=== PATIENT | female | born 1965 | race Caucasian/White ===

== ENCOUNTER 2020-01-19 17:22 | Emergency (ER) | payer OTHER, SELFPAY ==
--- NOTE | ~2020-01-19 | CT_ITS ---
EXAMINATION: CT abdomen pelvis w con EXAM DATE: 01/19/2020 18:31 INDICATION: Nausea vomiting and diarrhea. Recent test for COVID-19 TECHNIQUE: Spiral CT of the abdomen and pelvis was performed following intravenous injection of 100 m L Omnipaque 350. Axial, coronal and sagittal images were reviewed. The dose-length product (DLP) fo r this examination was 512.61 mGy-cm. The exposure was tailored according to patient size (auto mA e xposure control), and iterative reconstruction (ASIR) was used as additional dose reduction technique . There is no prior study for comparison. FINDINGS: The largest liver cyst is in the right liver lobe centrally, measures 1.8 cm. The spleen, pancreas, and adrenal glands are unremarkable. Gallbladder is unremarkable. No biliary obstruction. Portal and splenic veins are patent. Kidneys enhance symmetrically. There is no hydronephrosis. The uterus is anteverted and morphologically normal. The bladder is unremarkable. There is no ret roperitoneal or pelvic lymphadenopathy. Small nonspecific cystic nodule of soft tissue density ante rior to the pubis symphysis just right of midline measuring 1.2 x 1.0 cm, nonspecific. The appendix is normal. The stomach and small bowel are unremarkable. There is expected amount of c olonic stool. No free intraperitoneal gas. The heart is normal in size. There are no pericardial or pleural effusions. The lung bases are unremarkable. There are no osteoblastic or osteolytic les ions identified. IMPRESSION: 1. No acute cardiac pulmonary findings. 2. Small nodule of soft tissue anterior to pubis; consider follow-up nonemergent ultrasound to deter mine if this is solid or cystic. Reviewed, dictated and finalized at location A. IMPRESSION: 1. No acute cardiac pulmonary findings. 2. Small nodule of soft tissue anterior to pubis; consider follow-up nonemerge nt ultrasound to determine if this is solid or cystic.
[2020-01-19 17:27] VITALS: BP 164/95; PULSE 80; RESP 17; TEMP 36.9; O2SAT 100
--- NOTE | 2020-01-19 17:31 | ED.NAVMDI ---
HPI - Nausea/Vomiting/Diarrhea General Chief complaint: Nausea/Vomiting/Diarrhea Stated complaint: ill x 3Weeks/tested for Covid 2 days ago no result Time Seen by Provider: 01/19/20 17:31 Source: patient and family Mode of arrival: ambulatory Limitations: no limitations History of Present Illness HPI Narrative: Patient is a 54-year-old previously healthy female who presents for evaluation of nausea and diarrhea. Patient states that she generally feels unwell and has felt this way for over 2-1/2 weeks time. She states that she has had numerous episodes of watery diarrhea, no blood or mucus present. She denies any current abdominal pain or cramping. No vomiting today. No fever or chills, sore throat, rhinorrhea, loss of sense of taste or smell. Patient does not have a primary care physician, so has not followed with anyone since her former PCP retired a few years ago. She does not have any recent sick contacts. She was with her in a college aged son who does go to classes and does work outside of the home but is not having any recent illnesses or any complaints/symptoms. Patient states she feels very tired. Patient denies any cough or shortness of breath. No rashes. Related Data Home Medications Medication Instructions Recorded Confirmed estradiol-norethindrone acet tablet 01/19/20 [Amabelz] Allergies Allergy/AdvReac Type Severity Reaction Status Date / Time codeine Allergy Mild Nausea and Verified 01/19/20 17:33 Vomiting Review of Systems Review of Systems: Narrative: CONSTITUTIONAL: Denies fever, chills EYES: Denies visual changes ENT: Denies rhinorrhea, congestion, sore throat, or otalgia. CARDIOVASCULAR: Denies chest pain RESPIRATORY: Denies cough or dyspnea. GASTROINTESTINAL: Denies abdominal pain, reports nausea, vomiting and diarrhea GENITOURINARY: Denies dysuria or hematuria. SKIN: Denies rash or itching. MUSCULOSKELETAL: Denies back pain, joint pain, or myalgia. NEUROLOGIC: Denies headache, numbness, or weakness. Reports fatigue. [facility] Past Medical History Medical History Melanoma Vertigo Surgical History Surgical History History of tonsillectomy Social History Social History (Updated 01/19/20 @ 17:49 by Claribel Chin MD) Smoking status: Never smoker Alcohol intake: current Alcohol use details: Social, rarely as of late due to symptoms Substance use: never Living arrangements: with family Gender identity (if verbalized by the patient): Female Exam Narrative: Exam Narrative: GENERAL: Awake, alert, conversant HEAD: Normocephalic, atraumatic. EYES: PERRLA and EOMI. ENT: Nares clear, no rhinorrhea or epistaxis. Mucous membranes dry NECK: Supple. CHEST: No respiratory distress, breathing even and non labored HEART: Regular rate, sinus rhythm ABDOMEN:Non distended, non tender, no rebound, no guarding EXTREMITIES: Normal range of motion. No edema. SKIN: Warm, dry, no rash. NEURO:No focal deficits. Alert and oriented x3 Course Vital Signs Vital signs: Vital Signs Temperature 36.9 C 01/19/20 17:27 Pulse Rate 80 01/19/20 17:27 Respiratory Rate 17 01/19/20 17:27 Blood Pressure 164/95 H 01/19/20 17:27 Pulse Oximetry 100 01/19/20 17:27 Temperature 36.9 C 01/19/20 17:27 Pulse Rate 80 01/19/20 17:27 Respiratory Rate 17 01/19/20 17:27 Blood Pressure 164/95 H 01/19/20 17:27 Pulse Oximetry 100 01/19/20 17:27 MDM - Nausea/Vomiting/Diarrhea MDM Narrative Medical decision making narrative: Patient presenting for evaluation of fatigue and diarrhea over the past 3 weeks. At the time of assessment, ABCs are intact and vital signs are stable. Patient is not having any abdominal pain, very benign abdominal exam at the time of assessment. Laboratory results are reassuring. Patient is mildly dehydrated. She has no severe el
[2020-01-19] MEDS: SODIUM CHLORIDE 0.9% IV 1,000 ML 999 ML IV CONT (17:40)
[2020-01-19] MEDS: ONDANSETRON INJ 4 MG/2 ML VIAL IV PUSH (17:40)
[2020-01-19 17:52] LABS: Basophils Percent Auto 0.7 % (0.2-1.2); Eosinophils Percent Auto 0.4 % (0-4.4); Hematocrit 49.5 % (37.0-47.0); Hemoglobin 16.9 g/dL (12.0-15.0); Immature Granulocyte Absolute 0.01 K/mm3 (0.00-0.031); Immature Granulocyte Percent A 0.2 % (0-0.5); Lymphocytes Absolute Auto 1.16 K/mm3 (0.9-3.2); Lymphocytes Percent Auto 20.5 % (18.3-44.2); Mean Corpuscular HGB Conc 34.1 g/dl (32-36); Mean Corpuscular Hemoglobin 29.6 pg (26-34); Mean Corpuscular Volume 86.7 fl (80-100); Mean Platelet Volume 11.2 fl (7.4-10.4); Monocytes Absolute Auto 0.6 K/mm3 (0.1-0.6); Monocytes Percent Auto 9.9 % (2.6-8.5); Neutrophils Absolute Auto 3.9 K/mm3 (1.3-6.7); Neutrophils Percent Auto 68.3 % (45.5-73.1); Platelet Count Result 303 k/mm3 (150-375); Red Blood Count 5.71 M/mm3 (4.2-5.4); Red Cell Distribution Width 12.5 % (11.5-14.5); White Blood Count 5.7 K/mm3 (4.5-10.0)
[2020-01-19 18:13] LABS: Alanine Aminotransferase 15 U/L (4-35); Albumin Level 4.8 g/dL (3.5-5.1); Alkaline Phosphatase 94 U/L (38-126); Anion Gap 9 mmol/L (8-16); Aspartate Amino Transferase 20 U/L (14-36); Bilirubin,Total 0.8 mg/dL (0.2-1.3); Blood Urea Nitrogen 11 mg/dL (7-17); Calcium 9.7 mg/dL (8.4-10.2); Carbon Dioxide 28 mmol/L (22-30); Chloride 101 mmol/L (98-107); Estimated CRCL calculation 103 ml/min; Estimated Glomerular Filt Rate > 60; Glucose 117 mg/dL (65-105); Lipase 36 U/L (23-300); Sodium 138 mmol/L (137-145)
[2020-01-19 19:31] VITALS: BP 133/80; PULSE 88; RESP 18; TEMP 36.6; O2SAT 99
== END 2020-01-19 19:33 | disposition home or self-care (01) ==
PROVIDERS: Emergency Provider Emergency Medicine; PCP Family Medicine Adolescent Medicine
DX: R19.7 Diarrhea, unspecified (principal); R53.82 Chronic fatigue, unspecified; Z85.820 Personal history of malignant melanoma of skin
CPT/HCPCS: 36415; 74177; 80053; 83690; 85025; 96361; 96365; 96375; 99284; J2405; J3411; J3475; J7030; J7121; Q9967

== ENCOUNTER 2020-01-23 10:52 | Emergency (ER) | payer OTHER, SELFPAY ==
[2020-01-23] VITALS (13 sets, daily range): BP systolic 108–147; BP diastolic 70–97; PULSE 74–107; RESP 12–20; TEMP 36.8; O2SAT 97–100
--- NOTE | ~2020-01-23 | XR_ITS ---
EXAMINATION: XR chest 1V EXAM DATE: 01/23/2020 13:00 INDICATION: Brain metastases. Nausea and vomiting. TECHNIQUE: Portable AP frontal chest x-ray was obtained. There is no prior study for comparison. FINDINGS: There is approximately 7 cm mass in the left upper lobe. Probably malignancy. The lungs are otherwise clear. There are no pleural effusions. The cardiomediastinal silhouette is within normal limits. There is no pneumothorax suspected. The bones and soft tissues are unremarkable. IMPRESSION: Approximately 7 cm left upper lobe mass likely malignancy. I discussed this mass, brain metastatic disease and recommendation with Sandra Christensen MD at 2019 13:07 CDT. Reviewed, dictated and finalized at location A. IMPRESSION: Approximately 7 cm left upper lobe mass likely malignancy. I discussed this mass, brain metastatic disease and recommendation with Sandra Christensen MD at 01/23/2020 13:07 CDT.
--- NOTE | ~2020-01-23 | CT_ITS ---
EXAMINATION: CT brain wo con EXAM DATE: 01/23/2020 12:55 INDICATION: Headache, nausea and vomiting, symptoms 3 weeks. TECHNIQUE: Spiral CT of the head was performed without contrast. Axial, coronal and sagittal images were reviewed. The dose-length product (DLP) for this examination was 605.33 mGy-cm. The exposure w as tailored according to patient size, and iterative reconstruction (ASIR) was used as additional dos e reduction technique. There is no prior study for comparison. FINDINGS: There are approximately 10-12 hyperdense masses identified within the cerebral hemispheres, largest in the left frontal lobe measuring 3.0 cm. There is associated vasogenic edema. There is a m ass in the right cerebellar hemisphere measuring 3.8 cm with associated vasogenic edema, some tonsill ar herniation inferiorly and mass effect on the 4th ventricle with crowding at the foramen magnum. Th e ventricles are more dilated than prior study from 2013, possible early obstructive hydrocephalus. M ost likely metastatic disease; recommend neurosurgical, oncology consult for possible radiation treat ment, metastatic workup No acute intracranial hemorrhage, extra-axial collections. There are no osseous abnormalities identif ied. Sinuses are well aerated. Soft tissues and orbits are unremarkable. IMPRESSION: Approximately 12 intracranial masses, largest in the right cerebellum causing mass effect on 4th vent ricle, foramen magnum crowding and some inferior migration of cerebellar tonsil. Possible early obstr uctive hydrocephalus. Recommend neurosurgical, oncology consult. Reviewed, dictated and finalized at location A. IMPRESSION: Approximately 12 intracranial masses, largest in the right cerebellum causing m ass effect on 4th ventricle, foramen magnum crowding and some inferior migratio n of cerebellar tonsil. Possible early obstructive hydrocephalus. Recommend litzy rosurgical, oncology consult.
--- NOTE | 2020-01-23 12:31 | ECG_ITS ---
Measurements Intervals [place] Rate: 74 P: 80 TN: 171 QRS: 77 QRSD: 134 T: 49 QT: 410 QTc: 457 Interpretive Statements SINUS RHYTHM RIGHT BUNDLE BRANCH BLOCK BASELINE ARTIFACT- I, II, AVR, AVL ABNORMAL ECG Electronically Signed On 01-23-2020 14:36:22 CDT by Domo Lopez D.O.
--- NOTE | 2020-01-23 12:37 | ED.WEAKNESS ---
HPI - Weakness General Chief complaint: Weakness Stated complaint: fatigue, n/v, headache Time Seen by Provider: 01/23/20 11:33 Source: patient and family Mode of arrival: ambulatory Limitations: no limitations History of Present Illness HPI Narrative: This patient is a 54 year old female who presents for evaluation of nausea, vomiting and fatigue. Patient and her states that she has been having fatigue 24 days. SHe also reports she was having nausea, vomiting and diarrhea. She also had a mild cough. She was evaluated in ER 4 days ago for her symptoms. She was started on antibiotics for colitis. She reports her diarrhea has resolved but she still feels fatigued. She denies abdominal pain, chest pain. Her states her symptoms appear worse with standing and in the mornings. He states she will feel fine and they she will stand up in the morning and feel completely drainaged. She had an episode of vomiting this morning and last night. Related Data Home Medications Medication Instructions Recorded Confirmed estradiol-norethindrone acet tablet 01/23/20 [Amabelz] Allergies Allergy/AdvReac Type Severity Reaction Status Date / Time codeine Allergy Mild Nausea and Verified 01/19/20 17:33 Vomiting Review of Systems Review of Systems: All systems reviewed & are unremarkable except as noted in HPI and below Constitutional: Constitutional: Denies chills, Reports fatigue and Denies fever(s) Cardiovascular: Cardiovascular: Denies chest pain Respiratory: Respiratory: Denies dyspnea Neurologic: Reports dizziness, Reports headache(s), Denies numbness and Reports weakness Endocrine: Endocrine: Reports fatigue [facility] Social History Social History (Updated 01/19/20 @ 17:49 by Claribel Chin MD) Smoking status: Never smoker Alcohol intake: current Substance use: never Gender identity (if verbalized by the patient): Female Exam Const: General: no acute distress and alert Orientation/consciousness: patient oriented x3 Other: appears to not feel well HENMT: Head: normocephalic and atraumatic Ears: TM normal on the right and TM normal on the left Face and sinus: face symmetric Mouth: Yes Normal oral and palatal mucosa present, Yes lip normal and Yes oropharynx normal Eyes: Pupils: Equal, round and reactive pupils present EOM: EOMs intact bilaterally Chest: Chest palpation & inspection: normal inspection of the chest Resp: Effort & Inspection: normal respiratory effort, no retractions and no use of accessory muscles Auscultation: clear to auscultation bilaterally Cardio: Rate: regular rate Rhythm: regular rhythm Heart sounds: no murmurs GI: GI Palp: Yes Soft to palpation, No Tenderness to palpation present (GI), No Guarding due to palpation present (GI), No Rigid due to palpation and No Hernia present Back/Spine/Pelvis: Back: no CVA tenderness Skin: General skin exam: normal color Rashes: no rashes Neuro: General: patient oriented x3, moves all extremities, no meningeal signs, no focal motor deficits and CN's II-XI intact bilaterally Course Reevaluation(s) Reevaluation #1: I discussed with patient and findings. They were request [facility] as transfer hospital for evaluation of brain masses Date: 01/23/20 Time: 13:57 Consultations Consultation #1: I Discussed CT with Dr. Torres of [facility] neurosurgery. He accepts patient to step down unit if unable to transfer to ER. I spoke with ER physician who states they are unable to accept at this time. Date: 01/23/20 Time: 13:55 Vital Signs Vital signs: Vital Signs Temperature 98.2 F 01/23/20 11:07 Pulse Rate 107 H 01/23/20 11:07 Respiratory Rate 20 01/23/20 11:07 Blood Pressure 108/70 01/23/20 11:07 Pulse Oximetry 100 01/23/20 11:07 Temperature 98.2 F 01/23/20 11:07 Pulse Rate 74 01/23/20 19:00 Respiratory Rate 12 01/23/20 19:00 Blood Pressure 137/91 H 01/23/20 19:00 Pulse Oximetry 97
[2020-01-23] MEDS: LACTATED RINGERS 1,000 ML 999 ML IV CONT ×2 (13:15)
[2020-01-23] MEDS: ONDANSETRON INJ 4 MG/2 ML VIAL IV PUSH (13:15)
[2020-01-23 13:20] LABS: Basophils Percent Auto 0.6 % (0.2-1.2); Eosinophils Absolute Auto 0.1 K/mm3 (0-0.3); Hemoglobin 16.5 g/dL (12.0-15.0); Immature Granulocyte Absolute 0.01 K/mm3 (0.00-0.031); Immature Granulocyte Percent A 0.2 % (0-0.5); Lymphocytes Absolute Auto 0.95 K/mm3 (0.9-3.2); Lymphocytes Percent Auto 18.2 % (18.3-44.2); Mean Corpuscular HGB Conc 33.7 g/dl (32-36); Mean Corpuscular Hemoglobin 29.6 pg (26-34); Mean Platelet Volume 10.6 fl (7.4-10.4); Monocytes Absolute Auto 0.6 K/mm3 (0.1-0.6); Monocytes Percent Auto 12.1 % (2.6-8.5); Neutrophils Absolute Auto 3.5 K/mm3 (1.3-6.7); Neutrophils Percent Auto 67.9 % (45.5-73.1); Platelet Count Result 238 k/mm3 (150-375); Red Blood Count 5.57 M/mm3 (4.2-5.4); Red Cell Distribution Width 12.4 % (11.5-14.5); White Blood Count 5.2 K/mm3 (4.5-10.0)
[2020-01-23 13:37] LABS: INR 1.1; Partial Thromboplastin Time 25.5 SECONDS (22.3-36.8); Prothrombin Time 13.6 Seconds (11.1-14.7)
[2020-01-23 13:38] LABS: Alanine Aminotransferase 11 U/L (4-35); Albumin Level 4.3 g/dL (3.5-5.1); Alkaline Phosphatase 83 U/L (38-126); Anion Gap 6 mmol/L (8-16); Aspartate Amino Transferase 17 U/L (14-36); Bilirubin,Total 0.7 mg/dL (0.2-1.3); Blood Urea Nitrogen 13 mg/dL (7-17); CRP 1.1 mg/dL (<1.0); Calcium 9.5 mg/dL (8.4-10.2); Carbon Dioxide 32 mmol/L (22-30); Chloride 99 mmol/L (98-107); Estimated CRCL calculation 79 ml/min; Estimated Glomerular Filt Rate > 60; Glucose 105 mg/dL (65-105); Potassium 3.7 mmol/L (3.4-5.0); Sodium 137 mmol/L (137-145)
[2020-01-23 13:40] LABS: Lipase 103 U/L (23-300); Magnesium 2.3 mg/dL (1.6-2.3)
[2020-01-23] MEDS: levETIRAcetam 1000MG/NACL100ML 1,000 MG/100 ML BAG 400 MG IVPB (14:34)
[2020-01-23 14:56] LABS: Add Urine Microscopic? NO; Appearance Urine Clear (Clear); Bilirubin Urine Negative (Negative); Blood Urine Negative (Negative); Color Urine Straw (Yellow); Glucose Urine UA Negative (Negative); Ketones Urine Negative (Negative); Leukocyte Esterase Ur Negative LEU/UL (Negative); Nitrate Urine Negative (Negative); Protein Urine Negative (Negative); Specific Grav Ur 1.008 (1.001-1.035); Urobilinogen Urine Negative mg/dL (<2.0)
[2020-01-23 15:42] LABS: Amphetamine Screen Urine Negative (Negative); Barbiturate Screen Urine Negative (Negative); Benzodiazepines Screen Urine Negative (Negative); Cannabinoid Screen Urine Negative (Negative); Cocaine Screen Urine Negative (Negative); Methadone Screen Urine Negative (Negative); Opiate Screen Urine Negative (Negative); Phencyclidine Screen Urine Negative (Negative)
== END 2020-01-23 17:36 | disposition short-term general hospital (02) ==
PROVIDERS: Emergency Provider General Practice
DX: R91.8 Other nonspecific abnormal finding of lung field (principal); C79.31 Secondary malignant neoplasm of brain; C80.1 Malignant (primary) neoplasm, unspecified
CPT/HCPCS: 36415; 70450; 71045; 80053; 80307; 81003; 83605; 83690; 83735; 84443; 85025; 85610; 85730; 86140; 93005; 96361; 96365; 96375; 99285; J1100; J1953; J2405; J7120

== ENCOUNTER 2024-07-26 11:59 | Outpatient (NON) | payer OTHER, SELFPAY ==
[2024-07-26 12:57] LABS: Add Urine Microscopic? YES; Appearance Urine Cloudy (Clear); Bacteria Urine 1+ /hpf; Bilirubin Urine Negative (Negative); Blood Urine Negative (Negative); Calcium Oxalate Crystals Urine Present /hpf; Color Urine Yellow (Yellow); Glucose Urine UA Negative (Negative); Ketones Urine Negative (Negative); Leukocyte Esterase Ur 1+ LEU/UL (Negative); Nitrate Urine Negative (Negative); Non Pathogenic Casts 0-2; Protein Urine Negative (Negative); RBC Urine 21-50 /hpf (0-2); Squamous Epithelial Cell Urine Few /hpf (Few); Urobilinogen Urine 0.2 mg/dL (<2.0); WBC Urine 0-5 /hpf (0-3); pH Urine 6.5 (5.0-9.0)
--- OUTSIDE RECORDS SUMMARY | 2024-07-26 13:29 | XMS_ITS | Encounter Summary ---
Author Organization [facility] Address [address] [place] [address] Phone Care Team Providers Care Service Order Dispatcher Name Role Phone Ludin Salazar MD Primary Care Prov ider Jerome Boss MD PhD Unavailable + Ney Martin MD Unavailable [phone] Geraldine Thompson NP Unavailable [phone] Encounter Details Date Type Department Care Team (Latest Contact Info) Description 10/22/2022 Orders Only [facility] Scanning, Provider Social History Tobacco Use Types Packs/Day Years Used Date Smoking Tobacco: Former Cigarettes 0.5 5 1 999 - 2004 Passive Smoke Exposure: Past Smokeless Tobacco: Never Alcohol Use Standard Drinks/Week Comments Not Currently 1 (1 standard drink = 0.6 oz pur e alcohol) rarely AUDIT-C Answer Date Recorded Q1: How often do you have a drink containing alc ohol? 2-3 times a week 10/14/2022 Q2: How many drinks containi ng alcohol do you have on a typical day when you are drinking? 1 or 2 10/14/2022 Q3: How often do you have si x or more drinks on one occasion? Never 10/14/2022 PHQ-2 Answer Date Recorded PHQ-2 Total Score (If total score is 3 or more points, staff should administer the PHQ-9) 0 04/09/2020 Comments No Sex and Gender Information Value Date Recorded Sex Assigned at Not on file Legal Sex Female 4:54 AM CERTIFIED OPTICIAN Gender Identity Female 06/11/2020 9:12 AM CERTIFIED OPTICIAN Sexual Orientation Straight 06/11/2020 9: 12 AM CERTIFIED OPTICIAN Occupation Industry Job Start Date Job End Date Disabled - Former [employer] Not on file Not on file Not on file documented as of this encounter Plan of Treatment Not on file documented as of this encounter Procedures Procedure Name Priority Date/Time Associated Diagnosis Comments SCAN - PATHOLOGY 10/22/2022 documented in this encounter Results * SCAN - PATHOLOGY (10/22/2022) us Provider Scanning Final Result documented in this encounter Visit Diagnoses Not on filedocumented in this encounter Additional Health Concerns Infection Onset Date Last Indicated Resolved Time COVID: Suspected 05/03/2023 05/03/2023 05/03/2023 4:43 AM CERTIFIED OPTICIAN Influenza, adult 05/03/2023 05/03/2023 05/10/2023 3:05 AM CERTIFIED OPTICIAN COVID: Suspected 10/14/2023 10/14/2023 10/14/2023 6:43 PM CDT documented as of this encounter Care Teams Service Order Dispatcher Relationship Specialty Start Date End Date Ludin Salazar MD [address] [place] [address] PCP - General Family Medicine 02/28/20 Jerome Boss MD PhD [address] [facility] [address] [place] [address] Medical Oncologist/Emergency Planner Medical Oncology 12/20/20 Ney Martin MD [address] [facility] [address] [place] [address] Consulting Physician Neurosurgery 08/20/22 Geraldine Thompson NP [address] [facility] [place] [address] Nurse Practitioner Family Practice 02/19/24 documented as of this encounter
--- OUTSIDE RECORDS SUMMARY | 2024-07-26 13:29 | XMS_ITS | Encounter Summary ---
Author Organization [facility] Address [address] [place] [address] Phone Care Team Providers Care Job Boss Name Role Phone Favian Hinds MD Unavailable Ludin Salazar MD Primary Care Prov ider Gen Mendez MD Unavailable Jerome Boss MD PhD Unavailable + Ney Martin MD Unavailable Geraldine Thompson NP Unavailable [phone] Encounter Details Date Type Department Care Team (Late st Contact Info) Description 07/30/2020 Documentation [facility] Oncology [address] [facility] Advanced Medicine 7th [place] [address] [place] [id number] Rosalinda Conway RN Social History Tobacco Use Types Packs/Day Years Used Date Smoking Tobacco: Former Cigarettes Smokeless Tobacco: Never Alcohol Use Standard Drinks/Week Comments Not Currently 1 (1 standard drink = 0.6 oz pur e alcohol) rarely PHQ-2 Answer Date Recorded PHQ-2 Total Score (If total score is 3 or more points, staff should administer the PHQ-9) 0 04/09/2020 Comments No Sex and Gender Information Value Date Recorded Sex Assigned at Not on file Legal Sex Female 4:54 AM OVER HAULER HELPER Gender Identity Female 06/11/2020 9:12 AM OVER HAULER HELPER Sexual Orientation Straight 06/11/2020 9: 12 AM OVER HAULER HELPER 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 Not on file Not on file documented as of this encounter Plan of Treatment Not on file documented as of this encounter Visit Diagnoses Not on filedocumented in this encounter Additional Health Concerns Infection Onset Date Last Indicated Resolved Time COVID: Suspected 05/11/2022 05/11/2022 05/11/2022 1:13 PM OVER HAULER HELPER COVID: Suspected 05/03/2023 05/03/2023 05/03/2023 4:43 AM OVER HAULER HELPER Influenza, adult 05/03/2023 05/03/2023 05/10/2023 3:05 AM OVER HAULER HELPER COVID: Suspected 10/14/2023 10/14/2023 10/14/2023 6:43 PM CDT documented as of this encounter Care Teams Job Boss Relationship Specialty Start Date End Date Ludin Salazar MD [address] [place] [address] PCP - General Family Medicine 02/28/20 Favian Hinds MD Referring Physician Neurosurgery 01/27/20 08/19/22 Gen Mendez MD [address] [place] [address] Medical Oncologist/Gas Engineer Medical Oncology 06/20/20 12/19/20 Jerome Boss MD PhD [address] [facility] [address] [place] [address] Medical Oncologist/Gas Engineer Medical Oncology 12/20/20 Ney Martin MD [address] [facility] [address] [place] [address] Consulting Physician Neurosurgery 08/20/22 Geraldine Thompson NP [address] [place] [address] Nurse Practitioner Family Practice 02/19/24 documented as of this encounter
--- OUTSIDE RECORDS SUMMARY | 2024-07-26 13:29 | XMS_ITS | Encounter Summary ---
Author Organization [facility] Address [address] [place] [address] Phone Care Team Providers Care Telephone Instrument Supervisor Name Role Phone Ludin Salazar MD Primary Care Prov ider Jerome Boss MD PhD Unavailable + Ney Martin MD Unavailable Geraldine Thompson NP Unavailable [phone] Encounter Details Date Type Department Care Team (Latest Contact Info) Description 03/16/2024 Orders Only [facility] Scanning, Provider Social History Tobacco Use Types Packs/Day Years Used Date Smoking Tobacco: Former Cigarettes 0.5 5 1 999 - 2004 Passive Smoke Exposure: Past Smokeless Tobacco: Never Alcohol Use Standard Drinks/Week Comments Not Currently 1 (1 standard drink = 0.6 oz pur e alcohol) rarely [facility] Utilities Answer Date Recorded In the past 12 months has [employer], gas, oil, or water [employer] threatened to shut off services in your home? No 01/13/2024 Social Connection and Isolat ion Panel [NHANES] Answer Date Recorded In a typical week, how many times do you talk on the phone with family, friends, or neighbors? More than three times a week 01/13/2024 How often do you get togethe r with friends or relatives? More than three times a week 01/13/2024 How often do you attend chur or protestant services? More than 4 times per year 01/13/2024 Do you belong to any clubs o r organizations such as mormonism groups, unions, fraternal or athletic groups, or school groups? No 01/13/2024 How often do you attend meet ings of the clubs or organizations you belong to? Never 01/13/2024 Are you , , di vorced, , never , or living with a partner? 01/13/2024 AUDIT-C Answer Date Recorded Q1: How often do you have a drink containing alc ohol? Never 10/06/2023 Average Number of Drinks Not on file 024 Frequency of Binge Drinking Not on file 09/09 Overall Financial Resource Strain (CARDIA) Answe r Date Recorded How hard is it for you to pa y for the very basics like food, housing, medical care, and heating? Not hard at all 01/13/2024 PHQ-2 Answer Date Recorded PHQ-2 Total Score 0 01/13/2024 Hunger Vital Sign Answer Date Recorded Within the past 12 months, y ou worried that your food would run out before you got the money to buy more. Never true 01/13/20 24 Within the past 12 months, t he food you bought just didn't last and you didn't have money to get more. Never true 01/13/2024 PRAPARE - Transportation Answer Date Re corded In the past 12 months, has l ack of transportation kept you from medical appointments or from getting medications? No 08/2023 In the past 12 months, has l ack of transportation kept you from meetings, work, or from getting things needed for daily living? No 01/13/2024 Housing Stability Vital Sign Answer Gualberto e Recorded In the last 12 months, was t here a time when you were not able to pay the mortgage or rent on time? No 09/26/2023 In the last 12 months, how many places have you lived? 1 09/26/2023 In the last 12 months, was t here a time when you did not have a steady place to sleep or slept in a fpc (including now)? No 09/26/2023 Housing Stability Vital Sign Answer Gualberto e Recorded In the last 12 months, was t here a time when you were not able to pay the mortgage or rent on time? No 01/13/2024 In the past 12 months, how m any times have you moved where you were living? 1 01/13/2024 At any time in the past 12 m [facility], were you homeless or living in a fpc (including now)? No 01/13/2024 Personal Safety Answer Date Recorded Have you ever been in or are you currently in a harmful physical or emotional relationship or is someone making you feel afraid or unsafe? 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 Not on file Not on file documented as of this encounter Plan of Treatment Not on file documented as of this encounter Procedures Procedure Name Priority Date/Time Associated Diagnosis Comments SCAN - PATHOLOGY 03/16/2024 3:35 PM RING SPINNER documented in this encounter Results * SCAN - PATHOLOGY (03/16/2024 3:35 PM RING SPINNER) Provider Scanning Final Result documented in this encounter Visit Diagnoses Not on filedocumented in this encounter Care Teams Telephone Instrument Supervisor Relationship Specialty Start Date End Date Ludin Salazar MD [address] [place] [address] PCP - General Family Medicine 02/28/20 Jerome Boss MD PhD [address] [address] Medical Oncologist/It Program Manager Medical Oncology 12/20/20 Ney Martin MD [address] [id number] Consulting Physician Neurosurgery 08/20/22 Geraldine Thompson NP [place] [address] Nurse Practitioner Family Practice 02/19/24 documented as of this encounter
--- OUTSIDE RECORDS SUMMARY | 2024-07-26 13:29 | XMS_ITS ---
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 Her most recent baseline is AOx2-3 with mild word finding difficulties. Her altered mental status has been attributed to multifactorial etiologies, including ICI-encephalitis, non-convulsive, status, delirium, toxic-metabolic insults, and infection. Her last bMRI 05/2024 showed post- treatment changes without new disease. PET scan at admission didn't show new neurologic disease. cEEG for 72hr w/o evidence of status epilepticus. - Patient seems to be back to her neurologic baseline (still with frequent delirium) after treatment of UTI - Per neurology team, she has post-treatment changes of XRT that predispose her to TME and delirium, even from occult toxic insults - Continue home prednisone 20mg for chronic encephalopathy per onc (didn't improve with trial of 30mg during admission, so back to prior dose) - Continue lacosamide and Keppra - Currently AO x3 - Working on placement to inpatient rehab Oral ulcer 05/24/2024 Assessment & Plan (05/25/2024 4:45 PM BOOT AND SHOE LABORER): - Throat Cx - NGTD - HSV PCR - negative Headache 05/24/2024 Assessment & Plan (06/23/2024 9:48 AM BOOT AND SHOE LABORER): - Not currently complaining of active headache, although has been 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 - Continue home verapamil 240mg BID Assessment & Plan (05/26/2024 4:38 PM BOOT AND SHOE LABORER): - p/w right sided MCCONNELL. 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 Redemonstrated left anterior frontal encephalomalacia or vasogenic edema. Old right cerebellar infarct. - bMRI (05/24) - stable supratentorial and infratentorial foci of susceptibility and mild diffuse pachymeningeal thickening and enhancement compatible with post treatment changes. No new enhancing lesion. 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 Early filling of the torcula, straight sinus, and left transverse sinus, which could represent dural arteriovenous fistula - Neuro Interventional Radiology consult - performed angiogram, revealing superior sagittal sinus occlusion with some delayed venous drainage through cortical veins as a result. No arterial venous malformation or fistula. - Neurology c/s- recommends continuing Verapamil 240 mg BID. If symptoms return or persist, they recommend low-dose gabapentin trial. Consider cross titrating Vimpat for Oxcarbamazepine. Disorientation 05/23/2024 Hypertension, essential 05/23/2024 Assessment & Plan (05/23/2024 5:10 PM BOOT AND SHOE LABORER): On home hydrochlorothiazide. Holding in the setting of normotension Low back pain 05/23/2024 Assessment & Plan (06/22/2024 8:29 AM BOOT AND SHOE LABORER): - Has history of compression fractures in the spine. PET scan showed new T6 compression fracture. Patient endorses 5-6/10 pain with movements, denies any urine/bowel incontinence/pelvic numbness. In good upper and lower extremity strength. No concern for cord compression. Patient's mentioned that she saw a spine doctor in the past who recommended kyphoplasty that they refused. - 06/21 dicussed with , he would like to follow up for the spinal pain if it does not resolved (did not want [facility] IR consult this admission , nor did he want referral) - Continue with TLSO brace - Continue tylenol/oxycodone and lidocaine patches PRN, Robaxin currently scheduled 3 times a day - Vitamin-D level is low, supplementation started Assessment & Plan (05/23/2024 5:13 PM BOOT AND SHOE LABORER): Prior history of compression fractures in lumbar spine - PRN oxy and lidocaine patches Anxiety state 02/08/2024 Chronic cough 01/17/2024 Assessment & Plan (01/17/2024 5:20 PM CDT): - 01/11 chest xray no pleural effusion or pneumothorax Elevated liver enzymes 01/14/2024 Assessment & Plan (01/27/2024 1:40 PM CDT): - patient has hx of ICI induced hepatitis. - AST/ALT elevated to 2059/1081. - Hepatitis viral panel nonreactive - Hepatology consulted, recommended leiver US, Tylenol level, ammonia level -> all ordered. Recommended consult to med onc for possible immunomodulator-induced hepatitis. - liver enzymes improved rapidly with normal Liver US, normal Ammonia and Acetaminophen level was 9. - Because of rapid improvement hepatology thinks it could be secondary to ischemic injury to liver, despite patient did not have hypotension. - Med onc thinks hepatitis is secondary to immunomodulatory-related hepatitis and patient steroids was increased to 60mg daily. - monitor liver function test---on day of discharge this was significantly improved prior to previous and deemed stable to discharge and non abdominal pain -TTE 01/18: no acute abnormalities Assessment & Plan (01/18/2024 10:31 AM CDT): ACT labs notable for AST to 2058, ALT to 1081. Repeat CMP unchanged. Per chart review, this appears to be new. Hepatitis viral panel nonreactive - 01/13: Hepatology consulted, recommended leiver US, Tylenol level, ammonia level -> all ordered. Recommended consult to med onc for possible immunomodulator-induced hepatitis. Pending med onc recs. -01/14: liver enzymes improving today. Liver US normal. Ammonia normal. Acetaminophen level normal. Med onc thinks immunomodulatory-related hepatitis. Following. - Hepatology consult - 01/16: LFTs downtrending - 01/17: LFTs continue to downtrend, hepatology recommends echo, ordered but can be done outpatient Discharge planning issues 01/13/2024 Assessment & Plan (01/18/2024 10:30 AM CDT): - CM initial assessment - 01/14: pending spine MRI, hepatology consult, med onc recommendations - 01/15: pending additional consult recommendations - 01/16: f/u neurology recommendations for vimpat on Thursday, ortho spine continue non op management -01/17: fu neuro recs, ok to TTF, transfer order placed to Medical Oncology Compression fracture of L3 vertebra 01/12/2024 Assessment & Plan (05/27/2024 1:39 PM BOOT AND SHOE LABORER): MRI spine from 03/03 with no evidence of metastatic disease in the spine and healing L3 compression deformity. Patient did have a fall in March which has worsened her back pain. - Oxy-IR prn, Lidocaine patches for pain - Current TLSO brace ill-fitting d/t change in weight. Continues to need brace for comfort due to pain. Plan to refit brace. Assessment & Plan (01/27/2024 1:40 PM CDT): - Ortho-spine consulted - MRI total spine w/wo: Compression deformities of the L3 and L4 vertebral bodies with approximately 30% and 20% height loss, acute/subacute, similar to prior CT lumbar spine. Degenerative changes most pronounced in the lumbar spine. - XR scoliosis AP and Lateral: Unchanged compression deformities of the T4, T9, L3 and L4 vertebral bodies better evaluated on recent cross-sectional examinations. - Non op - CW Custom TLSO - Pain control - PT/OT - touched base with ortho spine 01/19: She can be weight bearing as tolerated from the spine team, no further inpatient workup. They will schedule follow up for her. Instruction from ortho team about the spine brace: TLSO Brace Care Instructions - You were prescribed a brace to wear for your back fracture/injury for comfort with ambulation. - Do not need to wear at all times, okay to discontinue when lying or seated. - Okay to ambulate without brace if not having any pain - Do not wear for hygiene including showers. - Recommend removal at minimum once per day for skin check. Assessment & Plan (01/17/2024 5:17 PM CDT): - Ortho-spine consulted - Non op - MRI total spine w/wo wanted, ordered, can be done outpatient - Custom TLSO ordered - Will need upright imaging in TLSO - Pain control - PT/OT - 01/14: order MRI total spine, Ativan 0.5 mg PRN if needed for anxiety for MRI - Spine MRI (01/15): Compression deformities of the L3 and L4 vertebral bodies with approximately 30% and 20% height loss, acute/subacute, similar to prior CT lumbar spine. Degenerative changes most pronounced in the lumbar spine. - 01/15: Ortho Spine contacted for MRI review and additional recommendations - 01/16: no new recommendations, non operative, continue WBAT in TLSO Closed fracture of distal end of right radius Assessment & Plan (01/27/2024 1:40 PM CDT): - PRS hand consulted - Non op in splint - NWB RUE - Pain control - PT/OT - touched base with plastic surgery on day of discharge regarding final restrictions: Mobility restriction instruction per ortho spine team and plastic surgery team: For the Right upper extremity: Elevate RUE, NWB, and ok for range of motion of the FINGER For the Spine: Can be weight bearing as tolerated and see above instructions Assessment & Plan (01/13/2024 3:03 PM CDT): - PRS hand consulted - Non op in splint - NWB RUE - Pain control - PT/OT Fracture 01/12/2024 Radiation therapy complication 09/26/2023 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 CT performed with no acute finding 01/13: ACT called overnight for ?seizure. Neurology consulted, initiated 24hr EEG. Current epileptic regimen Vimpat IV 20 mg BID, Keppra 2g IV BID. CMP notable for elevation in liver enzymes. Mental status improved in AM, however back to A+Ox0- 1 in PM. Neurology following. Will repeat CTH today, transfer patient to OU for closer mental status monitoring. NPO for altered mental status. -01/14: CTH unchanged, mental status waxing and waning. Made NPO for mental status. Passed bedside swallow. NPO tonight for MRI in case Ativan needed. ---- Neurology: EEG no seizures, agree with bMRI, can consider LP ---- Oncology: consider immunotherapy related change in mental status. bMRI, consider liver biopsy and/or liver MRI pending hepatology recommendations ---- Hepatology: consider severe hepatocellular liver injury with rapid improvement ischemic hepatitis. Recommend repeat TTE to assess for cardiac changes. INR and CMP daily. - 01/15: re-engage Med Onc for additional recommendations. Neurology to review and leave additional recommendations. -01/17: mental status improved, A+Ox4 Assessment & Plan (05/05/2023 4:20 PM BOOT AND SHOE LABORER): Workup now with MRI unchanged from prior, influenza A+. Presume related to influenza and profoundly high fever; however, given how altered she was for hours after the event and now back to baseline in the setting of known intracranial issues and prior seizures, do think it would be important to obtain spot eeg and follow up results - EEG without active seizure - AMS resolved Insomnia 05/03/2023 Assessment & Plan (10/26/2023 3:01 PM CDT): also reports pt has hx of insomnia and is concerned she would be more delirious without sleep. Already on scheduled ramelteon. trazodone 25g doesn't work as she was taking 50mg at home. Given improvement in mental status, Trazodone increased back to 50mg qhs prn. Advised sleep hygiene Assessment & Plan (05/03/2023 8:08 AM BOOT AND SHOE LABORER): - resumed home trazodone/ramelteon Influenza A 05/03/2023 Assessment & Plan (05/05/2023 4:23 PM BOOT AND SHOE LABORER): RVP + for influenza A on her admission. Pt started on tamiflu in the ED - cont tamiflu for 5 days (05/03-05/07) - tylenol for fevers. Afebrile for over 48h and blood cultures negative. Dc abx. okay to discharge home to complete tamiflu course as symptoms improved from admission Fever 05/03/2023 Assessment & Plan (05/05/2023 4:26 PM BOOT AND SHOE LABORER): Patient has quite a high fever in the ED up to 103. Do suspect this is related to influenza. UA is clean and CXR clear. Doubt meningitis given clincial improvement. Consider blood stream infection. Given her immunocompromised status, started on vanc/cefe on admission. Cultures neg, abx dc'ed 05/05 UTI (urinary tract infection) 05/27/2022 Assessment & Plan (06/20/2024 2:26 PM BOOT AND SHOE LABORER): - E. Coli UTI--suspect this likely contributed to acute mental decline that brought her to the hospital - Completed a course of ceftriaxone: 06/15-06/19 Assessment & Plan (05/27/2022 12:41 AM BOOT AND SHOE LABORER): UA positive for infection. Treat empirically with Macrobid for 5 days Viral meningoencephalitis 05/11/2022 Assessment & Plan (05/15/2022 4:32 PM BOOT AND SHOE LABORER): - Patient presenting with acute-onset encephalopathy with sepsis in setting of metastatic melanoma on nivolimumab - Evaluation with unremarkable CMP, WBC 2.7, Plts 138k, hs-trop 126 --> 1035 --> 859, lactate wnl, RVP negative, UA unremarkable, blood cultures obtained, EKG stable RBBB, and CXR clear. CTA without acute process noted. - Ddx unclear at this time though favor infection given high fevers. Will continue empiric coverage for meningitis while awaiting LP results. Monitor blood cultures. She is on checkpoint inhibitor, which raises concern for neurotoxicity, though this is less likely given timeline and patient improved without adequate dose of steroids. Lastly, no new mets noted on CT or brain MRI. - Brain MRI 05/13 with unchanged multifocal hemorrhagic lesions compatible with treated metastases, no new enhancing lesions - Routine EEG with mod-gen slowing and triphasics, consistent with toxic- metabolic etiology - LP 05/13 with Neuro-IR, CSF studies consistent with viral/aseptic meningitis, will discontinue all antimicrobials given negative HSV, VZV, CMV PCRs - Fall/Seizure Precautions - Neurology and transplant ID c/s, appreciate recs High risk medication use 05/11/2022 Assessment & Plan (05/15/2022 4:32 PM BOOT AND SHOE LABORER): - On therapeutic anticoagulation, resume home apixaban Intracranial venous thrombosis 05/11/2022 Assessment & Plan (06/19/2024 1:04 PM BOOT AND SHOE LABORER): - Continue home Eliquis Assessment & Plan (05/23/2024 5:07 PM BOOT AND SHOE LABORER): History of nonobstructive thrombus within superior sagittal sinus. Currently on Eliquis [address] Current head [address] with no evidence of intracranial hemorrhage. 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 -MRI unchanged - restart eliquis Assessment & Plan (05/27/2022 12:39 AM BOOT AND SHOE LABORER): Secondary to malignancy, thrombus appears to be stable on repeat CT venogram. Continue anticoagulation with Eliquis. Assessment & Plan (05/25/2022 12:49 AM BOOT AND SHOE LABORER): -Secondary to malignancy, thrombus appears to be stable on repeat CT venogram. -Continue anticoagulation with Eliquis. Assessment & Plan (05/19/2022 3:21 PM BOOT AND SHOE LABORER): Restart home apixaban Assessment & Plan (05/15/2022 4:32 PM BOOT AND SHOE LABORER): - Prior history s/p thrombectomy - Last dose apixaban 05/10 PM - s/p heparin gtt, resumed home apixaban Acquired hypothyroidism 05/11/2022 Assessment & Plan (06/14/2024 3:38 PM BOOT AND SHOE LABORER): - TSH WNL - Continue home synthroid Assessment & Plan (05/23/2024 5:08 PM BOOT AND SHOE LABORER): - Continue home Synthroid Assessment & Plan (10/17/2023 12:34 AM CDT): Continue home synthroid 125 mcg Assessment & Plan (05/03/2023 8:02 AM BOOT AND SHOE LABORER): - cont home synthroid 100 - recent TSH wnl Assessment & Plan (05/27/2022 12:40 AM BOOT AND SHOE LABORER): Continue home synthroid Assessment & Plan (05/25/2022 12:50 AM BOOT AND SHOE LABORER): -Continue home levothyroxine. Assessment & Plan (05/22/2022 9:59 AM BOOT AND SHOE LABORER): Resume home levothyroxine dose TSH 10: increased to 125 mc Assessment & Plan (05/11/2022 9:52 PM BOOT AND SHOE LABORER): - Cont levothyroxine Sepsis 05/11/2022 Assessment & Plan (05/11/2022 9:47 PM BOOT AND SHOE LABORER): - Evaluation/mgt per above NSTEMI (non-ST elevated myocardial infarction) 0 05/11/2022 Assessment & Plan (05/16/2022 3:14 PM BOOT AND SHOE LABORER): - Hs-trop has increased 127 --> 1035 --> 859 --> 699 in setting of known sepsis without cardiopulmonary complaints - Presume Type II NSTEMI in setting of sepsis - TTE performed 05/13 - Monitor telemetry Gallbladder mass 12/20/2020 Adrenal insufficiency (CMS/HCC) 08/07/2020 Assessment & Plan (01/27/2024 1:39 PM CDT): See detail about the prednisone taper plan under encephalopathy section. Assessment & Plan (01/17/2024 5:18 PM CDT): Takes Prednisone 7.5mg at home daily. - Was on a Prednisone taper starting at 80mg and decreasing by 10mg every 14d - May require IV MP for stress dosing if OR planned - Initially held home Prednisone, ok to restart per Spine - Will restart taper - 01/13: transitioned to IV steroids - 01/16: prednisone 60 mg daily Assessment & Plan (10/24/2023 12:08 PM CDT): Was given IV MP 100mg on 10/14 for stress dose. Otherwise cont home prednisone 7.5 mg daily. Assessment & Plan (05/03/2023 8:02 AM BOOT AND SHOE LABORER): - continue home prednisone 7.5mg daily Assessment & Plan (05/27/2022 12:42 AM BOOT AND SHOE LABORER): Continue prednisone Assessment & Plan (05/19/2022 3:19 PM BOOT AND SHOE LABORER): Restart home prednisone dose. Assessment & Plan (05/13/2022 5:21 PM BOOT AND SHOE LABORER): - Increased from Pred 7.5mg daily to hydrocortisone 50mg q8h given acute illness and hypotension, will wean gradually back to home dose due to clinical improvement Generalized weakness 07/12/2020 Assessment & Plan (06/23/2024 9:47 AM BOOT AND SHOE LABORER): - Presented with a several-day history of progressive weakness, which her describes as having a hard time ambulating without significant fatigue, and which progressed to being too weak to ambulate. - Found to have UTI, completed 5-day course of ceftriaxone - PT/OT, recommend inpatient rehabilitation, have started process of looking for placement, case management closely following. - Working on disposition to inpatient rehab (as of 06/23 awaiting insurance auth) Assessment & Plan (07/12/2020 3:08 PM BOOT AND SHOE LABORER): -could be caused by adrenal insufficiency 2/2 longterm steroid or immunotherapy use -currently takes dexamethasone 0.5 mg BID -will transition to prednisone 5 mg daily and perform a cosyntropin stimulation test on 07/31-she is aware that she needs to hold her prednisone dose the morning of the test Chemotherapy-induced nausea 06/08/2020 Seizures 04/03/2020 Assessment & Plan (06/18/2024 9:53 AM BOOT AND SHOE LABORER): - Continue home Lacosamide and Levetiracetam - 72hr cEEG performed during this admission without evidence of seizure activity Assessment & Plan (05/23/2024 5:04 PM BOOT AND SHOE LABORER): - Continue home antiepileptic Assessment & Plan (05/05/2023 4:19 PM BOOT AND SHOE LABORER): She initially presented with seizures in 2019 iso brain mets. During prolonged hospitalization in 05/2022 her AED reg increased, though no confirmed seizures at that time. Followed by neurology outpatient - continue home keppra, zonisamide - rEEG for AMS on arrival-->non-specific however without active seizure. AMS has since resolved Assessment & Plan (05/19/2022 3:20 PM BOOT AND SHOE LABORER): Keppra 1.5 g BID. Assessment & Plan (05/13/2022 5:22 PM BOOT AND SHOE LABORER): - History of seizures with last prior 2yrs ago - unclear if post-ictal on presentation with Severiano's Palsy? prior to arrival - Continue Keppra with Clonazepam bridge - Seizure/Fall precautions - Routine EEG, LP as discussed elsewhere Malignant melanoma, stage IV M1a 03/07/2020 Assessment & Plan (06/16/2024 12:58 PM BOOT AND SHOE LABORER): - Follows with Dr. Boss for history of melanoma. She is s/p several immunotherapy regimens which have been complicated by IrAEs. - PET scan 06/16/24 without evidence of disease progression. She will require 3mo follow up scan for lung nodules. Malignant melanoma of unknown origin (CMS/HCC) 1 Assessment & Plan (10/24/2023 12:10 PM CDT): Dx in 2003 with cutaneous melanoma on anterior chest, s/p excision. Represented in 2019 w/ recurrent disease involving the brain, lung, peritoneum, left adrenal gland, and right adductor compartment along with additional indeterminate [id number] lesions within the subcutaneous fat. Lung bx proven malignant melanoma. Completed WBRT 02/2020. 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 Most recent PET (08/23) w/o evidence of residual or recurrent malignancy Assessment & Plan (05/03/2023 10:15 AM BOOT AND SHOE LABORER): Patient has a history of malignant melanoma followed by Dr. Boss, mets to brain s/p whole brain radiation - currently on Nivolumab and relatlimab-rmbw - current rx: Nivolumab and relatlimab-rmbw, last treatment 04/29 - med onc consult Assessment & Plan (05/19/2022 3:20 PM BOOT AND SHOE LABORER): Currently on nivolumab last received on 04/30/22. - Med Onc c/s Assessment & Plan (05/16/2022 3:14 PM BOOT AND SHOE LABORER): - Follows with Dr. Boss c/b lung, gallbladder, brain mets - Last nivolumab infusion 04/30/22 - [facility] consult: per discussion with oncology, low suspicion for immunotherapy-related meningoencephalitis given timeline not consistent and patient's recovery not correlated with appropriate dose or class of steroid (would require higher dose of methylpred than what patient received for adrenal insufficiency) Secondary malignant melanoma of brain 02/01/2020 Cancer Staging:Clinical:Stage IV(cT0, cN0, cM1) - Signed by Azalea Ray MD on 02/01/2020 Assessment & Plan (05/24/2024 3:59 PM BOOT AND SHOE LABORER): - Per the recent ONC note she has been having stable waxing and waning cognitive impairment and was on a steroid taper. 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 - Continuing current dose of Vimpat, Keppra, Synthroid, Eliquis - Oncology consult following Assessment & Plan (01/27/2024 1:39 PM CDT): Dx in 2003 with cutaneous melanoma on anterior chest, s/p excision. Represented in 2019 w/ recurrent disease involving the brain, lung, peritoneum, left adrenal gland, and right adductor compartment along with additional indeterminate [id number] lesions within the subcutaneous fat. Lung bx proven malignant melanoma. Completed WBRT 02/2020. 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 Most recent PET (08/23) w/o evidence of residual or recurrent malignancy Medical oncology to follow up outpatient after discharge. Assessment & Plan (01/18/2024 10:30 AM CDT): Dx in 2003 with cutaneous melanoma on anterior chest, s/p excision. Represented in 2019 w/ recurrent disease involving the brain, lung, peritoneum, left adrenal gland, and right adductor compartment along with additional indeterminate dxicqu-[id number]-wpyk lesions within the subcutaneous fat. Lung bx proven malignant melanoma. Completed WBRT 02/2020. 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 --- 01/15: pending additional Med Onc recommendations -- increase prednisone to 60 mg daily --- 01/16: NSGY will see patient tomorrow and discuss vimpat dosing -01/17: awaiting neuro recs. Transfer order placed to medical oncology. 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 Boss in Oncology, currently on Nivolumab. MRI from prior admission with stable disease. Medical oncology consult. Assessment & Plan (05/25/2022 12:49 AM BOOT AND SHOE LABORER): -Patient follows Dr. Boss in Oncology, currently on Nivolumab. MRI from prior admission with stable disease. -Medical oncology consult. Current Treatment and Therapy Plans IV MAINTENANCE THERAPY PLAN* Plan Start Date:09/18/2021 Plan Provider:Jerome Boss MD PhD Linked Problems Malignant melanoma of unknow n origin (HCC) Treatment Medications No medications scheduled. Other Current Plans CORTROSYN STIMULATION TEST - HIGH DOSE (250 MCG)* Plan Start Date:08/14/2020 Plan Provider:Marta Veronica MD Linked Problems Generalized weaknessAdrenal insufficiency Treatment Medications No medications scheduled. Past Treatment and Therapy Plans Oncology Chemotherapy Treatment Plan Name Start Date Discontinue Date Treatment Medications Discontinue Reason Plan Provider Cycles Relatlimab and Nivolumab (OPDUALAG) 28 Day Cycles - Melanoma 3 07/13/2024 nivolumab 480 mg and relatlimab-rmbw 160 mg in sodium chloride 0.9% 50 mL IVPBnivolumab and relatlimab-rmbw (OPDUALAG) Therapy Complete Jerome Boss MD PhD 10 of 13 cycles started Nivolumab 480 mg 28 Day Cycles 0 06/11/2022 nivolumab (OPDIVO)nivoluma b (OPDIVO) in 50 mL IVPB Provider Discretion Jerome Boss MD PhD 21 of 23 cycles started Oncology Treatment (2) Plan Name Start Date Discontinue Date Treatment Medications Discontinue Reason Plan Provider Cycles Binimetinib PO BID / Encorafenib PO QD 28 day cycles - Melanoma 06/11/2022 07/13/2024 binimetinib (MEKTOVI)encor afenib (BRAFTOVI) Therapy Complete Jerome Boss MD PhD 1 of 6 cycles started Nivolumab 1 mg/kg / Ipilimumab 3 mg/kg 21 Day Cycles, Followed by Nivo 480mg until progression 02/28/20 20 07/03/2020 ipilimumab (YERVOY)ipilim umab (YERVOY) IVPB in 150 mLnivolumab (OPDIVO)nivolu mab (OPDIVO) in 50 mL IVPB Therapy Complete Gen Mendez MD 4 of 4 cycles started Oncology Treatment (3) Plan Name Start Date Discontinue Date Treatment Medications Discontinue Reason Plan Provider Cycles Binimetinib PO BID / Encorafenib PO QD 28 day cycles - Melanoma 04/09/20 20 05/15/2020 binimetinib (MEKTOVI)encor afenib (BRAFTOVI) Provider Discretion Gen Mendez MD Treatment not started Radiation Treatments * Course Whole Brain 201901/27/2020 - 02/09/2020 Treatment Period Energy Fraction Dose Fractions Total Dose Plans Planned WHOLE BRAIN 01/27/2020 - 02/09/2020 300 10 / 3,000 Reference Points Delivered WB_3000_Ref Pt 01/27/2020 - 02/09/2020 3,000 Lifetime Dose Tracking * Chemical Lifetime Dose Automatic Entry Manual Entr y Fluoro Time 88.8 minutes 88.8 minutes 0 minutes Air kerma at the reference point (Ka,r) 3,213 mGy 3 ,213 mGy 0 mGy DLP 26,716.2 mGycm 26,716.2 mGycm 0 mGycm Resolved Problems Problem Noted Date Diagnosed Date Resolved Date Dystonia 06/15/2024 06/16/2024 Assessment & Plan (06/15/2024 2:01 PM BOOT AND SHOE LABORER): - Patient favoring turning neck to the left, may be related to positioning/spasticity vs. Medication side effect (dystonia with Compazine--put on hold) - Today range of motion improved after holding Compazine, but continue to closely monitor in case of need for additional imaging. Elevated serum creatinine 06/11/2024 Assessment & Plan (06/14/2024 3:36 PM BOOT AND SHOE LABORER): - Cr on arrival 1.21 with baseline of 0.9-1.0 with very mild hypernatremia, most likely related to poor PO intake - Improved with IV fluids Oral candidiasis 05/23/2024 06/17/2024 Assessment & Plan (06/11/2024 4:30 PM BOOT AND SHOE LABORER): - Continue nystatin MMW Assessment & Plan (05/24/2024 3:50 PM BOOT AND SHOE LABORER): - Nystatin, MMW Encephalopathy 01/19/2024 06/08/2024 Assessment & Plan (01/27/2024 1:41 PM CDT): - Over the course of several days, patient has slowly improved to her recent neurologic baseline. - cvEEG (01/13 to 01/14): generalized discharges with triphasic morphology, left hemishperic slowing, moderate generalized slowing. No seizures or discharges. - Brain and spine MRI: consistent with prior metastatic lesions, R transverse sinus thrombosis recanalized (unchanged), spinal findings including compression deformities of T4, T9, L3, L4 unchanged - Given improving mental status and neurology discussion with primary team and oncology, LP has been deferred - Prednisone increased back to 60mg daily per Oncology recs and concern that patient's subacute concerns for mental status decline may have been in setting of reduced Prednisone dose. - Etiology of her current acute encephalopathy (now resolved) is felt to be likely multifactorial in setting of 1) possible seizure with prolonged post-ictal; 2) reduced steroid dose potentially with component of ICI-related encephalopathy, although unclear the extent to which this is contributing; 3) toxic-metabolic encephalopathy in setting of severe liver derangements. - per oncology, rec ENG consult for bilateral mastoid effusion---called ENT to consult however over the phone they said that the effusion is chronic since April and is aerated and her ears are clear therefore ENT has no concern for acute infeciton - IF new ear pain or mastoid area pain, will re-consult ENT -Plan to discharge to [facility] with discharge dose of Prednisone of 60mg per Dr. Boss---final prednisone plan at discharge: Prednisone 60mg for two weeks then taper to 50mg for one week, and then taper to 40mg daily until you see Dr. Boss in clinic. DO NOT taper prednisone dose further until she see Dr. Boss in Oncology Clinic. -Additionally recommended weekly CBC/CMPs---this was communicated to the facility via the discharge summary -patient had NO confusion since she's been on the floor and on the day of discharge, had NO confusion Seizure 10/14/2023 12/02/2023 Altered mental status, unspe cified altered mental status type 05/24/2022 06/08/2024 Assessment & Plan (05/27/2022 12:41 AM BOOT AND SHOE LABORER): Likely due to known cerebral parenchymal disease, patient had extensive neurological workup during prior admission with negative LP, cEEG and stable MRI. S/p Depakote 3 gm IV x 1 on 05/25 Continuous EEG left hemisphere and moderate generalized slowing but no seizure activity capture UA was positive for infection, unclear if its a potential trigger Continue Keppra and Zonisamide. Clonopin bridge 0.5 mg BID x 3 days in the setting of UTI Neuro input noted and appreciated Assessment & Plan (05/25/2022 12:51 AM BOOT AND SHOE LABORER): -Likely due to known cerebral parenchymal disease, patient had extensive neurological workup during prior admission with negative LP, cEEG and stable MRI. -Continue Keppra and Zonisamide. -Possible neurology consult in AM, HASTE recommended repeat cEEG. AMS (altered mental status) 05/19/2022 06/08/2024 Assessment & Plan (05/26/2024 4:39 PM BOOT AND SHOE LABORER): Has been having worsening and progressive decline in mental status in the past few weeks but in the past 24 hours she has had some word-finding difficulty as well. Initially presented with headaches that have now resolved. Has had history of nonobstructive thrombus within superior sagittal sinus. Most recent MRI from April with stable posttreatment changes. CT head this time with no hemorrhagic stroke. 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 Currently on 20 mg of prednisone daily. - bMRI as above - Resumed Pred 20 (will continue does indefinitely per Oncology) - Continue AED with keppra and vimpat - Continue eliquis - Neurology c/s - AMS c/s delirium. Recommend delirium precautions Assessment & Plan (10/26/2023 3:04 PM CDT): Patient presented after a typical seizure semiology (sudden weakness of her right arm), which self resolved but pt remained persistently aphasic and confused. Had a similar prior presentation that led to admission 09/17-09/25, concern at that time was for NCSE w/ post-ictal period, AEDs were uptitrated to Keppra 1500mg BID and Onfi 5mg qAM/10mg qPM at discharge. Interim Brain MRI (10/05) didn't show acute changes. -This admission, initially admitted to neurology floor. 10/14/23 CTH w/o acute findings. cvEEG was unrevealing. Given concern for onfi leading to side effects (cognitive slowing, speech slowing, and imbalance since starting), onfi was cross titrated to vimpat 200mg BID. Continued keppra 1.5g bid. -then transferred to oncology with neurology consult following. -LP on 10/19: OP 8.5cm H2O. Glucose 62, protein 57, 23 WBC/99% lymphocytes. Sent oligoclonal bands (nml), flow cytometry (neg), cytology (neg), IgG index (wnl), kappa free light chain (wnl). Pending send-out ctDNA on the CSF, Serum and CSF AI encephalopathy eval -Likely combination of delirium, long hospitalization, onfi washout, some sedative effects of vimpat iso poor substrate (seizure history, metastatic melanoma, radiation changes). Overall AMS slowly self improving. -q4h neuro checks. Delirium precautions -PT OT rec IPR, insurance auth pending Assessment & Plan (05/23/2022 3:22 PM BOOT AND SHOE LABORER): Had recent extensive workup includes, LP, BMRI, EEG. Seen by neuro and ID. CSF studies showing lymphocytic predominant pleocytosis, CSF analysis was negative for bacterial, fungal, and mycobacterial cultures, HSV, VZV, and CMV PCRs negative, crypto Ag negative, enterovirus PCR pending at the time of discharge. Per ID and neuro LP analysis c/w aseptic meningitis (viral vs immunotherapy related). CT head in the ED was negative - Will get infection workup, blood cx, UA, Ucx. - Re-consult neuro: Recommended cEEG to evaluate for NCSE: The interictal EEG was abnormal due to 1) left temporal slowing and 2) mild generalized slowing. Focal slowing indicates focal cerebral dysfunction, consistent with the patient's history. Generalized slowing indicates diffuse cerebral dysfunction as seen in metabolic, toxic, or diffuse or multifocal structural abnormalities. Repeat Brain MRI W/WO Contrast: ordered Obtain FENG panel serum: ordered Attempted to add-on OCB, IgG and FENG panel to CSF from prior LP. If not enough sample, would repeat LP (glucose, protein, cell count x2, bacterial culture, HSV, VZV, Enterovirus, CMV, OCB, IgG, FENG panel) (contacted lab) no possibe; Repeated LP was done on 05/22: CMV (-) HSV(-) Enterovirus (-) VZV (-) bacterial and fungal NGTD Patient remained asymptomatic; case was discussed with neurology and decided that zonisamide 100 mg daily will be added to her regimen Current use of steroid medication 07/12/2020 06/16/2024 Assessment & Plan (06/15/2024 1:56 PM [employer] AND SHOE LABORER): - Has been on 20mg of pred daily and recently increased to 30mg. - Oncology thinks steroid plan will depend on results of PET, they plan to reconsider her care after imaging back - If continued high dose steroids, she should be on PJP prophylaxis at discharge Malignant melanoma of right thigh 03/07/2020 05/15/2020
--- OUTSIDE RECORDS SUMMARY | 2024-07-26 13:31 | XMS_ITS | Encounter Summary ---
Author Organization [facility] Address [address] [place] [address] Phone Care Team Providers Care Statistical Machine Servicer Name Role Phone Favian Hinds MD Unavailable [phone] Ludin Salazar MD Primary Care Prov ider Jerome Boss MD PhD Unavailable + Ney Martin MD Unavailable [phone] Geraldine Thompson NP Unavailable [phone] Encounter Details Date Type Department Care Team (Latest Contact Info) Description 01/09/2021 Orders Only [facility] Scanning, Provider Social History Tobacco Use Types Packs/Day Years Used Date Smoking Tobacco: Former Cigarettes 0.5 5 1 999 - 2004 Smokeless Tobacco: Never Alcohol Use Standard Drinks/Week Comments Not Currently 1 (1 standard drink = 0.6 oz pur e alcohol) rarely AUDIT-C Answer Date Recorded Q1: How often do you have a drink containing alc ohol? Monthly or less 12/27/2020 Q2: How many drinks containi ng alcohol do you have on a typical day when you are drinking? 1 or 2 12/27/2020 Q3: How often do you have si x or more drinks on one occasion? 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 [employer] Not on file Not on file Not on file documented as of this encounter Plan of Treatment Not on file documented as of this encounter Procedures Procedure Name Priority Date/Time Associated Diagnosis Comments SCAN - PATHOLOGY 01/09/2021 documented in this encounter Results * SCAN - PATHOLOGY (01/09/2021) us Provider Scanning Edited Result - Final documented in this encounter Visit Diagnoses Not on filedocumented in this encounter Additional Health Concerns Infection Onset Date Last Indicated Resolved Time COVID: Suspected 05/11/2022 05/11/2022 05/11/2022 1:13 PM LEAD SCIENTIST COVID: Suspected 05/03/2023 05/03/2023 05/03/2023 4:43 AM LEAD SCIENTIST Influenza, adult 05/03/2023 05/03/2023 05/10/2023 3:05 AM LEAD SCIENTIST COVID: Suspected 10/14/2023 10/14/2023 10/14/2023 6:43 PM CDT documented as of this encounter Care Teams Statistical Machine Servicer Relationship Specialty Start Date End Date Ludin Salazar MD [address] [place] [id number] PCP - General Family Medicine 02/28/20 Favian Hinds MD Referring Physician Neurosurgery 01/27/20 08/19/22 Jerome Boss MD PhD [id number] [facility] [address] [place], [place] [id number] Medical Oncologist/Spool Cleaner Medical Oncology 12/20/20 Ney Martin MD [id number] [facility] [address] [place], [place] [id number] Consulting Physician Neurosurgery 08/20/22 Geraldine Thompson NP [facility] [place] [address] Nurse Practitioner Family Practice 02/19/24 documented as of this encounter
--- OUTSIDE RECORDS SUMMARY | 2024-07-26 13:31 | XMS_ITS | Clinical Summary ---
Author Organization [place] [id number] [facility] Address [address] [place] [address] Care Team Providers Care Painter Mirror Name Role Phone Ludin Salazar MD Primary Care Prov ider Jerome Boss MD PhD Unavailable + Nye Martin MD Unavailable Geraldine Thompson NP Unavailable [phone] Allergies Active Allergy Reactions Criticality Noted Date Comments Codeine Palpitations Low 01/23/2020 Medications oxyCODONE (ROXICODONE) 5 mg immediate release tabletIndications :Pain Take 1 tablet (5 mg total) by mouth every 4 (four) hours as needed for pain 024 Active lacosamide (VIMPAT) 200 mg tabletIndications :Partial Epilepsy Treatment Adjunct Take 1 tablet (200 mg total) by mouth 2 (two) times a day 180 tablet 3 025 2025 Active acetaminophen (TYLENOL) 325 mg tablet Take 2 tablets (650 mg total) by mouth every 6 (six) hours as needed for pain or headaches 025 Active apixaban (Eliquis) 5 mg tabletIndications :VTE Prophylaxis Take 1 tablet (5 mg total) by mouth every 12 (twelve) hours 025 Active levETIRAcetam (KEPPRA) 750 mg tablet Take 2 tablets (1,500 mg total) by mouth 2 (two) times a day 025 2025 Active levothyroxine (SYNTHROID) 125 mcg tabletIndications :hypothyroidism Take 1 tablet (125 mcg total) by mouth 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 Active polyethylene glycol (MIRALAX) 17 gram packetIndications :constipation Take 1 packet (17 g total) by mouth daily as needed for constipation Active oxyBUTYnin XL (DITROPAN-XL) 5 mg 24 hr tablet Take 1 tablet (5 mg total) by mouth daily 2025 Active bisacodyL (DULCOLAX) 10 mg suppositoryIndica tions:constipatio n Insert 1 suppository (10 mg total) into the rectum 2 (two) times a day as needed for constipation Active calcium carbonate (TUMS) 500 mg (200 mg elemental calcium) chewable tablet Take 1 tablet/chew tab (500 mg total) by mouth daily as needed for indigestion or heartburn 2025 Active methocarbamoL (ROBAXIN) 500 mg tablet Take 1 tablet (500 mg total) by mouth 3 (three) times a day Active OLANZapine (ZyPREXA ZYDIS) 5 mg disintegrating tabletIndications :nausea, agitation Take 0.5 tablets (2.5 mg total) by mouth nightly Active pyridoxine (VITAMIN B6) 25 mg tablet Take 1 tablet (25 mg total) by mouth daily 2025 Active senna-docusate (PERICOLACE) 8.6-50 mg Take 1 tablet by mouth daily Active predniSONE (DELTASONE) 20 mg tabletIndications :Anti-inflammator y Take 1 tablet (20 mg) by mouth daily Active ramelteon (ROZEREM) 8 mg tablet TAKE 1 TABLET BY MOUTH NIGHTLY 90 [address] (PROTONIX) 40 mg EC tablet TAKE 1 TABLET BY MOUTH EVERY DAY 90 tablet Active calcium carbonate-vitamin D3 1,250mg (500mg elemental) - 5 mcg (200 units) per tablet Take 1 tablet by mouth daily 30 tablet 11 025 2025 Active morphine ER (MS CONTIN) 15 mg 12 hr tablet Take 1 tablet (15 mg total) by mouth every 12 (twelve) hours 60 tablet 025 2024 Active verapamil SR (CALAN SR) 240 mg CR tabletIndications :Cluster Headache Prevention Take 1 tablet (240 mg total) by mouth 2 (two) times a day 60 tablet [address] (PROTONIX) 40 mg EC tabletIndications :Stress Ulcer Prophylaxis TAKE 1 TABLET BY MOUTH EVERY DAY 90 tablet 024 2024 Discontinued verapamil SR (CALAN SR) 240 mg CR tabletIndications :Cluster Headache Prevention Take 1 tablet (240 mg total) by mouth 2 (two) times a day 60 tablet 025 2024 Discontinued(R eorder) calcium carbonate-vitamin D3 1,250mg (500mg elemental) - 5 mcg (200 units) per tablet Take 1 tablet by mouth daily 025 2024 Discontinued(R eorder) ramelteon (ROZEREM) 8 mg tabletIndications :Sleep-Onset Insomnia Take 1 tablet (8 mg total) by mouth nightly as needed for sleep 025 2024 Discontinued oxyCODONE ER (OxyCONTIN) 10 mg 12 hr abuse-deterrent tablet Take 1 tablet (10 mg total) by mouth every 12 (twelve) hours 60 tablet 025 2024 Discontinued Active Problems Problem Noted Date Diagnosed Date Altered mental status, unspe cified altered mental status type 06/11/2024 Altered mental status 06/11/2024 Assessment & Plan (06/22/2024 8:28 AM HEAD HOUSEKEEPER): - Patient has recurrent admissions for acute [...] 05/24/2024 Assessment & Plan (05/25/2024 4:45 PM HEAD HOUSEKEEPER): - Throat Cx - NGTD - HSV PCR - negative Headache 05/24/2024 Assessment & Plan (06/23/2024 9:48 AM HEAD HOUSEKEEPER): - Not currently complaining of active headache, although has been 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 - Continue home verapamil 240mg BID Assessment & Plan (05/26/2024 4:38 PM HEAD HOUSEKEEPER): - p/w right sided MCCONNELL. Hx of [...] 05/23/2024 Assessment & Plan (05/23/2024 5:10 PM HEAD HOUSEKEEPER): On home hydrochlorothiazide. Holding in the setting of normotension Low back pain 05/23/2024 Assessment & Plan (06/22/2024 8:29 AM HEAD HOUSEKEEPER): - Has history of compression fractures in [...] started Assessment & Plan (05/23/2024 5:13 PM HEAD HOUSEKEEPER): Prior history of compression fractures in lumbar [...] viral panel nonreactive - Hepatology consulted, recommended jakub BENITES, Tylenol level, ammonia level -> all ordered. [...] 01/12/2024 Assessment & Plan (05/27/2024 1:39 PM HEAD HOUSEKEEPER): MRI spine from 03/03 with no evidence [...] A+Ox4 Assessment & Plan (05/05/2023 4:20 PM HEAD HOUSEKEEPER): Workup now with MRI unchanged from prior, [...] hygiene Assessment & Plan (05/03/2023 8:08 AM HEAD HOUSEKEEPER): - resumed home trazodone/ramelteon Influenza A 05/03/2023 Assessment & Plan (05/05/2023 4:23 PM HEAD HOUSEKEEPER): RVP + for influenza A on her admission. Pt started on tamiflu in the ED - cont tamiflu for 5 days (05/03-05/07) - tylenol for fevers. Afebrile for over 48h and blood cultures negative. Dc abx. okay to discharge home to complete tamiflu course as symptoms improved from admission Fever 05/03/2023 Assessment & Plan (05/05/2023 4:26 PM HEAD HOUSEKEEPER): Patient has quite a high fever in the ED up to 103. Do suspect this is related to influenza. UA is clean and CXR clear. Doubt meningitis given clincial improvement. Consider blood stream infection. Given her immunocompromised status, started on vanc/cefe on admission. Cultures neg, abx dc'ed 05/05 UTI (urinary tract infection) 05/27/2022 Assessment & Plan (06/20/2024 2:26 PM HEAD HOUSEKEEPER): - E. Coli UTI--suspect this likely contributed to acute mental decline that brought her to the hospital - Completed a course of ceftriaxone: 06/15-06/19 Assessment & Plan (05/27/2022 12:41 AM HEAD HOUSEKEEPER): UA positive for infection. Treat empirically with Macrobid for 5 days Viral meningoencephalitis 05/11/2022 Assessment & Plan (05/15/2022 4:32 PM HEAD HOUSEKEEPER): - Patient presenting with acute-onset encephalopathy with [...] 05/11/2022 Assessment & Plan (05/15/2022 4:32 PM HEAD HOUSEKEEPER): - On therapeutic anticoagulation, resume home apixaban Intracranial venous thrombosis 05/11/2022 Assessment & Plan (06/19/2024 1:04 PM HEAD HOUSEKEEPER): - Continue home Eliquis Assessment & Plan (05/23/2024 5:07 PM HEAD HOUSEKEEPER): History of nonobstructive thrombus within superior sagittal [...] continue Assessment & Plan (05/03/2023 10:13 AM HEAD HOUSEKEEPER): 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 -MRI unchanged - restart eliquis Assessment & Plan (05/27/2022 12:39 AM HEAD HOUSEKEEPER): Secondary to malignancy, thrombus appears to be stable on repeat CT venogram. Continue anticoagulation with Eliquis. Assessment & Plan (05/25/2022 12:49 AM HEAD HOUSEKEEPER): -Secondary to malignancy, thrombus appears to be stable on repeat CT venogram. -Continue anticoagulation with Eliquis. Assessment & Plan (05/19/2022 3:21 PM HEAD HOUSEKEEPER): Restart home apixaban Assessment & Plan (05/15/2022 4:32 PM HEAD HOUSEKEEPER): - Prior history s/p thrombectomy - Last dose apixaban 05/10 PM - s/p heparin gtt, resumed home apixaban Acquired hypothyroidism 05/11/2022 Assessment & Plan (06/14/2024 3:38 PM HEAD HOUSEKEEPER): - TSH WNL - Continue home synthroid Assessment & Plan (05/23/2024 5:08 PM HEAD HOUSEKEEPER): - Continue home Synthroid Assessment & Plan (10/17/2023 12:34 AM CDT): Continue home synthroid 125 mcg Assessment & Plan (05/03/2023 8:02 AM HEAD HOUSEKEEPER): - cont home synthroid 100 - recent TSH wnl Assessment & Plan (05/27/2022 12:40 AM HEAD HOUSEKEEPER): Continue home synthroid Assessment & Plan (05/25/2022 12:50 AM HEAD HOUSEKEEPER): -Continue home levothyroxine. Assessment & Plan (05/22/2022 9:59 AM HEAD HOUSEKEEPER): Resume home levothyroxine dose TSH 10: increased to 125 mc Assessment & Plan (05/11/2022 9:52 PM HEAD HOUSEKEEPER): - Cont levothyroxine Sepsis 05/11/2022 Assessment & Plan (05/11/2022 9:47 PM HEAD HOUSEKEEPER): - Evaluation/mgt per above NSTEMI (non-ST elevated myocardial infarction) 0 05/11/2022 Assessment & Plan (05/16/2022 3:14 PM HEAD HOUSEKEEPER): - Hs-trop has increased 127 --> 1035 [...] daily. Assessment & Plan (05/03/2023 8:02 AM HEAD HOUSEKEEPER): - continue home prednisone 7.5mg daily Assessment & Plan (05/27/2022 12:42 AM HEAD HOUSEKEEPER): Continue prednisone Assessment & Plan (05/19/2022 3:19 PM HEAD HOUSEKEEPER): Restart home prednisone dose. Assessment & Plan (05/13/2022 5:21 PM HEAD HOUSEKEEPER): - Increased from Pred 7.5mg daily to hydrocortisone 50mg q8h given acute illness and hypotension, will wean gradually back to home dose due to clinical improvement Generalized weakness 07/12/2020 Assessment & Plan (06/23/2024 9:47 AM HEAD HOUSEKEEPER): - Presented with a several-day history of [...] auth) Assessment & Plan (07/12/2020 3:08 PM HEAD HOUSEKEEPER): -could be caused by adrenal insufficiency 2/2 nursing home steroid or immunotherapy use -currently takes dexamethasone 0.5 mg BID -will transition to prednisone 5 mg daily and perform a cosyntropin stimulation test on 07/31-she is aware that she needs to hold her prednisone dose the morning of the test Chemotherapy-induced nausea 06/08/2020 Seizures 04/03/2020 Assessment & Plan (06/18/2024 9:53 AM HEAD HOUSEKEEPER): - Continue home Lacosamide and Levetiracetam - 72hr cEEG performed during this admission without evidence of seizure activity Assessment & Plan (05/23/2024 5:04 PM HEAD HOUSEKEEPER): - Continue home antiepileptic Assessment & Plan (05/05/2023 4:19 PM HEAD HOUSEKEEPER): She initially presented with seizures in 2019 iso brain mets. During prolonged hospitalization in 05/2022 her AED reg increased, though no confirmed seizures at that time. Followed by neurology outpatient - continue home keppra, zonisamide - rEEG for AMS on arrival-->non-specific however without active seizure. AMS has since resolved Assessment & Plan (05/19/2022 3:20 PM HEAD HOUSEKEEPER): Keppra 1.5 g BID. Assessment & Plan (05/13/2022 5:22 PM HEAD HOUSEKEEPER): - History of seizures with last prior 2yrs ago - unclear if post-ictal on presentation with Severiano's Palsy? prior to arrival - Continue Keppra with Clonazepam bridge - Seizure/Fall precautions - Routine EEG, LP as discussed elsewhere Malignant melanoma, stage IV M1a 03/07/2020 Assessment & Plan (06/16/2024 12:58 PM HEAD HOUSEKEEPER): - Follows with Dr. Boss for history [...] right adductor compartment along with additional indeterminate kozphy-IMX-noqc lesions within the subcutaneous fat. Lung bx proven malignant melanoma. Completed WBRT 02/2020. 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 Most recent PET (08/23) w/o evidence of residual or recurrent malignancy Assessment & Plan (05/03/2023 10:15 AM HEAD HOUSEKEEPER): Patient has a history of malignant melanoma followed by Dr. Boss, mets to brain s/p whole brain radiation - currently on Nivolumab and relatlimab-rmbw - current rx: Nivolumab and relatlimab-rmbw, last treatment 04/29 - med onc consult Assessment & Plan (05/19/2022 3:20 PM HEAD HOUSEKEEPER): Currently on nivolumab last received on 04/30/22. - Med Onc c/s Assessment & Plan (05/16/2022 3:14 PM HEAD HOUSEKEEPER): - Follows with Dr. Boss c/b lung, [...] 02/01/2020 Assessment & Plan (05/24/2024 3:59 PM HEAD HOUSEKEEPER): - Per the recent ONC note she [...] right adductor compartment along with additional indeterminate zvorlv-EYQ-jama lesions within the subcutaneous fat. Lung bx [...] right adductor compartment along with additional indeterminate qgvnui-FMY-avto lesions within the subcutaneous fat. Lung bx [...] oncology. Assessment & Plan (05/27/2022 12:39 AM HEAD HOUSEKEEPER): Patient follows Dr. Boss in Oncology, currently on Nivolumab. MRI from prior admission with stable disease. Medical oncology consult. Assessment & Plan (05/25/2022 12:49 AM HEAD HOUSEKEEPER): -Patient follows Dr. Boss in Oncology, currently on Nivolumab. MRI from prior admission with stable disease. -Medical oncology consult. Resolved Problems Problem Noted Date Diagnosed Date Resolved Date Dystonia 06/15/2024 06/16/2024 Assessment & Plan (06/15/2024 2:01 PM HEAD HOUSEKEEPER): - Patient favoring turning neck to the left, may be related to positioning/spasticity vs. Medication side effect (dystonia with Compazine--put on hold) - Today range of motion improved after holding Compazine, but continue to closely monitor in case of need for additional imaging. Elevated serum creatinine 06/11/2024 Assessment & Plan (06/14/2024 3:36 PM HEAD HOUSEKEEPER): - Cr on arrival 1.21 with baseline of 0.9-1.0 with very mild hypernatremia, most likely related to poor PO intake - Improved with IV fluids Oral candidiasis 05/23/2024 06/17/2024 Assessment & Plan (06/11/2024 4:30 PM HEAD HOUSEKEEPER): - Continue nystatin MMW Assessment & Plan (05/24/2024 3:50 PM HEAD HOUSEKEEPER): - Nystatin, MMW Encephalopathy 01/19/2024 06/08/2024 Assessment [...] will re-consult ENT -Plan to discharge to [facility] with discharge dose of Prednisone of [...] 06/08/2024 Assessment & Plan (05/27/2022 12:41 AM HEAD HOUSEKEEPER): Likely due to known cerebral parenchymal disease, [...] appreciated Assessment & Plan (05/25/2022 12:51 AM HEAD HOUSEKEEPER): -Likely due to known cerebral parenchymal disease, patient had extensive neurological workup during prior admission with negative LP, cEEG and stable MRI. -Continue Keppra and Zonisamide. -Possible neurology consult in AM, HASTE recommended repeat cEEG. AMS (altered mental status) 05/19/2022 06/08/2024 Assessment & Plan (05/26/2024 4:39 PM HEAD HOUSEKEEPER): Has been having worsening and progressive decline [...] pending Assessment & Plan (05/23/2022 3:22 PM HEAD HOUSEKEEPER): Had recent extensive workup includes, LP, BMRI, [...] 06/16/2024 Assessment & Plan (06/15/2024 1:56 PM HEAD HOUSEKEEPER): - Has been on 20mg of pred daily and recently increased to 30mg. - Oncology thinks steroid plan will depend on results of PET, they plan to reconsider her care after imaging back - If continued high dose steroids, she should be on PJP prophylaxis at discharge Malignant melanoma of right thigh 03/07/2020 05/15/2020 Encounters Date Type Department Care Team Description 07/17/2024 Telephone [facility] Bone Marrow Transplant [facility] Floor [address] [place] [address] Jermaine Rubio, WILLIAM 07/15/2024 Documentation [facility] Oncology [address] [place] [address] Floor [address] [place] [address] Samreen Wolfe CMA Pre Cert (Medication precert sent thru CMM) 07/14/2024 Telephone [facility] Radiology, Interventional Radiology [address] [facility] [address] [place] [address] Litzy Bhagat, RN Appointment 07/14/2024 Telephone [facility] Radiology [address] [place] [address] Charline Dinero, WILLIAM 07/13/2024 4:00 PM HEAD HOUSEKEEPER Telemedicine [facility] Oncology [facility] Floor 1, [address] [place] [address] Jerome Boss MD PhD Malignant melanoma of unknown origin (CMS/HCC) (HCC) (Primary Dx); Secondary malignant melanoma of brain (HCC); Thoracic back pain, unspecified back pain laterality, unspecified chronicity 07/04/2024 Telephone [facility] Orthopaedic Surgery [address] [facility] Advanced Medicine 6th [place] [address] [place] [phone] Luis Alberto Reis MD 06/22/2024 4:50 PM HEAD HOUSEKEEPER Telemedicine [facility] Oncology [facility] Floor 1, [address] [place] [address] Jerome Boss MD PhD Malignant melanoma, unspecified site (HCC) (Primary Dx); Secondary malignant melanoma of brain (HCC); Malignant melanoma of unknown origin (CMS/HCC) (HCC) 06/20/2024 Telephone [facility] Oncology [address] [facility] Floor 1, [address] [place] [phone] Jerome Boss MD PhD appointment reschedule 06/14/2024 Home Care Visit [address] [address] [address] [place] [address] Wendi Keith, PT PT VIRTUAL NON OASIS DISCHARGE 06/12/2024 Home Care Visit [address] [place] [address] Wendi Keith, PT PT OASIS TRANSFER W/OUT DC 06/11/2024 11:42 AM HEAD HOUSEKEEPER - 06/23/2024 6:40 PM HEAD HOUSEKEEPER Hospital Encounter [address] [phone] Arian Balbuena MD Johanns, Tanner Michael, MD PhD Alyson Masters MD Farooqui, MD Garth Still Sheun, MD Altered mental status, unspecified altered mental status type (Primary Dx); Nausea and vomiting, unspecified vomiting type; Viral syndrome; Malignant melanoma, unspecified site (HCC) Discharge Disposition: Discharge to an IP Rehab facility 06/11/[address] [phone] Yesi Manriquez, MARTINEZ Fatigue 06/10/2024 Documentation [facility] Oncology [address] [facility] Floor 1, [address] [place] [id number] Valerie Hammond F 06/08/2024 12:00 PM HEAD HOUSEKEEPER Telemedicine [facility] Epilepsy [facility] [address] [place] [address] Tremayne Sheridan MD PhD Seizures (HCC) (Primary Dx); Seizure (CMS/HCC) (HCC) 06/07/2024 8:30 AM HEAD HOUSEKEEPER Clinical Support [facility] Neuro Psychology [address] [facility] [address] [place] [address] Lily Tinoco, PhD Secondary malignant melanoma of brain (HCC); Altered mental status, unspecified altered mental status type 06/07/2024 Home Care Visit [address] [place] [address] Kirsten Tomlinson, PT CARE CONFERENCE 06/06/2024 11:00 AM HEAD HOUSEKEEPER Home Care Visit [address] [place] [address] Enma Ochoa, OT OT INITIAL EVALUATION 06/02/2024 1:00 PM HEAD HOUSEKEEPER Home Care Visit [address] [place] [address] Wendi Keith, PT PT INITIAL EVALUATION 05/31/2024 2:00 PM HEAD HOUSEKEEPER Home Care Visit [address] [place] [address] Marizol Reis, RN SN OASIS START OF CARE 05/31/2024 Plan of Care Documentation [address] [place] [address] 05/30/[address] [place] [address] Ramya eWst, WILLIAM 05/27/[address] [place] [address] Ramya West, WILLIAM 05/24/2024 Orders Only [facility] Neuro Interventional Radiology [address] [place] [address] Zita Rojas, WILLIAM 05/23/2024 10:45 AM HEAD HOUSEKEEPER - 05/27/2024 6:35 PM HEAD HOUSEKEEPER Hospital Encounter [address] [address] Rosalinda Salazar MD Johanns, Tanner Michael, MD PhD Jose Aldridge MD Disorientation (Primary Dx); Secondary malignant melanoma of brain (HCC) Discharge Disposition: Discharge to home, home health skilled care 05/21/2024 3:45 PM HEAD HOUSEKEEPER E-Visit [facility] [address] [address] Josie Goss NP Your Medications 05/21/2024 Patient Self-Triage [facility] HealthCare/ Physicians [address] [place] [phone] Mychart, Generic Provider 05/21/2024 Patient Self-Triage [facility] HealthCare/ Physicians [address] [place] [phone] Mychart, Generic Provider 04/28/2024 Orders Only [facility] Neurosurgery [facility] Floor 1, [address] [place] [address] Stella Adams NP Secondary malignant melanoma of brain (HCC) (Primary Dx) 04/27/2024 11:40 AM HEAD HOUSEKEEPER Office Visit [facility] Oncology [facility] Floor 1, [address] [place] [address] Jerome Boss MD PhD Malignant melanoma of unknown origin (CMS/HCC) (HCC) (Primary Dx); Secondary malignant melanoma of brain (HCC) 04/27/2024 11:00 AM HEAD HOUSEKEEPER Lab [facility] Center - Lab Collection [facility] Floor 5 [place] [address] Malignant melanoma of unknown origin (CMS/HCC) (HCC) 04/27/2024 10:30 AM HEAD HOUSEKEEPER Lab [facility] Oncology Lab [facility] [address] [place] [address] Malignant melanoma of unknown origin (CMS/HCC) (HCC) 04/27/[address] 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 04/04/2020 Left TONSILLECTOMY 05/11/1972 - 05/10/1973 THROMBECTOMY CHOLECYSTECTOMY LUMBAR PUNCTURE WO INJECTION , DIAGNOSTIC 05/13/2022 N/A LUMBAR PUNCTURE WO INJECTION , DIAGNOSTIC 05/22/2022 N/A LUMBAR PUNCTURE WO INJECTION , DIAGNOSTIC 11/04/2022 N/A LUMBAR PUNCTURE WO INJECTION , DIAGNOSTIC 10/20/2023 N/A ANGIO SELECTIVE INTERNAL CAROTID RIGHT 05/24/2024 Ri ght Medical History Medical History Date Comments Gallbladder mass 12/20/2020 Metastatic melanoma (HCC) Brain metastases Lung metastases Stroke (HCC) 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 Adrenal insufficiency Hypothyroidism Epilepsy (HCC) Anemia Family History Medical History Relation Name Comments No Known Problems Daughter Hypertension Father Parkinsonism Father Cancer Maternal Grandfather Prostate cancer Maternal Grandfather Hypertension Mother Melanoma Mother Leukemia Mother's Brother Cancer Paternal Grandfather Throat cancer Paternal Grandfather Heart disease Sister Hypertension Sister No Known Problems Son Anesthesia problems Neg Hx Epilepsy Neg Hx Relation Name Status Comments Daughter Alive Father Alive Maternal Grandfather Mother Alive Mother's Brother Paternal Grandfather Sister Son Alive Social History Tobacco Use Types Packs/Day Years Used Date Smoking Tobacco: Former Cigarettes 0.5 5 1 999 - 2004 Passive Smoke Exposure: Past Smokeless Tobacco: Never Tobacco Cessation:Counseling Given: Not Answered Alcohol Use Standard Drinks/Week Comments Not Currently 1 (1 standard drink = 0.6 oz pur e alcohol) rarely OASIS D0700: Social Isolation Answer Da te Recorded Frequency of experiencing loneliness or isolatio n Never 05/31/2024 OASIS A1250: Transportation Answer Date Recorded Lack of Transportation (Medical) No 05/31/2024 Lack of Transportation (Non-Medical) No 05/31/2024 Patient Unable or Declines to Respond No 05/31/2024 OASIS B1300: Health Literacy Answer Gualberto e Recorded Frequency of needing help to read materials from doctor or pharmacy Always 05/31/2024 [facility] Utilities Answer Date Recorded In the past 12 months has th e The Extraordinaries, oil, or water [employer] threatened to shut off services in your home? No 06/13/2024 Social Connection and Isolat ion Panel [NHANES] Answer Date Recorded In a typical week, how many times do you talk on the phone with family, friends, or neighbors? More than three times a week 06/13/2024 How often do you get togethe r with friends or relatives? More than three times a week 06/13/2024 How often do you attend chur ch or mormon services? Never 06/13/2024 Do you belong to any clubs o r organizations such as temple groups, unions, fraternal or athletic groups, or school groups? No 06/13/2024 How often do you attend meet ings of the clubs or organizations you belong to? Never 06/13/2024 Are you , , di vorced, , never , or living with a partner? 06/13/2024 AUDIT-C Answer Date Recorded Q1: How often [...] care, and heating? Not hard at all 06/13/2024 PHQ-2 Answer Date Recorded PHQ-2 Total Score 0 01/13/2024 Hunger Vital Sign Answer Date Recorded Within the past 12 months, y ou worried that your food would run out before you got the money to buy more. Never true 06/13/19 25 Within the past 12 months, t he food you bought just didn't last and you didn't have money to get more. Never true 06/13/2024 PRAPARE - Transportation Answer Date Re corded In the past 12 months, has l ack of transportation kept you from medical appointments or from getting medications? No 07/2024 In the past 12 months, has l ack of transportation kept you from meetings, work, or from getting things needed for daily living? No 06/13/2024 Housing Stability Vital Sign Answer Gualberto e [...] place to sleep or slept in a [place] (including now)? No 09/26/2023 Housing Stability Vital Sign Answer Gualberto e Recorded In the last 12 months, was t here a time when you were not able to pay the mortgage or rent on time? No 06/13/2024 In the past 12 months, how m any times have you moved where you were living? 0 06/13/2024 At any time in the past 12 m [facility], were you homeless or living in a [place] (including now)? No 06/13/2024 Personal Safety Answer Date Recorded Have you ever been in or are you currently in a harmful physical or emotional relationship or is someone making you feel afraid or unsafe? 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 Not on file Not on file Obstetrics History Last Filed Vital Signs Vital Sign Reading Time Taken Comments Blood Pressure 114/72 06/23/2024 3:35 PM HEAD HOUSEKEEPER Pulse 87 06/23/2024 3:35 PM HEAD HOUSEKEEPER Temperature 36.7 C (98.1 F) 06/23/2024 3:35 PM HEAD HOUSEKEEPER Respiratory Rate 18 06/23/2024 3:35 PM HEAD HOUSEKEEPER Oxygen Saturation 96% 06/23/2024 3:35 PM HEAD HOUSEKEEPER Inhaled Oxygen Concentration - - Weight 87.7 kg (193 lb 5.5 oz) 06/22/2024 7:36 P M HEAD HOUSEKEEPER Height 177.8 cm (5' 10 ) 06/11/2024 4:20 PM HEAD HOUSEKEEPER Body Mass Index 27.74 06/11/2024 4:20 PM HEAD HOUSEKEEPER Plan of Treatment Health Maintenance Due Date Last Done Comments Breast Cancer Screening-Mammogram 1966 Cervical Cancer Screening 1966 DTaP/Tdap/Td Vaccine (1 - Tdap) 1977 Hepatitis B Screening 1984 Regular Well Visit/Exam 18-64 1984 Pneumococcal vaccine <65 (1 of 2 - PCV) 1985 Zoster Vaccine (1 of 2) 1985 Influenza Vaccine (#1) 2024 02/08/2021, 2019 Depression Screening 01/11/2025 01/12/2024, 10/14/2023, 04/03/2020 Colon Cancer Screening-Colonoscopy 01/14/20332022 Hepatitis C Screening Completed 01/13/2024, 021 Procedures Procedure Name Priority Date/Time Associated Diagnosis Comments EGFR Routine 06/23/2024 12:52 AM HEAD HOUSEKEEPER DIFFERENTIAL AUTO Routine 06/23/2024 12: 52 AM HEAD HOUSEKEEPER PHOSPHORUS Routine 06/23/2024 12:52 AM HEAD HOUSEKEEPER COMPREHENSIVE METABOLIC PANEL Routine 06/23/2024 12:52 AM HEAD HOUSEKEEPER MAGNESIUM Routine 06/23/2024 12:52 AM HEAD HOUSEKEEPER CBC WITH AUTO DIFFERENTIAL Routine 06/23/2024 12:52 AM HEAD HOUSEKEEPER LACTATE DEHYDROGENASE Routine 06/23/2024 12:52 AM HEAD HOUSEKEEPER URIC ACID Routine 06/23/2024 12:52 AM HEAD HOUSEKEEPER TYPE AND SCREEN Timed 06/23/2024 12:52 AM HEAD HOUSEKEEPER EGFR Routine 06/22/2024 12:37 AM HEAD HOUSEKEEPER DIFFERENTIAL AUTO Routine 06/22/2024 12: 37 AM HEAD HOUSEKEEPER PHOSPHORUS Routine 06/22/2024 12:37 AM HEAD HOUSEKEEPER COMPREHENSIVE METABOLIC PANEL Routine 06/22/2024 12:37 AM HEAD HOUSEKEEPER MAGNESIUM Routine 06/22/2024 12:37 AM HEAD HOUSEKEEPER CBC WITH AUTO DIFFERENTIAL Routine 06/22/2024 12:37 AM HEAD HOUSEKEEPER EGFR Routine 06/21/2024 1:17 AM HEAD HOUSEKEEPER DIFFERENTIAL AUTO Routine 06/21/2024 1:1 7 AM HEAD HOUSEKEEPER PHOSPHORUS Routine 06/21/2024 1:17 AM HEAD HOUSEKEEPER COMPREHENSIVE METABOLIC PANEL Routine 06/21/2024 1:17 AM HEAD HOUSEKEEPER MAGNESIUM Routine 06/21/2024 1:17 AM HEAD HOUSEKEEPER CBC WITH AUTO DIFFERENTIAL Routine 06/21/2024 1:17 AM HEAD HOUSEKEEPER CONTINUOUS VIDEO EEG Routine 06/20/2024 1:16 PM HEAD HOUSEKEEPER VITAMIN D 25 HYDROXY Routine 06/20/2024 1:29 AM HEAD HOUSEKEEPER EGFR Routine 06/20/2024 1:29 AM HEAD HOUSEKEEPER DIFFERENTIAL AUTO Routine 06/20/2024 1:2 9 AM HEAD HOUSEKEEPER PHOSPHORUS Routine 06/20/2024 1:29 AM HEAD HOUSEKEEPER COMPREHENSIVE METABOLIC PANEL Routine 06/20/2024 1:29 AM HEAD HOUSEKEEPER MAGNESIUM Routine 06/20/2024 1:29 AM HEAD HOUSEKEEPER CBC WITH AUTO DIFFERENTIAL Routine 06/20/2024 1:29 AM HEAD HOUSEKEEPER PROTIME-INR Routine 06/20/2024 1:29 AM HEAD HOUSEKEEPER APTT Routine 06/20/2024 1:29 AM HEAD HOUSEKEEPER LACTATE DEHYDROGENASE Routine 06/20/2024 1:29 AM HEAD HOUSEKEEPER URIC ACID Routine 06/20/2024 1:29 AM HEAD HOUSEKEEPER TYPE AND SCREEN Timed 06/20/2024 1:29 AM HEAD HOUSEKEEPER EGFR Routine 06/19/2024 1:01 AM HEAD HOUSEKEEPER DIFFERENTIAL AUTO Routine 06/19/2024 1:0 1 AM HEAD HOUSEKEEPER PHOSPHORUS Routine 06/19/2024 1:01 AM HEAD HOUSEKEEPER COMPREHENSIVE METABOLIC PANEL Routine 06/19/2024 1:01 AM HEAD HOUSEKEEPER MAGNESIUM Routine 06/19/2024 1:01 AM HEAD HOUSEKEEPER CBC WITH AUTO DIFFERENTIAL Routine 06/19/2024 1:01 AM HEAD HOUSEKEEPER EGFR Routine 06/18/2024 1:08 AM HEAD HOUSEKEEPER DIFFERENTIAL AUTO Routine 06/18/2024 1:0 8 AM HEAD HOUSEKEEPER PHOSPHORUS Routine 06/18/2024 1:08 AM HEAD HOUSEKEEPER COMPREHENSIVE METABOLIC PANEL Routine 06/18/2024 1:08 AM HEAD HOUSEKEEPER MAGNESIUM Routine 06/18/2024 1:08 AM HEAD HOUSEKEEPER CBC WITH AUTO DIFFERENTIAL Routine 06/18/2024 1:08 AM HEAD HOUSEKEEPER EGFR Routine 06/17/2024 1:29 AM HEAD HOUSEKEEPER DIFFERENTIAL AUTO Routine 06/17/2024 1:2 9 AM HEAD HOUSEKEEPER PHOSPHORUS Routine 06/17/2024 1:29 AM HEAD HOUSEKEEPER COMPREHENSIVE METABOLIC PANEL Routine 06/17/2024 1:29 AM HEAD HOUSEKEEPER MAGNESIUM Routine 06/17/2024 1:29 AM HEAD HOUSEKEEPER CBC WITH AUTO DIFFERENTIAL Routine 06/17/2024 1:29 AM HEAD HOUSEKEEPER POCT GLUCOSE DEVICE Routine 06/16/2024 8 :21 PM HEAD HOUSEKEEPER PET/CT FDG SKULL TO THIGH IP Routine 06/16/2024 9:38 AM HEAD HOUSEKEEPER EGFR Routine 06/16/2024 2:29 AM HEAD HOUSEKEEPER DIFFERENTIAL AUTO Routine 06/16/2024 2:2 9 AM HEAD HOUSEKEEPER PHOSPHORUS Routine 06/16/2024 2:29 AM HEAD HOUSEKEEPER COMPREHENSIVE METABOLIC PANEL Routine 06/16/2024 2:29 AM HEAD HOUSEKEEPER MAGNESIUM Routine 06/16/2024 2:29 AM HEAD HOUSEKEEPER CBC WITH AUTO DIFFERENTIAL Routine 06/16/2024 2:29 AM HEAD HOUSEKEEPER LACTATE DEHYDROGENASE Routine 06/16/2024 2:29 AM HEAD HOUSEKEEPER URIC ACID Routine 06/16/2024 2:29 AM HEAD HOUSEKEEPER TYPE AND SCREEN Timed 06/16/2024 2:29 AM HEAD HOUSEKEEPER CRYPTOCOCCAL ANTIGEN, SERUM Routine 06/15/2024 10:50 AM HEAD HOUSEKEEPER URINALYSIS, MICROSCOPIC ONLY Routine 06/15/2024 5:00 AM HEAD HOUSEKEEPER URINE CULTURE Routine 06/15/2024 5:00 AM HEAD HOUSEKEEPER URINALYSIS AND REFLEX TO MICROSCOPIC AND CULTURE Routine 06/15/2024 5:00 AM HEAD HOUSEKEEPER EGFR Routine 06/15/2024 2:54 AM HEAD HOUSEKEEPER DIFFERENTIAL AUTO Routine 06/15/2024 2:5 4 AM HEAD HOUSEKEEPER PHOSPHORUS Routine 06/15/2024 2:54 AM HEAD HOUSEKEEPER COMPREHENSIVE METABOLIC PANEL Routine 06/15/2024 2:54 AM HEAD HOUSEKEEPER MAGNESIUM Routine 06/15/2024 2:54 AM HEAD HOUSEKEEPER CBC WITH AUTO DIFFERENTIAL Routine 06/15/2024 2:54 AM HEAD HOUSEKEEPER POCT GLUCOSE DEVICE Routine 06/14/2024 1 1:34 AM HEAD HOUSEKEEPER POCT GLUCOSE DEVICE Routine 06/14/2024 7 :46 AM HEAD HOUSEKEEPER EGFR Routine 06/14/2024 4:20 AM HEAD HOUSEKEEPER DIFFERENTIAL AUTO Routine 06/14/2024 4:2 0 AM HEAD HOUSEKEEPER PHOSPHORUS Routine 06/14/2024 4:20 AM HEAD HOUSEKEEPER COMPREHENSIVE METABOLIC PANEL Routine 06/14/2024 4:20 AM HEAD HOUSEKEEPER MAGNESIUM Routine 06/14/2024 4:20 AM HEAD HOUSEKEEPER CBC WITH AUTO DIFFERENTIAL Routine 06/14/2024 4:20 AM HEAD HOUSEKEEPER EGFR Routine 06/13/2024 1:45 AM HEAD HOUSEKEEPER DIFFERENTIAL AUTO Routine 06/13/2024 1:4 5 AM HEAD HOUSEKEEPER PHOSPHORUS Routine 06/13/2024 1:45 AM HEAD HOUSEKEEPER COMPREHENSIVE METABOLIC PANEL Routine 06/13/2024 1:45 AM HEAD HOUSEKEEPER MAGNESIUM Routine 06/13/2024 1:45 AM HEAD HOUSEKEEPER CBC WITH AUTO DIFFERENTIAL Routine 06/13/2024 1:45 AM HEAD HOUSEKEEPER PROTIME-INR Routine 06/13/2024 1:45 AM HEAD HOUSEKEEPER APTT Routine 06/13/2024 1:45 AM HEAD HOUSEKEEPER LACTATE DEHYDROGENASE Routine 06/13/2024 1:45 AM HEAD HOUSEKEEPER URIC ACID Routine 06/13/2024 1:45 AM HEAD HOUSEKEEPER TYPE AND SCREEN Timed 06/13/2024 1:45 AM HEAD HOUSEKEEPER VITAMIN B6 Timed 06/12/2024 4:18 PM HEAD HOUSEKEEPER VITAMIN B1 Timed 06/12/2024 4:18 PM HEAD HOUSEKEEPER FOLATE Timed 06/12/2024 4:18 PM HEAD HOUSEKEEPER HIV 1/2 ANTIBODY PLUS P24 ANTIGEN Timed 06/12/2024 4:18 PM HEAD HOUSEKEEPER URIC ACID Routine 06/12/2024 1:00 AM HEAD HOUSEKEEPER EGFR Routine 06/12/2024 1:00 AM HEAD HOUSEKEEPER DIFFERENTIAL AUTO Routine 06/12/2024 1:0 0 AM HEAD HOUSEKEEPER PHOSPHORUS Routine 06/12/2024 1:00 AM HEAD HOUSEKEEPER COMPREHENSIVE METABOLIC PANEL Routine 06/12/2024 1:00 AM HEAD HOUSEKEEPER MAGNESIUM Routine 06/12/2024 1:00 AM HEAD HOUSEKEEPER CBC WITH AUTO DIFFERENTIAL Routine 06/12/2024 1:00 AM HEAD HOUSEKEEPER PROTIME-INR Routine 06/12/2024 1:00 AM HEAD HOUSEKEEPER APTT Routine 06/12/2024 1:00 AM HEAD HOUSEKEEPER TYPE AND SCREEN Timed 06/12/2024 1:00 AM HEAD HOUSEKEEPER ECG 12-LEAD STAT 06/11/2024 8:[address] HEAD WO CONTRAST ED Urgent/IP Urgent 06/11/2024 12:54 PM HEAD HOUSEKEEPER RESPIRATORY PATHOGEN PANEL Routine 06/11/2024 12:27 PM HEAD HOUSEKEEPER EGFR STAT 06/11/2024 12:07 PM HEAD HOUSEKEEPER DIFFERENTIAL AUTO STAT 06/11/2024 12: 07 PM HEAD HOUSEKEEPER THYROID FUNCTION CASCADE STAT 06/11/2024 12:07 PM HEAD HOUSEKEEPER ETHANOL STAT 06/11/2024 12:07 PM HEAD HOUSEKEEPER COMPREHENSIVE METABOLIC PANEL STAT 06/11/2024 12:07 PM HEAD HOUSEKEEPER CBC WITH AUTO DIFFERENTIAL STAT 06/11/2024 12:07 PM HEAD HOUSEKEEPER EGFR Routine 05/27/2024 5:02 AM HEAD HOUSEKEEPER DIFFERENTIAL AUTO Routine 05/27/2024 5:0 2 AM HEAD HOUSEKEEPER PHOSPHORUS Routine 05/27/2024 5:02 AM HEAD HOUSEKEEPER COMPREHENSIVE METABOLIC PANEL Routine 05/27/2024 5:02 AM HEAD HOUSEKEEPER MAGNESIUM Routine 05/27/2024 5:02 AM HEAD HOUSEKEEPER CBC WITH AUTO DIFFERENTIAL Routine 05/27/2024 5:02 AM HEAD HOUSEKEEPER TYPE AND SCREEN Timed 05/27/2024 5:02 AM HEAD HOUSEKEEPER EGFR Routine 05/26/2024 3:58 AM HEAD HOUSEKEEPER DIFFERENTIAL AUTO Routine 05/26/2024 3:5 8 AM HEAD HOUSEKEEPER PHOSPHORUS Routine 05/26/2024 3:58 AM HEAD HOUSEKEEPER COMPREHENSIVE METABOLIC PANEL Routine 05/26/2024 3:58 AM HEAD HOUSEKEEPER MAGNESIUM Routine 05/26/2024 3:58 AM HEAD HOUSEKEEPER CBC WITH AUTO DIFFERENTIAL Routine 05/26/2024 3:58 AM HEAD HOUSEKEEPER LACTATE DEHYDROGENASE Routine 05/26/2024 3:58 AM HEAD HOUSEKEEPER URIC ACID Routine 05/26/2024 3:58 AM HEAD HOUSEKEEPER HERPES SIMPLEX VIRUS (HSV) PCR Routine 05/24/2024 6:15 PM HEAD HOUSEKEEPER ANGIO SELECTIVE INTERNAL CAROTID RIGHT IP Routine 05/24/2024 4:53 PM HEAD HOUSEKEEPER MRI BRAIN MRV HEAD W WO CONTRAST ED 05/24/2024 9:41 AM HEAD HOUSEKEEPER VITAMIN B12 Routine 05/24/2024 2:28 AM HEAD HOUSEKEEPER EGFR Routine 05/24/2024 2:28 AM HEAD HOUSEKEEPER DIFFERENTIAL AUTO Routine 05/24/2024 2:2 8 AM HEAD HOUSEKEEPER LEVETIRACETAM LEVEL Routine 05/24/2024 2 :28 AM HEAD HOUSEKEEPER PROTIME-INR Routine 05/24/2024 2:28 AM HEAD HOUSEKEEPER APTT Routine 05/24/2024 2:28 AM HEAD HOUSEKEEPER LACTATE DEHYDROGENASE Routine 05/24/2024 2:28 AM HEAD HOUSEKEEPER URIC ACID Routine 05/24/2024 2:28 AM HEAD HOUSEKEEPER TYPE AND SCREEN Timed 05/24/2024 2:28 AM HEAD HOUSEKEEPER PHOSPHORUS Routine 05/24/2024 2:28 AM HEAD HOUSEKEEPER COMPREHENSIVE METABOLIC PANEL Routine 05/24/2024 2:28 AM HEAD HOUSEKEEPER MAGNESIUM Routine 05/24/2024 2:28 AM HEAD HOUSEKEEPER CBC WITH AUTO DIFFERENTIAL Routine 05/24/2024 2:28 AM HEAD HOUSEKEEPER RPR Routine 05/24/2024 2:28 AM HEAD HOUSEKEEPER TYPE AND SCREEN STAT 05/23/2024 5:33 PM HEAD HOUSEKEEPER BLOOD CULTURE STAT 05/23/2024 5:33 PM HEAD HOUSEKEEPER BLOOD CULTURE STAT 05/23/2024 5:33 PM HEAD HOUSEKEEPER TROPONIN I HIGH-SENSITIVITY 2-HOUR Timed 05/23/2024 3:50 PM HEAD HOUSEKEEPER ECG 12-LEAD Routine 05/23/2024 3:03 PM HEAD HOUSEKEEPER THROAT CULTURE STAT 05/23/2024 2:24 PM HEAD HOUSEKEEPER BLOOD GAS, VENOUS STAT 05/23/2024 1:4 0 PM HEAD HOUSEKEEPER TROPONIN I HIGH-SENSITIVITY SERIES (BASELINE, 2HR, 4HR, 6HR) STAT 05/23/2024 1:40 PM HEAD HOUSEKEEPER XR CHEST 1 VIEW ED 05/23/2024 1:29 PM HEAD HOUSEKEEPER LACTATE Timed 05/23/2024 12:28 PM HEAD HOUSEKEEPER RESPIRATORY PATHOGEN PANEL Routine 05/23/2024 12:[address] HEAD WO CONTRAST ED 05/23/2024 1 2:10 PM HEAD HOUSEKEEPER URINALYSIS, MICROSCOPIC ONLY Routine 05/23/2024 11:56 AM HEAD HOUSEKEEPER URINALYSIS AND REFLEX TO MICROSCOPIC AND CULTURE Routine 05/23/2024 11:56 AM HEAD HOUSEKEEPER MAGNESIUM Timed 05/23/2024 11:53 AM HEAD HOUSEKEEPER PHOSPHORUS Timed 05/23/2024 11:53 AM HEAD HOUSEKEEPER EGFR Timed 05/23/2024 11:53 AM HEAD HOUSEKEEPER DIFFERENTIAL AUTO Timed 05/23/2024 11: 53 AM HEAD HOUSEKEEPER COMPREHENSIVE METABOLIC PANEL Timed 05/23/2024 11:53 AM HEAD HOUSEKEEPER CBC WITH AUTO DIFFERENTIAL Timed 05/23/2024 11:53 AM HEAD HOUSEKEEPER THYROID FUNCTION CASCADE STAT 04/27/2024 10:53 AM HEAD HOUSEKEEPER Malignant melanoma of unknown origin (HCC) IRON PROFILE W/ IBC STAT 04/27/2024 1 0:53 AM HEAD HOUSEKEEPER Malignant melanoma of unknown origin (HCC) FERRITIN STAT 04/27/2024 10:53 AM HEAD HOUSEKEEPER Malignant melanoma of unknown origin (HCC) EGFR STAT 04/27/2024 10:53 AM HEAD HOUSEKEEPER Malignant melanoma of unknown origin (HCC) DIFFERENTIAL AUTO Routine 04/27/2024 10: 53 AM HEAD HOUSEKEEPER Malignant melanoma of unknown origin (HCC) CBC WITH AUTO DIFFERENTIAL Routine 04/27/2024 10:53 AM HEAD HOUSEKEEPER Malignant melanoma of unknown origin (CMS/HCC) (HCC) COMPREHENSIVE METABOLIC PANEL STAT 04/27/2024 10:53 AM HEAD HOUSEKEEPER Malignant melanoma of unknown origin (CMS/HCC) (HCC) HEPATITIS PANEL, ACUTE STAT 01/13/2024 10:20 PM CDT COLONOSCOPY 01/14/2023 3:40 PM CDT from Last 3 Months or Most Recently Relevant to Health Maintenance Results * eGFR (06/23/2024 12:52 AM HEAD HOUSEKEEPER) eGFR 83 >=60 mL/min/1. 73 m2 Comment: Interpretive Data Reference Interval Normal >/= 90 mL/min/1.73m2 Mildly decreased* 60 - 89 mL/min/1.73m2 Mildly to moderately decreased 45 - 59 mL/min/1.73m2 Moderately to severely decreased 30 - 44 mL/min/1.73m2 Severely decreased 15 - 29 mL/min/1.73m2 Kidney Failure < 15 mL/min/1.73m2 *Relative to young adult level Estimated glomerular filtration rate is determined by the 2020 CKD-EPI equation recommended by the National Kid[employer] (A Unifying Approach to GFR Estimation: Recommendations of the NKF-ASK Task Force on Reassessing the Inclusion of Race in Diagnosing Kidney Disease, JASN 2020). The CKD-EPI equation should not be used for patients with unstable renal function and has not been validated in children and those over 70. Current interpretive data was last reviewed 2021. Blood 06/23/2024 12:5 2 AM HEAD HOUSEKEEPER 06/23/2024 1:07 AM HEAD HOUSEKEEPER us Hillary Fang MD LAB BLOOD OR DERABLES Final Result [facility] [place] [address] * (ABNORMAL) Differential, auto (06/23/2024 12:52 AM HEAD HOUSEKEEPER) Neutrophil abs 3.6 1.5 - 6.5 K/cumm Imm gran abs 0.1 0.0 - 0.1 K/cumm [facility] Lymphocyte abs 0.6(L) 0.8 - 3.3 K/cumm [facility] Monocyte abs 0.5 0.2 - 0.8 K/cumm [facility] Eosinophil abs 0.0 0.0 - 0.5 K/cumm [facility] Basophil abs 0.0 0.0 - 0.1 K/cumm [facility] Neutrophil pct 74.0 % [facility] Comment: Interpretive Data Percent cell count reference ranges are not reported, since discordance with absolute values may lead to misinterpretation of CBC data. Current Interpretive Data was last revised on 2017. Imm gran pct 2.3 % [facility] Comment: Interpretive Data Percent cell count reference ranges are not reported, since discordance with absolute values may lead to misinterpretation of CBC data. Current Interpretive Data was last revised on 2017. Lymphocyte pct 13.1 % [facility] Comment: Interpretive Data Percent cell count reference ranges are not reported, since discordance with absolute values may lead to misinterpretation of CBC data. Current Interpretive Data was last revised on 2017. Monocyte pct 10.2 % [facility] Comment: Interpretive Data Percent cell count reference ranges are not reported, since discordance with absolute values may lead to misinterpretation of CBC data. Current Interpretive Data was last revised on 2017. Eosinophil pct 0.0 % [facility] Comment: Interpretive Data Percent cell count reference ranges are not reported, since discordance with absolute values may lead to misinterpretation of CBC data. Current Interpretive Data was last revised on 2017. Basophil pct 0.4 % [facility] Comment: Interpretive Data Percent cell count reference ranges are not reported, since discordance with absolute values may lead to misinterpretation of CBC data. Current Interpretive Data was last revised on 2017. Blood 06/23/2024 12:5 2 AM HEAD HOUSEKEEPER 06/23/2024 1:07 AM HEAD HOUSEKEEPER Hillary Fang MD LAB BLOOD OR DERABLES Final Result [facility] [place] [address] * CBC with auto differential (06/23/2024 12:52 AM HEAD HOUSEKEEPER) WBC 4.8 3.8 - 9.9 K/cumm Hgb 13.8 11.9 - 15.5 g/dL [facility] Hct 41.5 35.6 - 45.5 % [facility] Plt 192 150 - 400 K/cumm [facility] MPV 9.4 9.1 - 12.[address] [facility] RBC 4.62 3.90 - 5.20 M/cumm [facility] MCV 89.8 81.3 - 96.[address] [facility] MCH 29.9 27.1 - 33.[address] [facility] MCHC 33.3 32.3 - 35.7 g/dL [facility] RDW CV 13.1 11.1 - 14.9 % [facility] RDW SD 42.6 35.7 - 48.[address] [facility] NRBC abs 0.00 0.00 - 0.01 K/cumm [facility] Blood 06/23/2024 12:5 2 AM HEAD HOUSEKEEPER 06/23/2024 1:07 AM HEAD HOUSEKEEPER Hillary Fang MD LAB BLOOD OR DERABLES Final Result Performing Organization Address [facility] Co de Phone Number [facility] [place] [address] * Type and screen (06/23/2024 12:52 AM HEAD HOUSEKEEPER) ABO Rh A Positive Yamini, indirect Negative [facility] Blood 06/23/2024 12:5 2 AM HEAD HOUSEKEEPER 06/23/2024 1:12 AM HEAD HOUSEKEEPER Narrative [facility] - 06/23/2024 2:47 AM HEAD HOUSEKEEPER Has the patient had Daratumumab or Isatuximab in the past 6 months?->Unknown Hillary Fang MD LAB BLOOD BA NK TEST ORDERABLES Final Result Performing Organization Address [facility] de Phone Number [facility] [place] [address] * Uric acid (06/23/2024 12:52 AM HEAD HOUSEKEEPER) Pathologist [facility] Uric acid 3.2 2.5 - 7.0 mg/dL Blood 06/23/2024 12:5 2 AM HEAD HOUSEKEEPER 06/23/2024 1:07 AM HEAD HOUSEKEEPER Narrative [facility] - 06/23/2024 1:39 AM HEAD HOUSEKEEPER Thursday and only. Morning draw. . us Hillary Fang MD LAB BLOOD OR DERABLES Final Result Performing Organization Address [facility] Co de Phone Number [facility] [place] [address] * Phosphorus (06/23/2024 12:52 AM HEAD HOUSEKEEPER) Phosphorus, pl 3.3 2.3 - 4.5 mg/dL Blood 06/23/2024 12:5 2 AM HEAD HOUSEKEEPER 06/23/2024 1:07 AM HEAD HOUSEKEEPER Hillary Fang MD LAB BLOOD OR DERABLES Final Result Performing Organization Address City/State/[facility] [place] [address] * Magnesium (06/23/2024 12:52 AM HEAD HOUSEKEEPER) Pathologist [facility] Magnesium 2.3 1.4 - 2.5 mg/dL Blood 06/23/2024 12:5 2 AM HEAD HOUSEKEEPER 06/23/2024 1:07 AM HEAD HOUSEKEEPER Hillary Fang MD LAB BLOOD OR DERABLES Final Result Performing Organization Address [facility] de Phone Number [facility] [place] [address] * (ABNORMAL) Lactate dehydrogenase (LD) (06/23/2024 12:52 AM HEAD HOUSEKEEPER) Pathologist [facility] Lactate dehydrogenase (LDH) 312(H) 100 - 250 Units/L Comment:Hemolyzed; result ma y be falsely elevated Blood 06/23/2024 12:5 2 AM HEAD HOUSEKEEPER 06/23/2024 1:07 AM HEAD HOUSEKEEPER Narrative [facility] - 06/23/2024 1:39 AM HEAD HOUSEKEEPER Thursday and only. Morning draw. Hillary Fang MD LAB BLOOD OR DERABLES Final Result Performing Organization Address City/[facility] Co de Phone Number [facility] [place] [address] * (ABNORMAL) Comprehensive metabolic panel (06/23/2024 12:52 AM HEAD HOUSEKEEPER) Sodium 144 135 - 145 mmol/L Potassium, pl 3.9 3.3 - 4.9 mmol/L [facility] Comment:Hemolyzed; Potassium value may be falsely elevated by as much as 0.3-0.5 mmol/L. Suggest redraw and reanalysis. Chloride 110 97 - 110 mmol/L [facility] CO2 25 22 - 32 mmol/L [facility] Anion gap 9 2 - 15 mmol/L [facility] BUN 12 6 - 25 mg/dL [facility] Creatinine 0.82 0.60 - 1.10 mg/dL [facility] Glucose 114 70 - 199 mg/dL [facility] Comment: Interpretive Data Fasting glucose >/= 126 mg/dl is diagnostic for diabetes. Fasting is defined as no caloric intake for at least 8 hours. Fasting glucose between 100 mg/dl to 125 mg/dl is diagnostic of prediabetes. In a patient with classic symptoms of hyperglycemia or hyperglycemic crisis, a random glucose >/= 200 mg/dl is diagnostic for diabetes. In the absence of unequivocal hyperglycemia, results should be confirmed by repeat testing. The classification and Diagnosis of Diabetes Diabetes Care 202; 46: S19-S40. Current interpretive data was last revised 2022. Calcium 8.8 8.5 - 10.3 mg/dL [facility] Bilirubin, total 0.2 0.1 - 1.2 mg/dL [facility] Protein, pl 5.8(L) 6.5 - 8.5 g/dL [facility] Albumin 3.3(L) 3.5 - 5.0 g/dL [facility] Alk phos 92 40 - 130 Units/L [facility] [place] ALT 26 7 - 45 Units/L [facility] [place] AST 23 10 - 45 Units/L [facility] [place] Comment:Hemolyzed; result ma y be falsely elevated Blood 06/23/2024 12:5 2 AM HEAD HOUSEKEEPER 06/23/2024 1:07 AM HEAD HOUSEKEEPER Hillary Fang MD LAB BLOOD OR DERABLES Final Result Performing Organization Address [facility] Co de Phone Number [facility] [place] [address] * eGFR (06/22/2024 12:37 AM HEAD HOUSEKEEPER) [facility] eGFR >90 >=60 mL/min/1. 73 m2 Comment: Interpretive Data Reference Interval Normal >/= 90 mL/min/1.73m2 Mildly decreased* 60 - 89 mL/min/1.73m2 Mildly to moderately decreased 45 - 59 mL/min/1.73m2 Moderately to severely decreased 30 - 44 mL/min/1.73m2 Severely decreased 15 - 29 mL/min/1.73m2 Kidney Failure < 15 mL/min/1.73m2 *Relative to young adult level Estimated glomerular filtration rate is determined by the 2020 CKD-EPI equation recommended by the National Kidney Foundation (A Unifying Approach to GFR Estimation: Recommendations of the NKF-ASK Task Force on Reassessing the Inclusion of Race in Diagnosing Kidney Disease, JASN 2020). The CKD-EPI equation should not be used for patients with unstable renal function and has not been validated in children and those over 70. Current interpretive data was last reviewed 2021. Blood 06/22/2024 12:3 7 AM HEAD HOUSEKEEPER 06/22/2024 1:04 AM HEAD HOUSEKEEPER Hillary Fang MD LAB BLOOD OR DERABLES Final Result Performing Organization Address [facility] Co de Phone Number [facility] [place] [address] * (ABNORMAL) Differential, auto (06/22/2024 12:37 AM HEAD HOUSEKEEPER) Pathologist [facility] Neutrophil abs 4.1 1.5 - 6.5 K/cumm Imm gran abs 0.1 0.0 - 0.1 K/cumm [facility] Lymphocyte abs 0.6(L) 0.8 - 3.3 K/cumm [facility] Monocyte abs 0.5 0.2 - 0.8 K/cumm [facility] Eosinophil abs 0.0 0.0 - 0.5 K/cumm [facility] Basophil abs 0.0 0.0 - 0.1 K/cumm [facility] Neutrophil pct 77.1 % [facility] Comment: Interpretive Data Percent cell count reference ranges are not reported, since discordance with absolute values may lead to misinterpretation of CBC data. Current Interpretive Data was last revised on 2017. Imm gran pct 1.7 % [facility] Comment: Interpretive Data Percent cell count reference ranges are not reported, since discordance with absolute values may lead to misinterpretation of CBC data. Current Interpretive Data was last revised on 2017. Lymphocyte pct 10.9 % [facility] Comment: Interpretive Data Percent cell count reference ranges are not reported, since discordance with absolute values may lead to misinterpretation of CBC data. Current Interpretive Data was last revised on 2017. Monocyte pct 9.9 % [facility] Comment: Interpretive Data Percent cell count reference ranges are not reported, since discordance with absolute values may lead to misinterpretation of CBC data. Current Interpretive Data was last revised on 2017. Eosinophil pct 0.0 % [facility] Comment: Interpretive Data Percent cell count reference ranges are not reported, since discordance with absolute values may lead to misinterpretation of CBC data. Current Interpretive Data was last revised on 2017. Basophil pct 0.4 % [facility] Comment: Interpretive Data Percent cell count reference ranges are not reported, since discordance with absolute values may lead to misinterpretation of CBC data. Current Interpretive Data was last revised on 2017. Blood 06/22/2024 12:3 7 AM HEAD HOUSEKEEPER 06/22/2024 1:04 AM HEAD HOUSEKEEPER us Hillary Fang MD LAB BLOOD OR DERABLES Final Result [facility] LAZAR [facility] [place] [address] * CBC with auto differential (06/22/2024 12:37 AM HEAD HOUSEKEEPER) WBC 5.3 3.8 - 9.9 K/cumm Hgb 13.8 11.9 - 15.5 g/dL [facility] Hct 41.3 35.6 - 45.5 % [facility] Plt 203 150 - 400 K/cumm [facility] MPV 9.5 9.1 - 12.[address] [facility] RBC 4.58 3.90 - 5.20 M/cumm [facility] MCV 90.2 81.3 - 96.[address] [facility] MCH 30.1 27.1 - 33.[address] [facility] MCHC 33.4 32.3 - 35.7 g/dL [facility] RDW CV 13.0 11.1 - 14.9 % [facility] RDW SD 42.5 35.7 - 48.[address] [facility] NRBC abs 0.00 0.00 - 0.01 K/cumm [facility] Blood 06/22/2024 12:3 7 AM HEAD HOUSEKEEPER 06/22/2024 1:04 AM HEAD HOUSEKEEPER us Hillary Fang MD LAB BLOOD OR DERABLES Final Result [facility] [place] [address] * Phosphorus (06/22/2024 12:37 AM HEAD HOUSEKEEPER) [facility] Phosphorus, pl 3.4 2.3 - 4.5 mg/dL Blood 06/22/2024 12:3 7 AM HEAD HOUSEKEEPER 06/22/2024 1:04 AM HEAD HOUSEKEEPER us Hillary Fang MD LAB BLOOD OR DERABLES Final Result [facility] [place] [address] * Magnesium (06/22/2024 12:37 AM HEAD HOUSEKEEPER) [facility] Magnesium 2.3 1.4 - 2.5 mg/dL Blood 06/22/2024 12:3 7 AM HEAD HOUSEKEEPER 06/22/2024 1:04 AM HEAD HOUSEKEEPER Hillary Fang MD LAB BLOOD OR DERABLES Final Result [facility] [place] [address] * (ABNORMAL) Comprehensive metabolic panel (06/22/2024 12:37 AM HEAD HOUSEKEEPER) Sodium 145 135 - 145 mmol/L Potassium, pl 4.1 3.3 - 4.9 mmol/L [facility] Comment:Hemolyzed; Potassium value may be falsely elevated by as much as 0.3-0.5 mmol/L. Suggest redraw and reanalysis. Chloride 110 97 - 110 mmol/L [facility] CO2 27 22 - 32 mmol/L [facility] Anion gap 8 2 - 15 mmol/L [facility] BUN 11 6 - 25 mg/dL [facility] Creatinine 0.74 0.60 - 1.10 mg/dL [facility] Glucose 111 70 - 199 mg/dL [facility] Comment: Interpretive Data Fasting glucose >/= 126 mg/dl is diagnostic for diabetes. Fasting is defined as no caloric intake for at least 8 hours. Fasting glucose between 100 mg/dl to 125 mg/dl is diagnostic of prediabetes. In a patient with classic symptoms of hyperglycemia or hyperglycemic crisis, a random glucose >/= 200 mg/dl is diagnostic for diabetes. In the absence of unequivocal hyperglycemia, results should be confirmed by repeat testing. The classification and Diagnosis of Diabetes Diabetes Care 2021; 46: S19-S40. Current interpretive data was last revised 2022. Calcium 8.9 8.5 - 10.3 mg/dL [facility] Bilirubin, total 0.2 0.1 - 1.2 mg/dL [facility] Protein, pl 5.7(L) 6.5 - 8.5 g/dL [facility] Albumin 3.4(L) 3.5 - 5.0 g/dL [facility] Alk phos 88 40 - 130 Units/L [facility] ALT 23 7 - 45 Units/L [facility] AST 22 10 - 45 Units/L [facility] Comment:Hemolyzed; result ma y be falsely elevated Blood 06/22/2024 12:3 7 AM HEAD HOUSEKEEPER 06/22/2024 1:04 AM HEAD HOUSEKEEPER Hillary Fang MD LAB BLOOD OR DERABLES Final Result Performing Organization Address [facility] Co de Phone Number [facility] [place] [address] * eGFR (06/21/2024 1:17 AM HEAD HOUSEKEEPER) eGFR >90 >=60 mL/min/1. 73 m2 Comment: Interpretive Data Reference Interval Normal >/= 90 mL/min/1.73m2 Mildly decreased* 60 - 89 mL/min/1.73m2 Mildly to moderately decreased 45 - 59 mL/min/1.73m2 Moderately to severely decreased 30 - 44 mL/min/1.73m2 Severely decreased 15 - 29 mL/min/1.73m2 Kidney Failure < 15 mL/min/1.73m2 *Relative to young adult level Estimated glomerular filtration rate is determined by the 2020 CKD-EPI equation recommended by the National Kidney Foundation (A Unifying Approach to GFR Estimation: Recommendations of the NKF-ASK Task Force on Reassessing the Inclusion of Race in Diagnosing Kidney Disease, JASN 2020). The CKD-EPI equation should not be used for patients with unstable renal function and has not been validated in children and those over 70. Current interpretive data was last reviewed 2021. Blood 06/21/2024 1:17 AM HEAD HOUSEKEEPER 06/21/2024 1:30 AM HEAD HOUSEKEEPER Hillary Fang MD LAB BLOOD OR DERABLES Final Result Performing Organization Address [facility] Co de Phone Number [facility] [place] [address] * (ABNORMAL) Differential, auto (06/21/2024 1:17 AM HEAD HOUSEKEEPER) Neutrophil abs 3.6 1.5 - 6.5 K/cumm Imm gran abs 0.2(H) 0.0 - 0.1 K/cumm [facility] Lymphocyte abs 0.7(L) 0.8 - 3.3 K/cumm [facility] [place] Monocyte abs 0.5 0.2 - 0.8 K/cumm [facility] Eosinophil abs 0.0 0.0 - 0.5 K/cumm [facility] Basophil abs 0.0 0.0 - 0.1 K/cumm [facility] Neutrophil pct 72.8 % [facility] [place] Comment: Interpretive Data Percent cell count reference ranges are not reported, since discordance with absolute values may lead to misinterpretation of CBC data. Current Interpretive Data was last revised on 2017. Imm gran pct 3.1 % [facility] Comment: Interpretive Data Percent cell count reference ranges are not reported, since discordance with absolute values may lead to misinterpretation of CBC data. Current Interpretive Data was last revised on 2017. Lymphocyte pct 14.3 % [facility] Comment: Interpretive Data Percent cell count reference ranges are not reported, since discordance with absolute values may lead to misinterpretation of CBC data. Current Interpretive Data was last revised on 2017. Monocyte pct 9.2 % [facility] Comment: Interpretive Data Percent cell count reference ranges are not reported, since discordance with absolute values may lead to misinterpretation of CBC data. Current Interpretive Data was last revised on 2017. Eosinophil pct 0.2 % [facility] Comment: Interpretive Data Percent cell count reference ranges are not reported, since discordance with absolute values may lead to misinterpretation of CBC data. Current Interpretive Data was last revised on 2017. Basophil pct 0.4 % [facility] Comment: Interpretive Data Percent cell count reference ranges are not reported, since discordance with absolute values may lead to misinterpretation of CBC data. Current Interpretive Data was last revised on 2017. Blood 06/21/2024 1:17 AM HEAD HOUSEKEEPER 06/21/2024 1:31 AM HEAD HOUSEKEEPER Hillary Fang MD LAB BLOOD OR DERABLES Final Result [facility] [place] [address] * CBC with auto differential (06/21/2024 1:17 AM HEAD HOUSEKEEPER) Pathologist [facility] WBC 4.9 3.8 - 9.9 K/cumm Hgb 13.6 11.9 - 15.5 g/dL [facility] Hct 41.1 35.6 - 45.5 % [facility] Plt 195 150 - 400 K/cumm [facility] MPV 9.4 9.1 - 12.[address] [facility] RBC 4.50 3.90 - 5.20 M/cumm [facility] MCV 91.3 81.3 - 96.[address] [facility] MCH 30.2 27.1 - 33.[address] [facility] MCHC 33.1 32.3 - 35.7 g/dL [facility] RDW CV 12.9 11.1 - 14.9 % [facility] RDW SD 42.7 35.7 - 48.[address] [facility] NRBC abs 0.00 0.00 - 0.01 K/cumm [facility] Blood 06/21/2024 1:17 AM HEAD HOUSEKEEPER 06/21/2024 1:31 AM HEAD HOUSEKEEPER us Hillary Fang MD LAB BLOOD OR DERABLES Final Result [facility] [place] [address] * Phosphorus (06/21/2024 1:17 AM HEAD HOUSEKEEPER) Pathologist [facility] Phosphorus, pl 3.1 2.3 - 4.5 mg/dL Blood 06/21/2024 1:17 AM HEAD HOUSEKEEPER 06/21/2024 1:30 AM HEAD HOUSEKEEPER Hillary Fang MD LAB BLOOD OR DERABLES Final Result [facility] [place] [address] * Magnesium (06/21/2024 1:17 AM HEAD HOUSEKEEPER) Pathologist [facility] Magnesium 2.2 1.4 - 2.5 mg/dL Blood 06/21/2024 1:17 AM HEAD HOUSEKEEPER 06/21/2024 1:30 AM HEAD HOUSEKEEPER Hillary Fang MD LAB BLOOD OR DERABLES Final Result Performing Organization Address [facility] de Phone Number [facility] [place] [address] * (ABNORMAL) Comprehensive metabolic panel (06/21/2024 1:17 AM HEAD HOUSEKEEPER) [facility] Sodium 145 135 - 145 mmol/L Potassium, pl 4.1 3.3 - 4.9 mmol/L [facility] Comment:Hemolyzed; Potassium value may be falsely elevated by as much as 0.3-0.5 mmol/L. Suggest redraw and reanalysis. Chloride 111(H) 97 - 110 mmol/L [facility] CO2 27 22 - 32 mmol/L [facility] Anion gap 7 2 - 15 mmol/L [facility] BUN 10 6 - 25 mg/dL [facility] Creatinine 0.73 0.60 - 1.10 mg/dL [facility] Glucose 120 70 - 199 mg/dL [facility] Comment: Interpretive Data Fasting glucose >/= 126 mg/dl is diagnostic for diabetes. Fasting is defined as no caloric intake for at least 8 hours. Fasting glucose between 100 mg/dl to 125 mg/dl is diagnostic of prediabetes. In a patient with classic symptoms of hyperglycemia or hyperglycemic crisis, a random glucose >/= 200 mg/dl is diagnostic for diabetes. In the absence of unequivocal hyperglycemia, results should be confirmed by repeat testing. The classification and Diagnosis of Diabetes Diabetes Care 2021; 46: S19-S40. Current interpretive data was last revised 2022. Calcium 8.7 8.5 - 10.3 mg/dL [facility] Bilirubin, total 0.3 0.1 - 1.2 mg/dL [facility] Protein, pl 5.7(L) 6.5 - 8.5 g/dL [facility] Albumin 3.4(L) 3.5 - 5.0 g/dL [facility] Alk phos 88 40 - 130 Units/L [facility] [place] ALT 20 7 - 45 Units/L [facility] [place] AST 21 10 - 45 Units/L [facility] Comment:Hemolyzed; result ma y be falsely elevated Blood 06/21/2024 1:17 AM HEAD HOUSEKEEPER 06/21/2024 1:30 AM HEAD HOUSEKEEPER Hillary Fang MD LAB BLOOD OR DERABLES Final Result [facility] [place] [address] * Continuous Video EEG (06/20/2024 1:16 PM HEAD HOUSEKEEPER) Anatomical Region Laterality Modality EEG Narrative 06/20/2024 1:16 PM HEAD HOUSEKEEPER Video-EEG Report Patient Name: Marilu Reed [facility] Medical Record Number (MRN): [id number] [facility] Record: [id number] Date of (): 1965 EEG Date: 06/13/2024 Ordering Provider: Pedro Luis Martin MD CC: Ludin Salazar Start Time: 06/13/2024 2:58:23 PM End Time: 06/16/2024 8:57:48 PM Introduction: Ms. Reed is a 58 y.o. female with a history of structural epilepsy with a past history of probable epileptic seizures (follows with Dr. 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 The EEG was performed to evaluate for seizures. This is a report of continuous video-EEG monitoring. High definition digital video and digital EEG were recorded continuously with a [employer] EEG acquisition system. This was a 32 channel EEG with additional anterior temporal electrodes. Electrodes were placed with collodion following the 10/20 International System. The patient was monitored and observed continuously by technical personnel. Digital seizure and spike detection were utilized during the recording. EEG description: Epoch 1 : 06/13/2024 2:58:23 PM to 06/14/2024 8:00:00 AM BACKGROUND: The background was continuous, disorganized and there was no well formed posterior dominant rhythm. The background also included diffuse irregular 1-7 Hz theta and polymorphic delta activity with state-dependent triphasic morphology, with lower frequency activity over the left hemisphere, more prominent over the temporal region. Sleep structures were not seen. The record showed variability. Hyperventilation and photic strobe stimulation were not performed. SPORADIC DISCHARGES: None. PERIODIC OR RHYTHMIC PATTERNS: None. SEIZURES: None. EVENTS: None reported. EKG: No significant dysrhythmia. Epoch 2 : 06/14/2024 8:00:00 AM to 06/15/2024 8:00:00 AM BACKGROUND: The background was continuous, disorganized and there was no well formed posterior dominant rhythm. The background also included diffuse irregular 1-7 Hz theta and polymorphic delta activity with state-dependent triphasic morphology, with lower frequency activity over the left hemisphere, more prominent over the temporal region. Sleep structures were not seen. The record showed variability. Hyperventilation and photic strobe stimulation were not performed. SPORADIC DISCHARGES: None. PERIODIC OR RHYTHMIC PATTERNS: None. SEIZURES: None. EVENTS: None reported. EKG: No significant dysrhythmia. Epoch 3 : 06/15/2024 8:00:00 AM to 06/16/2024 8:00:00 AM BACKGROUND: The background was continuous, disorganized and there was no well formed posterior dominant rhythm. The background also included diffuse irregular 1-7 Hz theta and polymorphic delta activity with state-dependent triphasic morphology, with rare lower frequency activity over the left hemisphere, more prominent over the temporal region. Sleep structures were not seen. The record showed variability. Hyperventilation and photic strobe stimulation were not performed. SPORADIC DISCHARGES: None. PERIODIC OR RHYTHMIC PATTERNS: None. SEIZURES: None. EVENTS: None reported. EKG: No significant dysrhythmia. Epoch 4 : 06/16/2024 8:00:00 AM to 06/16/2024 8:57:48 PM BACKGROUND: The background was continuous, disorganized and there was no well formed posterior dominant rhythm. The background also included diffuse irregular 1-7 Hz theta and polymorphic delta activity with state-dependent triphasic morphology, with rare lower frequency activity over the left hemisphere, more prominent over the temporal region. Sleep structures were not seen. The record showed variability. Hyperventilation and photic strobe stimulation were not performed. SPORADIC DISCHARGES: None. PERIODIC OR RHYTHMIC PATTERNS: None. SEIZURES: None. EVENTS: None reported. EKG: No significant dysrhythmia. Interpretation: No clinical or electrographic seizures were recorded during this study. The interictal EEG was abnormal due to 1) left hemisphere slowing, more prominent over the left temporal region, and 2) moderate generalized slowing with triphasic waves. Focal slowing indicates focal cerebral dysfunction. A structural or physiological abnormality should be considered. Generalized slowing with triphasic waves indicates diffuse cerebral dysfunction as seen in metabolic, toxic, or diffuse or multifocal structural abnormalities. These findings were discussed with the treating physicians on an at least twice daily basis. By signing this report, the attending Electroencephalographer certifies that he/she personally reviewed the electrodiagnostics study and has edited this report to fully conform with his/her intent. Signing Attending: Mahamed Veras III, MD Jerome Boss MD PhD NEUROLOGY ORDERABL ES Final Result * eGFR (06/20/2024 1:29 AM HEAD HOUSEKEEPER) eGFR 87 >=60 mL/min/1. 73 m2 Comment: Interpretive Data Reference Interval Normal >/= 90 mL/min/1.73m2 Mildly decreased* 60 - 89 mL/min/1.73m2 Mildly to moderately decreased 45 - 59 mL/min/1.73m2 Moderately to severely decreased 30 - 44 mL/min/1.73m2 Severely decreased 15 - 29 mL/min/1.73m2 Kidney Failure < 15 mL/min/1.73m2 *Relative to young adult level Estimated glomerular filtration rate is determined by the 2020 CKD-EPI equation recommended by the National Kidney Foundation (A Unifying Approach to GFR Estimation: Recommendations of the NKF-ASK Task Force on Reassessing the Inclusion of Race in Diagnosing Kidney Disease, JASN 202). The CKD-EPI equation should not be used for patients with unstable renal function and has not been validated in children and those over 70. Current interpretive data was last reviewed 2021. Blood 06/20/2024 1:29 AM HEAD HOUSEKEEPER 06/20/2024 1:40 AM HEAD HOUSEKEEPER Hillary Fang MD LAB BLOOD OR DERABLES Final Result [facility] [place] [address] * (ABNORMAL) Differential, auto (06/20/2024 1:29 AM HEAD HOUSEKEEPER) Neutrophil abs 4.1 1.5 - 6.5 K/cumm Imm gran abs 0.1 0.0 - 0.1 K/cumm [facility] [place] Lymphocyte abs 0.6(L) 0.8 - 3.3 K/cumm [facility] [place] Monocyte abs 0.6 0.2 - 0.8 K/cumm [facility] [place] Eosinophil abs 0.0 0.0 - 0.5 K/cumm [facility] Basophil abs 0.0 0.0 - 0.1 K/cumm [facility] Neutrophil pct 76.4 % [facility] Comment: Interpretive Data Percent cell count reference ranges are not reported, since discordance with absolute values may lead to misinterpretation of CBC data. Current Interpretive Data was last revised on 2017. Imm gran pct 1.7 % [facility] Comment: Interpretive Data Percent cell count reference ranges are not reported, since discordance with absolute values may lead to misinterpretation of CBC data. Current Interpretive Data was last revised on 2017. Lymphocyte pct 11.2 % [facility] Comment: Interpretive Data Percent cell count reference ranges are not reported, since discordance with absolute values may lead to misinterpretation of CBC data. Current Interpretive Data was last revised on 2017. Monocyte pct 10.3 % [facility] Comment: Interpretive Data Percent cell count reference ranges are not reported, since discordance with absolute values may lead to misinterpretation of CBC data. Current Interpretive Data was last revised on 2017. Eosinophil pct 0.2 % [facility] Comment: Interpretive Data Percent cell count reference ranges are not reported, since discordance with absolute values may lead to misinterpretation of CBC data. Current Interpretive Data was last revised on 2017. Basophil pct 0.2 % [facility] Comment: Interpretive Data Percent cell count reference ranges are not reported, since discordance with absolute values may lead to misinterpretation of CBC data. Current Interpretive Data was last revised on 2017. Blood 06/20/2024 1:29 AM HEAD HOUSEKEEPER 06/20/2024 1:40 AM HEAD HOUSEKEEPER us Hillary Fnag MD LAB BLOOD OR DERABLES Final Result [facility] [place] [address] * CBC with auto differential (06/20/2024 1:29 AM HEAD HOUSEKEEPER) WBC 5.4 3.8 - 9.9 K/cumm Hgb 13.8 11.9 - 15.5 g/dL [facility] [facility] Hct 41.4 35.6 - 45.5 % [facility] Plt 191 150 - 400 K/cumm [facility] MPV 9.5 9.1 - 12.[address] [facility] RBC 4.59 3.90 - 5.20 M/cumm [facility] MCV 90.2 81.3 - 96.[address] [facility] MCH 30.1 27.1 - 33.[address] [facility] MCHC 33.3 32.3 - 35.7 g/dL [facility] RDW CV 13.0 11.1 - 14.9 % [facility] RDW SD 42.3 35.7 - 48.[address] [facility] NRBC abs 0.00 0.00 - 0.01 K/cumm [facility] Blood 06/20/2024 1:29 AM HEAD HOUSEKEEPER 06/20/2024 1:40 AM HEAD HOUSEKEEPER Hillary Fang MD LAB BLOOD OR DERABLES Final Result Performing Organization Address [facility] Co de Phone Number CHANDAN [facility] [place] [address] * (ABNORMAL) Vitamin D 25 hydroxy (06/20/2024 1:29 AM HEAD HOUSEKEEPER) Vitamin D 25-OH 17(L) 30 - 80 ng/mL Blood 06/20/2024 1:29 AM HEAD HOUSEKEEPER 06/20/2024 1:40 AM HEAD HOUSEKEEPER Terri Bliss MD LAB BLOOD ORDERABLES Lulu l Result Performing Organization Address [facility] de Phone Number [facility] [place] [address] * (ABNORMAL) aPTT (06/20/2024 1:29 AM HEAD HOUSEKEEPER) aPTT 26(L) 28 - 38 sec Comment: Interpretive Data Heparin therapeutic range: 66.0 - 100.0 seconds. Range based on correlation with therapeutic heparin activity range of 0.3 - 0.7 Units/mL. Current interpretive data was last revised on 2023. Blood 06/20/2024 1:29 AM HEAD HOUSEKEEPER 06/20/2024 2:47 AM HEAD HOUSEKEEPER us Hillary Fang MD LAB BLOOD OR DERABLES Final Result Performing Organization Address [facility] de Phone Number [facility] [place] [address] * (ABNORMAL) Protime-INR (06/20/2024 1:29 AM HEAD HOUSEKEEPER) PT 14.2(H) 9.7 - 13.0 sec INR 1.31(H) 0.90 - 1.[address] [facility] Comment: Interpretive data Oral anticoagulant therapeutic ranges: Venous thromboembolism prophylaxis or treatment: 2.0-3.0 CARDIOLOGY Standard range: 2.0-3.0 High-intensity range: 2.5-3.5 Refer to indication-specific guidelines for appropriate target ranges for prosthetic heart valve replacement. Current interpretive data was last revised on 2019. Blood 06/20/2024 1:29 AM HEAD HOUSEKEEPER 06/20/2024 2:47 AM HEAD HOUSEKEEPER Hillary Fang MD LAB BLOOD OR DERABLES Final Result Performing Organization Address City/[facility] Co de Phone Number [facility] [place] [address] * Type and screen (06/20/2024 1:29 AM HEAD HOUSEKEEPER) Yamini, indirect Negative ABO Rh A Positive [facility] Blood 06/20/2024 1:29 AM HEAD HOUSEKEEPER 06/20/2024 1:41 AM HEAD HOUSEKEEPER Narrative [facility] - 06/20/2024 3:18 AM HEAD HOUSEKEEPER Has the patient had Daratumumab or Isatuximab in the past 6 months?->Unknown Hillary Fang MD LAB BLOOD BA NK TEST ORDERABLES Final Result Performing Organization Address [facility] Co de Phone Number [facility] [place] [address] * Uric acid (06/20/2024 1:29 AM HEAD HOUSEKEEPER) Uric acid 3.5 2.5 - 7.0 mg/dL Blood 06/20/2024 1:29 AM HEAD HOUSEKEEPER 06/20/2024 1:40 AM HEAD HOUSEKEEPER Narrative [facility] - 06/20/2024 2:09 AM HEAD HOUSEKEEPER Thursday and only. Morning draw. . us Hillary Fang MD LAB BLOOD OR DERABLES Final Result Performing Organization Address [facility]/[place] [address] * Phosphorus (06/20/2024 1:29 AM HEAD HOUSEKEEPER) Phosphorus, pl 2.8 2.3 - 4.5 mg/dL Blood 06/20/2024 1:29 AM HEAD HOUSEKEEPER 06/20/2024 1:40 AM HEAD HOUSEKEEPER Hillary Fang MD LAB BLOOD OR DERABLES Final Result Performing Organization Address [facility] de Phone Number [facility] [place] [address] * Magnesium (06/20/2024 1:29 AM HEAD HOUSEKEEPER) Pathologist [facility] Magnesium 2.2 1.4 - 2.5 mg/dL Blood 06/20/2024 1:29 AM HEAD HOUSEKEEPER 06/20/2024 1:40 AM HEAD HOUSEKEEPER Hillary Fang MD LAB BLOOD OR DERABLES Final Result Performing Organization Address [facility] de Phone Number [facility] [place] [address] * (ABNORMAL) Lactate dehydrogenase (LD) (06/20/2024 1:29 AM HEAD HOUSEKEEPER) Lactate dehydrogenase (LDH) 285(H) 100 - 250 Units/L Blood 06/20/2024 1:29 AM HEAD HOUSEKEEPER 06/20/2024 1:40 AM HEAD HOUSEKEEPER Narrative [facility] - 06/20/2024 3:18 AM HEAD HOUSEKEEPER Thursday and only. Morning draw. us Hillary Fang MD LAB BLOOD OR DERABLES Final Result [facility] [place] [address] * (ABNORMAL) Comprehensive metabolic panel (06/20/2024 1:29 AM HEAD HOUSEKEEPER) Sodium 144 135 - 145 mmol/L Potassium, pl 3.5 3.3 - 4.9 mmol/L [facility] Chloride 110 97 - 110 mmol/L [facility] CO2 26 22 - 32 mmol/L [facility] Anion gap 8 2 - 15 mmol/L [facility] BUN 13 6 - 25 mg/dL [facility] Creatinine 0.79 0.60 - 1.10 mg/dL [facility] Glucose 109 70 - 199 mg/dL [facility] Comment: Interpretive Data Fasting glucose >/= 126 mg/dl is diagnostic for diabetes. Fasting is defined as no caloric intake for at least 8 hours. Fasting glucose between 100 mg/dl to 125 mg/dl is diagnostic of prediabetes. In a patient with classic symptoms of hyperglycemia or hyperglycemic crisis, a random glucose >/= 200 mg/dl is diagnostic for diabetes. In the absence of unequivocal hyperglycemia, results should be confirmed by repeat testing. The classification and Diagnosis of Diabetes Diabetes Care 202; 46: S19-S40. Current interpretive data was last revised 2022. Calcium 8.6 8.5 - 10.3 mg/dL [facility] Bilirubin, total 0.2 0.1 - 1.2 mg/dL [facility] Protein, pl 5.8(L) 6.5 - 8.5 g/dL [facility] Albumin 3.4(L) 3.5 - 5.0 g/dL [facility] Alk phos 94 40 - 130 Units/L [facility] ALT 17 7 - 45 Units/L [facility] AST 15 10 - 45 Units/L [facility] Blood 06/20/2024 1:29 AM HEAD HOUSEKEEPER 06/20/2024 1:40 AM HEAD HOUSEKEEPER us Hillary Fang MD LAB BLOOD OR DERABLES Final Result [facility] [place] [address] * eGFR (06/19/2024 1:01 AM HEAD HOUSEKEEPER) eGFR >90 >=60 mL/min/1. 73 m2 Comment: Interpretive Data Reference Interval Normal >/= 90 mL/min/1.73m2 Mildly decreased* 60 - 89 mL/min/1.73m2 Mildly to moderately decreased 45 - 59 mL/min/1.73m2 Moderately to severely decreased 30 - 44 mL/min/1.73m2 Severely decreased 15 - 29 mL/min/1.73m2 Kidney Failure < 15 mL/min/1.73m2 *Relative to young adult level Estimated glomerular filtration rate is determined by the 2020 CKD-EPI equation recommended by the National Kidney Foundation (A Unifying Approach to GFR Estimation: Recommendations of the NKF-ASK Task Force on Reassessing the Inclusion of Race in Diagnosing Kidney Disease, JASN 2020). The CKD-EPI equation should not be used for patients with unstable renal function and has not been validated in children and those over 70. Current interpretive data was last reviewed 2021. Blood 06/19/2024 1:01 AM HEAD HOUSEKEEPER 06/19/2024 1:38 AM HEAD HOUSEKEEPER Hillary Fang MD LAB BLOOD OR DERABLES Final Result [facility] [place] [address] * (ABNORMAL) Differential, auto (06/19/2024 1:01 AM HEAD HOUSEKEEPER) Pathologist [facility] Neutrophil abs 4.2 1.5 - 6.5 K/cumm Imm gran abs 0.1 0.0 - 0.1 K/cumm [facility] Lymphocyte abs 0.6(L) 0.8 - 3.3 K/cumm [facility] Monocyte abs 0.5 0.2 - 0.8 K/cumm [facility] Eosinophil abs 0.0 0.0 - 0.5 K/cumm [facility] Basophil abs 0.0 0.0 - 0.1 K/cumm [facility] Neutrophil pct 78.9 % [facility] Comment: Interpretive Data Percent cell count reference ranges are not reported, since discordance with absolute values may lead to misinterpretation of CBC data. Current Interpretive Data was last revised on 2017. Imm gran pct 1.1 % [facility] Comment: Interpretive Data Percent cell count reference ranges are not reported, since discordance with absolute values may lead to misinterpretation of CBC data. Current Interpretive Data was last revised on 2017. Lymphocyte pct 10.6 % [facility] Comment: Interpretive Data Percent cell count reference ranges are not reported, since discordance with absolute values may lead to misinterpretation of CBC data. Current Interpretive Data was last revised on 2017. Monocyte pct 9.0 % [facility] Comment: Interpretive Data Percent cell count reference ranges are not reported, since discordance with absolute values may lead to misinterpretation of CBC data. Current Interpretive Data was last revised on 2017. Eosinophil pct 0.2 % [facility] Comment: Interpretive Data Percent cell count reference ranges are not reported, since discordance with absolute values may lead to misinterpretation of CBC data. Current Interpretive Data was last revised on 2017. Basophil pct 0.2 % [facility] Comment: Interpretive Data Percent cell count reference ranges are not reported, since discordance with absolute values may lead to misinterpretation of CBC data. Current Interpretive Data was last revised on 2017. Blood 06/19/2024 1:01 AM HEAD HOUSEKEEPER 06/19/2024 1:38 AM HEAD HOUSEKEEPER us Hillary Fang MD LAB BLOOD OR DERABLES Final Result [facility] [place] [address] * CBC with auto differential (06/19/2024 1:01 AM HEAD HOUSEKEEPER) WBC 5.4 3.8 - 9.9 K/cumm Hgb 13.8 11.9 - 15.5 g/dL [facility] Hct 41.7 35.6 - 45.5 % [facility] Plt 193 150 - 400 K/cumm [facility] MPV 9.8 9.1 - 12.[address] [facility] RBC 4.60 3.90 - 5.20 M/cumm [facility] MCV 90.7 81.3 - 96.[address] [facility] MCH 30.0 27.1 - 33.[address] [facility] MCHC 33.1 32.3 - 35.7 g/dL [facility] RDW CV 13.0 11.1 - 14.9 % [facility] RDW SD 42.7 35.7 - 48.[address] [facility] NRBC abs 0.00 0.00 - 0.01 K/cumm [facility] Blood 06/19/2024 1:01 AM HEAD HOUSEKEEPER 06/19/2024 1:38 AM HEAD HOUSEKEEPER Hillary Fang MD LAB BLOOD OR DERABLES Final Result [facility] [place] [address] * Phosphorus (06/19/2024 1:01 AM HEAD HOUSEKEEPER) Phosphorus, pl 3.3 2.3 - 4.5 mg/dL Blood 06/19/2024 1:01 AM HEAD HOUSEKEEPER 06/19/2024 1:38 AM HEAD HOUSEKEEPER Hillary Fang MD LAB BLOOD OR DERABLES Final Result [facility] [place] [address] * Magnesium (06/19/2024 1:01 AM HEAD HOUSEKEEPER) Magnesium 2.2 1.4 - 2.5 mg/dL Blood 06/19/2024 1:01 AM HEAD HOUSEKEEPER 06/19/2024 1:38 AM HEAD HOUSEKEEPER Hillary Fang MD LAB BLOOD OR DERABLES Final Result [facility] [place] [address] * (ABNORMAL) Comprehensive metabolic panel (06/19/2024 1:01 AM HEAD HOUSEKEEPER) Sodium 142 135 - 145 mmol/L Potassium, pl 3.7 3.3 - 4.9 mmol/L [facility] Chloride 107 97 - 110 mmol/L [facility] CO2 28 22 - 32 mmol/L [facility] Anion gap 7 2 - 15 mmol/L [facility] BUN 13 6 - 25 mg/dL [facility] Creatinine 0.75 0.60 - 1.10 mg/dL [facility] Glucose 97 70 - 199 mg/dL [facility] Comment: Interpretive Data Fasting glucose >/= 126 mg/dl is diagnostic for diabetes. Fasting is defined as no caloric intake for at least 8 hours. Fasting glucose between 100 mg/dl to 125 mg/dl is diagnostic of prediabetes. In a patient with classic symptoms of hyperglycemia or hyperglycemic crisis, a random glucose >/= 200 mg/dl is diagnostic for diabetes. In the absence of unequivocal hyperglycemia, results should be confirmed by repeat testing. The classification and Diagnosis of Diabetes Diabetes Care 2021; 46: S19-S40. Current interpretive data was last revised 2022. Calcium 8.8 8.5 - 10.3 mg/dL [facility] Bilirubin, total 0.3 0.1 - 1.2 mg/dL [facility] Protein, pl 5.7(L) 6.5 - 8.5 g/dL [facility] Albumin 3.6 3.5 - 5.0 g/dL [facility] Alk phos 94 40 - 130 Units/L [facility] ALT 15 7 - 45 Units/L [facility] AST 14 10 - 45 Units/L [facility] Blood 06/19/2024 1:01 AM HEAD HOUSEKEEPER 06/19/2024 1:38 AM HEAD HOUSEKEEPER Hillary Fang MD LAB BLOOD OR DERABLES Final Result Performing Organization Address City/[facility] Co de Phone Number CHANDAN [facility] Department [place] [address] * eGFR (06/18/2024 1:08 AM HEAD HOUSEKEEPER) Pathologist [facility] eGFR 83 >=60 mL/min/1. 73 m2 Comment: Interpretive Data Reference Interval Normal >/= 90 mL/min/1.73m2 Mildly decreased* 60 - 89 mL/min/1.73m2 Mildly to moderately decreased 45 - 59 mL/min/1.73m2 Moderately to severely decreased 30 - 44 mL/min/1.73m2 Severely decreased 15 - 29 mL/min/1.73m2 Kidney Failure < 15 mL/min/1.73m2 *Relative to young adult level Estimated glomerular filtration rate is determined by the 2020 CKD-EPI equation recommended by the National Kidney Foundation (A Unifying Approach to GFR Estimation: Recommendations of the NKF-ASK Task Force on Reassessing the Inclusion of Race in Diagnosing Kidney Disease, JASN 2020). The CKD-EPI equation should not be used for patients with unstable renal function and has not been validated in children and those over 70. Current interpretive data was last reviewed 2021. Blood 06/18/2024 1:08 AM HEAD HOUSEKEEPER 06/18/2024 1:19 AM HEAD HOUSEKEEPER Hillary Fang MD LAB BLOOD OR DERABLES Final Result Performing Organization Address [facility]/ZIP Co de Phone Number CHANDAN [facility] Department [place] [address] * (ABNORMAL) Differential, auto (06/18/2024 1:08 AM HEAD HOUSEKEEPER) Pathologist [facility] Neutrophil abs 3.6 1.5 - 6.5 K/cumm Imm gran abs 0.0 0.0 - 0.1 K/cumm [facility] Lymphocyte abs 0.5(L) 0.8 - 3.3 K/cumm [facility] Monocyte abs 0.4 0.2 - 0.8 K/cumm [facility] Eosinophil abs 0.0 0.0 - 0.5 K/cumm [facility] Basophil abs 0.0 0.0 - 0.1 K/cumm [facility] Neutrophil pct 80.4 % [facility] Comment: Interpretive Data Percent cell count reference ranges are not reported, since discordance with absolute values may lead to misinterpretation of CBC data. Current Interpretive Data was last revised on 2017. Imm gran pct 0.7 % [facility] Comment: Interpretive Data Percent cell count reference ranges are not reported, since discordance with absolute values may lead to misinterpretation of CBC data. Current Interpretive Data was last revised on 2017. Lymphocyte pct 10.8 % [facility] Comment: Interpretive Data Percent cell count reference ranges are not reported, since discordance with absolute values may lead to misinterpretation of CBC data. Current Interpretive Data was last revised on 2017. Monocyte pct 8.1 % [facility] Comment: Interpretive Data Percent cell count reference ranges are not reported, since discordance with absolute values may lead to misinterpretation of CBC data. Current Interpretive Data was last revised on 2017. Eosinophil pct 0.0 % [facility] Comment: Interpretive Data Percent cell count reference ranges are not reported, since discordance with absolute values may lead to misinterpretation of CBC data. Current Interpretive Data was last revised on 2017. Basophil pct 0.0 % [facility] Comment: Interpretive Data Percent cell count reference ranges are not reported, since discordance with absolute values may lead to misinterpretation of CBC data. Current Interpretive Data was last revised on 2017. Blood 06/18/2024 1:08 AM HEAD HOUSEKEEPER 06/18/2024 1:19 AM HEAD HOUSEKEEPER us Hillary Fang MD LAB BLOOD OR DERABLES Final Result [facility] [place] [address] * CBC with auto differential (06/18/2024 1:08 AM HEAD HOUSEKEEPER) [facility] WBC 4.5 3.8 - 9.9 K/cumm Hgb 13.4 11.9 - 15.5 g/dL [facility] Hct 39.8 35.6 - 45.5 % [facility] Plt 192 150 - 400 K/cumm [facility] MPV 9.8 9.1 - 12.[address] [facility] RBC 4.44 3.90 - 5.20 M/cumm [facility] MCV 89.6 81.3 - 96.[address] [facility] MCH 30.2 27.1 - 33.[address] [facility] MCHC 33.7 32.3 - 35.7 g/dL [facility] RDW CV 12.9 11.1 - 14.9 % [facility] RDW SD 42.4 35.7 - 48.[address] [facility] NRBC abs 0.00 0.00 - 0.01 K/cumm [facility] Blood 06/18/2024 1:08 AM HEAD HOUSEKEEPER 06/18/2024 1:19 AM HEAD HOUSEKEEPER Hillary Fang MD LAB BLOOD OR DERABLES Final Result Performing Organization Address [facility] Co de Phone Number [facility] [place] [address] * Phosphorus (06/18/2024 1:08 AM HEAD HOUSEKEEPER) [facility] Phosphorus, pl 3.2 2.3 - 4.5 mg/dL Blood 06/18/2024 1:08 AM HEAD HOUSEKEEPER 06/18/2024 1:19 AM HEAD HOUSEKEEPER Hillary Fang MD LAB BLOOD OR DERABLES Final Result Performing Organization Address [facility]/[place] [address] * Magnesium (06/18/2024 1:08 AM HEAD HOUSEKEEPER) Magnesium 2.3 1.4 - 2.5 mg/dL Blood 06/18/2024 1:08 AM HEAD HOUSEKEEPER 06/18/2024 1:19 AM HEAD HOUSEKEEPER Hillary Fang MD LAB BLOOD OR DERABLES Final Result [facility] [place] [address] * (ABNORMAL) Comprehensive metabolic panel (06/18/2024 1:08 AM HEAD HOUSEKEEPER) Pathologist [facility] Sodium 143 135 - 145 mmol/L Potassium, pl 3.9 3.3 - 4.9 mmol/L [facility] Chloride 109 97 - 110 mmol/L [facility] CO2 27 22 - 32 mmol/L [facility] Anion gap 7 2 - 15 mmol/L [facility] BUN 12 6 - 25 mg/dL [facility] Creatinine 0.82 0.60 - 1.10 mg/dL [facility] Glucose 109 70 - 199 mg/dL [facility] Comment: Interpretive Data Fasting glucose >/= 126 mg/dl is diagnostic for diabetes. Fasting is defined as no caloric intake for at least 8 hours. Fasting glucose between 100 mg/dl to 125 mg/dl is diagnostic of prediabetes. In a patient with classic symptoms of hyperglycemia or hyperglycemic crisis, a random glucose >/= 200 mg/dl is diagnostic for diabetes. In the absence of unequivocal hyperglycemia, results should be confirmed by repeat testing. The classification and Diagnosis of Diabetes Diabetes Care 202; 46: S19-S40. Current interpretive data was last revised 2022. Calcium 8.8 8.5 - 10.3 mg/dL [facility] Bilirubin, total 0.3 0.1 - 1.2 mg/dL [facility] Protein, pl 5.7(L) 6.5 - 8.5 g/dL [facility] Albumin 3.6 3.5 - 5.0 g/dL [facility] Alk phos 95 40 - 130 Units/L [facility] ALT 13 7 - 45 Units/L [facility] AST 10 10 - 45 Units/L [facility] Blood 06/18/2024 1:08 AM HEAD HOUSEKEEPER 06/18/2024 1:19 AM HEAD HOUSEKEEPER us Hillary Fang MD LAB BLOOD OR DERABLES Final Result Performing Organization Address City/[facility] Co de Phone Number [facility] [place] [address] * eGFR (06/17/2024 1:29 AM HEAD HOUSEKEEPER) eGFR 83 >=60 mL/min/1. 73 m2 Comment: Interpretive Data Reference Interval Normal >/= 90 mL/min/1.73m2 Mildly decreased* 60 - 89 mL/min/1.73m2 Mildly to moderately decreased 45 - 59 mL/min/1.73m2 Moderately to severely decreased 30 - 44 mL/min/1.73m2 Severely decreased 15 - 29 mL/min/1.73m2 Kidney Failure < 15 mL/min/1.73m2 *Relative to young adult level Estimated glomerular filtration rate is determined by the 2020 CKD-EPI equation recommended by the National Kidney Foundation (A Unifying Approach to GFR Estimation: Recommendations of the NKF-ASK Task Force on Reassessing the Inclusion of Race in Diagnosing Kidney Disease, JASN 202). The CKD-EPI equation should not be used for patients with unstable renal function and has not been validated in children and those over 70. Current interpretive data was last reviewed 2021. Blood 06/17/2024 1:29 AM HEAD HOUSEKEEPER 06/17/2024 1:37 AM HEAD HOUSEKEEPER us Hillary Fang MD LAB BLOOD OR DERABLES Final Result Performing Organization Address City/[facility] Co de Phone Number [facility] [place] [address] * (ABNORMAL) Differential, auto (06/17/2024 1:29 AM HEAD HOUSEKEEPER) Pathologist [facility] Neutrophil abs 4.6 1.5 - 6.5 K/cumm Imm gran abs 0.1 0.0 - 0.1 K/cumm [facility] Lymphocyte abs 0.6(L) 0.8 - 3.3 K/cumm [facility] Monocyte abs 0.5 0.2 - 0.8 K/cumm [facility] Eosinophil abs 0.0 0.0 - 0.5 K/cumm [facility] Basophil abs 0.0 0.0 - 0.1 K/cumm [facility] Neutrophil pct 80.5 % [facility] Comment: Interpretive Data Percent cell count reference ranges are not reported, since discordance with absolute values may lead to misinterpretation of CBC data. Current Interpretive Data was last revised on 2017. Imm gran pct 0.9 % [facility] Comment: Interpretive Data Percent cell count reference ranges are not reported, since discordance with absolute values may lead to misinterpretation of CBC data. Current Interpretive Data was last revised on 2017. Lymphocyte pct 10.0 % [facility] Comment: Interpretive Data Percent cell count reference ranges are not reported, since discordance with absolute values may lead to misinterpretation of CBC data. Current Interpretive Data was last revised on 2017. Monocyte pct 8.6 % [facility] Comment: Interpretive Data Percent cell count reference ranges are not reported, since discordance with absolute values may lead to misinterpretation of CBC data. Current Interpretive Data was last revised on 2017. Eosinophil pct 0.0 % [facility] Comment: Interpretive Data Percent cell count reference ranges are not reported, since discordance with absolute values may lead to misinterpretation of CBC data. Current Interpretive Data was last revised on 2017. Basophil pct 0.0 % [facility] Comment: Interpretive Data Percent cell count reference ranges are not reported, since discordance with absolute values may lead to misinterpretation of CBC data. Current Interpretive Data was last revised on 2017. Blood 06/17/2024 1:29 AM HEAD HOUSEKEEPER 06/17/2024 1:37 AM HEAD HOUSEKEEPER Hillary Fang MD LAB BLOOD OR DERABLES Final Result Performing Organization Address City/[facility] Co de Phone Number [facility] [place] [address] * CBC with auto differential (06/17/2024 1:29 AM HEAD HOUSEKEEPER) Pathologist [facility] WBC 5.7 3.8 - 9.9 K/cumm Hgb 14.4 11.9 - 15.5 g/dL [facility] Hct 42.8 35.6 - 45.5 % [facility] Plt 192 150 - 400 K/cumm [facility] MPV 9.4 9.1 - 12.[address] [facility] RBC 4.79 3.90 - 5.20 M/cumm [facility] MCV 89.4 81.3 - 96.[address] [facility] MCH 30.1 27.1 - 33.[address] [facility] MCHC 33.6 32.3 - 35.7 g/dL [facility] RDW CV 12.9 11.1 - 14.9 % [facility] RDW SD 42.6 35.7 - 48.[address] [facility] NRBC abs 0.00 0.00 - 0.01 K/cumm [facility] Blood 06/17/2024 1:29 AM HEAD HOUSEKEEPER 06/17/2024 1:37 AM HEAD HOUSEKEEPER us Hillary Fang MD LAB BLOOD OR DERABLES Final Result Performing Organization Address City/[facility]/ZIP Co de Phone Number [facility] [place] [address] * Phosphorus (06/17/2024 1:29 AM HEAD HOUSEKEEPER) Pathologist [facility] Phosphorus, pl 3.0 2.3 - 4.5 mg/dL Blood 06/17/2024 1:29 AM HEAD HOUSEKEEPER 06/17/2024 1:37 AM HEAD HOUSEKEEPER Hillary Fang MD LAB BLOOD OR DERABLES Final Result Performing Organization Address City/[facility]/ZIP Co de Phone Number [facility] [place] [address] * Magnesium (06/17/2024 1:29 AM HEAD HOUSEKEEPER) [facility] Magnesium 2.1 1.4 - 2.5 mg/dL Blood 06/17/2024 1:29 AM HEAD HOUSEKEEPER 06/17/2024 1:37 AM HEAD HOUSEKEEPER Hillary Fang MD LAB BLOOD OR DERABLES Final Result Performing Organization Address [facility]/[place] de Phone Number [facility] [place] [address] * (ABNORMAL) Comprehensive metabolic panel (06/17/2024 1:29 AM HEAD HOUSEKEEPER) [facility] Sodium 142 135 - 145 mmol/L Potassium, pl 4.1 3.3 - 4.9 mmol/L [facility] Chloride 108 97 - 110 mmol/L [facility] CO2 27 22 - 32 mmol/L [facility] Anion gap 7 2 - 15 mmol/L [facility] BUN 11 6 - 25 mg/dL [facility] Creatinine 0.82 0.60 - 1.10 mg/dL [facility] Glucose 109 70 - 199 mg/dL [facility] Comment: Interpretive Data Fasting glucose >/= 126 mg/dl is diagnostic for diabetes. Fasting is defined as no caloric intake for at least 8 hours. Fasting glucose between 100 mg/dl to 125 mg/dl is diagnostic of prediabetes. In a patient with classic symptoms of hyperglycemia or hyperglycemic crisis, a random glucose >/= 200 mg/dl is diagnostic for diabetes. In the absence of unequivocal hyperglycemia, results should be confirmed by repeat testing. The classification and Diagnosis of Diabetes Diabetes Care 2021; 46: S19-S40. Current interpretive data was last revised 2022. Calcium 9.2 8.5 - 10.3 mg/dL [facility] Bilirubin, total 0.3 0.1 - 1.2 mg/dL [facility] Protein, pl 6.2(L) 6.5 - 8.5 g/dL [facility] Albumin 3.8 3.5 - 5.0 g/dL [facility] Alk phos 107 40 - 130 Units/L [facility] ALT 11 7 - 45 Units/L [facility] AST 10 10 - 45 Units/L [facility] Blood 06/17/2024 1:29 AM HEAD HOUSEKEEPER 06/17/2024 1:37 AM HEAD HOUSEKEEPER us Hillary Fang MD LAB BLOOD OR DERABLES Final Result [facility] [place] [address] * POCT glucose (06/16/2024 8:21 PM HEAD HOUSEKEEPER) [facility] Signature Glucose, POC 136 70 - 199 mg/dL Blood 06/16/2024 8:21 PM HEAD HOUSEKEEPER 06/16/2024 8:21 PM HEAD HOUSEKEEPER us Alyson Masters MD LAB POCT ORDERABLES - MARGARET CE Final Result Performing Organization Address City/[facility]/ZIP Co de Phone Number [facility] [place] [address] * PET/CT FDG Skull to Thigh (06/16/2024 9:38 AM HEAD HOUSEKEEPER) Anatomical Region Laterality Modality N/A Positron Emissio n Tomography (PET) 06/16/2024 11:4 2 AM HEAD HOUSEKEEPER Impressions 06/16/2024 12:01 PM HEAD HOUSEKEEPER 1. No FDG PET/CT evidence of hypermetabolic malignancy. Specifically, no abnormal intracranial FDG uptake to explain patient's neurologic presentation 2. New compression fracture of T6 and probable occult fracture of adjacent right 6th rib, likely in the setting of patient's osteopenia. 3. Circumferential FDG uptake in the skin and part of the subcutaneous tissue of the lower extremities without skin thickening or subcutaneous fat stranding is of uncertain etiology and the pattern is atypical for white fat uptake in the setting of current corticosteroid treatment. Attention in follow-up is recommended. 4. New moderately hypermetabolic left upper lobe groundglass opacity favors to be infectious/inflammatory. Consider attention on follow-up. Dictated by: Hayley Flowers M.D. The radiology attending physician has personally reviewed this study, and had reviewed and/or edited this written report and agrees with it. Electronically signed by: Linda Parham M.D. Narrative 06/16/2024 12:01 PM HEAD HOUSEKEEPER EXAMINATION: TUMOR FDG-PET/CT IMAGING DATE OF STUDY: 06/16/2024 SCANNER: [facility] [employer] RADIOPHARMACEUTICAL: 14.13 mCi F-18 Fluorodeoxyglucose (FDG) i.v. Injection site: Right forearm HISTORY: 58-year-old woman with anterior chest wall melanoma diagnosed in in 2003, post excision. 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 She received WBRT 02/2020 followed by ipilimumab and nivolumab from 02/28/20 to 06/05/20 and nivolumab from 07/03/20 to 04/30/22. She received binimetinib plus encorafenib from 06/27/22 to 10/22/22 and optualag from 12/03/22 to 08/26/23. Recently the patient presented with headache and altered mental status. 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 The study is requested for detection of suspected recurrence. Subsequent treatment strategy. TECHNIQUE: The patient's fasting blood glucose level, measured by glucometer before injection of FDG, was 69 mg/dL. After intravenous administration of FDG, noncontrast CT images were obtained for attenuation correction and for fusion with emission PET images to allow for anatomical localization of PET findings. Emission PET images were then obtained. The study was interpreted on the [employer] workstation. The mean liver SUV (reported for quality eng purposes) is 3.4. The total scanned area was skull vertex to knees. Images of the body were obtained starting 62 minutes after injection of tracer. All reported SUVs are maximum SUVs, unless otherwise specified. COMPARISON: Several prior FDG PET studies, most recently on 02/22/2024, brain MRI on 05/24/2024 DESCRIPTORS OF LESION FDG AVIDITY: Minimal: <= blood pool Mild: > blood pool and <= liver Moderate: > liver and <= 2x SUVmax liver Moderate to marked: >2x SUVmax liver and <= 3x SUVmax liver Marked: > 3x SUVmax liver FINDINGS: There is no abnormal intracranial uptake. Linear uptake along the esophagus and focal intense uptake centered in the gastroesophageal junction represent esophagitis. New moderately hypermetabolic left upper lobe groundglass opacity on image #113. There is new moderately hypermetabolic compression deformity of T6 vertebral body on image #110 and the posterior right 6th rib. Healing right inferior ramus pubis and left spinous process of L3 fracture with interval resolution of previously noted focal uptake. There is no circumferential uptake in the skin and subcutaneous tissue of the lower extremity without skin thickening and subcutaneous fat stranding. Although white fat uptake can be seen regarding the patient's current corticosteroid treatment ( prednisone 30 mg per day); limited uptake to the lower extremities is atypical for this pattern. Additional CT findings: Mild age-related brain atrophy. Diminutive thyroid. Calcified atheromatous plaque along nondilated aortic arch, descending/abdominal aorta and its branches. Small hiatal hernia. Cholecystectomy. Colonic diverticulosis. Linear atelectasis/scarring lung bases and apices. Right middle lobe atelectasis. Muti level spinal spondylosis and compression deformities without FDG uptake, likely chronic. Partially imaged EEG detector surrounding the patient's had. Procedure Note Linda Parham MD - 06/16/2024 EXAMINATION: TUMOR FDG-PET/CT IMAGING DATE OF STUDY: 06/16/2024 SCANNER: [employer] RADIOPHARMACEUTICAL: 14.13 mCi F-18 Fluorodeoxyglucose (FDG) i.v. Injection site: Right forearm HISTORY: 58-year-old woman with anterior chest wall melanoma diagnosed in in 2003, post excision. 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 She received WBRT 02/2020 followed by ipilimumab and nivolumab from 02/28/20 to 06/05/20 and nivolumab from 07/03/20 to 04/30/22. She received binimetinib plus encorafenib from 06/27/22 to 10/22/22 and optualag from 12/03/22 to 08/26/23. Recently the patient presented with headache and altered mental status. 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 The study is requested for detection of suspected recurrence. Subsequent treatment strategy. TECHNIQUE: The patient's fasting blood glucose level, measured by glucometer before injection of FDG, was 69 mg/dL. After intravenous administration of FDG, noncontrast CT images were obtained for attenuation correction and for fusion with emission PET images to allow for anatomical localization of PET findings. Emission PET images were then obtained. The study was interpreted on the [employer] workstation. The mean liver SUV (reported for quality eng purposes) is 3.4. The total scanned area was skull vertex to knees. Images of the body were obtained starting 62 minutes after injection of tracer. All reported SUVs are maximum SUVs, unless otherwise specified. COMPARISON: Several prior FDG PET studies, most recently on 02/22/2024, brain MRI on 05/24/2024 DESCRIPTORS OF LESION FDG AVIDITY: Minimal: <= blood pool Mild: > blood pool and <= liver Moderate: > liver and <= 2x SUVmax liver Moderate to marked: >2x SUVmax liver and <= 3x SUVmax liver Marked: > 3x SUVmax liver FINDINGS: There is no abnormal intracranial uptake. Linear uptake along the esophagus and focal intense uptake centered in the gastroesophageal junction represent esophagitis. New moderately hypermetabolic left upper lobe groundglass opacity on image #113. There is new moderately hypermetabolic compression deformity of T6 vertebral body on image #110 and the posterior right 6th rib. Healing right inferior ramus pubis and left spinous process of L3 fracture with interval resolution of previously noted focal uptake. There is no circumferential uptake in the skin and subcutaneous tissue of the lower extremity without skin thickening and subcutaneous fat stranding. Although white fat uptake can be seen regarding the patient's current corticosteroid treatment ( prednisone 30 mg per day); limited uptake to the lower extremities is atypical for this pattern. Additional CT findings: Mild age-related brain atrophy. Diminutive thyroid. Calcified atheromatous plaque along nondilated aortic arch, descending/abdominal aorta and its branches. Small hiatal hernia. Cholecystectomy. Colonic diverticulosis. Linear atelectasis/scarring lung bases and apices. Right middle lobe atelectasis. Muti level spinal spondylosis and compression deformities without FDG uptake, likely chronic. Partially imaged EEG detector surrounding the patient's had. IMPRESSION: 1. No FDG PET/CT evidence of hypermetabolic malignancy. Specifically, no abnormal intracranial FDG uptake to explain patient's neurologic presentation 2. New compression fracture of T6 and probable occult fracture of adjacent right 6th rib, likely in the setting of patient's osteopenia. 3. Circumferential FDG uptake in the skin and part of the subcutaneous tissue of the lower extremities without skin thickening or subcutaneous fat stranding is of uncertain etiology and the pattern is atypical for white fat uptake in the setting of current corticosteroid treatment. Attention in follow-up is recommended. 4. New moderately hypermetabolic left upper lobe groundglass opacity favors to be infectious/inflammatory. Consider attention on follow-up. Dictated by: Hayley Flowers M.D. The radiology attending physician has personally reviewed this study, and had reviewed and/or edited this written report and agrees with it. Electronically signed by: Linda Parham M.D. us Alyson Masters MD IMG PET PROCEDURES Final R esult * eGFR (06/16/2024 2:29 AM HEAD HOUSEKEEPER) eGFR 80 >=60 mL/min/1. 73 m2 Comment: Interpretive Data Reference Interval Normal >/= 90 mL/min/1.73m2 Mildly decreased* 60 - 89 mL/min/1.73m2 Mildly to moderately decreased 45 - 59 mL/min/1.73m2 Moderately to severely decreased 30 - 44 mL/min/1.73m2 Severely decreased 15 - 29 mL/min/1.73m2 Kidney Failure < 15 mL/min/1.73m2 *Relative to young adult level Estimated glomerular filtration rate is determined by the 2020 CKD-EPI equation recommended by the National Kid[employer] (A Unifying Approach to GFR Estimation: Recommendations of the NKF-ASK Task Force on Reassessing the Inclusion of Race in Diagnosing Kidney Disease, JASN 202). The CKD-EPI equation should not be used for patients with unstable renal function and has not been validated in children and those over 70. Current interpretive data was last reviewed 2021. Blood 06/16/2024 2:29 AM HEAD HOUSEKEEPER 06/16/2024 2:59 AM HEAD HOUSEKEEPER us Hillary Fang MD LAB BLOOD OR DERABLES Final Result [facility] [place] [address] * (ABNORMAL) Differential, auto (06/16/2024 2:29 AM HEAD HOUSEKEEPER) Neutrophil abs 4.2 1.5 - 6.5 K/cumm Imm gran abs 0.0 0.0 - 0.1 K/cumm [facility] Lymphocyte abs 0.7(L) 0.8 - 3.3 K/cumm [facility] Monocyte abs 0.6 0.2 - 0.8 K/cumm [facility] Eosinophil abs 0.0 0.0 - 0.5 K/cumm [facility] Basophil abs 0.0 0.0 - 0.1 K/cumm [facility] Neutrophil pct 75.5 % [facility] Comment: Interpretive Data Percent cell count reference ranges are not reported, since discordance with absolute values may lead to misinterpretation of CBC data. Current Interpretive Data was last revised on 2017. Imm gran pct 0.7 % [facility] Comment: Interpretive Data Percent cell count reference ranges are not reported, since discordance with absolute values may lead to misinterpretation of CBC data. Current Interpretive Data was last revised on 2017. Lymphocyte pct 12.5 % [facility] Comment: Interpretive Data Percent cell count reference ranges are not reported, since discordance with absolute values may lead to misinterpretation of CBC data. Current Interpretive Data was last revised on 2017. Monocyte pct 11.1 % [facility] Comment: Interpretive Data Percent cell count reference ranges are not reported, since discordance with absolute values may lead to misinterpretation of CBC data. Current Interpretive Data was last revised on 2017. Eosinophil pct 0.0 % [facility] Comment: Interpretive Data Percent cell count reference ranges are not reported, since discordance with absolute values may lead to misinterpretation of CBC data. Current Interpretive Data was last revised on 2017. Basophil pct 0.2 % [facility] Comment: Interpretive Data Percent cell count reference ranges are not reported, since discordance with absolute values may lead to misinterpretation of CBC data. Current Interpretive Data was last revised on 2017. Blood 06/16/2024 2:29 AM HEAD HOUSEKEEPER 06/16/2024 2:59 AM HEAD HOUSEKEEPER Hillary Fang MD LAB BLOOD OR DERABLES Final Result Performing Organization Address City/[facility]/ZIP Co de Phone Number [facility] [place] [address] * CBC with auto differential (06/16/2024 2:29 AM HEAD HOUSEKEEPER) WBC 5.5 3.8 - 9.9 K/cumm Hgb 14.0 11.9 - 15.5 g/dL [facility] Hct 42.0 35.6 - 45.5 % [facility] Plt 190 150 - 400 K/cumm [facility] MPV 9.3 9.1 - 12.[address] [facility] RBC 4.67 3.90 - 5.20 M/cumm [facility] MCV 89.9 81.3 - 96.[address] [facility] MCH 30.0 27.1 - 33.[address] [facility] MCHC 33.3 32.3 - 35.7 g/dL [facility] RDW CV 12.9 11.1 - 14.9 % [facility] RDW SD 42.0 35.7 - 48.[address] [facility] NRBC abs 0.00 0.00 - 0.01 K/cumm [facility] Blood 06/16/2024 2:29 AM HEAD HOUSEKEEPER 06/16/2024 2:59 AM HEAD HOUSEKEEPER us Hillary Fang MD LAB BLOOD OR DERABLES Final Result Performing Organization Address City/[facility]/ZIP Co de Phone Number [facility] [place] [address] * Type and screen (06/16/2024 2:29 AM HEAD HOUSEKEEPER) Yamini, indirect Negative ABO Rh A Positive [facility] Blood 06/16/2024 2:29 AM HEAD HOUSEKEEPER 06/16/2024 2:56 AM HEAD HOUSEKEEPER Narrative [facility] - 06/16/2024 4:01 AM HEAD HOUSEKEEPER Has the patient had Daratumumab or Isatuximab in the past 6 months?->Unknown Hillary Fang MD LAB BLOOD BA NK TEST ORDERABLES Final Result Performing Organization Address City/[facility] Co de Phone Number [facility] [place] [address] * Uric acid (06/16/2024 2:29 AM HEAD HOUSEKEEPER) Pathologist [facility] Uric acid 3.6 2.5 - 7.0 mg/dL Blood 06/16/2024 2:29 AM HEAD HOUSEKEEPER 06/16/2024 2:59 AM HEAD HOUSEKEEPER Narrative [facility] - 06/16/2024 3:30 AM HEAD HOUSEKEEPER Thursday and only. Morning draw. . Hillary Fang MD LAB BLOOD OR DERABLES Final Result Performing Organization Address City/[facility] Co de Phone Number [facility] [place] [address] * Phosphorus (06/16/2024 2:29 AM HEAD HOUSEKEEPER) Phosphorus, pl 2.9 2.3 - 4.5 mg/dL Blood 06/16/2024 2:29 AM HEAD HOUSEKEEPER 06/16/2024 2:59 AM HEAD HOUSEKEEPER Hillary Fang MD LAB BLOOD OR DERABLES Final Result Performing Organization Address City/[facility]/ZIP Co de Phone Number [facility] [place] [address] * Magnesium (06/16/2024 2:29 AM HEAD HOUSEKEEPER) [facility] Magnesium 2.1 1.4 - 2.5 mg/dL Blood 06/16/2024 2:29 AM HEAD HOUSEKEEPER 06/16/2024 2:59 AM HEAD HOUSEKEEPER Hillary Fang MD LAB BLOOD OR DERABLES Final Result Performing Organization Address City/[facility] Co de Phone Number [facility] [place] [address] * Lactate dehydrogenase (LD) (06/16/2024 2:29 AM HEAD HOUSEKEEPER) [facility] Lactate dehydrogenase (LDH) 223 100 - 250 Units/L Blood 06/16/2024 2:29 AM HEAD HOUSEKEEPER 06/16/2024 2:59 AM HEAD HOUSEKEEPER Narrative [facility] - 06/16/2024 3:29 AM HEAD HOUSEKEEPER Thursday and only. Morning draw. Hillary Fang MD LAB BLOOD OR DERABLES Final Result Performing Organization Address [facility]/[place] de Phone Number [facility] [place] [address] * (ABNORMAL) Comprehensive metabolic panel (06/16/2024 2:29 AM HEAD HOUSEKEEPER) [facility] Sodium 143 135 - 145 mmol/L Potassium, pl 3.3 3.3 - 4.9 mmol/L [facility] Chloride 108 97 - 110 mmol/L [facility] CO2 26 22 - 32 mmol/L [facility] Anion gap 9 2 - 15 mmol/L [facility] BUN 12 6 - 25 mg/dL [facility] Creatinine 0.85 0.60 - 1.10 mg/dL [facility] Glucose 94 70 - 199 mg/dL [facility] Comment: Interpretive Data Fasting glucose >/= 126 mg/dl is diagnostic for diabetes. Fasting is defined as no caloric intake for at least 8 hours. Fasting glucose between 100 mg/dl to 125 mg/dl is diagnostic of prediabetes. In a patient with classic symptoms of hyperglycemia or hyperglycemic crisis, a random glucose >/= 200 mg/dl is diagnostic for diabetes. In the absence of unequivocal hyperglycemia, results should be confirmed by repeat testing. The classification and Diagnosis of Diabetes Diabetes Care 2021; 46: S19-S40. Current interpretive data was last revised 2022. Calcium 8.9 8.5 - 10.3 mg/dL [facility] Bilirubin, total 0.4 0.1 - 1.2 mg/dL [facility] Protein, pl 5.8(L) 6.5 - 8.5 g/dL [facility] Albumin 3.6 3.5 - 5.0 g/dL [facility] Alk phos 100 40 - 130 Units/L [facility] ALT 13 7 - 45 Units/L [facility] AST 11 10 - 45 Units/L [facility] Blood 06/16/2024 2:29 AM HEAD HOUSEKEEPER 06/16/2024 2:59 AM HEAD HOUSEKEEPER Hillary Fang MD LAB BLOOD OR DERABLES Final Result [facility] [place] [address] * Cryptococcal Antigen, Serum Blood (06/15/2024 10:50 AM HEAD HOUSEKEEPER) Pathologist [facility] Cryptococcus ag, Serum Negative Negative Comment: The cryptococcal antigen test was performed using the [employer]MM[employer] CrAg Lateral Flow Assay. This assay is FDA cleared for serum and CSF specimens and for the detection of Cryptococcus neoformans and Cryptococcus gattii. If the result is positive, the specimen will be titered and reported from less than 1:5 to greater than or equal to 1:2560. This assay does not distinguish between C. neoformans and C. gattii. Testing hemolyzed serum samples may lead to false negatives. Current interpretive data last revised 2018. Blood 06/15/2024 10:5 0 AM HEAD HOUSEKEEPER 06/15/2024 10:59 AM HEAD HOUSEKEEPER Alyson Masters MD LAB MICROBIOLOGY - GENERAL ORDERABLES Final Result [facility] [place] [address] * (ABNORMAL) Urinalysis reflex to microscopic and culture Urine (06/15/2024 5:00 AM HEAD HOUSEKEEPER) Color, ur Yellow Yellow Clarity, ur Cloudy(A) Clear [facility] Specific gravity, ur 1.015 1.003 - 1.[address] [facility] pH, urine 6.[address] [facility] Comment: Interpretive Data U rine pH is affected by diet, medications, systemic acid-base disturbances, and renal tubular function. pH may affect urinary stone formation. For example, urine pH below 6.0 may help reduce the tendency for calcium phosphate stones and pH greater than 6.0 may reduce the tendency for uric acid stone formation. Source: [facility] Current Interpretive Data was last revised on 2017 Protein, ur ql Trace Negative [facility] Glucose, ur ql Negative Negative [facility] Ketones, ur 1+(A) Negative [facility] Bilirubin, ur Negative Negative [facility] Blood, ur Trace(A) Negative [facility] Urobilinogen, ur <2.0 <2.0 mg/dL [facility] Nitrite, ur Negative Negative [facility] Leukocyte esterase, ur 3+(A) Negative [facility] UA reflex comment Reflex to microscopic UA will be performed. [facility] Urine 06/15/2024 5:00 AM HEAD HOUSEKEEPER 06/15/2024 7:30 AM HEAD HOUSEKEEPER Alyson Masters MD LAB MICROBIOLOGY - GENERAL ORDERABLES Final Result Performing Organization Address City/[facility]/ZIP Co de Phone Number [facility]AN LAZAR [facility] [place] [address] * (ABNORMAL) Urinalysis, microscopic only (06/15/2024 5:00 AM HEAD HOUSEKEEPER) WBC, ur 21-50(A) 0 - 5 /HPF RBC, ur 3-5(A) 0 - 2 /HPF [facility] Epithelial cells, squamous, ur 1-5 0 - 5 /HPF [facility] Epithelial cells, renal, ur 1-5(A) 0 - 0 /HPF [facility] Bacteria, ur 2+(A) [facility] Culture Reflex Comment Reflex to urine culture will be performed. [facility] Urine 06/15/2024 5:00 AM HEAD HOUSEKEEPER 06/15/2024 7:30 AM HEAD HOUSEKEEPER us Alyson Masters MD LAB URINE ORDERABLES Final Result Performing Organization Address [facility]/ZIP Co de Phone Number [facility] [place] [address] * (ABNORMAL) Urine culture Urine (06/15/2024 5:00 AM HEAD HOUSEKEEPER) Report Final Report: Greater than or equal to 100,000 colonies/mL of Escherichia coli (.) Organism ESCHERICHIA COLI [facility] Urine 06/15/2024 5:00 AM HEAD HOUSEKEEPER 06/15/2024 10:27 AM HEAD HOUSEKEEPER Narrative [facility] - 06/17/2024 11:40 AM HEAD HOUSEKEEPER Urine culture reflexed based upon urinalysis results. Testing performed by [facility] ([phone]) Organism Antibiotic Method Susceptibility Escherichia coli Ampicillin INTERPRETATION Resistant Escherichia coli Cefazolin INTERPRETATION Susceptible Escherichia coli Nitrofurantoin INTERPRETATION Susceptible Escherichia coli Gentamicin INTERPRETATION Susceptible Escherichia coli Trimethoprim with Sulfamethoxazole IN TERPRETATION Resistant Escherichia coli Meropenem INTERPRETATION Susceptible Escherichia coli Cefepime INTERPRETATION Susceptible Escherichia coli Ciprofloxacin INTERPRETATION Susceptible Escherichia coli Ceftazidime INTERPRETATION Susceptible Escherichia coli Ceftriaxone INTERPRETATION Susceptible Escherichia coli Piperacillin/Tazobactam INTERPRETATIO N Susceptible Escherichia coli Cephalexin INTERPRETATION Susceptible Escherichia coli Cefuroxime-axetil INTERPRETATION Susceptible Escherichia coli Cefdinir INTERPRETATION Susceptible us Alyson Masters MD LAB MICROBIOLOGY - GENERAL ORDERABLES Final Result Performing Organization Address City/[facility]/ZIP Co de Phone Number [facility] [place] [address] * eGFR (06/15/2024 2:54 AM HEAD HOUSEKEEPER) Pathologist [facility] eGFR 80 >=60 mL/min/1. 73 m2 Comment: Interpretive Data Reference Interval Normal >/= 90 mL/min/1.73m2 Mildly decreased* 60 - 89 mL/min/1.73m2 Mildly to moderately decreased 45 - 59 mL/min/1.73m2 Moderately to severely decreased 30 - 44 mL/min/1.73m2 Severely decreased 15 - 29 mL/min/1.73m2 Kidney Failure < 15 mL/min/1.73m2 *Relative to young adult level Estimated glomerular filtration rate is determined by the 2020 CKD-EPI equation recommended by the National Kidney Foundation (A Unifying Approach to GFR Estimation: Recommendations of the NKF-ASK Task Force on Reassessing the Inclusion of Race in Diagnosing Kidney Disease, JASN 2020). The CKD-EPI equation should not be used for patients with unstable renal function and has not been validated in children and those over 70. Current interpretive data was last reviewed 2021. Blood 06/15/2024 2:54 AM HEAD HOUSEKEEPER 06/15/2024 3:11 AM HEAD HOUSEKEEPER us Hillary Fang MD LAB BLOOD OR DERABLES Final Result [facility] Department [place] [address] * (ABNORMAL) Differential, auto (06/15/2024 2:54 AM HEAD HOUSEKEEPER) Pathologist [facility] Neutrophil abs 5.2 1.5 - 6.5 K/cumm Imm gran abs 0.0 0.0 - 0.1 K/cumm [facility] Lymphocyte abs 0.6(L) 0.8 - 3.3 K/cumm [facility] Monocyte abs 0.7 0.2 - 0.8 K/cumm [facility] Eosinophil abs 0.0 0.0 - 0.5 K/cumm [facility] Basophil abs 0.0 0.0 - 0.1 K/cumm [facility] Neutrophil pct 79.2 % [facility] Comment: Interpretive Data Percent cell count reference ranges are not reported, since discordance with absolute values may lead to misinterpretation of CBC data. Current Interpretive Data was last revised on 2017. Imm gran pct 0.6 % [facility] Comment: Interpretive Data Percent cell count reference ranges are not reported, since discordance with absolute values may lead to misinterpretation of CBC data. Current Interpretive Data was last revised on 2017. Lymphocyte pct 9.4 % [facility] Comment: Interpretive Data Percent cell count reference ranges are not reported, since discordance with absolute values may lead to misinterpretation of CBC data. Current Interpretive Data was last revised on 2017. Monocyte pct 10.8 % [facility] Comment: Interpretive Data Percent cell count reference ranges are not reported, since discordance with absolute values may lead to misinterpretation of CBC data. Current Interpretive Data was last revised on 2017. Eosinophil pct 0.0 % [facility] Comment: Interpretive Data Percent cell count reference ranges are not reported, since discordance with absolute values may lead to misinterpretation of CBC data. Current Interpretive Data was last revised on 2017. Basophil pct 0.0 % [facility] Comment: Interpretive Data Percent cell count reference ranges are not reported, since discordance with absolute values may lead to misinterpretation of CBC data. Current Interpretive Data was last revised on 2017. Blood 06/15/2024 2:54 AM HEAD HOUSEKEEPER 06/15/2024 3:11 AM HEAD HOUSEKEEPER us Hillary Fang MD LAB BLOOD OR DERABLES Final Result [facility] Department [place] [address] * CBC with auto differential (06/15/2024 2:54 AM HEAD HOUSEKEEPER) WBC 6.6 3.8 - 9.9 K/cumm Hgb 15.0 11.9 - 15.5 g/dL [facility] Hct 44.9 35.6 - 45.5 % [facility] Plt 214 150 - 400 K/cumm [facility] MPV 9.5 9.1 - 12.[address] [facility] RBC 5.01 3.90 - 5.20 M/cumm [facility] MCV 89.6 81.3 - 96.[address] [facility] MCH 29.9 27.1 - 33.[address] [facility] MCHC 33.4 32.3 - 35.7 g/dL [facility] RDW CV 12.8 11.1 - 14.9 % [facility] RDW SD 41.8 35.7 - 48.[address] [facility] NRBC abs 0.00 0.00 - 0.01 K/cumm [facility] Blood 06/15/2024 2:54 AM HEAD HOUSEKEEPER 06/15/2024 3:11 AM HEAD HOUSEKEEPER Hillary Fang MD LAB BLOOD OR DERABLES Final Result [facility] [place] [address] * Phosphorus (06/15/2024 2:54 AM HEAD HOUSEKEEPER) Phosphorus, pl 2.6 2.3 - 4.5 mg/dL Blood 06/15/2024 2:54 AM HEAD HOUSEKEEPER 06/15/2024 3:11 AM HEAD HOUSEKEEPER us Hillary Fang MD LAB BLOOD OR DERABLES Final Result [facility] [place] [address] * Magnesium (06/15/2024 2:54 AM HEAD HOUSEKEEPER) Magnesium 2.1 1.4 - 2.5 mg/dL Blood 06/15/2024 2:54 AM HEAD HOUSEKEEPER 06/15/2024 3:11 AM HEAD HOUSEKEEPER us Hillary Fang MD LAB BLOOD OR DERABLES Final Result [facility] [place] [address] * (ABNORMAL) Comprehensive metabolic panel (06/15/2024 2:54 AM HEAD HOUSEKEEPER) Sodium 141 135 - 145 mmol/L Potassium, pl 3.5 3.3 - 4.9 mmol/L [facility] Chloride 106 97 - 110 mmol/L [facility] CO2 24 22 - 32 mmol/L [facility] Anion gap 11 2 - 15 mmol/L [facility] BUN 10 6 - 25 mg/dL [facility] Creatinine 0.85 0.60 - 1.10 mg/dL [facility] Glucose 98 70 - 199 mg/dL [facility] Comment: Interpretive Data Fasting glucose >/= 126 mg/dl is diagnostic for diabetes. Fasting is defined as no caloric intake for at least 8 hours. Fasting glucose between 100 mg/dl to 125 mg/dl is diagnostic of prediabetes. In a patient with classic symptoms of hyperglycemia or hyperglycemic crisis, a random glucose >/= 200 mg/dl is diagnostic for diabetes. In the absence of unequivocal hyperglycemia, results should be confirmed by repeat testing. The classification and Diagnosis of Diabetes Diabetes Care 2021; 46: S19-S40. Current interpretive data was last revised 2022. Calcium 9.1 8.5 - 10.3 mg/dL [facility] Bilirubin, total 0.6 0.1 - 1.2 mg/dL [facility] Protein, pl 6.3(L) 6.5 - 8.5 g/dL [facility] Albumin 3.9 3.5 - 5.0 g/dL [facility] Alk phos 109 40 - 130 Units/L [facility] ALT 12 7 - 45 Units/L [facility] AST 13 10 - 45 Units/L [facility] Blood 06/15/2024 2:54 AM HEAD HOUSEKEEPER 06/15/2024 3:11 AM HEAD HOUSEKEEPER us Hillary Fang MD LAB BLOOD OR DERABLES Final Result Performing Organization Address [facility] Co de Phone Number [facility] [place] [address] * POCT glucose (06/14/2024 11:34 AM HEAD HOUSEKEEPER) Glucose, POC 103 70 - 199 mg/dL Blood 06/14/2024 11:3 4 AM HEAD HOUSEKEEPER 06/14/2024 11:34 AM HEAD HOUSEKEEPER us Alyson Masters MD LAB POCT ORDERABLES - MARGARET CE Final Result Performing Organization Address [facility] Co de Phone Number [facility] [place] [address] * POCT glucose (06/14/2024 7:46 AM HEAD HOUSEKEEPER) Glucose, POC 77 70 - 199 mg/dL Blood 06/14/2024 7:46 AM HEAD HOUSEKEEPER 06/14/2024 7:46 AM HEAD HOUSEKEEPER us Jerome Boss MD PhD LAB POCT ORDERABLE S - DEVICE Final Result Performing Organization Address [facility]/[place] de Phone Number [facility] [place] [address] * eGFR (06/14/2024 4:20 AM HEAD HOUSEKEEPER) eGFR 69 >=60 mL/min/1. 73 m2 Comment: Interpretive Data Reference Interval Normal >/= 90 mL/min/1.73m2 Mildly decreased* 60 - 89 mL/min/1.73m2 Mildly to moderately decreased 45 - 59 mL/min/1.73m2 Moderately to severely decreased 30 - 44 mL/min/1.73m2 Severely decreased 15 - 29 mL/min/1.73m2 Kidney Failure < 15 mL/min/1.73m2 *Relative to young adult level Estimated glomerular filtration rate is determined by the 2020 CKD-EPI equation recommended by the National Kidney Foundation (A Unifying Approach to GFR Estimation: Recommendations of the NKF-ASK Task Force on Reassessing the Inclusion of Race in Diagnosing Kidney Disease, JASN 2020). The CKD-EPI equation should not be used for patients with unstable renal function and has not been validated in children and those over 70. Current interpretive data was last reviewed 2021. Blood 06/14/2024 4:20 AM HEAD HOUSEKEEPER 06/14/2024 4:28 AM HEAD HOUSEKEEPER us Hillary Fang MD LAB BLOOD OR DERABLES Final Result [facility] [place] [address] * Differential, auto (06/14/2024 4:20 AM HEAD HOUSEKEEPER) Neutrophil abs 5.3 1.5 - 6.5 K/cumm Imm gran abs 0.1 0.0 - 0.1 K/cumm [facility] Lymphocyte abs 0.8 0.8 - 3.3 K/cumm [facility] Monocyte abs 0.7 0.2 - 0.8 K/cumm [facility] Eosinophil abs 0.0 0.0 - 0.5 K/cumm [facility] Basophil abs 0.0 0.0 - 0.1 K/cumm [facility] Neutrophil pct 77.3 % [facility] Comment: Interpretive Data Percent cell count reference ranges are not reported, since discordance with absolute values may lead to misinterpretation of CBC data. Current Interpretive Data was last revised on 2017. Imm gran pct 0.7 % [facility] Comment: Interpretive Data Percent cell count reference ranges are not reported, since discordance with absolute values may lead to misinterpretation of CBC data. Current Interpretive Data was last revised on 2017. Lymphocyte pct 11.5 % [facility] Comment: Interpretive Data Percent cell count reference ranges are not reported, since discordance with absolute values may lead to misinterpretation of CBC data. Current Interpretive Data was last revised on 2017. Monocyte pct 10.2 % [facility] Comment: Interpretive Data Percent cell count reference ranges are not reported, since discordance with absolute values may lead to misinterpretation of CBC data. Current Interpretive Data was last revised on 2017. Eosinophil pct 0.0 % [facility] Comment: Interpretive Data Percent cell count reference ranges are not reported, since discordance with absolute values may lead to misinterpretation of CBC data. Current Interpretive Data was last revised on 2017. Basophil pct 0.3 % [facility] Comment: Interpretive Data Percent cell count reference ranges are not reported, since discordance with absolute values may lead to misinterpretation of CBC data. Current Interpretive Data was last revised on 2017. Blood 06/14/2024 4:20 AM HEAD HOUSEKEEPER 06/14/2024 4:28 AM HEAD HOUSEKEEPER Hillary Fang MD LAB BLOOD OR DERABLES Final Result [facility] [place] [address] * (ABNORMAL) CBC with auto differential (06/14/2024 4:20 AM HEAD HOUSEKEEPER) WBC 6.9 3.8 - 9.9 K/cumm Hgb 16.1(H) 11.9 - 15.5 g/dL [facility] Hct 47.5(H) 35.6 - 45.5 % [facility] Plt 218 150 - 400 K/cumm [facility] MPV 9.3 9.1 - 12.[address] [facility] RBC 5.35(H) 3.90 - 5.20 M/cumm [facility] MCV 88.8 81.3 - 96.[address] [facility] MCH 30.1 27.1 - 33.[address] [facility] MCHC 33.9 32.3 - 35.7 g/dL [facility] RDW CV 13.0 11.1 - 14.9 % [facility] RDW SD 41.9 35.7 - 48.[address] [facility] NRBC abs 0.00 0.00 - 0.01 K/cumm [facility] Blood 06/14/2024 4:20 AM HEAD HOUSEKEEPER 06/14/2024 4:28 AM HEAD HOUSEKEEPER Hillary Fang MD LAB BLOOD OR DERABLES Final Result Performing Organization Address City/[facility]/ZIP Co de Phone Number [facility] [place] [address] * Phosphorus (06/14/2024 4:20 AM HEAD HOUSEKEEPER) Pathologist [facility] Phosphorus, pl 3.3 2.3 - 4.5 mg/dL Blood 06/14/2024 4:20 AM HEAD HOUSEKEEPER 06/14/2024 4:28 AM HEAD HOUSEKEEPER us Hillary Fang MD LAB BLOOD OR DERABLES Final Result Performing Organization Address [facility] Co de Phone Number [facility] [place] [address] * Magnesium (06/14/2024 4:20 AM HEAD HOUSEKEEPER) Magnesium 2.3 1.4 - 2.5 mg/dL Blood 06/14/2024 4:20 AM HEAD HOUSEKEEPER 06/14/2024 4:28 AM HEAD HOUSEKEEPER Hillary Fang MD LAB BLOOD OR DERABLES Final Result Performing Organization Address City/[facility] [place] [address] * Comprehensive metabolic panel (06/14/2024 4:20 AM HEAD HOUSEKEEPER) Sodium 143 135 - 145 mmol/L Potassium, pl 4.0 3.3 - 4.9 mmol/L [facility] Chloride 105 97 - 110 mmol/L [facility] CO2 26 22 - 32 mmol/L [facility] Anion gap 12 2 - 15 mmol/L [facility] BUN 11 6 - 25 mg/dL [facility] Creatinine 0.96 0.60 - 1.10 mg/dL [facility] Glucose 105 70 - 199 mg/dL [facility] Comment: Interpretive Data Fasting glucose >/= 126 mg/dl is diagnostic for diabetes. Fasting is defined as no caloric intake for at least 8 hours. Fasting glucose between 100 mg/dl to 125 mg/dl is diagnostic of prediabetes. In a patient with classic symptoms of hyperglycemia or hyperglycemic crisis, a random glucose >/= 200 mg/dl is diagnostic for diabetes. In the absence of unequivocal hyperglycemia, results should be confirmed by repeat testing. The classification and Diagnosis of Diabetes Diabetes Care 202; 46: S19-S40. Current interpretive data was last revised 2022. Calcium 9.5 8.5 - 10.3 mg/dL [facility] Bilirubin, total 0.7 0.1 - 1.2 mg/dL [facility] Protein, pl 6.5 6.5 - 8.5 g/dL [facility] Albumin 4.0 3.5 - 5.0 g/dL [facility] Alk phos 107 40 - 130 Units/L [facility] ALT 12 7 - 45 Units/L [facility] AST 13 10 - 45 Units/L [facility] Blood 06/14/2024 4:20 AM HEAD HOUSEKEEPER 06/14/2024 4:28 AM HEAD HOUSEKEEPER Hillary Fang MD LAB BLOOD OR DERABLES Final Result [facility] [place] [address] * eGFR (06/13/2024 1:45 AM HEAD HOUSEKEEPER) eGFR 65 >=60 mL/min/1. 73 m2 Comment: Interpretive Data Reference Interval Normal >/= 90 mL/min/1.73m2 Mildly decreased* 60 - 89 mL/min/1.73m2 Mildly to moderately decreased 45 - 59 mL/min/1.73m2 Moderately to severely decreased 30 - 44 mL/min/1.73m2 Severely decreased 15 - 29 mL/min/1.73m2 Kidney Failure < 15 mL/min/1.73m2 *Relative to young adult level Estimated glomerular filtration rate is determined by the 2020 CKD-EPI equation recommended by the National Kidney Foundation (A Unifying Approach to GFR Estimation: Recommendations of the NKF-ASK Task Force on Reassessing the Inclusion of Race in Diagnosing Kidney Disease, JASN 202). The CKD-EPI equation should not be used for patients with unstable renal function and has not been validated in children and those over 70. Current interpretive data was last reviewed 2021. Blood 06/13/2024 1:45 AM HEAD HOUSEKEEPER 06/13/2024 2:10 AM HEAD HOUSEKEEPER Hillary Fang MD LAB BLOOD OR DERABLES Final Result [facility] [place] [address] * Differential, auto (06/13/2024 1:45 AM HEAD HOUSEKEEPER) Neutrophil abs 4.5 1.5 - 6.5 K/cumm Imm gran abs 0.1 0.0 - 0.1 K/cumm [facility] Lymphocyte abs 0.9 0.8 - 3.3 K/cumm [facility] Monocyte abs 0.7 0.2 - 0.8 K/cumm [facility] Eosinophil abs 0.0 0.0 - 0.5 K/cumm [facility] Basophil abs 0.0 0.0 - 0.1 K/cumm [facility] Neutrophil pct 72.3 % [facility] Comment: Interpretive Data Percent cell count reference ranges are not reported, since discordance with absolute values may lead to misinterpretation of CBC data. Current Interpretive Data was last revised on 2017. Imm gran pct 0.8 % [facility] Comment: Interpretive Data Percent cell count reference ranges are not reported, since discordance with absolute values may lead to misinterpretation of CBC data. Current Interpretive Data was last revised on 2017. Lymphocyte pct 14.6 % [facility] Comment: Interpretive Data Percent cell count reference ranges are not reported, since discordance with absolute values may lead to misinterpretation of CBC data. Current Interpretive Data was last revised on 2017. Monocyte pct 11.8 % [facility] Comment: Interpretive Data Percent cell count reference ranges are not reported, since discordance with absolute values may lead to misinterpretation of CBC data. Current Interpretive Data was last revised on 2017. Eosinophil pct 0.2 % [facility] Comment: Interpretive Data Percent cell count reference ranges are not reported, since discordance with absolute values may lead to misinterpretation of CBC data. Current Interpretive Data was last revised on 2017. Basophil pct 0.3 % [facility] Comment: Interpretive Data Percent cell count reference ranges are not reported, since discordance with absolute values may lead to misinterpretation of CBC data. Current Interpretive Data was last revised on 2017. Blood 06/13/2024 1:45 AM HEAD HOUSEKEEPER 06/13/2024 2:10 AM HEAD HOUSEKEEPER us Hillary Fang MD LAB BLOOD OR DERABLES Final Result [facility] [place] [address] * (ABNORMAL) CBC with auto differential (06/13/2024 1:45 AM HEAD HOUSEKEEPER) WBC 6.3 3.8 - 9.9 K/cumm Hgb 15.7(H) 11.9 - 15.5 g/dL [facility] Hct 46.2(H) 35.6 - 45.5 % [facility] Plt 234 150 - 400 K/cumm [facility] MPV 9.3 9.1 - 12.[address] [facility] RBC 5.26(H) 3.90 - 5.20 M/cumm [facility] MCV 87.8 81.3 - 96.[address] [facility] MCH 29.8 27.1 - 33.[address] [facility] [facility] MCHC 34.0 32.3 - 35.7 g/dL [facility] RDW CV 12.7 11.1 - 14.9 % [facility] RDW SD 40.7 35.7 - 48.[address] [facility] NRBC abs 0.00 0.00 - 0.01 K/cumm [facility] Blood 06/13/2024 1:45 AM HEAD HOUSEKEEPER 06/13/2024 2:10 AM HEAD HOUSEKEEPER Hillary Fang MD LAB BLOOD OR DERABLES Final Result Performing Organization Address [facility] de Phone Number [facility] [place] [address] * aPTT (06/13/2024 1:45 AM HEAD HOUSEKEEPER) aPTT 34 28 - 38 sec Comment: Interpretive Data Heparin therapeutic range: 66.0 - 100.0 seconds. Range based on correlation with therapeutic heparin activity range of 0.3 - 0.7 Units/mL. Current interpretive data was last revised on 2023. Blood 06/13/2024 1:45 AM HEAD HOUSEKEEPER 06/13/2024 2:13 AM HEAD HOUSEKEEPER Result [facility] Hillary Fang MD LAB BLOOD OR DERABLES Final Result Performing Organization Address [facility] de Phone Number [facility] [place] [address] * (ABNORMAL) Protime-INR (06/13/2024 1:45 AM HEAD HOUSEKEEPER) PT 16.1(H) 9.7 - 13.0 sec INR 1.48(H) 0.90 - 1.[address] [facility] Comment: Interpretive data Oral anticoagulant therapeutic ranges: Venous thromboembolism prophylaxis or treatment: 2.0-3.0 CARDIOLOGY Standard range: 2.0-3.0 High-intensity range: 2.5-3.5 Refer to indication-specific guidelines for appropriate target ranges for prosthetic heart valve replacement. Current interpretive data was last revised on 2019. Blood 06/13/2024 1:45 AM HEAD HOUSEKEEPER 06/13/2024 2:13 AM HEAD HOUSEKEEPER Hillary Fang MD LAB BLOOD OR DERABLES Final Result Performing Organization Address [facility] Co de Phone Number [facility] [place] [address] * Type and screen (06/13/2024 1:45 AM HEAD HOUSEKEEPER) Yamini, indirect Negative ABO Rh A Positive [facility] Blood 06/13/2024 1:45 AM HEAD HOUSEKEEPER 06/13/2024 2:03 AM HEAD HOUSEKEEPER Narrative [facility] - 06/13/2024 3:13 AM HEAD HOUSEKEEPER Has the patient had Daratumumab or Isatuximab in the past 6 months?->Unknown Hillary Fang MD LAB BLOOD BA NK TEST ORDERABLES Final Result Performing Organization Address [facility] de Phone Number [facility] [place] [address] * Uric acid (06/13/2024 1:45 AM HEAD HOUSEKEEPER) Uric acid 4.3 2.5 - 7.0 mg/dL Blood 06/13/2024 1:45 AM HEAD HOUSEKEEPER 06/13/2024 2:10 AM HEAD HOUSEKEEPER Narrative [facility] - 06/13/2024 2:41 AM HEAD HOUSEKEEPER Thursday and only. Morning draw. . us Hillary Fang MD LAB BLOOD OR DERABLES Final Result Performing Organization Address [facility] Co de Phone Number [facility] [place] [address] * Phosphorus (06/13/2024 1:45 AM HEAD HOUSEKEEPER) Phosphorus, pl 3.2 2.3 - 4.5 mg/dL Blood 06/13/2024 1:45 AM HEAD HOUSEKEEPER 06/13/2024 2:10 AM HEAD HOUSEKEEPER Hillary Fang MD LAB BLOOD OR DERABLES Final Result Performing Organization Address City/[facility] [place] [address] * Magnesium (06/13/2024 1:45 AM HEAD HOUSEKEEPER) Pathologist [facility] Magnesium 2.4 1.4 - 2.5 mg/dL Blood 06/13/2024 1:45 AM HEAD HOUSEKEEPER 06/13/2024 2:10 AM HEAD HOUSEKEEPER Hillary Fang MD LAB BLOOD OR DERABLES Final Result Performing Organization Address [facility] [place] [address] * (ABNORMAL) Lactate dehydrogenase (LD) (06/13/2024 1:45 AM HEAD HOUSEKEEPER) [facility] Lactate dehydrogenase (LDH) 320(H) 100 - 250 Units/L Blood 06/13/2024 1:45 AM HEAD HOUSEKEEPER 06/13/2024 2:10 AM HEAD HOUSEKEEPER Narrative [facility] - 06/13/2024 2:41 AM HEAD HOUSEKEEPER Thursday and only. Morning draw. Hillary Fang MD LAB BLOOD OR DERABLES Final Result Performing Organization Address [facility]/[place] [address] * Comprehensive metabolic panel (06/13/2024 1:45 AM HEAD HOUSEKEEPER) Pathologist [facility] Sodium 142 135 - 145 mmol/L Potassium, pl 3.4 3.3 - 4.9 mmol/L [facility] Chloride 103 97 - 110 mmol/L [facility] CO2 28 22 - 32 mmol/L [facility] Anion gap 11 2 - 15 mmol/L [facility] BUN 10 6 - 25 mg/dL [facility] Creatinine 1.01 0.60 - 1.10 mg/dL [facility] Glucose 80 70 - 199 mg/dL [facility] Comment: Interpretive Data Fasting glucose >/= 126 mg/dl is diagnostic for diabetes. Fasting is defined as no caloric intake for at least 8 hours. Fasting glucose between 100 mg/dl to 125 mg/dl is diagnostic of prediabetes. In a patient with classic symptoms of hyperglycemia or hyperglycemic crisis, a random glucose >/= 200 mg/dl is diagnostic for diabetes. In the absence of unequivocal hyperglycemia, results should be confirmed by repeat testing. The classification and Diagnosis of Diabetes Diabetes Care 2021; 46: S19-S40. Current interpretive data was last revised 2022. Calcium 9.6 8.5 - 10.3 mg/dL [facility] Bilirubin, total 0.6 0.1 - 1.2 mg/dL [facility] Protein, pl 6.7 6.5 - 8.5 g/dL [facility] Albumin 4.2 3.5 - 5.0 g/dL [facility] Alk phos 111 40 - 130 Units/L [facility] ALT 16 7 - 45 Units/L [facility] AST 17 10 - 45 Units/L [facility] Blood 06/13/2024 1:45 AM HEAD HOUSEKEEPER 06/13/2024 2:10 AM HEAD HOUSEKEEPER us Hillary Fang MD LAB BLOOD OR DERABLES Final Result [facility] [place] [address] * HIV 1/2 Antibody plus p24 Antigen Blood (06/12/2024 4:18 PM HEAD HOUSEKEEPER) Pathologist [facility] HIV 1/2 ab + p24 ag Nonreactive Nonreactive Comment:Nonreactive for HIV- 1 antigen and HIV-1/HIV-2 antibodies. No laboratory evidence of HIV infection. If acute HIV infection is suspected, consider testing for HIV-1 RNA. Current interpretive data was last revised on 22. Blood 06/12/2024 4:18 PM HEAD HOUSEKEEPER 06/12/2024 4:31 PM HEAD HOUSEKEEPER Jose Francisco Ledesma MD LAB MICROBIOLOGY - GENERAL ORDER BRITTANI Final Result Performing Organization Address City/[facility] Co de Phone Number [facility] [place] [address] * Vitamin B1 (06/12/2024 4:18 PM HEAD HOUSEKEEPER) [facility] Thiamine (Vit B1) 100 70 - 180 nmol/L [facility] Comment: ADDITIONAL INFORMATION This test was developed and its performance characteristics determined by [facility] in a manner consistent with CLIA requirements. This test has not been cleared or approved by the U.S. Food and Drug Administration. Test Performed by: [facility] [place] [address] Wire Machine Operator: Marek Barry Ph.D.; CLIA# [id number] Blood 06/12/2024 4:18 PM HEAD HOUSEKEEPER 06/12/2024 4:53 PM HEAD HOUSEKEEPER Jose Francisco Ledesma MD LAB BLOOD ORDERABLES Final Resul t Performing Organization Address City/[facility] Co de Phone Number [facility] [place] [address] [facility] * (ABNORMAL) Vitamin B6 (06/12/2024 4:18 PM HEAD HOUSEKEEPER) [facility] Pyridoxal phosphate (Vit B6) 4(L) 5 - 50 mcg/L [facility] Comment: ADDITIONAL INFORMATION This test was developed and its performance characteristics determined by [facility] in a manner consistent with CLIA requirements. This test has not been cleared or approved by the U.S. Food and Drug Administration. Test Performed by: [facility] [address] [place] [address] Wire Machine Operator: Marek Barry Ph.D.; CLIA# [id number] Blood 06/12/2024 4:18 PM HEAD HOUSEKEEPER 06/12/2024 4:59 PM HEAD HOUSEKEEPER Jose Farncisco Ledesma MD LAB BLOOD ORDERABLES Final Resul t Performing Organization Address City/[facility] Co de Phone Number [facility] [place] [address] [facility] * Folate (06/12/2024 4:18 PM HEAD HOUSEKEEPER) Folic acid >20.0 >=5.0 ng/mL Blood 06/12/2024 4:18 PM HEAD HOUSEKEEPER 06/12/2024 4:32 PM HEAD HOUSEKEEPER Jose Francisco Ledesma MD LAB BLOOD ORDERABLES Final Resul t Performing Organization Address City/[facility] Co de Phone Number [facility] [place] [address] * eGFR (06/12/2024 1:00 AM HEAD HOUSEKEEPER) eGFR 62 >=60 mL/min/1. 73 m2 Comment: Collection date/time has been modified to: 01:00:00. Previous collection date/time: 04:30:00. Interpretive Data Reference Interval Normal >/= 90 mL/min/1.73m2 Mildly decreased* 60 - 89 mL/min/1.73m2 Mildly to moderately decreased 45 - 59 mL/min/1.73m2 Moderately to severely decreased 30 - 44 mL/min/1.73m2 Severely decreased 15 - 29 mL/min/1.73m2 Kidney Failure < 15 mL/min/1.73m2 *Relative to young adult level Estimated glomerular filtration rate is determined by the 2020 CKD-EPI equation recommended by the National Kid[employer] (A Unifying Approach to GFR Estimation: Recommendations of the NKF-ASK Task Force on Reassessing the Inclusion of Race in Diagnosing Kidney Disease, JASN 2020). The CKD-EPI equation should not be used for patients with unstable renal function and has not been validated in children and those over 70. Current interpretive data was last reviewed 2021. Blood 06/12/2024 1:00 AM HEAD HOUSEKEEPER 06/12/2024 1:14 AM HEAD HOUSEKEEPER us Hillary Fang MD LAB BLOOD OR DERABLES Edited Result - Final [facility] [place] [address] * (ABNORMAL) Differential, auto (06/12/2024 1:00 AM HEAD HOUSEKEEPER) Neutrophil abs 4.6 1.5 - 6.5 K/cumm Comment:Collection date/time has been modified to: 01:00:00. Previous collection date/time: 04:30:00. Imm gran abs 0.0 0.0 - 0.1 K/cumm [facility] Comment:Collection date/time has been modified to: 01:00:00. Previous collection date/time: 04:30:00. Lymphocyte abs 0.5(L) 0.8 - 3.3 K/cumm [facility] Comment:Collection date/time has been modified to: 01:00:00. Previous collection date/time: 04:30:00. Monocyte abs 0.4 0.2 - 0.8 K/cumm [facility] Comment:Collection date/time has been modified to: 01:00:00. Previous collection date/time: 04:30:00. Eosinophil abs 0.0 0.0 - 0.5 K/cumm [facility] Comment:Collection date/time has been modified to: 01:00:00. Previous collection date/time: 04:30:00. Basophil abs 0.0 0.0 - 0.1 K/cumm [facility] Comment:Collection date/time has been modified to: 01:00:00. Previous collection date/time: 04:30:00. Neutrophil pct 82.3 % [facility] Comment: Collection date/time has been modified to: 01:00:00. Previous collection date/time: 04:30:00. Interpretive Data Percent cell count reference ranges are not reported, since discordance with absolute values may lead to misinterpretation of CBC data. Current Interpretive Data was last revised on 2017. Imm gran pct 0.5 % [facility] Comment: Collection date/time has been modified to: 01:00:00. Previous collection date/time: 04:30:00. Interpretive Data Percent cell count reference ranges are not reported, since discordance with absolute values may lead to misinterpretation of CBC data. Current Interpretive Data was last revised on 2017. Lymphocyte pct 9.3 % [facility] Comment: Collection date/time has been modified to: 01:00:00. Previous collection date/time: 04:30:00. Interpretive Data Percent cell count reference ranges are not reported, since discordance with absolute values may lead to misinterpretation of CBC data. Current Interpretive Data was last revised on 2017. Monocyte pct 7.7 % [facility] Comment: Collection date/time has been modified to: 01:00:00. Previous collection date/time: 04:30:00. Interpretive Data Percent cell count reference ranges are not reported, since discordance with absolute values may lead to misinterpretation of CBC data. Current Interpretive Data was last revised on 2017. Eosinophil pct 0.0 % [facility] Comment: Collection date/time has been modified to: 01:00:00. Previous collection date/time: 04:30:00. Interpretive Data Percent cell count reference ranges are not reported, since discordance with absolute values may lead to misinterpretation of CBC data. Current Interpretive Data was last revised on 2017. Basophil pct 0.2 % [facility] Comment: Collection date/time has been modified to: 01:00:00. Previous collection date/time: 04:30:00. Interpretive Data Percent cell count reference ranges are not reported, since discordance with absolute values may lead to misinterpretation of CBC data. Current Interpretive Data was last revised on 2017. Blood 06/12/2024 1:00 AM HEAD HOUSEKEEPER 06/12/2024 1:14 AM HEAD HOUSEKEEPER us Hillary Fang MD LAB BLOOD OR DERABLES Edited Result - Final [facility] [place] [address] * CBC with auto differential (06/12/2024 1:00 AM HEAD HOUSEKEEPER) WBC 5.6 3.8 - 9.9 K/cumm Comment:Collection date/time has been modified to: 01:00:00. Previous collection date/time: 04:30:00. Hgb 13.6 11.9 - 15.5 g/dL [facility] Comment:Collection date/time has been modified to: 01:00:00. Previous collection date/time: 04:30:00. Hct 40.9 35.6 - 45.5 % [facility] Comment:Collection date/time has been modified to: 01:00:00. Previous collection date/time: 04:30:00. Plt 183 150 - 400 K/cumm [facility] Comment:Collection date/time has been modified to: 01:00:00. Previous collection date/time: 04:30:00. MPV 9.3 9.1 - 12.[address] [facility] Comment:Collection date/time has been modified to: 01:00:00. Previous collection date/time: 04:30:00. RBC 4.59 3.90 - 5.20 M/cumm [facility] Comment:Collection date/time has been modified to: 01:00:00. Previous collection date/time: 04:30:00. MCV 89.1 81.3 - 96.[address] [facility] Comment:Collection date/time has been modified to: 01:00:00. Previous collection date/time: 04:30:00. MCH 29.6 27.1 - 33.[address] [facility] Comment:Collection date/time has been modified to: 01:00:00. Previous collection date/time: 04:30:00. MCHC 33.3 32.3 - 35.7 g/dL [facility] Comment:Collection date/time has been modified to: 01:00:00. Previous collection date/time: 04:30:00. RDW CV 12.9 11.1 - 14.9 % [facility] Comment:Collection date/time has been modified to: 01:00:00. Previous collection date/time: 04:30:00. RDW SD 42.1 35.7 - 48.[address] [facility] Comment:Collection date/time has been modified to: 01:00:00. Previous collection date/time: 04:30:00. NRBC abs 0.00 0.00 - 0.01 K/cumm [facility] Comment:Collection date/time has been modified to: 01:00:00. Previous collection date/time: 04:30:00. Blood 06/12/2024 1:00 AM HEAD HOUSEKEEPER 06/12/2024 1:14 AM HEAD HOUSEKEEPER Hillary Fang MD LAB BLOOD OR DERABLES Edited Result - Final Performing Organization Address [facility] de Phone Number [facility] [place] [address] * (ABNORMAL) aPTT (06/12/2024 1:00 AM HEAD HOUSEKEEPER) aPTT 24(L) 28 - 38 sec Comment: Interpretive Data Heparin therapeutic range: 66.0 - 100.0 seconds. Range based on correlation with therapeutic heparin activity range of 0.3 - 0.7 Units/mL. Current interpretive data was last revised on 2023. Blood 06/12/2024 1:00 AM HEAD HOUSEKEEPER 06/12/2024 1:15 AM HEAD HOUSEKEEPER Hillary Fang MD LAB BLOOD OR DERABLES Final Result Performing Organization Address [facility] de Phone Number [facility] [place] [address] * (ABNORMAL) Protime-INR (06/12/2024 1:00 AM HEAD HOUSEKEEPER) PT 14.3(H) 9.7 - 13.0 sec INR 1.32(H) 0.90 - 1.[address] [facility] Comment: Interpretive data Oral anticoagulant therapeutic ranges: Venous thromboembolism prophylaxis or treatment: 2.0-3.0 CARDIOLOGY Standard range: 2.0-3.0 High-intensity range: 2.5-3.5 Refer to indication-specific guidelines for appropriate target ranges for prosthetic heart valve replacement. Current interpretive data was last revised on 2019. Blood 06/12/2024 1:00 AM HEAD HOUSEKEEPER 06/12/2024 1:15 AM HEAD HOUSEKEEPER Hillary Fang MD LAB BLOOD OR DERABLES Final Result Performing Organization Address City/[facility]/ZIP Co de Phone Number [facility] [place] [address] * Type and screen (06/12/2024 1:00 AM HEAD HOUSEKEEPER) ABO Rh A Positive Yamini, indirect Negative [facility] Blood 06/12/2024 1:00 AM HEAD HOUSEKEEPER 06/12/2024 1:13 AM HEAD HOUSEKEEPER Narrative [facility] - 06/12/2024 2:09 AM HEAD HOUSEKEEPER Has the patient had Daratumumab or Isatuximab in the past 6 months?->Unknown Hillary Fang MD LAB BLOOD BA NK TEST ORDERABLES Final Result Performing Organization Address [facility] Co de Phone Number [facility] [place] [address] * Uric acid (06/12/2024 1:00 AM HEAD HOUSEKEEPER) Pathologist [facility] Uric acid 4.4 2.5 - 7.0 mg/dL Blood 06/12/2024 1:00 AM HEAD HOUSEKEEPER 06/12/2024 1:14 AM HEAD HOUSEKEEPER us Jerome Boss MD PhD LAB BLOOD ORDERABL ES Final Result Performing Organization Address [facility] Co de Phone Number [facility] [place] [address] * Phosphorus (06/12/2024 1:00 AM HEAD HOUSEKEEPER) Phosphorus, pl 3.3 2.3 - 4.5 mg/dL Comment:Collection date/time has been modified to: 01:00:00. Previous collection date/time: 04:30:00. Blood 06/12/2024 1:00 AM HEAD HOUSEKEEPER 06/12/2024 1:14 AM HEAD HOUSEKEEPER Hillary Fang MD LAB BLOOD OR DERABLES Edited Result - Final Performing Organization Address [facility] de Phone Number [facility] [place] [address] * Magnesium (06/12/2024 1:00 AM HEAD HOUSEKEEPER) Magnesium 2.4 1.4 - 2.5 mg/dL Comment:Collection date/time has been modified to: 01:00:00. Previous collection date/time: 04:30:00. Blood 06/12/2024 1:00 AM HEAD HOUSEKEEPER 06/12/2024 1:14 AM HEAD HOUSEKEEPER Hillary Fang MD LAB BLOOD OR DERABLES Edited Result - Final Performing Organization Address [facility] [place] [address] * (ABNORMAL) Comprehensive metabolic panel (06/12/2024 1:00 AM HEAD HOUSEKEEPER) Sodium 143 135 - 145 mmol/L Comment:Collection date/time has been modified to: 01:00:00. Previous collection date/time: 04:30:00. Potassium, pl 3.6 3.3 - 4.9 mmol/L [facility] Comment:Collection date/time has been modified to: 01:00:00. Previous collection date/time: 04:30:00. Chloride 107 97 - 110 mmol/L [facility] Comment:Collection date/time has been modified to: 01:00:00. Previous collection date/time: 04:30:00. CO2 26 22 - 32 mmol/L [facility] Comment:Collection date/time has been modified to: 01:00:00. Previous collection date/time: 04:30:00. Anion gap 10 2 - 15 mmol/L [facility] Comment:Collection date/time has been modified to: 01:00:00. Previous collection date/time: 04:30:00. BUN 11 6 - 25 mg/dL [facility] Comment:Collection date/time has been modified to: :00:00. Previous collection date/time: :30:00. Creatinine 1.05 0.60 - 1.10 mg/dL [facility] Comment:Collection date/time has been modified to: 01:00:00. Previous collection date/time: 04:30:00. Glucose 94 70 - 199 mg/dL [facility] Comment: Collection date/time has been modified to: 01:00:00. Previous collection date/time: 04:30:00. Interpretive Data Fasting glucose >/= 126 mg/dl is diagnostic for diabetes. Fasting is defined as no caloric intake for at least 8 hours. Fasting glucose between 100 mg/dl to 125 mg/dl is diagnostic of prediabetes. In a patient with classic symptoms of hyperglycemia or hyperglycemic crisis, a random glucose >/= 200 mg/dl is diagnostic for diabetes. In the absence of unequivocal hyperglycemia, results should be confirmed by repeat testing. The classification and Diagnosis of Diabetes Diabetes Care 202; 46: S19-S40. Current interpretive data was last revised 2022. Calcium 8.7 8.5 - 10.3 mg/dL [facility] Comment:Collection date/time has been modified to: 01:00:00. Previous collection date/time: 04:30:00. Bilirubin, total 0.6 0.1 - 1.2 mg/dL [facility] Comment:Collection date/time has been modified to: 01:00:00. Previous collection date/time: 04:30:00. Protein, pl 5.8(L) 6.5 - 8.5 g/dL [facility] Comment:Collection date/time has been modified to: 01:00:00. Previous collection date/time: 04:30:00. Albumin 3.7 3.5 - 5.0 g/dL [facility] Comment:Collection date/time has been modified to: 01:00:00. Previous collection date/time: 04:30:00. Alk phos 88 40 - 130 Units/L [facility] Comment:Collection date/time has been modified to: 01:00:00. Previous collection date/time: 04:30:00. ALT 14 7 - 45 Units/L [facility] Comment:Collection date/time has been modified to: 01:00:00. Previous collection date/time: 04:30:00. AST 14 10 - 45 Units/L [facility] Comment:Collection date/time has been modified to: 01:00:00. Previous collection date/time: 04:30:00. Blood 06/12/2024 1:00 AM HEAD HOUSEKEEPER 06/12/2024 1:14 AM HEAD HOUSEKEEPER Hillary Fang MD LAB BLOOD OR DERABLES Edited Result - Final [facility] Department [place] [address] * ECG 12 lead (06/11/2024 8:17 PM HEAD HOUSEKEEPER) Ventricular Rate EKG/Min 82 BPM [facility] Atrial Rate 82 BPM [facility] [place]-Interval (MSEC) 158 ms [facility] QRS-Interval (MSEC) 106 ms [facility] QT-Interval (MSEC) 374 ms [facility] QTc 436 ms [facility] P [place] 56 degrees [facility] R [place] -7 degrees [facility] T [place] 18 degrees [facility] Diagnosis Normal sinus rhythm Incomplete right bundle branch block Borderline ECG When compared with ECG of 03-APR-2020 23:24, Fusion complexes are no longer Present Premature ventricular complexes are no longer Present Questionable change in QRS axis T wave amplitude has decreased in Anterior leads QT has shortened Confirmed by MARCIO URIBE M.D ([id number]) on 06/13/2024 1:58:23 PM [facility] 06/11/2024 8:17 PM HEAD HOUSEKEEPER 06/13/2024 1:58 PM HEAD HOUSEKEEPER us Hillary Fang MD ECG ORDERABL ES Final Result [facility] * CT Head WO Contrast (06/11/2024 12:54 PM HEAD HOUSEKEEPER) Anatomical Region Laterality Modality Head and Neck N/A Computed Tomogra phy 06/11/2024 1:16 PM HEAD HOUSEKEEPER Impressions 06/11/2024 1:32 PM HEAD HOUSEKEEPER 1. No new acute intracranial process. No change from 05/23/2024 CT. 2. Nonocclusive thrombus within the right transverse sinus and torcula are better evaluated on MR venogram. Dictated by: Robyn St MD The radiology attending physician has personally reviewed this study, and had reviewed and/or edited this written report and agrees with it. Electronically signed by: Epifanio Tan MD, PhD Narrative 06/11/2024 1:32 PM HEAD HOUSEKEEPER EXAMINATION: CT head without contrast HISTORY: Presenting with altered mental status. History of metastatic melanoma TECHNIQUE: CT of the head was performed with images acquired from skull base to vertex without intravenous contrast. COMPARISON: 05/23/2024 CT, 05/24/2024 MRI FINDINGS: Diffuse white matter hypoattenuation throughout the centrum semiovale and george radiata is unchanged compared to prior examination, likely representing sequela of prior treatment and/or microvascular disease. Redemonstrated hyperattenuating foci within the left frontal lobe seen on series 2 image 26 measuring 5 mm and within the basal ganglia bilaterally, unchanged. 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 Limited evaluation of thrombus within the dural venous sinuses. Nonocclusive thrombus within the torcula and right transverse sinus is better seen on MR venogram. Hypoattenuation in the left parietal lobe is unchanged from 05/13/2024. There is no new acute intracranial hemorrhage. Ventricles are of normal size and morphology. No mass effect or midline shift is present. The elder-white matter differentiation is normal. The visualized portions of the orbits are normal. Bilateral mastoid effusions. Mild mucosal thickening within sphenoid sinuses. No fractures are identified. Empty sella. Procedure Note Epifanio Tan MD PhD - 06/11/2024 EXAMINATION: CT head without contrast HISTORY: Presenting with altered mental status. History of metastatic melanoma TECHNIQUE: CT of the head was performed with images acquired from skull base to vertex without intravenous contrast. COMPARISON: 05/23/2024 CT, 05/24/2024 MRI FINDINGS: Diffuse white matter hypoattenuation throughout the centrum semiovale and george radiata is unchanged compared to prior examination, likely representing sequela of prior treatment and/or microvascular disease. Redemonstrated hyperattenuating foci within the left frontal lobe seen on series 2 image 26 measuring 5 mm and within the basal ganglia bilaterally, unchanged. 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 Limited evaluation of thrombus within the dural venous sinuses. Nonocclusive thrombus within the torcula and right transverse sinus is better seen on MR venogram. Hypoattenuation in the left parietal lobe is unchanged from 05/13/2024. There is no new acute intracranial hemorrhage. Ventricles are of normal size and morphology. No mass effect or midline shift is present. The elder-white matter differentiation is normal. The visualized portions of the orbits are normal. Bilateral mastoid effusions. Mild mucosal thickening within sphenoid sinuses. No fractures are identified. Empty sella. IMPRESSION: 1. No new acute intracranial process. No change from 05/23/[address]24 CT. 2. Nonocclusive thrombus within the right transverse sinus and torcula are better evaluated on MR venogram. Dictated by: Robyn St MD The radiology attending physician has personally reviewed this study, and had reviewed and/or edited this written report and agrees with it. Electronically signed by: Epifanio Tan MD, PhD Darnell Berkowitz Jr., MD IMG CT PROCEDURES Lulu l Result * Respiratory pathogen panel Nasopharyngeal (06/11/2024 12:27 PM HEAD HOUSEKEEPER) Pathologist [facility] Influenza A RNA Not Detected Not Detected Influenza B RNA Not Detected Not Detected [facility] RSV RNA Not Detected Not Detected [facility] COVID-19 RNA Not Detected Not Detected [facility] Coronavirus 229E RNA Not Detected Not Detected [facility] Coronavirus HKU1 RNA Not Detected Not Detected [facility] Coronavirus NL63 RNA Not Detected Not Detected [facility] Coronavirus OC43 RNA Not Detected Not Detected [facility] Adenovirus DNA Not Detected Not Detected [facility] Metapneumovirus RNA Not Detected Not Detected [facility] Rhinovirus/Enterov irus RNA Not Detected Not Detected [facility] Parainfluenza 1 RNA Not Detected Not Detected [facility] Parainfluenza 2 RNA Not Detected Not Detected [facility] Parainfluenza 3 RNA Not Detected Not Detected [facility] Parainfluenza 4 RNA Not Detected Not Detected [facility] B. pertussis DNA Not Detected Not Detected [facility] B. parapertussis DNA Not Detected Not Detected [facility] C. pneumoniae DNA Not Detected Not Detected [facility] M. pneumoniae DNA Not Detected Not Detected [facility] Nasopharyngeal 06/11/2024 12 :27 PM HEAD HOUSEKEEPER 06/11/2024 12:36 PM HEAD HOUSEKEEPER Narrative [facility] - 06/11/2024 1:48 PM HEAD HOUSEKEEPER Is the Patient experiencing symptoms consistent with COVID?->No Surveillance testing for transplant patient?->No Interpretive Data The [employer] FilmArray Respiratory Panel (RP2.1) assay is a multiplexed real-time PCR based nucleic acid test capable of simultaneous qualitative detection and identification of multiple respiratory viral and bacterial nucleic acids, including SARS Coronavirus 2 (the causative agent of COVID-19). The following bacteria, viruses and virus subtypes can be identified using the FilmArray RP2.1 assay: Bordetella pertussis, Bordetella parapertussis, Chlamydia pneumoniae, Mycoplasma pneumoniae, Adenovirus, SARS Coronavirus 2, seasonal coronaviruses (Coronavirus HKU1, Coronavirus NL63, Coronavirus 229E, and Coronavirus OC43), Influenza A, Influenza A subtype H1, Influenza A subtype H3, Influenza A subtype 2009 H1, Influenza B, Metapneumovirus, Parainfluenza 1, Parainfluenza 2, Parainfluenza 3, Parainfluenza 4, RSV, Rhinovirus/Enterovirus. Due to the genetic similarity between human Rhinovirus and Enterovirus, the FilmArray RP2.1 assay cannot reliably differentiate them. Coronavirus OC43 may cross-react with some isolates of Coronavirus HKU1. A dual positive result may be due to cross-reactivity or may indicate a co- infection. The detection and identification of specific viral and bacterial nucleic acids from individuals exhibiting signs and symptoms of a respiratory infection aids in the diagnosis of respiratory infection if used in conjunction with other clinical and epidemiological information. The results of this test should not be used as the sole basis for diagnosis, treatment, or other management decisions. Negative results in the setting of a respiratory illness may be due to infection with pathogens that are not detected by this test. Positive results do not rule out infection/co-infection with other organisms. The agent(s) detected by the FilmArray RP2.1 may not be the definite cause of disease. Additional testing (lab, imaging, etc.) may be necessary when evaluating a patient with possible respiratory tract infection. The FilmArray RP2.1 assay has FDA clearance for testing of IN HOUSE CRA swabs. The performance of additional specimen types has been assessed by the performing laboratory. The performance characteristics of this assay have been determined by [facility] Molecular Infectious Disease Laboratory. Current interpretive data was last revised on 22. Darnell Berkowitz Jr., MD LAB MICROBIOLOGY - GEN ERAL ORDERABLES Final Result [facility] Department [place] [address] * (ABNORMAL) eGFR (06/11/2024 12:07 PM HEAD HOUSEKEEPER) [facility] eGFR 52(L) >=60 mL/min/1. 73 m2 Comment: Interpretive Data Reference Interval Normal >/= 90 mL/min/1.73m2 Mildly decreased* 60 - 89 mL/min/1.73m2 Mildly to moderately decreased 45 - 59 mL/min/1.73m2 Moderately to severely decreased 30 - 44 mL/min/1.73m2 Severely decreased 15 - 29 mL/min/1.73m2 Kidney Failure < 15 mL/min/1.73m2 *Relative to young adult level Estimated glomerular filtration rate is determined by the 2020 CKD-EPI equation recommended by the National Kidney Foundation (A Unifying Approach to GFR Estimation: Recommendations of the NKF-ASK Task Force on Reassessing the Inclusion of Race in Diagnosing Kidney Disease, JASN 2020). The CKD-EPI equation should not be used for patients with unstable renal function and has not been validated in children and those over 70. Current interpretive data was last reviewed 2021. Blood 06/11/2024 12:0 7 PM HEAD HOUSEKEEPER 06/11/2024 12:22 PM HEAD HOUSEKEEPER us Nelda Carmona NP LAB BLOOD ORDERABLES Lulu rojo Result [facility] [place] [address] * Differential, auto (06/11/2024 12:07 PM HEAD HOUSEKEEPER) [facility] Neutrophil abs 4.3 1.5 - 6.5 K/cumm Imm gran abs 0.0 0.0 - 0.1 K/cumm [facility] Lymphocyte abs 1.3 0.8 - 3.3 K/cumm [facility] Monocyte abs 0.8 0.2 - 0.8 K/cumm [facility] Eosinophil abs 0.0 0.0 - 0.5 K/cumm [facility] Basophil abs 0.0 0.0 - 0.1 K/cumm [facility] Neutrophil pct 66.7 % [facility] Comment: Interpretive Data Percent cell count reference ranges are not reported, since discordance with absolute values may lead to misinterpretation of CBC data. Current Interpretive Data was last revised on 2017. Imm gran pct 0.6 % [facility] Comment: Interpretive Data Percent cell count reference ranges are not reported, since discordance with absolute values may lead to misinterpretation of CBC data. Current Interpretive Data was last revised on 2017. Lymphocyte pct 20.5 % [facility] Comment: Interpretive Data Percent cell count reference ranges are not reported, since discordance with absolute values may lead to misinterpretation of CBC data. Current Interpretive Data was last revised on 2017. Monocyte pct 12.0 % [facility] Comment: Interpretive Data Percent cell count reference ranges are not reported, since discordance with absolute values may lead to misinterpretation of CBC data. Current Interpretive Data was last revised on 2017. Eosinophil pct 0.0 % [facility] Comment: Interpretive Data Percent cell count reference ranges are not reported, since discordance with absolute values may lead to misinterpretation of CBC data. Current Interpretive Data was last revised on 2017. Basophil pct 0.2 % [facility] Comment: Interpretive Data Percent cell count reference ranges are not reported, since discordance with absolute values may lead to misinterpretation of CBC data. Current Interpretive Data was last revised on 2017. Blood 06/11/2024 12:0 7 PM HEAD HOUSEKEEPER 06/11/2024 12:22 PM HEAD HOUSEKEEPER Nelda Carmona NP LAB BLOOD ORDERABLES Lulu l Result [facility] [place] [address] * Thyroid Function [place] (06/11/2024 12:07 PM HEAD HOUSEKEEPER) TSH 1.10 0.30 - 4.20 mcIUnit/mL Blood 06/11/2024 12:0 7 PM HEAD HOUSEKEEPER 06/11/2024 12:22 PM HEAD HOUSEKEEPER Nelda Carmona NP LAB BLOOD ORDERABLES Lulu l Result Performing Organization Address [facility] Co de Phone Number [facility] Department [place] [address] * (ABNORMAL) CBC with auto differential (06/11/2024 12:07 PM HEAD HOUSEKEEPER) [facility] WBC 6.5 3.8 - 9.9 K/cumm Hgb 15.6(H) 11.9 - 15.5 g/dL [facility] Hct 46.7(H) 35.6 - 45.5 % [facility] Plt 273 150 - 400 K/cumm [facility] MPV 9.4 9.1 - 12.[address] [facility] RBC 5.15 3.90 - 5.20 M/cumm [facility] MCV 90.7 81.3 - 96.[address] [facility] MCH 30.3 27.1 - 33.[address] [facility] MCHC 33.4 32.3 - 35.7 g/dL [facility] RDW CV 12.9 11.1 - 14.9 % [facility] RDW SD 42.5 35.7 - 48.[address] [facility] NRBC abs 0.00 0.00 - 0.01 K/cumm [facility] Blood 06/11/2024 12:0 7 PM HEAD HOUSEKEEPER 06/11/2024 12:22 PM HEAD HOUSEKEEPER Nelda Carmona NP LAB BLOOD ORDERABLES Lulu l Result Performing Organization Address [facility]/ZIP Co de Phone Number [facility] [place] [address] * Ethanol (06/11/2024 12:07 PM HEAD HOUSEKEEPER) [facility] Ethanol <10 <=10 mg/dL Comment: Interpretive Data Legal limit of intoxication > or = 80 mg/dL Levels > or = 400 mg/dL are potentially TOXIC. Current interpretive data was last revised on 2018. Blood 06/11/2024 12:0 7 PM HEAD HOUSEKEEPER 06/11/2024 12:22 PM HEAD HOUSEKEEPER us Nelda Carmona NP LAB BLOOD ORDERABLES Lulu rojo Result [facility] [place] [address] * (ABNORMAL) Comprehensive metabolic panel (06/11/2024 12:07 PM HEAD HOUSEKEEPER) Sodium 146(H) 135 - 145 mmol/L Potassium, pl 3.2(L) 3.3 - 4.9 mmol/L [facility] Chloride 107 97 - 110 mmol/L [facility] CO2 27 22 - 32 mmol/L [facility] Anion gap 12 2 - 15 mmol/L [facility] BUN 11 6 - 25 mg/dL [facility] Creatinine 1.21(H) 0.60 - 1.10 mg/dL [facility] Glucose 85 70 - 199 mg/dL [facility] Comment: Interpretive Data Fasting glucose >/= 126 mg/dl is diagnostic for diabetes. Fasting is defined as no caloric intake for at least 8 hours. Fasting glucose between 100 mg/dl to 125 mg/dl is diagnostic of prediabetes. In a patient with classic symptoms of hyperglycemia or hyperglycemic crisis, a random glucose >/= 200 mg/dl is diagnostic for diabetes. In the absence of unequivocal hyperglycemia, results should be confirmed by repeat testing. The classification and Diagnosis of Diabetes Diabetes Care 2021; 46: S19-S40. Current interpretive data was last revised 2022. Calcium 9.6 8.5 - 10.3 mg/dL [facility] Bilirubin, total 0.6 0.1 - 1.2 mg/dL [facility] Protein, pl 6.9 6.5 - 8.5 g/dL [facility] Albumin 4.3 3.5 - 5.0 g/dL [facility] Alk phos 107 40 - 130 Units/L [facility] ALT 16 7 - 45 Units/L [facility] AST 12 10 - 45 Units/L [facility] Blood 06/11/2024 12:0 7 PM HEAD HOUSEKEEPER 06/11/2024 12:22 PM HEAD HOUSEKEEPER Nelda Carmona NP LAB BLOOD ORDERABLES Lulu l Result Performing Organization Address City/[facility] Co de Phone Number [facility] Department [place] [address] * eGFR (05/27/2024 5:02 AM HEAD HOUSEKEEPER) eGFR 69 >=60 mL/min/1. 73 m2 Comment: Interpretive Data Reference Interval Normal >/= 90 mL/min/1.73m2 Mildly decreased* 60 - 89 mL/min/1.73m2 Mildly to moderately decreased 45 - 59 mL/min/1.73m2 Moderately to severely decreased 30 - 44 mL/min/1.73m2 Severely decreased 15 - 29 mL/min/1.73m2 Kidney Failure < 15 mL/min/1.73m2 *Relative to young adult level Estimated glomerular filtration rate is determined by the 2020 CKD-EPI equation recommended by the National Kidney Foundation (A Unifying Approach to GFR Estimation: Recommendations of the NKF-ASK Task Force on Reassessing the Inclusion of Race in Diagnosing Kidney Disease, JASN 2020). The CKD-EPI equation should not be used for patients with unstable renal function and has not been validated in children and those over 70. Current interpretive data was last reviewed 2021. Blood 05/27/2024 5:02 AM HEAD HOUSEKEEPER 05/27/2024 5:13 AM HEAD HOUSEKEEPER Jose Francisco Ledesma MD LAB BLOOD ORDERABLES Final Resul t Performing Organization Address [facility] Co de Phone Number [facility] [place] [address] * Differential, auto (05/27/2024 5:02 AM HEAD HOUSEKEEPER) Pathologist [facility] Neutrophil abs 4.3 1.5 - 6.5 K/cumm Imm gran abs 0.1 0.0 - 0.1 K/cumm [facility] Lymphocyte abs 0.9 0.8 - 3.3 K/cumm [facility] Monocyte abs 0.6 0.2 - 0.8 K/cumm [facility] Eosinophil abs 0.0 0.0 - 0.5 K/cumm [facility] Basophil abs 0.0 0.0 - 0.1 K/cumm [facility] Neutrophil pct 73.9 % [facility] Comment: Interpretive Data Percent cell count reference ranges are not reported, since discordance with absolute values may lead to misinterpretation of CBC data. Current Interpretive Data was last revised on 2017. Imm gran pct 0.9 % [facility] Comment: Interpretive Data Percent cell count reference ranges are not reported, since discordance with absolute values may lead to misinterpretation of CBC data. Current Interpretive Data was last revised on 2017. Lymphocyte pct 14.9 % [facility] Comment: Interpretive Data Percent cell count reference ranges are not reported, since discordance with absolute values may lead to misinterpretation of CBC data. Current Interpretive Data was last revised on 2017. Monocyte pct 10.1 % [facility] Comment: Interpretive Data Percent cell count reference ranges are not reported, since discordance with absolute values may lead to misinterpretation of CBC data. Current Interpretive Data was last revised on 2017. Eosinophil pct 0.0 % [facility] Comment: Interpretive Data Percent cell count reference ranges are not reported, since discordance with absolute values may lead to misinterpretation of CBC data. Current Interpretive Data was last revised on 2017. Basophil pct 0.2 % [facility] Comment: Interpretive Data Percent cell count reference ranges are not reported, since discordance with absolute values may lead to misinterpretation of CBC data. Current Interpretive Data was last revised on 2017. Blood 05/27/2024 5:02 AM HEAD HOUSEKEEPER 05/27/2024 5:12 AM HEAD HOUSEKEEPER us Jose Francisco Ledesma MD LAB BLOOD ORDERABLES Final Resul t [facility] [place] [address] * CBC with auto differential (05/27/2024 5:02 AM HEAD HOUSEKEEPER) WBC 5.8 3.8 - 9.9 K/cumm Hgb 14.4 11.9 - 15.5 g/dL [facility] Hct 44.0 35.6 - 45.5 % [facility] Plt 212 150 - 400 K/cumm [facility] MPV 9.2 9.1 - 12.[address] [facility] RBC 4.79 3.90 - 5.20 M/cumm [facility] MCV 91.9 81.3 - 96.[address] [facility] MCH 30.1 27.1 - 33.[address] [facility] MCHC 32.7 32.3 - 35.7 g/dL [facility] RDW CV 12.7 11.1 - 14.9 % [facility] RDW SD 43.1 35.7 - 48.[address] [facility] NRBC abs 0.00 0.00 - 0.01 K/cumm [facility] Blood 05/27/2024 5:02 AM HEAD HOUSEKEEPER 05/27/2024 5:12 AM HEAD HOUSEKEEPER Jose Francisco Ledesma MD LAB BLOOD ORDERABLES Final Resul t Performing Organization Address City/[facility] Co de Phone Number [facility] [place] [address] * Type and screen (05/27/2024 5:02 AM HEAD HOUSEKEEPER) Yamini, indirect Negative ABO Rh A Positive [facility] Blood 05/27/2024 5:02 AM HEAD HOUSEKEEPER 05/27/2024 5:44 AM HEAD HOUSEKEEPER Narrative [facility] - 05/27/2024 6:42 AM HEAD HOUSEKEEPER Has the patient had Daratumumab or Isatuximab in the past 6 months?->Unknown Jose Francisco Ledesma MD LAB BLOOD BANK TEST ORDERABLES F inal Result Performing Organization Address City/[facility]/ZIP Co de Phone Number [facility] [place] [address] * Phosphorus (05/27/2024 5:02 AM HEAD HOUSEKEEPER) Pathologist [facility] Phosphorus, pl 2.9 2.3 - 4.5 mg/dL Blood 05/27/2024 5:02 AM HEAD HOUSEKEEPER 05/27/2024 5:13 AM HEAD HOUSEKEEPER Jose Francisco Ledesma MD LAB BLOOD ORDERABLES Final Resul t Performing Organization Address City/[facility] Co de Phone Number [facility] [place] [address] * Magnesium (05/27/2024 5:02 AM HEAD HOUSEKEEPER) [facility] Magnesium 2.3 1.4 - 2.5 mg/dL Blood 05/27/2024 5:02 AM HEAD HOUSEKEEPER 05/27/2024 5:13 AM HEAD HOUSEKEEPER Jose Francisco Ledesma MD LAB BLOOD ORDERABLES Final Resul t Performing Organization Address [facility]/[place] de Phone Number [facility] [place] [address] * (ABNORMAL) Comprehensive metabolic panel (05/27/2024 5:02 AM HEAD HOUSEKEEPER) [facility] Sodium 143 135 - 145 mmol/L Potassium, pl 3.9 3.3 - 4.9 mmol/L [facility] Chloride 106 97 - 110 mmol/L [facility] CO2 30 22 - 32 mmol/L [facility] Anion gap 7 2 - 15 mmol/L [facility] BUN 11 6 - 25 mg/dL [facility] Creatinine 0.96 0.60 - 1.10 mg/dL [facility] Glucose 85 70 - 199 mg/dL [facility] Comment: Interpretive Data Fasting glucose >/= 126 mg/dl is diagnostic for diabetes. Fasting is defined as no caloric intake for at least 8 hours. Fasting glucose between 100 mg/dl to 125 mg/dl is diagnostic of prediabetes. In a patient with classic symptoms of hyperglycemia or hyperglycemic crisis, a random glucose >/= 200 mg/dl is diagnostic for diabetes. In the absence of unequivocal hyperglycemia, results should be confirmed by repeat testing. The classification and Diagnosis of Diabetes Diabetes Care 202; 46: S19-S40. Current interpretive data was last revised 2022. Calcium 9.0 8.5 - 10.3 mg/dL [facility] Bilirubin, total 0.4 0.1 - 1.2 mg/dL [facility] Protein, pl 6.3(L) 6.5 - 8.5 g/dL [facility] Albumin 3.9 3.5 - 5.0 g/dL [facility] Alk phos 142(H) 40 - 130 Units/L [facility] ALT 28 7 - 45 Units/L [facility] AST 18 10 - 45 Units/L [facility] Blood 05/27/2024 5:02 AM HEAD HOUSEKEEPER 05/27/2024 5:13 AM HEAD HOUSEKEEPER Jose Francisco Ledesma MD LAB BLOOD ORDERABLES Final Resul t [facility] [place] [address] * eGFR (05/26/2024 3:58 AM HEAD HOUSEKEEPER) eGFR 78 >=60 mL/min/1. 73 m2 Comment: Interpretive Data Reference Interval Normal >/= 90 mL/min/1.73m2 Mildly decreased* 60 - 89 mL/min/1.73m2 Mildly to moderately decreased 45 - 59 mL/min/1.73m2 Moderately to severely decreased 30 - 44 mL/min/1.73m2 Severely decreased 15 - 29 mL/min/1.73m2 Kidney Failure < 15 mL/min/1.73m2 *Relative to young adult level Estimated glomerular filtration rate is determined by the 2020 CKD-EPI equation recommended by the National [employer] (A Unifying Approach to GFR Estimation: Recommendations of the NKF-ASK Task Force on Reassessing the Inclusion of Race in Diagnosing Kidney Disease, JASN 202). The CKD-EPI equation should not be used for patients with unstable renal function and has not been validated in children and those over 70. Current interpretive data was last reviewed 2021. Blood 05/26/2024 3:58 AM HEAD HOUSEKEEPER 05/26/2024 4:09 AM HEAD HOUSEKEEPER us Jose Francisco Ledesma MD LAB BLOOD ORDERABLES Final Resul t [facility] [place] [address] * Differential, auto (05/26/2024 3:58 AM HEAD HOUSEKEEPER) Neutrophil abs 4.3 1.5 - 6.5 K/cumm Imm gran abs 0.1 0.0 - 0.1 K/cumm [facility] Lymphocyte abs 0.8 0.8 - 3.3 K/cumm [facility] Monocyte abs 0.6 0.2 - 0.8 K/cumm [facility] Eosinophil abs 0.0 0.0 - 0.5 K/cumm [facility] Basophil abs 0.0 0.0 - 0.1 K/cumm [facility]NER [facility] Neutrophil pct 74.3 % [facility] Comment: Interpretive Data Percent cell count reference ranges are not reported, since discordance with absolute values may lead to misinterpretation of CBC data. Current Interpretive Data was last revised on 2017. Imm gran pct 0.9 % [facility] Comment: Interpretive Data Percent cell count reference ranges are not reported, since discordance with absolute values may lead to misinterpretation of CBC data. Current Interpretive Data was last revised on 2017. Lymphocyte pct 13.9 % [facility] Comment: Interpretive Data Percent cell count reference ranges are not reported, since discordance with absolute values may lead to misinterpretation of CBC data. Current Interpretive Data was last revised on 2017. Monocyte pct 10.4 % [facility] Comment: Interpretive Data Percent cell count reference ranges are not reported, since discordance with absolute values may lead to misinterpretation of CBC data. Current Interpretive Data was last revised on 2017. Eosinophil pct 0.2 % [facility] Comment: Interpretive Data Percent cell count reference ranges are not reported, since discordance with absolute values may lead to misinterpretation of CBC data. Current Interpretive Data was last revised on 2017. Basophil pct 0.3 % [facility] Comment: Interpretive Data Percent cell count reference ranges are not reported, since discordance with absolute values may lead to misinterpretation of CBC data. Current Interpretive Data was last revised on 2017. Blood 05/26/2024 3:58 AM HEAD HOUSEKEEPER 05/26/2024 4:09 AM HEAD HOUSEKEEPER Jose Francisco Ledesma MD LAB BLOOD ORDERABLES Final Resul t Performing Organization Address City/[facility]/ZIP Co de Phone Number [facility] Department [place] [address] * CBC with auto differential (05/26/2024 3:58 AM HEAD HOUSEKEEPER) WBC 5.8 3.8 - 9.9 K/cumm Hgb 14.2 11.9 - 15.5 g/dL [facility] Hct 43.1 35.6 - 45.5 % [facility] Plt 222 150 - 400 K/cumm [facility] MPV 9.2 9.1 - 12.[address] [facility] RBC 4.74 3.90 - 5.20 M/cumm [facility] MCV 90.9 81.3 - 96.[address] [facility] MCH 30.0 27.1 - 33.[address] [facility] MCHC 32.9 32.3 - 35.7 g/dL [facility] RDW CV 12.9 11.1 - 14.9 % [facility] RDW SD 42.6 35.7 - 48.[address] [facility] NRBC abs 0.00 0.00 - 0.01 K/cumm [facility] Blood 05/26/2024 3:58 AM HEAD HOUSEKEEPER 05/26/2024 4:09 AM HEAD HOUSEKEEPER Jose Francisco Ledesma MD LAB BLOOD ORDERABLES Final Resul t Performing Organization Address City/[facility]/ZIP [place] [address] * Uric acid (05/26/2024 3:58 AM HEAD HOUSEKEEPER) Uric acid 4.2 2.5 - 7.0 mg/dL Blood 05/26/2024 3:58 AM HEAD HOUSEKEEPER 05/26/2024 4:09 AM HEAD HOUSEKEEPER Narrative [facility] 05/26/2024 4:41 AM HEAD HOUSEKEEPER Thursday and only. Morning draw. . us Jose Francisco Ledesma MD LAB BLOOD ORDERABLES Final Resul t Performing Organization Address City/[facility]/[place] [address] * Phosphorus (05/26/2024 3:58 AM HEAD HOUSEKEEPER) Phosphorus, pl 3.1 2.3 - 4.5 mg/dL Blood 05/26/2024 3:58 AM HEAD HOUSEKEEPER 05/26/2024 4:09 AM HEAD HOUSEKEEPER us Jose Francisco Ledesma MD LAB BLOOD ORDERABLES Final Resul t Performing Organization Address City/[facility] [place] [address] * Magnesium (05/26/2024 3:58 AM HEAD HOUSEKEEPER) Pathologist [facility] Magnesium 2.3 1.4 - 2.5 mg/dL Blood 05/26/2024 3:58 AM HEAD HOUSEKEEPER 05/26/2024 4:09 AM HEAD HOUSEKEEPER us Jose Francisco Ledesma MD LAB BLOOD ORDERABLES Final Resul t [facility] [place] [address] * Lactate dehydrogenase (LD) (05/26/2024 3:58 AM HEAD HOUSEKEEPER) Pathologist [facility] Lactate dehydrogenase (LDH) 233 100 - 250 Units/L Blood 05/26/2024 3:58 AM HEAD HOUSEKEEPER 05/26/2024 4:09 AM HEAD HOUSEKEEPER Narrative [facility] - 05/26/2024 4:41 AM HEAD HOUSEKEEPER Thursday and only. Morning draw. Jose Francisco Ledesma MD LAB BLOOD ORDERABLES Final Resul t [facility] [place] [address] * (ABNORMAL) Comprehensive metabolic panel (05/26/2024 3:58 AM HEAD HOUSEKEEPER) [facility] Sodium 141 135 - 145 mmol/L Potassium, pl 3.7 3.3 - 4.9 mmol/L [facility] Chloride 106 97 - 110 mmol/L [facility] CO2 30 22 - 32 mmol/L [facility] Anion gap 5 2 - 15 mmol/L [facility] BUN 15 6 - 25 mg/dL [facility] Creatinine 0.87 0.60 - 1.10 mg/dL [facility] Glucose 100 70 - 199 mg/dL [facility] Comment: Interpretive Data Fasting glucose >/= 126 mg/dl is diagnostic for diabetes. Fasting is defined as no caloric intake for at least 8 hours. Fasting glucose between 100 mg/dl to 125 mg/dl is diagnostic of prediabetes. In a patient with classic symptoms of hyperglycemia or hyperglycemic crisis, a random glucose >/= 200 mg/dl is diagnostic for diabetes. In the absence of unequivocal hyperglycemia, results should be confirmed by repeat testing. The classification and Diagnosis of Diabetes Diabetes Care 2021; 46: S19-S40. Current interpretive data was last revised 2022. Calcium 9.0 8.5 - 10.3 mg/dL [facility] Bilirubin, total 0.4 0.1 - 1.2 mg/dL [facility] Protein, pl 6.1(L) 6.5 - 8.5 g/dL [facility] Albumin 3.8 3.5 - 5.0 g/dL [facility] Alk phos 133(H) 40 - 130 Units/L [facility] ALT 22 7 - 45 Units/L [facility] AST 18 10 - 45 Units/L [facility] Blood 05/26/2024 3:58 AM HEAD HOUSEKEEPER 05/26/2024 4:09 AM HEAD HOUSEKEEPER Result [facility] Jose Francisco Ledesam MD LAB BLOOD ORDERABLES Final Resul t Performing Organization Address City/[facility]/ZIP Co de Phone Number [facility] [place] [address] * Herpes Simplex Virus (HSV) PCR Oral (05/24/2024 6:15 PM HEAD HOUSEKEEPER) Pathologist [facility] HSV DNA Not Detected Not Detected [facility] Comment: Interpretive Data This assay is performed using primers specific for the DNA polymerase gene of both HSV-1 and HSV-2. The assay contains unique primer/probe sets capable of distinguishing between HSV-1 and HSV-2. This assay has been cleared by the U.S. Food and Drug Administration for performance on cerebrospinal fluid and genital swabs. The assay has been evaluated for use on alternative sample types, though it is not FDA cleared for these applications. The performance of all sample types has been validated by the performing laboratory and deemed acceptable for patient testing. Current Interpretive Data was last reviewed on 09/07/2018 Oral 05/24/2024 6:15 PM HEAD HOUSEKEEPER 05/24/2024 8:38 PM HEAD HOUSEKEEPER Jose Aldridge MD LAB MICROBIOLOGY - GENERAL ORDERABLES Final Result Performing Organization Address City/[facility]/ZIP Co de Phone Number [facility] [place] [address] [facility] * IR Angio Selective Internal Carotid Right (05/24/2024 4:53 PM HEAD HOUSEKEEPER) Anatomical Region Laterality Modality Neck Right Radio Fluoroscop y 05/26/2024 3:18 PM HEAD HOUSEKEEPER Impressions 05/27/2024 12:47 PM HEAD HOUSEKEEPER 1. Occlusion and nonopacification of the anterior superior sagittal sinus. The posterior portion remains patent but diminished in caliber. Instead the frontal lobes drain through slightly tortuous cortical veins, through the anterior and middle skull base including the cavernous sinus and middle cerebral veins. 2. No dAVF as queried. The transverse, sigmoid, and jugular sinuses remain patent, and MRV findings likely represent preferential observation of these vein compared to the diminished SSS. These results were discussed with primary team after the conclusion of the procedure. Dictated by: Chacho Grider M.D. The radiology attending physician has personally reviewed this study, and had reviewed and/or edited this written report and agrees with it. 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 She presents for diagnostic cerebral angiogram. PROCEDURE: 1. Cerebral angiography: Right common carotid artery, right external carotid artery, right internal carotid artery, left common carotid artery, left external carotid artery, left internal carotid artery, right vertebral artery injections 2. Ultrasound-guided vascular access ATTENDING SURGEON: Otis Salas MD. He was present for the entire procedure. ASSISTING SURGEON(S): Chacho Grider MD ANESTHESIA: Local in the right forearm with 1% Lidocaine. Conscious sedation with Versed and Fentanyl was given by the nurse under the supervision of the attending interventional neuroradiologist. Pre-, intra-, and post-conscious sedation monitoring records are available in the chart. Total monitored sedation time was 45 minutes. MEDICATIONS: Local anesthesia: 1% Lidocaine SQ Sedation and Analgesia: Versed IV, Fentanyl IV Radial artery cocktail: Verapamil (2.5 mg), Nitroglycerin (200 mcg), and Heparin (3000 units) / MATERIALS: 21-gauge needle 5 [place] Mer[employer] Prelude IDeal sheath 23cm and mini guidewire 5 [place] Fu 2 Heppner catheter Terumo glidewire TR Band CONTRAST: Visipaque 270 100 mL TECHNIQUE: Prior to the procedure, the technical aspects of the procedure, as well as benefits, potential risks and alternate options, were explained to the patient. Specifically, the risks of cerebral infarction, hemorrhage, weakness, paralysis, sensory changes, vision decline/blindness, cranial nerve palsy, facial pain, anaphylaxis, renal failure, access site hematoma, arterial dissection, arterial pseudoaneurysm, arteriovenous fistula were discussed with the patient in person. Informed consent was obtained. After informed consent was obtained, the patient was brought to the angiography suite. Moderate sedation (intravenous fentanyl and midazolam) was administered under the direction of the attending physician with continuous monitoring by a trained nurse specialist independent of those performing the procedure. Total monitored sedation time was 45 minutes. The right forearm was prepped and draped in the usual fashion. Access to the vascular system was gained in the usual way by a single-wall puncture of the right radial artery at the anatomical snuff box under ultrasound guidance. Ultrasound images demonstrated a patent vessel and were stored to PACS.. The 5 [place] Merit Prelude IDeal sheath 23cm was then introduced into the right radial artery over the mini guidewire. A cocktail of Verapamil (2.5 mg), Nitroglycerin (200 mcg), and Heparin (3000 units) was slowly injected into the right radial artery through the sheath over several minutes, with close monitoring of blood pressure. A Terumo Glidewire and 5 [place] Fu 2 Heppner catheter were advanced into the aortic arch under fluoroscopic visualization and the Fu catheter was formed over the aortic arch. Using fluoroscopic guidance, selective catheterization of the above mentioned vessels and digital angiograms were performed, centered over the head and neck with AP, lateral, and oblique views. The catheter was then removed. The sheath was removed. Patent hemostasis was achieved by placement of a TR band. There were no immediate complications related to the procedure. FINDINGS: RIGHT COMMON CAROTID ARTERY, CERVICAL: The bifurcation is smooth, without irregularity, calcification, or stenosis with respect to the distal right internal carotid artery. The bifurcation is at C2-C3. There is normal opacification of right cervical external carotid artery branches. RIGHT INTERNAL CAROTID ARTERY, CEREBRAL: There is no evidence of aneurysm, focal stenosis, or early draining vein. There is opacification of the right internal carotid artery and its branches. There is antegrade flow through the ophthalmic artery with choroidal blush. There is a robust right posterior communicating artery supplying the right posterior cerebral artery distribution as well as flash filling of the basilar apex. There is normal opacification of the right anterior and middle cerebral arteries. There is no cross filling via the anterior communicating artery. There is occlusion and nonopacification of the anterior superior sagittal sinus. The posterior superior sagittal sinus is patent but significantly diminished in caliber. Instead the frontal lobes drain through slightly tortuous cortical veins, through the anterior and middle skull base including the cavernous sinus and middle cerebral veins. RIGHT EXTERNAL CAROTID ARTERY, CEREBRAL: There is no evidence of intracranial early venous drainage. LEFT COMMON CAROTID ARTERY, CERVICAL: The bifurcation is smooth, without irregularity, calcification, or stenosis with respect to the distal left internal carotid artery. Bifurcation is at C3-C4 level. There is normal opacification of left cervical external carotid artery branches. LEFT INTERNAL CAROTID ARTERY, CEREBRAL: There is no evidence of aneurysm, focal stenosis, or early draining vein. There is opacification of the left internal carotid artery and its branches. There is antegrade flow through the ophthalmic artery with choroidal blush as well as filling of the anterior falcine artery via distal branches. There is a robust left posterior communicating artery supplying the posterior cerebral artery distribution with faint opacification of the basilar apex. There is normal opacification of the left anterior and middle cerebral arteries. There is no cross filling via the anterior communicating artery. There is no opacification of the anterior superior sagittal sinus from the left sided injection with minimal opacification of the posterior superior sagittal sinus. There are tortuous cortical veins though less prominent than on the right hemisphere. Drainage is primarily via cortical veins into the vein of Yeison as well as drainage via the middle cerebral veins into the cavernous sinus. LEFT EXTERNAL CAROTID ARTERY, CEREBRAL: There is no evidence of intracranial early venous drainage. RIGHT VERTEBRAL ARTERY, CEREBRAL: There is no evidence of aneurysm, focal stenosis, or early draining vein. There was good contrast reflux down the left vertebral artery. Both posterior inferior cerebellar arteries demonstrate normal takeoffs from the distal ipsilateral vertebral arteries. The P1 segments bilaterally are diminutive in caliber. There is flash filling of bilateral posterior cerebral artery distributions. COMPLICATIONS: There were no immediate complications. 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 She presents for diagnostic cerebral angiogram. PROCEDURE: 1. Cerebral angiography: Right common carotid artery, right external carotid artery, right internal carotid artery, left common carotid artery, left external carotid artery, left internal carotid artery, right vertebral artery injections 2. Ultrasound-guided vascular access ATTENDING SURGEON: Otis Salas MD. He was present for the entire procedure. ASSISTING SURGEON(S): Chacho Grider MD ANESTHESIA: Local in the right forearm with 1% Lidocaine. Conscious sedation with Versed and Fentanyl was given by the nurse under the supervision of the attending interventional neuroradiologist. Pre-, intra-, and post-conscious sedation monitoring records are available in the chart. Total monitored sedation time was 45 minutes. MEDICATIONS: Local anesthesia: 1% Lidocaine SQ Sedation and Analgesia: Versed IV, Fentanyl IV Radial artery cocktail: Verapamil (2.5 mg), Nitroglycerin (200 mcg), and Heparin (3000 units) / MATERIALS: 21-gauge needle 5 [place] Merit Prelude IDeal sheath 23cm and mini guidewire 5 [place] Fu 2 Heppner catheter Terumo glidewire TR Band CONTRAST: Visipaque 270 100 mL TECHNIQUE: Prior to the procedure, the technical aspects of the procedure, as well as benefits, potential risks and alternate options, were explained to the patient. Specifically, the risks of cerebral infarction, hemorrhage, weakness, paralysis, sensory changes, vision decline/blindness, cranial nerve palsy, facial pain, anaphylaxis, renal failure, access site hematoma, arterial dissection, arterial pseudoaneurysm, arteriovenous fistula were discussed with the patient in person. Informed consent was obtained. After informed consent was obtained, the patient was brought to the angiography suite. Moderate sedation (intravenous fentanyl and midazolam) was administered under the direction of the attending physician with continuous monitoring by a trained nurse specialist independent of those performing the procedure. Total monitored sedation time was 45 minutes. The right forearm was prepped and draped in the usual fashion. Access to the vascular system was gained in the usual way by a single-wall puncture of the right radial artery at the anatomical snuff box under ultrasound guidance. Ultrasound images demonstrated a patent vessel and were stored to PACS.. The 5 [place] Merit Prelude IDeal sheath 23cm was then introduced into the right radial artery over the mini guidewire. A cocktail of Verapamil (2.5 mg), Nitroglycerin (200 mcg), and Heparin (3000 units) was slowly injected into the right radial artery through the sheath over several minutes, with close monitoring of blood pressure. A Terumo Glidewire and 5 [place] Fu 2 Heppner catheter were advanced into the aortic arch under fluoroscopic visualization and the Fu catheter was formed over the aortic arch. Using fluoroscopic guidance, selective catheterization of the above mentioned vessels and digital angiograms were performed, centered over the head and neck with AP, lateral, and oblique views. The catheter was then removed. The sheath was removed. Patent hemostasis was achieved by placement of a TR band. There were no immediate complications related to the procedure. FINDINGS: RIGHT COMMON CAROTID ARTERY, CERVICAL: The bifurcation is smooth, without irregularity, calcification, or stenosis with respect to the distal right internal carotid artery. The bifurcation is at C2-C3. There is normal opacification of right cervical external carotid artery branches. RIGHT INTERNAL CAROTID ARTERY, CEREBRAL: There is no evidence of aneurysm, focal stenosis, or early draining vein. There is opacification of the right internal carotid artery and its branches. There is antegrade flow through the ophthalmic artery with choroidal blush. There is a robust right posterior communicating artery supplying the right posterior cerebral artery distribution as well as flash filling of the basilar apex. There is normal opacification of the right anterior and middle cerebral arteries. There is no cross filling via the anterior communicating artery. There is occlusion and nonopacification of the anterior superior sagittal sinus. The posterior superior sagittal sinus is patent but significantly diminished in caliber. Instead the frontal lobes drain through slightly tortuous cortical veins, through the anterior and middle skull base including the cavernous sinus and middle cerebral veins. RIGHT EXTERNAL CAROTID ARTERY, CEREBRAL: There is no evidence of intracranial early venous drainage. LEFT COMMON CAROTID ARTERY, CERVICAL: The bifurcation is smooth, without irregularity, calcification, or stenosis with respect to the distal left internal carotid artery. Bifurcation is at C3-C4 level. There is normal opacification of left cervical external carotid artery branches. LEFT INTERNAL CAROTID ARTERY, CEREBRAL: There is no evidence of aneurysm, focal stenosis, or early draining vein. There is opacification of the left internal carotid artery and its branches. There is antegrade flow through the ophthalmic artery with choroidal blush as well as filling of the anterior falcine artery via distal branches. There is a robust left posterior communicating artery supplying the posterior cerebral artery distribution with faint opacification of the basilar apex. There is normal opacification of the left anterior and middle cerebral arteries. There is no cross filling via the anterior communicating artery. There is no opacification of the anterior superior sagittal sinus from the left sided injection with minimal opacification of the posterior superior sagittal sinus. There are tortuous cortical veins though less prominent than on the right hemisphere. Drainage is primarily via cortical veins into the vein of Yeison as well as drainage via the middle cerebral veins into the cavernous sinus. LEFT EXTERNAL CAROTID ARTERY, CEREBRAL: There is no evidence of intracranial early venous drainage. RIGHT VERTEBRAL ARTERY, CEREBRAL: There is no evidence of aneurysm, focal stenosis, or early draining vein. There was good contrast reflux down the left vertebral artery. Both posterior inferior cerebellar arteries demonstrate normal takeoffs from the distal ipsilateral vertebral arteries. The P1 segments bilaterally are diminutive in caliber. There is flash filling of bilateral posterior cerebral artery distributions. COMPLICATIONS: There were no immediate complications. IMPRESSION: 1. Occlusion and nonopacification of the anterior superior sagittal sinus. The posterior portion remains patent but diminished in caliber. Instead the frontal lobes drain through slightly tortuous cortical veins, through the anterior and middle skull base including the cavernous sinus and middle cerebral veins. 2. No dAVF as queried. The transverse, sigmoid, and jugular sinuses remain patent, and MRV findings likely represent preferential observation of these vein compared to the diminished SSS. These results were discussed with primary team after the conclusion of the procedure. Dictated by: Chacho Grider M.D. The radiology attending physician has personally reviewed this study, and had reviewed and/or edited this written report and agrees with it. Electronically signed by: Otis Salas MD us Jose Aldridge MD IMG IR PROCEDURES Final Res ult * MRI Brain and MRV Head W WO Contrast (05/24/2024 9:41 AM HEAD HOUSEKEEPER) Anatomical Region Laterality Modality Head and Neck N/A Magnetic Resonan ce 05/24/2024 11:5 7 AM HEAD HOUSEKEEPER Impressions 05/24/2024 12:15 PM HEAD HOUSEKEEPER 1. Stable supratentorial and infratentorial foci of susceptibility and mild diffuse pachymeningeal thickening and enhancement compatible with posttreatment changes. No new enhancing lesion. 2. 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 3. 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 Neuroendovascular consultation is recommended. The results were discussed with Dr. Aldridge by Dr. Lisa on 05/24/2024 at 11:52 AM Dictated by: Carlota Lisa MD PHD The radiology attending physician has personally reviewed this study, and had reviewed and/or edited this written report and agrees with it. Electronically signed by: Manolo Fournier MD Narrative 05/24/2024 12:15 PM HEAD HOUSEKEEPER EXAMINATION: 1. Magnetic resonance imaging (MRI) of the brain and brainstem without and with contrast 2. Magnetic resonance venography (MRV) of the head without and with contrast HISTORY: Metastatic melanoma status post whole brain radiation therapy in 2019. Acute on chronic altered mental status, word-finding difficulty, headache. TECHNIQUE: Multiplanar multi-weighted MRI of the brain and brainstem was performed without and with intravenous contrast using the general brain protocol. Magnetic resonance venography of the dural venous sinuses was performed using a separate data acquisition with a non-contrast 3D phase contrast technique and a post-contrast technique to produce axial thin-slice source images. These images were then used to generate maximum intensity projection (MIP) images. Contrast information: 16 mL Gadoterate Meglumine COMPARISON: CT 05/23/2024, MRI 04/26/2024 FINDINGS: MRI: Study limited by motion artifact. Again seen are areas of encephalomalacia with associated hemosiderin staining and gliosis along the left frontal and left parietal lobes and right cerebellar hemisphere, similar to the prior exam. Additional foci of susceptibility without corresponding enhancement, including in the bilateral basal ganglia and left posterior medial temporal lobe, are stable. There is diffuse pachymeningeal enhancement and thickening, similar to the prior exam. No new enhancing lesion. The scalp and calvarium are normal. The corpus callosum is normal in shape and signal intensity. The pituitary and sella are normal. The brainstem and craniocervical junction are unremarkable. Diffusion weighted images reveal no hyperintensities to suggest acute cerebral infarction. The ventricles are normal in size and position without evidence of hydrocephalus. The paranasal sinuses are normal. Bilateral mastoid effusions. The orbits appear normal. Normal flow voids are demonstrated in the carotid arteries and basilar artery. MRV: On the MR venogram, there is stable appearing nonocclusive thrombus involving the superior sagittal sinus, and right transverse sinus. The sigmoid sinus and jugular bulb appear normal. There is early filling of the torcula, straight sinus, and left transverse sinus (series 18 image 11). There are multiple deep cervical collaterals. Procedure Note Manolo Fournier MD PhD - 05/24/2024 EXAMINATION: 1. Magnetic resonance imaging (MRI) of the brain and brainstem without and with contrast 2. Magnetic resonance venography (MRV) of the head without and with contrast HISTORY: Metastatic melanoma status post whole brain radiation therapy in 2019. Acute on chronic altered mental status, word-finding difficulty, headache. TECHNIQUE: Multiplanar multi-weighted MRI of the brain and brainstem was performed without and with intravenous contrast using the general brain protocol. Magnetic resonance venography of the dural venous sinuses was performed using a separate data acquisition with a non-contrast 3D phase contrast technique and a post-contrast technique to produce axial thin-slice source images. These images were then used to generate maximum intensity projection (MIP) images. Contrast information: 16 mL Gadoterate Meglumine COMPARISON: CT 05/23/2024, MRI 04/26/2024 FINDINGS: MRI: Study limited by motion artifact. Again seen are areas of encephalomalacia with associated hemosiderin staining and gliosis along the left frontal and left parietal lobes and right cerebellar hemisphere, similar to the prior exam. Additional foci of susceptibility without corresponding enhancement, including in the bilateral basal ganglia and left posterior medial temporal lobe, are stable. There is diffuse pachymeningeal enhancement and thickening, similar to the prior exam. No new enhancing lesion. The scalp and calvarium are normal. The corpus callosum is normal in shape and signal intensity. The pituitary and sella are normal. The brainstem and craniocervical junction are unremarkable. Diffusion weighted images reveal no hyperintensities to suggest acute cerebral infarction. The ventricles are normal in size and position without evidence of hydrocephalus. The paranasal sinuses are normal. Bilateral mastoid effusions. The orbits appear normal. Normal flow voids are demonstrated in the carotid arteries and basilar artery. MRV: On the MR venogram, there is stable appearing nonocclusive thrombus involving the superior sagittal sinus, and right transverse sinus. The sigmoid sinus and jugular bulb appear normal. There is early filling of the torcula, straight sinus, and left transverse sinus (series 18 image 11). There are multiple deep cervical collaterals. IMPRESSION: 1. Stable supratentorial and infratentorial foci of susceptibility and mild diffuse pachymeningeal thickening and enhancement compatible with posttreatment changes. No new enhancing lesion. 2. 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 3. 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 Neuroendovascular consultation is recommended. The results were discussed with Dr. Aldridge by Dr. Lisa on 05/24/2024 at 11:52 AM Dictated by: Carlota Lisa MD PHD The radiology attending physician has personally reviewed this study, and had reviewed and/or edited this written report and agrees with it. Electronically signed by: Manolo Fournier MD us Elizabeth Marsh MD IMG MRI PROCEDURES Final Result * eGFR (05/24/2024 2:28 AM HEAD HOUSEKEEPER) eGFR 74 >=60 mL/min/1. 73 m2 Comment: Interpretive Data Reference Interval Normal >/= 90 mL/min/1.73m2 Mildly decreased* 60 - 89 mL/min/1.73m2 Mildly to moderately decreased 45 - 59 mL/min/1.73m2 Moderately to severely decreased 30 - 44 mL/min/1.73m2 Severely decreased 15 - 29 mL/min/1.73m2 Kidney Failure < 15 mL/min/1.73m2 *Relative to young adult level Estimated glomerular filtration rate is determined by the 2020 CKD-EPI equation recommended by the National Kid[employer] (A Unifying Approach to GFR Estimation: Recommendations of the NKF-ASK Task Force on Reassessing the Inclusion of Race in Diagnosing Kidney Disease, JASN 202). The CKD-EPI equation should not be used for patients with unstable renal function and has not been validated in children and those over 70. Current interpretive data was last reviewed 2021. Blood 05/24/2024 2:28 AM HEAD HOUSEKEEPER 05/24/2024 3:14 AM HEAD HOUSEKEEPER us Jose Francisco Ledsema MD LAB BLOOD ORDERABLES Final Resul t [facility] [place] [address] * Differential, auto (05/24/2024 2:28 AM HEAD HOUSEKEEPER) Neutrophil abs 4.6 1.5 - 6.5 K/cumm Imm gran abs 0.1 0.0 - 0.1 K/cumm [facility] Lymphocyte abs 1.0 0.8 - 3.3 K/cumm [facility] Monocyte abs 0.8 0.2 - 0.8 K/cumm [facility] Eosinophil abs 0.0 0.0 - 0.5 K/cumm [facility] Basophil abs 0.0 0.0 - 0.1 K/cumm [facility] Neutrophil pct 70.8 % [facility] Comment: Interpretive Data Percent cell count reference ranges are not reported, since discordance with absolute values may lead to misinterpretation of CBC data. Current Interpretive Data was last revised on 2017. Imm gran pct 1.1 % [facility] Comment: Interpretive Data Percent cell count reference ranges are not reported, since discordance with absolute values may lead to misinterpretation of CBC data. Current Interpretive Data was last revised on 2017. Lymphocyte pct 15.2 % [facility] Comment: Interpretive Data Percent cell count reference ranges are not reported, since discordance with absolute values may lead to misinterpretation of CBC data. Current Interpretive Data was last revised on 2017. Monocyte pct 12.6 % [facility] Comment: Interpretive Data Percent cell count reference ranges are not reported, since discordance with absolute values may lead to misinterpretation of CBC data. Current Interpretive Data was last revised on 2017. Eosinophil pct 0.0 % [facility] Comment: Interpretive Data Percent cell count reference ranges are not reported, since discordance with absolute values may lead to misinterpretation of CBC data. Current Interpretive Data was last revised on 2017. Basophil pct 0.3 % [facility] Comment: Interpretive Data Percent cell count reference ranges are not reported, since discordance with absolute values may lead to misinterpretation of CBC data. Current Interpretive Data was last revised on 2017. Blood 05/24/2024 2:28 AM HEAD HOUSEKEEPER 05/24/2024 3:14 AM HEAD HOUSEKEEPER Jose Francisco Ledesma MD LAB BLOOD ORDERABLES Final Resul t Performing Organization Address City/[facility]/ZIP Co de Phone Number [facility] [place] [address] * (ABNORMAL) CBC with auto differential (05/24/2024 2:28 AM HEAD HOUSEKEEPER) WBC 6.5 3.8 - 9.9 K/cumm Hgb 16.2(H) 11.9 - 15.5 g/dL [facility] Hct 48.9(H) 35.6 - 45.5 % [facility] Plt 246 150 - 400 K/cumm [facility] MPV 9.2 9.1 - 12.[address] [facility] RBC 5.35(H) 3.90 - 5.20 M/cumm [facility] MCV 91.4 81.3 - 96.[address] [facility] MCH 30.3 27.1 - 33.[address] [facility] MCHC 33.1 32.3 - 35.7 g/dL [facility] RDW CV 12.9 11.1 - 14.9 % [facility] RDW SD 43.0 35.7 - 48.[address] [facility] NRBC abs 0.00 0.00 - 0.01 K/cumm [facility] Blood 05/24/2024 2:28 AM HEAD HOUSEKEEPER 05/24/2024 3:14 AM HEAD HOUSEKEEPER Jose Francisco Ledesma MD LAB BLOOD ORDERABLES Final Resul t Performing Organization Address City/[facility]/ZIP Co de Phone Number [facility] [place] [address] * RPR Blood (05/24/2024 2:28 AM HEAD HOUSEKEEPER) Pathologist [facility] RPR Nonreactive Nonreactive Blood 05/24/2024 2:28 AM HEAD HOUSEKEEPER 05/24/2024 2:58 AM HEAD HOUSEKEEPER Jerome Boss MD PhD LAB MICROBIOLOGY - GENERAL ORDERABLES Final Result Performing Organization Address [facility]/RUST de Phone Number [facility] [place] [address] * (ABNORMAL) Levetiracetam level (05/24/2024 2:28 AM HEAD HOUSEKEEPER) Levetiracetam (Keppra) 82.6(H) 10.0 - 40.0 mcg/mL [facility] Comment: ADDITIONAL INFORMATION This test was developed and its performance characteristics determined by [facility] in a manner consistent with CLIA requirements. This test has not been cleared or approved by the U.S. Food and Drug Administration. Test Performed by: [facility] - [id number] [place] [address] Wire Machine Operator: Marek Barry Ph.D.; CLIA# [id number] Blood 05/24/2024 2:28 AM HEAD HOUSEKEEPER 05/24/2024 8:19 AM HEAD HOUSEKEEPER us Jose Francisco Ledesma MD LAB BLOOD ORDERABLES Final Resul t Performing Organization Address [facility]/[place]UST de Phone Number [facility] [place] [address] [facility] * aPTT (05/24/2024 2:28 AM HEAD HOUSEKEEPER) aPTT 35 28 - 38 sec Comment: Interpretive Data Heparin therapeutic range: 66.0 - 100.0 seconds. Range based on correlation with therapeutic heparin activity range of 0.3 - 0.7 Units/mL. Current interpretive data was last revised on 2023. Blood 05/24/2024 2:28 AM HEAD HOUSEKEEPER 05/24/2024 3:01 AM HEAD HOUSEKEEPER Jose Francisco Ledesma MD LAB BLOOD ORDERABLES Final Resul t Performing Organization Address [facility] Co de Phone Number [facility] [place] [address] * (ABNORMAL) Protime-INR (05/24/2024 2:28 AM HEAD HOUSEKEEPER) PT 17.0(H) 9.7 - 13.0 sec INR 1.56(H) 0.90 - 1.[address] [facility] Comment: Interpretive data Oral anticoagulant therapeutic ranges: Venous thromboembolism prophylaxis or treatment: 2.0-3.0 CARDIOLOGY Standard range: 2.0-3.0 High-intensity range: 2.5-3.5 Refer to indication-specific guidelines for appropriate target ranges for prosthetic heart valve replacement. Current interpretive data was last revised on 2019. Blood 05/24/2024 2:28 AM HEAD HOUSEKEEPER 05/24/2024 3:01 AM HEAD HOUSEKEEPER Jose Francisco Ledesma MD LAB BLOOD ORDERABLES Final Resul t Performing Organization Address [facility] de Phone Number [facility] [place] [address] * Type and screen (05/24/2024 2:28 AM HEAD HOUSEKEEPER) Yamini, indirect Negative ABO Rh A Positive [facility] Blood 05/24/2024 2:28 AM HEAD HOUSEKEEPER 05/24/2024 3:21 AM HEAD HOUSEKEEPER Narrative [facility] - 05/24/2024 4:21 AM HEAD HOUSEKEEPER Has the patient had Daratumumab or Isatuximab in the past 6 months?->Unknown Jose Francisco Ledesma MD LAB BLOOD BANK TEST ORDERABLES F inal Result Performing Organization Address [facility] Co de Phone Number [facility] [place] [address] * Uric acid (05/24/2024 2:28 AM HEAD HOUSEKEEPER) Pathologist [facility] Uric acid 5.1 2.5 - 7.0 mg/dL Blood 05/24/2024 2:28 AM HEAD HOUSEKEEPER 05/24/2024 3:14 AM HEAD HOUSEKEEPER Narrative [facility] - 05/24/2024 3:46 AM HEAD HOUSEKEEPER Thursday and only. Morning draw. . Jose Francisco Ledesma MD LAB BLOOD ORDERABLES Final Resul t Performing Organization Address City/[facility] [place] [address] * Phosphorus (05/24/2024 2:28 AM HEAD HOUSEKEEPER) Pathologist [facility] Phosphorus, pl 3.5 2.3 - 4.5 mg/dL Blood 05/24/2024 2:28 AM HEAD HOUSEKEEPER 05/24/2024 3:14 AM HEAD HOUSEKEEPER Jose Francisco Ledesma MD LAB BLOOD ORDERABLES Final Resul t Performing Organization Address City/[facility] Co de Phone Number [facility] [place] [address] * Magnesium (05/24/2024 2:28 AM HEAD HOUSEKEEPER) Pathologist [facility] Magnesium 2.5 1.4 - 2.5 mg/dL Blood 05/24/2024 2:28 AM HEAD HOUSEKEEPER 05/24/2024 3:14 AM HEAD HOUSEKEEPER Jose Francisco Ledesma MD LAB BLOOD ORDERABLES Final Resul t Performing Organization Address City/[facility] [place] [address] * (ABNORMAL) Lactate dehydrogenase (LD) (05/24/2024 2:28 AM HEAD HOUSEKEEPER) Pathologist [facility] Lactate dehydrogenase (LDH) 338(H) 100 - 250 Units/L Blood 05/24/2024 2:28 AM HEAD HOUSEKEEPER 05/24/2024 3:14 AM HEAD HOUSEKEEPER Narrative [facility] - 05/24/2024 3:46 AM HEAD HOUSEKEEPER Thursday and only. Morning draw. Jose Francisco Ledesma MD LAB BLOOD ORDERABLES Final Resul t [facility] [place] [address] * Vitamin B12 (05/24/2024 2:28 AM HEAD HOUSEKEEPER) [facility] Vitamin B12 266 230 - 1,250 pg/mL Blood 05/24/2024 2:28 AM HEAD HOUSEKEEPER 05/24/2024 3:14 AM HEAD HOUSEKEEPER eJrome Boss MD PhD LAB BLOOD ORDERABL ES Final Result Performing Organization Address [facility]/[place] de Phone Number [facility] [place] [address] * (ABNORMAL) Comprehensive metabolic panel (05/24/2024 2:28 AM HEAD HOUSEKEEPER) [facility] Sodium 142 135 - 145 mmol/L Potassium, pl 3.3 3.3 - 4.9 mmol/L [facility] Chloride 101 97 - 110 mmol/L [facility] CO2 29 22 - 32 mmol/L [facility] Anion gap 12 2 - 15 mmol/L [facility] BUN 16 6 - 25 mg/dL [facility] Creatinine 0.91 0.60 - 1.10 mg/dL [facility] Glucose 82 70 - 199 mg/dL [facility] Comment: Interpretive Data Fasting glucose >/= 126 mg/dl is diagnostic for diabetes. Fasting is defined as no caloric intake for at least 8 hours. Fasting glucose between 100 mg/dl to 125 mg/dl is diagnostic of prediabetes. In a patient with classic symptoms of hyperglycemia or hyperglycemic crisis, a random glucose >/= 200 mg/dl is diagnostic for diabetes. In the absence of unequivocal hyperglycemia, results should be confirmed by repeat testing. The classification and Diagnosis of Diabetes Diabetes Care 2021; 46: S19-S40. Current interpretive data was last revised 2022. Calcium 9.5 8.5 - 10.3 mg/dL [facility] Bilirubin, total 0.5 0.1 - 1.2 mg/dL [facility] Protein, pl 7.0 6.5 - 8.5 g/dL [facility] Albumin 4.2 3.5 - 5.0 g/dL [facility] Alk phos 168(H) 40 - 130 Units/L [facility] ALT 32 7 - 45 Units/L [facility] AST 24 10 - 45 Units/L [facility] Blood 05/24/2024 2:28 AM HEAD HOUSEKEEPER 05/24/2024 3:14 AM HEAD HOUSEKEEPER Jose Francisco Ledesma MD LAB BLOOD ORDERABLES Final Resul t [facility] [place] [address] * Blood culture Blood (05/23/2024 5:33 PM HEAD HOUSEKEEPER) Report Final Report: No growth Blood 05/23/2024 5:33 PM HEAD HOUSEKEEPER 05/23/2024 5:56 PM HEAD HOUSEKEEPER Narrative [facility] - 05/28/2024 7:00 AM HEAD HOUSEKEEPER 1. Blood cultures are incubated for 4 days on a continuously monitored blood culture system. The first report of a negative culture is issued within 24 hours of receipt of the specimen in the laboratory. 2. Positive culture results are reported as soon as they are detected. 3. The most important factor for detection of microbes in the setting of bloodstream infection is the volume of blood submitted for culture. Failure to collect an optimal blood volume can result in false negative blood cultures. 4. For pediatric patients, the recommended blood volume to collect follows a weight based strategy. See the electronic test catalog for collection instructions. 5. For positive blood cultures, a rapid molecular test may be performed for organism identification using the kaiden ePlex blood culture identification panel for gram positive (BCID-GP) and gram negative (BCID-GN) organisms. This nucleic acid amplification test detects microbial DNA in positive blood culture broth. This assay has been cleared by the [place] Food and Drug Administration and its performance characteristics have been verified by the [facility] Microbiology Laboratory. For questions about this culture, contact the Microbiology Laboratory at [phone]. Interpretive data was last revised on 24. Jose Francisco Ledesma MD LAB MICROBIOLOGY - GENERAL ORDER BRITTANI Final Result [facility] [place] [address] * Blood culture Blood (05/23/2024 5:33 PM HEAD HOUSEKEEPER) Report Final Report: No growth Blood 05/23/2024 5:33 PM HEAD HOUSEKEEPER 05/23/2024 5:56 PM HEAD HOUSEKEEPER Narrative [facility] - 05/28/2024 7:00 AM HEAD HOUSEKEEPER 1. Blood cultures are incubated for 4 days on a continuously monitored blood culture system. The first report of a negative culture is issued within 24 hours of receipt of the specimen in the laboratory. 2. Positive culture results are reported as soon as they are detected. 3. The most important factor for detection of microbes in the setting of bloodstream infection is the volume of blood submitted for culture. Failure to collect an optimal blood volume can result in false negative blood cultures. 4. For pediatric patients, the recommended blood volume to collect follows a weight based strategy. See the electronic test catalog for collection instructions. 5. For positive blood cultures, a rapid molecular test may be performed for organism identification using the kaiden ePlex blood culture identification panel for gram positive (BCID-GP) and gram negative (BCID-GN) organisms. This nucleic acid amplification test detects microbial DNA in positive blood culture broth. This assay has been cleared by the [place] Food and Drug Administration and its performance characteristics have been verified by the [facility] Microbiology Laboratory. For questions about this culture, contact the Microbiology Laboratory at [phone]. Interpretive data was last revised on 24. Result [facility] Jose Francisco Ledesma MD LAB MICROBIOLOGY - GENERAL ORDER BRITTANI Final Result Performing Organization Address City/[facility]/ZIP Co de Phone Number [facility] [place] [address] * Type and screen (05/23/2024 5:33 PM HEAD HOUSEKEEPER) ABO Rh A Positive Yamini, indirect Negative [facility] Blood 05/23/2024 5:33 PM HEAD HOUSEKEEPER 05/23/2024 5:45 PM HEAD HOUSEKEEPER Narrative [facility] - 05/23/2024 6:31 PM HEAD HOUSEKEEPER Has the patient had Daratumumab or Isatuximab in the past 6 months?->Unknown Result [facility] Jose Francisco Ledesma MD LAB BLOOD BANK TEST ORDERABLES F inal Result Performing Organization Address [facility] Co de Phone Number [facility] [place] [address] * Troponin I high-sensitivity 2-hour (05/23/2024 3:50 PM HEAD HOUSEKEEPER) Trop I hs <4 <=17 ng/L Comment: Interpretive Data For further hscTnI resources including the diagnostic algorithm and an aid in interpretation, copy and paste this link: https://bjhlab.testcatalog.org/show/hsTrop-[email or web address] Current Interpretive Data last revised 2019. Trop I hs delta 0 ng/L [facility] Trop I hs interp Insignificant [facility] Blood 05/23/2024 3:50 PM HEAD HOUSEKEEPER 05/23/2024 4:23 PM HEAD HOUSEKEEPER Result [facility] Rosalinda Salazar MD LAB BLOOD ORDERABLES Final Result Performing Organization Address [facility]/ZIP Co de Phone Number [facility] [place] [address] * ECG 12-LEAD (05/23/2024 3:03 PM HEAD HOUSEKEEPER) Narrative [facility] - 05/23/2024 3:03 PM HEAD HOUSEKEEPER Rosalinda Salazar MD 05/23/2024 3:05 PM ECG 12 lead Date/Time: 05/23/2024 3:03 PM Performed by: Rosalinda Salazar MD Authorized by: Rosalinda Salazar MD Rate: ECG rate: 105 ECG rate assessment: tachycardic Rhythm: Rhythm: sinus rhythm Ectopy: Ectopy: none QRS: QRS axis: Left Conduction: Conduction: normal ST segments: ST segments: Normal T waves: T waves: non-specific and flattening Flattening: AVF and III Previous ECG: Previous ECG: Compared to current Date of previous EC10/14/2023 Similarity: No change Interpretation: Interpretation: No acute injury pattern Recommended Follow-up: Recommended follow up: further workup in the ED Procedure Note Rosalinda Salazar MD - 05/23/2024 3:03 PM CST Procedure ECG 12 lead Date/Time: 05/23/2024 3:03 PM Performed by: Rosalinda Salazar MD Authorized by: Rosalinda Salazar MD Rate: ECG rate: 105 ECG rate assessment: tachycardic Rhythm: Rhythm: sinus rhythm Ectopy: Ectopy: none QRS: QRS axis: Left Conduction: Conduction: normal ST segments: ST segments: Normal T waves: T waves: non-specific and flattening Flattening: AVF and III Previous ECG: Previous ECG: Compared to current Date of previous EC10/14/2023 Similarity: No change Interpretation: Interpretation: No acute injury pattern Recommended Follow-up: Recommended follow up: further workup in the ED Rosalinda Salazar MD 05/23/24 [id number] Rosalinda Salazar MD ECG ORDERABLES Final Resu lt [facility] * Throat culture Throat (05/23/2024 2:24 PM HEAD HOUSEKEEPER) Report Final Report: No growth of pathogens. Throat 05/23/2024 2:24 PM HEAD HOUSEKEEPER 05/23/2024 2:34 PM HEAD HOUSEKEEPER Narrative [facility] - 05/24/2024 10:15 AM HEAD HOUSEKEEPER Testing performed by [facility] ([phone]). Rosalinda Salazar MD LAB MICROBIOLOGY - GENERAL ORDERABLES Final Result Performing Organization Address [facility] Co de Phone Number [facility] [place] [address] * Troponin I high-sensitivity series (baseline, 2hr, 4hr, 6hr) (05/23/2024 1:40 PM HEAD HOUSEKEEPER) Trop I hs <4 <=17 ng/L Comment: Interpretive Data For further hscTnI resources including the diagnostic algorithm and an aid in interpretation, copy and paste this link: https://bjhlab.testcatalog.org/show/hsTrop-[email or web address] Current Interpretive Data last revised 2019. Blood 05/23/2024 1:40 PM HEAD HOUSEKEEPER 05/23/2024 2:10 PM HEAD HOUSEKEEPER us Rosalinda Salazar MD LAB BLOOD ORDERABLES Final Result Performing Organization Address [facility]/[place] de Phone Number [facility] [place] [address] * (ABNORMAL) Blood gas, venous (05/23/2024 1:40 PM HEAD HOUSEKEEPER) pH, Venous 7.43 7.32 - 7.43 PCO2, Venous 47 40 - [address] [facility] PO2, Venous [address] [facility] Comment: Interpretive Data No Reference Range Established Current Interpretive Data was last revised on 2017. HCO3 Venous, Calculated 32(H) 20 - 30 mmol/L [facility] BE, venous 5 mmol/L [facility] Comment: Interpretive Data No Reference Range Established Current Interpretive Data was last revised on 2017. Blood 05/23/2024 1:40 PM HEAD HOUSEKEEPER 05/23/2024 1:55 PM HEAD HOUSEKEEPER Rosalinda Salazar MD LAB BLOOD ORDERABLES Final Result Performing Organization Address City/[facility]/ZIP Co de Phone Number CHANDAN LAZAR [facility] [place] [address] * XR Chest 1 View (05/23/2024 1:29 PM HEAD HOUSEKEEPER) Anatomical Region Laterality Modality Body, Chest N/A Computed Radiogr aphy 05/23/2024 1:33 PM HEAD HOUSEKEEPER Impressions 05/23/2024 1:33 PM HEAD HOUSEKEEPER Comparison to prior dated 01/12/2024. Linear atelectasis in left lung base. Lungs are otherwise clear. No focal consolidation, pleural effusion, pneumothorax or pulmonary edema. Cardiomediastinal silhouette is normal. Electronically signed by: Favian Jamison M.D. Narrative 05/23/2024 1:33 PM HEAD HOUSEKEEPER EXAMINATION: 1 view chest radiograph Procedure Note Favian Jamison MD PhD - 05/23/2024 EXAMINATION: 1 view chest radiograph IMPRESSION: Comparison to prior dated 01/12/2024. Linear atelectasis in left lung base. Lungs are otherwise clear. No focal consolidation, pleural effusion, pneumothorax or pulmonary edema. Cardiomediastinal silhouette is normal. Electronically signed by: Favian Jamison M.D. Elizabeth Marsh MD IMG XR PROCEDURES Final Result * Lactate (05/23/2024 12:28 PM HEAD HOUSEKEEPER) Lactate 1.2 0.7 - 2.0 mmol/L Blood 05/23/2024 12:2 8 PM HEAD HOUSEKEEPER 05/23/2024 12:45 PM HEAD HOUSEKEEPER Elizabeth Marsh MD LAB BLOOD ORDERABL ES Final Result Performing Organization Address City/[facility]/ZIP Co de Phone Number CHANDAN LAZAR Kay[facility] Department [place] [address] * Respiratory pathogen panel Nasopharyngeal (05/23/2024 12:28 PM HEAD HOUSEKEEPER) Pathologist [facility] Influenza A RNA Not Detected Not Detected Influenza B RNA Not Detected Not Detected [facility] RSV RNA Not Detected Not Detected [facility] COVID-19 RNA Not Detected Not Detected [facility] Coronavirus 229E RNA Not Detected Not Detected [facility] Coronavirus HKU1 RNA Not Detected Not Detected [facility] Coronavirus NL63 RNA Not Detected Not Detected [facility] Coronavirus OC43 RNA Not Detected Not Detected [facility] Adenovirus DNA Not Detected Not Detected [facility] Metapneumovirus RNA Not Detected Not Detected [facility] Rhinovirus/Enterov irus RNA Not Detected Not Detected [facility] Parainfluenza 1 RNA Not Detected Not Detected [facility] Parainfluenza 2 RNA Not Detected Not Detected [facility] Parainfluenza 3 RNA Not Detected Not Detected [facility] Parainfluenza 4 RNA Not Detected Not Detected [facility] B. pertussis DNA Not Detected Not Detected [facility] B. parapertussis DNA Not Detected Not Detected [facility] C. pneumoniae DNA Not Detected Not Detected [facility] M. pneumoniae DNA Not Detected Not Detected [facility] Nasopharyngeal 05/23/2024 12 :28 PM HEAD HOUSEKEEPER 05/23/2024 1:02 PM HEAD HOUSEKEEPER Narrative [facility] - 05/23/2024 2:05 PM HEAD HOUSEKEEPER Is the Patient experiencing symptoms consistent with COVID?->No Surveillance testing for transplant patient?->No Interpretive Data The [employer] FilmArray Respiratory Panel (RP2.1) assay is a multiplexed real-time PCR based nucleic acid test capable of simultaneous qualitative detection and identification of multiple respiratory viral and bacterial nucleic acids, including SARS Coronavirus 2 (the causative agent of COVID-19). The following bacteria, viruses and virus subtypes can be identified using the FilmArray RP2.1 assay: Bordetella pertussis, Bordetella parapertussis, Chlamydia pneumoniae, Mycoplasma pneumoniae, Adenovirus, SARS Coronavirus 2, seasonal coronaviruses (Coronavirus HKU1, Coronavirus NL63, Coronavirus 229E, and Coronavirus OC43), Influenza A, Influenza A subtype H1, Influenza A subtype H3, Influenza A subtype 2009 H1, Influenza B, Metapneumovirus, Parainfluenza 1, Parainfluenza 2, Parainfluenza 3, Parainfluenza 4, RSV, Rhinovirus/Enterovirus. Due to the genetic similarity between human Rhinovirus and Enterovirus, the FilmArray RP2.1 assay cannot reliably differentiate them. Coronavirus OC43 may cross-react with some isolates of Coronavirus HKU1. A dual positive result may be due to cross-reactivity or may indicate a co- infection. The detection and identification of specific viral and bacterial nucleic acids from individuals exhibiting signs and symptoms of a respiratory infection aids in the diagnosis of respiratory infection if used in conjunction with other clinical and epidemiological information. The results of this test should not be used as the sole basis for diagnosis, treatment, or other management decisions. Negative results in the setting of a respiratory illness may be due to infection with pathogens that are not detected by this test. Positive results do not rule out infection/co-infection with other organisms. The agent(s) detected by the FilmArray RP2.1 may not be the definite cause of disease. Additional testing (lab, imaging, etc.) may be necessary when evaluating a patient with possible respiratory tract infection. The FilmArray RP2.1 assay has FDA clearance for testing of IN HOUSE CRA swabs. The performance of additional specimen types has been assessed by the performing laboratory. The performance characteristics of this assay have been determined by [facility] Molecular Infectious Disease Laboratory. Current interpretive data was last revised on 22. Elizabeth Marsh MD LAB MICROBIOLOGY - GENERAL ORDERABLES Final Result [facility] [place] [address] * CT Head WO Contrast (05/23/2024 12:10 PM HEAD HOUSEKEEPER) Anatomical Region Laterality Modality Head and Neck N/A Computed Tomogra phy 05/23/2024 12:4 2 PM HEAD HOUSEKEEPER Impressions 05/23/2024 12:42 PM HEAD HOUSEKEEPER 1. No acute intracranial hemorrhage. 2. Redemonstrated intracranial metastatic disease. Electronically signed by: Brenden Hi M.D. 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 TECHNIQUE: CT of the head was performed with images acquired from skull base to vertex without intravenous contrast. COMPARISON: Brain MRI 04/26/2024. CT head 04/06/2024.9 there is a 5 mm hyperattenuating focus within the left anterior frontal lobe, at the elder-white matter junction, similar to prior exam, likely representing treated metastatic disease. FINDINGS: There are diffuse white matter hypoattenuation involving bilateral centrum semiovale and george radiata, likely sequela of prior radiation treatment changes and superimposed chronic small vessel ischemic disease. Redemonstrated is the left anterior frontal encephalomalacia or vasogenic edema. 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 There is no acute intracranial hemorrhage. Ventricles are of normal size and morphology. No mass effect or midline shift is present. The elder-white matter differentiation is normal. The visualized portions of the orbits are normal. Bilateral mastoid effusions. The visualized portions of the paranasal sinuses are normal. No fractures are identified. 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 TECHNIQUE: CT of the head was performed with images acquired from skull base to vertex without intravenous contrast. COMPARISON: Brain MRI 04/26/2024. CT head 04/06/2024.9 there is a 5 mm hyperattenuating focus within the left anterior frontal lobe, at the elder-white matter junction, similar to prior exam, likely representing treated metastatic disease. FINDINGS: There are diffuse white matter hypoattenuation involving bilateral centrum semiovale and george radiata, likely sequela of prior radiation treatment changes and superimposed chronic small vessel ischemic disease. Redemonstrated is the left anterior frontal encephalomalacia or vasogenic edema. 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 There is no acute intracranial hemorrhage. Ventricles are of normal size and morphology. No mass effect or midline shift is present. The elder-white matter differentiation is normal. The visualized portions of the orbits are normal. Bilateral mastoid effusions. The visualized portions of the paranasal sinuses are normal. No fractures are identified. IMPRESSION: 1. No acute intracranial hemorrhage. 2. Redemonstrated intracranial metastatic disease. Electronically signed by: Brenden Hi M.D. Elizabeth Marsh MD IMG CT PROCEDURES Final Result * (ABNORMAL) Urinalysis reflex to microscopic and culture Urine (05/23/2024 11:56 AM HEAD HOUSEKEEPER) Color, ur Yellow Yellow Clarity, ur Cloudy(A) Clear [facility] Specific gravity, ur 1.027 1.003 - 1.[address] [facility] pH, urine 7.[address] [facility] Comment: Interpretive Data U rine pH is affected by diet, medications, systemic acid-base disturbances, and renal tubular function. pH may affect urinary stone formation. For example, urine pH below 6.0 may help reduce the tendency for calcium phosphate stones and pH greater than 6.0 may reduce the tendency for uric acid stone formation. Source: [employer], [employer] Current Interpretive Data was last revised on 2017 Protein, ur ql Trace Negative [facility] Glucose, ur ql Negative Negative [facility] Ketones, ur Negative Negative [facility] Bilirubin, ur Negative Negative [facility] Blood, ur Trace(A) Negative [facility] Urobilinogen, ur <2.0 <2.0 mg/dL [facility] Nitrite, ur Negative Negative [facility] Leukocyte esterase, ur 1+(A) Negative [facility] UA reflex comment Reflex to microscopic UA will be performed. [facility] Urine 05/23/2024 11:5 6 AM HEAD HOUSEKEEPER 05/23/2024 12:02 PM HEAD HOUSEKEEPER Elizabeth Marsh MD LAB MICROBIOLOGY - GENERAL ORDERABLES Final Result Performing Organization Address [facility] Co de Phone Number [facility] [place] [address] * (ABNORMAL) Urinalysis, microscopic only (05/23/2024 11:56 AM HEAD HOUSEKEEPER) WBC, ur 0-5 0 - 5 /HPF RBC, ur 6-10(A) 0 - 2 /HPF [facility] Epithelial cells, squamous, ur 6-10(A) 0 - 5 /HPF [facility] Comment:Suggestive of contam ination. Consider recollection by clean catch. Culture Reflex Comment Reflex conditions for urine culture (WBC >10) not met. [facility] Urine 05/23/2024 11:5 6 AM HEAD HOUSEKEEPER 05/23/2024 12:02 PM HEAD HOUSEKEEPER Elizabeth Marsh MD LAB URINE ORDERABL ES Final Result Performing Organization Address [facility] Co de Phone Number [facility] [place] [address] * eGFR (05/23/2024 11:53 AM HEAD HOUSEKEEPER) eGFR 62 >=60 mL/min/1. 73 m2 Comment: Interpretive Data Reference Interval Normal >/= 90 mL/min/1.73m2 Mildly decreased* 60 - 89 mL/min/1.73m2 Mildly to moderately decreased 45 - 59 mL/min/1.73m2 Moderately to severely decreased 30 - 44 mL/min/1.73m2 Severely decreased 15 - 29 mL/min/1.73m2 Kidney Failure < 15 mL/min/1.73m2 *Relative to young adult level Estimated glomerular filtration rate is determined by the 2020 CKD-EPI equation recommended by the National Kidney Foundation (A Unifying Approach to GFR Estimation: Recommendations of the NKF-ASK Task Force on Reassessing the Inclusion of Race in Diagnosing Kidney Disease, JASN 2020). The CKD-EPI equation should not be used for patients with unstable renal function and has not been validated in children and those over 70. Current interpretive data was last reviewed 2021. Blood 05/23/2024 11:5 3 AM HEAD HOUSEKEEPER 05/23/2024 12:14 PM HEAD HOUSEKEEPER Elizabeth Marsh MD LAB BLOOD ORDERABL ES Final Result [facility] [place] [address] * (ABNORMAL) Differential, auto (05/23/2024 11:53 AM HEAD HOUSEKEEPER) Neutrophil abs 6.2 1.5 - 6.5 K/cumm Imm gran abs 0.1 0.0 - 0.1 K/cumm [facility] Lymphocyte abs 0.6(L) 0.8 - 3.3 K/cumm [facility] Monocyte abs 0.4 0.2 - 0.8 K/cumm [facility] Eosinophil abs 0.0 0.0 - 0.5 K/cumm [facility] Basophil abs 0.0 0.0 - 0.1 K/cumm [facility] Neutrophil pct 85.1 % [facility] Comment: Interpretive Data Percent cell count reference ranges are not reported, since discordance with absolute values may lead to misinterpretation of CBC data. Current Interpretive Data was last revised on 2017. Imm gran pct 0.8 % [facility] Comment: Interpretive Data Percent cell count reference ranges are not reported, since discordance with absolute values may lead to misinterpretation of CBC data. Current Interpretive Data was last revised on 2017. Lymphocyte pct 7.9 % [facility] Comment: Interpretive Data Percent cell count reference ranges are not reported, since discordance with absolute values may lead to misinterpretation of CBC data. Current Interpretive Data was last revised on 2017. Monocyte pct 5.9 % [facility] Comment: Interpretive Data Percent cell count reference ranges are not reported, since discordance with absolute values may lead to misinterpretation of CBC data. Current Interpretive Data was last revised on 2017. Eosinophil pct 0.0 % [facility] Comment: Interpretive Data Percent cell count reference ranges are not reported, since discordance with absolute values may lead to misinterpretation of CBC data. Current Interpretive Data was last revised on 2017. Basophil pct 0.3 % [facility] Comment: Interpretive Data Percent cell count reference ranges are not reported, since discordance with absolute values may lead to misinterpretation of CBC data. Current Interpretive Data was last revised on 2017. Blood 05/23/2024 11:5 3 AM HEAD HOUSEKEEPER 05/23/2024 12:14 PM HEAD HOUSEKEEPER Elizabeth Marsh MD LAB BLOOD ORDERABL ES Final Result [facility] [place] [address] * (ABNORMAL) CBC with auto differential (05/23/2024 11:53 AM HEAD HOUSEKEEPER) WBC 7.3 3.8 - 9.9 K/cumm Hgb 15.8(H) 11.9 - 15.5 g/dL [facility] Hct 47.4(H) 35.6 - 45.5 % [facility] Plt 196 150 - 400 K/cumm [facility] MPV 9.1 9.1 - 12.[address] [facility] RBC 5.12 3.90 - 5.20 M/cumm [facility] MCV 92.6 81.3 - 96.[address] [facility] MCH 30.9 27.1 - 33.[address] [facility] MCHC 33.3 32.3 - 35.7 g/dL [facility] RDW CV 12.8 11.1 - 14.9 % [facility] RDW SD 43.2 35.7 - 48.[address] [facility] NRBC abs 0.00 0.00 - 0.01 K/cumm [facility] Blood 05/23/2024 11:5 3 AM HEAD HOUSEKEEPER 05/23/2024 12:14 PM HEAD HOUSEKEEPER Elizabeth Marsh MD LAB BLOOD ORDERABL ES Final Result Performing Organization Address City/[facility] Co de Phone Number [facility] [place] [address] * Phosphorus (05/23/2024 11:53 AM HEAD HOUSEKEEPER) Pathologist [facility] Phosphorus, pl 3.7 2.3 - 4.5 mg/dL Blood 05/23/2024 11:5 3 AM HEAD HOUSEKEEPER 05/23/2024 12:14 PM HEAD HOUSEKEEPER Jerome Boss MD PhD LAB BLOOD ORDERABL ES Final Result Performing Organization Address [facility] Co de Phone Number [facility] [place] [address] * Magnesium (05/23/2024 11:53 AM HEAD HOUSEKEEPER) [facility] Magnesium 2.3 1.4 - 2.5 mg/dL Blood 05/23/2024 11:5 3 AM HEAD HOUSEKEEPER 05/23/2024 12:14 PM HEAD HOUSEKEEPER Result [facility] Jerome Boss MD PhD LAB BLOOD ORDERABL ES Final Result Performing Organization Address [facility] [place] [address] * (ABNORMAL) Comprehensive metabolic panel (05/23/2024 11:53 AM HEAD HOUSEKEEPER) Pathologist [facility] Sodium 143 135 - 145 mmol/L Potassium, pl 3.6 3.3 - 4.9 mmol/L [facility] Chloride 101 97 - 110 mmol/L [facility] CO2 31 22 - 32 mmol/L [facility] Anion gap 11 2 - 15 mmol/L [facility] BUN 15 6 - 25 mg/dL [facility] Creatinine 1.05 0.60 - 1.10 mg/dL [facility] Glucose 100 70 - 199 mg/dL [facility] Comment: Interpretive Data Fasting glucose >/= 126 mg/dl is diagnostic for diabetes. Fasting is defined as no caloric intake for at least 8 hours. Fasting glucose between 100 mg/dl to 125 mg/dl is diagnostic of prediabetes. In a patient with classic symptoms of hyperglycemia or hyperglycemic crisis, a random glucose >/= 200 mg/dl is diagnostic for diabetes. In the absence of unequivocal hyperglycemia, results should be confirmed by repeat testing. The classification and Diagnosis of Diabetes Diabetes Care 2021; 46: S19-S40. Current interpretive data was last revised 2022. Calcium 9.6 8.5 - 10.3 mg/dL [facility] Bilirubin, total 0.6 0.1 - 1.2 mg/dL [facility] Protein, pl 6.9 6.5 - 8.5 g/dL [facility] Albumin 4.0 3.5 - 5.0 g/dL [facility] Alk phos 167(H) 40 - 130 Units/L [facility] ALT 34 7 - 45 Units/L [facility] AST 26 10 - 45 Units/L [facility] Blood 05/23/2024 11:5 3 AM HEAD HOUSEKEEPER 05/23/2024 12:14 PM HEAD HOUSEKEEPER Elizabeth Marsh MD LAB BLOOD ORDERABL ES Final Result [facility] [place] [address] * eGFR (04/27/2024 10:53 AM HEAD HOUSEKEEPER) eGFR 76 >=60 mL/min/1. 73 m2 Comment: Interpretive Data Reference Interval Normal >/= 90 mL/min/1.73m2 Mildly decreased* 60 - 89 mL/min/1.73m2 Mildly to moderately decreased 45 - 59 mL/min/1.73m2 Moderately to severely decreased 30 - 44 mL/min/1.73m2 Severely decreased 15 - 29 mL/min/1.73m2 Kidney Failure < 15 mL/min/1.73m2 *Relative to young adult level Estimated glomerular filtration rate is determined by the 2020 CKD-EPI equation recommended by the National Kidney Foundation (A Unifying Approach to GFR Estimation: Recommendations of the NKF-ASK Task Force on Reassessing the Inclusion of Race in Diagnosing Kidney Disease, JASN 2020). The CKD-EPI equation should not be used for patients with unstable renal function and has not been validated in children and those over 70. Current interpretive data was last reviewed 2021. Blood 04/27/2024 10:5 3 AM HEAD HOUSEKEEPER 04/27/2024 10:59 AM HEAD HOUSEKEEPER us Jerome Boss MD PhD LAB BLOOD ORDERABL ES Final Result [facility] [place] [address] * (ABNORMAL) Differential, auto (04/27/2024 10:53 AM HEAD HOUSEKEEPER) Neutrophil abs 7.5(H) 1.5 - 6.5 K/cumm Comment:Testing performed by : [facility], [address] [place] [phone] Lymphocyte abs 0.5(L) 0.8 - 3.3 K/cumm CHANDAN LAZAR Comment:Testing performed by : [facility], [address] [place] [phone] Monocyte abs 0.5 0.2 - 0.8 K/cumm CHANDAN LAZAR Comment:Testing performed by : [facility], [address] [place] [phone] Eosinophil abs 0.0 0.0 - 0.5 K/cumm CERMADYS[facility] BJ Comment:Testing performed by : [facility], [address] [place] [phone] Basophil abs 0.0 0.0 - 0.1 K/cumm [facility] BJ Comment:Testing performed by : [facility], [address] [place] [phone] Neutrophil pct 88.0 % [facility]ER[facility] LAZAR Comment: Interpretive Data Percent cell count reference ranges are not reported, since discordance with absolute values may lead to misinterpretation of CBC data. Current Interpretive Data was last revised on 2017. Testing performed by: [facility], [address] [place] [phone] Lymphocyte pct 5.7 % [facility]ER[facility]AD[facility] Comment: Interpretive Data Percent cell count reference ranges are not reported, since discordance with absolute values may lead to misinterpretation of CBC data. Current Interpretive Data was last revised on 2017. Testing performed by: [facility], [address] [place] [phone] Monocyte pct 6.2 % [facility] Comment: Interpretive Data Percent cell count reference ranges are not reported, since discordance with absolute values may lead to misinterpretation of CBC data. Current Interpretive Data was last revised on 2017. Testing performed by: [facility], [address] [place], [place] [id number] Eosinophil pct 0.0 % [facility] Comment: Interpretive Data Percent cell count reference ranges are not reported, since discordance with absolute values may lead to misinterpretation of CBC data. Current Interpretive Data was last revised on 2017. Testing performed by: [facility], [address] [place] [phone] Basophil pct 0.1 % [facility] Comment: Interpretive Data Percent cell count reference ranges are not reported, since discordance with absolute values may lead to misinterpretation of CBC data. Current Interpretive Data was last revised on 2017. Testing performed by: [facility], [address] [place] [phone] Blood 04/27/2024 10:5 3 AM HEAD HOUSEKEEPER 04/27/2024 10:56 AM HEAD HOUSEKEEPER us Jerome Boss MD PhD LAB BLOOD ORDERABL ES Final Result [facility] [place] [address] * Thyroid Function [place] (04/27/2024 10:53 AM HEAD HOUSEKEEPER) Pathologist [facility] TSH 1.19 0.30 - 4.20 mcIUnit/mL Blood 04/27/2024 10:5 3 AM HEAD HOUSEKEEPER 04/27/2024 10:59 AM HEAD HOUSEKEEPER Jerome Boss MD PhD LAB BLOOD ORDERABL ES Final Result [facility] [place] [address] * (ABNORMAL) Iron profile w/ IBC (04/27/2024 10:53 AM HEAD HOUSEKEEPER) [facility] Iron 61 35 - 145 mcg/dL TIBC 349 250 - 400 mcg/dL [facility] Transferrin saturation 17(L) 20 - 50 % [facility] Blood 04/27/2024 10:5 3 AM HEAD HOUSEKEEPER 04/27/2024 10:59 AM HEAD HOUSEKEEPER Jerome Boss MD PhD LAB BLOOD ORDERABL ES Final Result Performing Organization Address City/[facility] Co de Phone Number [facility] [place] [address] * (ABNORMAL) CBC with auto differential (04/27/2024 10:53 AM HEAD HOUSEKEEPER) [facility] WBC 8.5 3.8 - 9.9 K/cumm Comment:Testing performed by : [facility], [address] [place] [phone] Hgb 15.4 11.9 - 15.5 g/dL CHANDAN [facility] Comment:Testing performed by : [facility], [address] [place] [phone] Hct 47.5(H) 35.6 - 45.5 % CHANDAN LAZAR Comment:Testing performed by : [facility], [address] [place] [phone] Plt 270 150 - 400 K/cumm CHANDAN LAZAR Comment:Testing performed by : [facility], [address] [place], [place] [phone] MPV 7.1 6.8 - 10.4 fL CHANDAN LAZAR Comment:Testing performed by : [facility], [address] [place], [place] [phone] RBC 5.10 3.90 - 5.20 M/cumm CHANDAN LAZAR Comment:Testing performed by : [facility], [address] [place], [place] [phone] MCV 93.2 81.3 - 96.4 fL CHANDAN LAZAR Comment:Testing performed by : [facility], [address] [place], [place] [phone] MCH 30.2 27.1 - 33.3 pg CHANDAN LAAZR Comment:Testing performed by : [facility], [address] [place], [place] [phone] MCHC 32.4 32.3 - 35.7 g/dL [facility] LAZAR Comment:Testing performed by : [facility], [address] [place], [place] [phone] RDW CV 13.7 11.1 - 14.9 % CHANDAN [facility] Comment:Testing performed by : [facility], [address] [place], [place] [phone] NRBC abs 0.00 0.00 - 0.01 K/cumm CHANDAN [facility] Comment:Testing performed by : [facility], [address] [place] [address] Blood 04/27/2024 10:5 3 AM HEAD HOUSEKEEPER 04/27/2024 10:56 AM HEAD HOUSEKEEPER us Jerome Boss MD PhD LAB BLOOD ORDERABL ES Final Result [facility] [place] [address] * Ferritin (04/27/2024 10:53 AM HEAD HOUSEKEEPER) Ferritin 42 13 - 150 ng/mL Blood 04/27/2024 10:5 3 AM HEAD HOUSEKEEPER 04/27/2024 10:59 AM HEAD HOUSEKEEPER us Jerome Boss MD PhD LAB BLOOD ORDERABL ES Final Result [facility] [place] [address] * (ABNORMAL) Comprehensive metabolic panel (04/27/2024 10:53 AM HEAD HOUSEKEEPER) Sodium 141 135 - 145 mmol/L Potassium, pl 3.5 3.3 - 4.9 mmol/L [facility] Chloride 102 97 - 110 mmol/L [facility] CO2 32 22 - 32 mmol/L [facility] Anion gap 7 2 - 15 mmol/L [facility] BUN 18 6 - 25 mg/dL [facility] Creatinine 0.89 0.60 - 1.10 mg/dL [facility] Glucose 82 70 - 199 mg/dL [facility] Comment: Interpretive Data Fasting glucose >/= 126 mg/dl is diagnostic for diabetes. Fasting is defined as no caloric intake for at least 8 hours. Fasting glucose between 100 mg/dl to 125 mg/dl is diagnostic of prediabetes. In a patient with classic symptoms of hyperglycemia or hyperglycemic crisis, a random glucose >/= 200 mg/dl is diagnostic for diabetes. In the absence of unequivocal hyperglycemia, results should be confirmed by repeat testing. The classification and Diagnosis of Diabetes Diabetes Care 2021; 46: S19-S40. Current interpretive data was last revised 2022. Calcium 9.8 8.5 - 10.3 mg/dL [facility] Bilirubin, total 0.3 0.1 - 1.2 mg/dL [facility] Protein, pl 7.0 6.5 - 8.5 g/dL [facility] Albumin 4.5 3.5 - 5.0 g/dL [facility] Alk phos 175(H) 40 - 130 Units/L [facility] ALT 20 7 - 45 Units/L [facility] AST 16 10 - 45 Units/L [facility] Blood 04/27/2024 10:5 3 AM HEAD HOUSEKEEPER 04/27/2024 10:59 AM HEAD HOUSEKEEPER us Jerome Boss MD PhD LAB BLOOD ORDERABL ES Final Result Performing Organization Address City/[facility] [place] [address] * Hepatitis panel, acute Blood (01/13/2024 10:20 PM CDT) Hep A IgM Nonreactive Nonreactive Hep B core IgM Nonreactive Nonreactive [facility] Hep C Ab Nonreactive Nonreactive [facility] Comment:Antibodies to HCV no t detected. Does NOT exclude the possibility of recent exposure to HCV. Current interpretive data was last revised on 22 HepBsAg Nonreactive Nonreactive [facility] Blood 01/13/2024 10:2 0 PM CDT 01/13/2024 11:13 PM CDT us Jasmin Gray MD LAB MICROBIOLOGY - G ENERAL ORDERABLES Final Result Performing Organization Address [facility] [place] [address] * COLONOSCOPY (01/14/2023 3:40 PM CDT) Anatomical Region Laterality Modality Other Narrative Procedure Note Ulises Ramirez MD - 01/14/2023 3:40 PM CDT [facility] END[facility] Patient Name: Marilu Reed Procedure Date: 01/14/2023 3:40 PM Date of : 1965 Admit Type: Outpatient Age: 57 Gender: Female Attending MD: Ulises Ramirez M.D. [facility]: [facility] 9 Note Status: Finalized Procedure: Colonoscopy Indications: Iron deficiency anemia Referring MD: Jerome Boss M.D. Providers: Ulises Ramirez M.D. Comorbidities See the other procedure note for documentation of comorbidities Medicines: Monitored Anesthesia Care Complications: No immediate complications. Estimated Blood Loss: Estimated blood loss: none. Procedure: Pre-Anesthesia Assessment: - Prior to the procedure, a History and Physicalwas performed, and patient medications, allergies and sensitivities were reviewed. The patient'stolerance of previous anesthesia was reviewed. - Immediately prior to administration ofmedications, the patient was re-assessed for adequacy to receive sedatives. - The risks and benefits of the procedure and the sedation options and risks were discussed with the patient. All questions were answered and informed consent was obtained. The benefits, risks and alternatives of theprocedure and sedation were discussed and informed consentwas obtained. All questions were answered. Please referto the signed informed consent document in the medical record. The scope was passed under direct vision.The [id number] endoscope was introduced through the anus and advanced to the terminal ileum. The colonoscopy was performed without difficulty. The patient tolerated the procedure well. The qualityof the bowel preparation was evaluated using the BBPS ([place] Bowel Preparation Scale) with scores of:Right Colon = 3, Transverse Colon = 3 and Left Colon = 3 (entire mucosa seen well with no residual staining, small fragments of stool or opaque liquid). Thetotal BBPS score equals 9. The bowel preparation used was GoLYTELY via split dose instruction. The quality of the bowel preparation was good. Findings: The perianal and digital rectal examinations were normal. The terminal ileum appeared normal. Multiple small and large-mouthed diverticula were found in thesigmoid colon, descending colon and ascending colon. The entire examined colon appeared normal on direct and retroflexion views. Impression: - The examined portion of the ileum was normal. - Diverticulosis in the sigmoid colon, in the descending colon and in the ascending colon. - The entire examined colon is normal on direct and retroflexion views. Recommendation: - The patient will be observed post-procedure,until all discharge criteria are met. - Continue to monitor Hgb/iron levels with iron supplementation. If ongoing iron deficiency anemiaand concern remains for GI losses, consider capsule endoscopy. - Resume Eliquis starting tomorrow, 01/15. - Continue previous diet. - Follow up with referring physician as previously scheduled. Attending Participation: I personally performed the entire procedure. Electronically signed by Ulises Ramirez MD Ulises Ramirez M.D. 01/14/2023 4:03:54 PM . Number of Addenda: 0 Note Initiated On: 01/14/2023 3:40 PM Recognized by the [employer] for promoting quality in endoscopy Ulises Ramirez MD ENDOSCOPY PROCEDURES Final Result from Last 3 Months or Most Recently Relevant to Health Maintenance Insurance [facility] OPEN ACCESS [facility] H[facility]/PP[facility] Address: [address] [address] [place] [address] [facility] [employer] [facility] H[facility]/PPO Address: [address] [address] [place] [address] MEDICARE [facility] Address: [facility] [address] [place] [address] [facility] [employer] Advance Directives For more information, please contact: [phone] * LIMITED - No CPR (Latest Code Status on File) Date Activated Date Inactivated Comments 06/11/2024 3:50 PM 06/23/2024 10:59 PM Question Answer Comments Provide aggressive medical m anagement before a full cardiopulmonary arrest occurs. Use antibiotics, IV Fluids, and medical treatment unless specifically selected below: No intubation * Full Code Date Activated Date Inactivated Comments 05/23/2024 4:40 PM 05/27/2024 10:41 PM * Full Code Date Activated Date Inactivated Comments 01/12/2024 4:56 PM 01/21/2024 10:43 PM * Full Code Date Activated Date Inactivated Comments 10/14/2023 8:53 PM 10/26/2023 10:22 PM * Full Code Date Activated Date Inactivated Comments 09/18/2023 9:20 PM 09/26/2023 2:19 PM Care Teams Painter Mirror Relationship Specialty Start Date End Date Ludin Salazar MD [address] [place] [address] PCP - General Family Medicine 02/28/20 Jerome Boss MD PhD [address] [address] Medical Oncologist/Kiln Loader Medical Oncology 12/20/20 Ney Martin MD [address] [address] Consulting Physician Neurosurgery 08/20/22 Geraldine Thompson NP [address] [place] [address] [place] [address] Nurse Practitioner Family Practice 02/19/24
--- OUTSIDE RECORDS SUMMARY | 2024-07-26 13:31 | XMS_ITS | Encounter Summary ---
Author Organization [facility] Healthcare Address [address] [place] [address] Care Team Providers Care Jet Mechanic Name Role Phone Favian Hinds MD Unavailable [phone] Ludin Salazar MD Primary Care Prov ider Jerome Boss MD PhD Unavailable + Nye Martin MD Unavailable Geraldine Thompson NP Unavailable [phone] Encounter Details Date Type Department Care Team (Late st Contact Info) Description 07/30/[address] [facility] Radiology [address] [place] [address] Zoe Price NP [address] [address] Social History Tobacco Use Types Packs/Day Years Used Date Smoking Tobacco: Former Cigarettes 0.5 5 1 999 - 2004 Smokeless Tobacco: Never Alcohol Use Standard Drinks/Week Comments Not Currently 1 (1 standard drink = 0.6 oz pur e alcohol) rarely AUDIT-C Answer Date Recorded Q1: How often do you have a drink containing alc ohol? Never 07/31/2021 Q2: How many drinks containi ng alcohol do you have on a typical day when you are drinking? 1 or 2 07/31/2021 Q3: How often do you have six or more drinks on one occasion? 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 Not on file Not on file documented as of this encounter Functional Status documented as of this encounter Plan of Treatment Not on file documented as of this encounter Visit Diagnoses Not on filedocumented in this encounter Additional Health Concerns Infection Onset Date Last Indicated Resolved Time COVID: Suspected 05/11/2022 05/11/2022 05/11/2022 1:13 PM NICKEL PLANT OPERATOR COVID: Suspected 05/03/2023 05/03/2023 05/03/2023 4:43 AM NICKEL PLANT OPERATOR Influenza, adult 05/03/2023 05/03/2023 05/10/2023 3:05 AM NICKEL PLANT OPERATOR COVID: Suspected 10/14/2023 10/14/2023 10/14/2023 6:43 PM CDT documented as of this encounter Care Teams Jet Mechanic Relationship Specialty Start Date End Date Ludin Salazar MD [address] [place] [address] PCP - General Family Medicine 02/28/20 Favian Hinds MD Referring Physician Neurosurgery 01/27/20 08/19/22 Jerome Boss MD PhD [address] [facility] [address] [place] [address] Medical Oncologist/Lead Cytogenetic Technologist Medical Oncology 12/20/20 Ney Martin MD [address] [facility] [address] [place] [address] Consulting Physician Neurosurgery 08/20/22 Geraldine Thompson NP [address] [facility] [place] [address] Nurse Practitioner Family Practice 02/19/24 documented as of this encounter
--- OUTSIDE RECORDS SUMMARY | 2024-07-26 13:31 | XMS_ITS | Encounter Summary ---
Author Organization [facility] Address [address] [place] [address] Phone Care Team Providers Care Forestry Professor Name Role Phone Ludin Salazar MD Primary Care Prov ider Jerome Boss MD PhD Unavailable + Ney Martin MD Unavailable [phone] Geraldine Thompson NP Unavailable [phone] Encounter Details Date Type Department Care Team (Latest Contact Info) Description 07/29/2023 Orders Only [facility] Scanning, Provider [...] you have a drink containing alc ohol? 2-4 times a month 01/14/2023 Q2: How many drinks containi ng alcohol do you have on a typical day when you are drinking? 1 or 2 01/14/2023 Q3: How often do you have si x or more drinks on one occasion? Never 01/14/2023 PHQ-2 Answer Date Recorded PHQ-2 Total Score (If total score is 3 or more points, staff should administer the PHQ-9) 0 04/09/2020 Personal Safety Answer Date Recorded Have you ever been in or are you currently in a harmful physical or emotional relationship or is someone making you feel afraid or unsafe? 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 file Not on file documented as of this encounter Plan of Treatment Not on file documented as of this encounter Procedures Procedure Name Priority Date/Time Associated Diagnosis Comments SCAN - PATHOLOGY 07/29/2023 documented in this encounter Results * SCAN - PATHOLOGY (07/29/2023) us Provider Scanning Final Result documented in this encounter Visit Diagnoses Not on filedocumented in this encounter Additional Health Concerns Infection Onset Date Last Indicated Resolved Time COVID: Suspected 10/14/2023 10/14/2023 10/14/2023 6:43 PM CDT documented as of this encounter Care Teams Forestry Professor Relationship Specialty Start Date End Date Ludin Salazar MD [address] [place] [address] PCP - General Family Medicine 02/28/20 Jerome Boss MD PhD [address] [address] Medical Oncologist/Administration Clerk Medical Oncology 12/20/20 Ney Martin MD [address] [address] Consulting Physician Neurosurgery 08/20/22 Geraldine Thompson NP [address] [place] [address] Nurse Practitioner Family Practice 02/19/24 documented as of this encounter
--- OUTSIDE RECORDS SUMMARY | 2024-07-26 13:31 | XMS_ITS | Encounter Summary ---
Author Organization [facility] Address [address] [place] [address] Care Team Providers Care Hammer Runner Name Role Phone Favian Hinds MD Unavailable [phone] Ludin Salazar MD Primary Care Prov ider Jerome Boss MD PhD Unavailable + Ney Martin MD Unavailable [phone] Geraldine Thompson NP Unavailable [phone] Encounter Details Date Type Department Care Team (Late st Contact Info) Description 01/17/2021 Telephone [facility] [address] [place] [address] Marlene Pizano, RT Social History Tobacco Use Types Packs/Day Years Used Date Smoking Tobacco: Former Cigarettes 0.5 5 1 999 - 2004 Smokeless Tobacco: Never Alcohol Use Standard Drinks/Week Comments Not Currently 1 (1 standard drink = 0.6 oz pur e alcohol) rarely AUDIT-C Answer Date Recorded Q1: How often do you have a drink containing alc ohol? Never 01/16/2021 Q2: How many drinks containi ng alcohol do you have on a typical day when you are drinking? 1 or 2 01/16/2021 Q3: How often do you have six or more drinks on one occasion? 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 file Not on file documented as of this encounter Plan of Treatment Not on file documented as of this encounter Visit Diagnoses Not on filedocumented in this encounter Additional Health Concerns Infection Onset Date Last Indicated Resolved Time COVID: Suspected 05/11/2022 05/11/2022 05/11/2022 1:13 PM UNDERWRITER SOLICITATION DIRECTOR COVID: Suspected 05/03/2023 05/03/2023 05/03/2023 4:43 AM UNDERWRITER SOLICITATION DIRECTOR Influenza, adult 05/03/2023 05/03/2023 05/10/2023 3:05 AM UNDERWRITER SOLICITATION DIRECTOR COVID: Suspected 10/14/2023 10/14/2023 10/14/2023 6:43 PM CDT documented as of this encounter Care Teams Hammer Runner Relationship Specialty Start Date End Date Ludin Salazar MD [address] [place] [address] PCP - General Family Medicine 02/28/20 Favian Hinds MD Referring Physician Neurosurgery 01/27/20 08/19/22 Jerome Boss MD PhD [id number] [place] [address] Medical Oncologist/Political Organizer Medical Oncology 12/20/20 Ney Martin MD [address] [facility] [address] [place] [address] Consulting Physician Neurosurgery 08/20/22 Geraldine Thompson NP [address] [place] [address] [place] [address] Nurse Practitioner Family Practice 02/19/24 documented as of this encounter
--- OUTSIDE RECORDS SUMMARY | 2024-07-26 13:31 | XMS_ITS | Referral Summary ---
Author Organization [facility] [address] [facility] Address [address] [place] [address] Care Team Providers Care Process Control Programmer Name Role Phone Ludin Salazar MD Primary Care Prov ider Jerome Boss MD PhD Unavailable + Ney Martin MD Unavailable Geraldine Thompson NP Unavailable [phone] Encounters Date Type Department Care Team Description 07/17/2024 Telephone [facility] Bone Marrow Transplant [facility] 6 [place] [address] Jermaine Rubio, WILLIAM 07/15/2024 Documentation [facility] Oncology [address] [place] [address] 6 [place] [address] Samreen Wolfe CMA Pre Cert (Medication precert sent thru CMM) 07/14/2024 Telephone [facility] Radiology, Interventional Radiology [address] [facility] [address] [place] [address] Litzy Bhagat, WILLIAM Appointment 07/14/2024 Telephone [facility] Radiology 1 [place] [address] Charline Dinero, WILLIAM 07/13/2024 4:00 PM CAUSTIC PUMP OPERATOR Telemedicine [facility] Oncology [facility] Floor 1, [address] [place] [address] Jerome Boss MD PhD Malignant melanoma of unknown origin (CMS/HCC) (HCC) (Primary Dx); Secondary malignant melanoma of brain (HCC); Thoracic back pain, unspecified back pain laterality, unspecified chronicity 07/04/2024 Telephone [facility] Orthopaedic Surgery [address] [facility] Medicine 6th Floor [address] [place] [phone] Luis Alberto Reis MD 06/11/2024 11:42 AM CAUSTIC PUMP OPERATOR - 06/23/2024 6:40 PM CAUSTIC PUMP OPERATOR Hospital Encounter [address] [address] Arian Balbuena MD Johanns, Tanner Michael, MD PhD Alyson Masters MD Farooqui, MD Garth Still Sheun, MD Altered mental status, unspecified altered mental status type (Primary Dx); Nausea and vomiting, unspecified vomiting type; Viral syndrome; Malignant melanoma, unspecified site (HCC) Discharge Disposition: Discharge to an Rehab facility 06/22/2024 4:50 PM CAUSTIC PUMP OPERATOR Telemedicine [facility] Oncology [address] [facility] Floor 1, [address] [place] [address] Jerome Boss MD PhD Malignant melanoma, unspecified site (HCC) (Primary Dx); Secondary malignant melanoma of brain (HCC); Malignant melanoma of unknown origin (CMS/HCC) (HCC) 06/20/2024 Telephone [facility] Oncology [facility] Floor 1, [address] [place] [address] Jerome Boss MD PhD appointment reschedule 06/14/2024 Home Care Visit [address] [place] [address] Wendi Keith, PT PT VIRTUAL NON OASIS DISCHARGE 06/12/2024 Home Care Visit [address] [place] [address] Wendi Keith, PT PT OASIS TRANSFER W/OUT DC 06/11/[address] [phone] Yesi Manriquez NP Fatigue 06/10/2024 Documentation [facility] Oncology [address] [facility] Floor 1, [address] [place] [address] Marcos Hammondtamiko Jackman 06/08/2024 12:00 PM CAUSTIC PUMP OPERATOR Telemedicine [facility] Epilepsy [address] [facility] [address] [place] [address] Tremayne Sheridan MD PhD Seizures (HCC) (Primary Dx); Seizure (CMS/HCC) (HCC) 06/07/2024 Home Care Visit [address] [place] [address] Kirsten Tomlinson, PT CARE CONFERENCE 06/07/2024 8:30 AM CAUSTIC PUMP OPERATOR Clinical Support [facility] Neuro Psychology [address] [facility] [address] [place] [address] Lily Tinoco, PhD Secondary malignant melanoma of brain (HCC); Altered mental status, unspecified altered mental status type 06/06/2024 11:00 AM CAUSTIC PUMP OPERATOR Home Care Visit [address] [place] [address] Enma Ochoa, OT OT INITIAL EVALUATION 06/02/2024 1:00 PM CAUSTIC PUMP OPERATOR Home Care Visit [address] [place] [address] Wendi Keith, PT PT INITIAL EVALUATION 05/31/2024 Plan of Care Documentation [address] [place] [address] 05/31/2024 2:00 PM CAUSTIC PUMP OPERATOR Home Care Visit [address] [place] [address] Marizol Reis, RN SN OASIS START OF CARE 05/30/[address] [place] [address] Ramya West RN 05/27/[address] [place] [address] Ramya West, WILLIAM 05/23/2024 10:45 AM CAUSTIC PUMP OPERATOR - 05/27/2024 6:35 PM CAUSTIC PUMP OPERATOR Hospital Encounter [address] [phone] Rosalinda Salazar MD Johanns, Tanner Michael, MD PhD Jose Aldridge MD Disorientation (Primary Dx); Secondary malignant melanoma of brain (HCC) Discharge Disposition: Discharge to home, home health skilled care 05/24/2024 Orders Only [facility] Neuro Interventional Radiology [address] [place] [address] Zita Rojas RN 05/21/2024 3:45 PM CAUSTIC PUMP OPERATOR E-Visit [facility] Medical Group [address] [address] Josie Goss NP Your Medications 05/21/2024 Patient Self-Triage [facility] HealthCare/ Physicians [address] [place] [phone] Mychart, Generic Provider 05/21/2024 Patient Self-Triage [facility]/ Physicians [address] [place] [phone] Mychart, Generic Provider 04/28/2024 Orders Only [facility] Neurosurgery [facility] Floor 1, [address] [place] [address] Stella Adams NP Secondary malignant melanoma of brain (HCC) (Primary Dx) 04/27/2024 Telephone [facility] with [facility] Physicians [address] [place] [address] Stella Adams NP 04/27/2024 11:00 AM CAUSTIC PUMP OPERATOR Lab [facility] - Lab Collection [address] [facility] [address] 5 [place] [address] Malignant melanoma of unknown origin (CMS/HCC) (HCC) 04/27/2024 11:40 AM CAUSTIC PUMP OPERATOR Office Visit [facility] Oncology [address] [facility] Floor 1, [address] [place] [phone] Jerome Bsos MD PhD Malignant melanoma of unknown origin (CMS/HCC) (HCC) (Primary Dx); Secondary malignant melanoma of brain (HCC) 04/27/2024 10:30 AM CAUSTIC PUMP OPERATOR Lab [facility] Oncology Lab [address] [facility] Floor 5 [place] [address] Malignant melanoma of unknown origin (CMS/HCC) (HCC) from Last 3 Months Allergies Active Allergy Reactions Criticality Noted Date [...] 1 tablet (125 mcg total) by mouth pr specialist before breakfast 025 Active lidocaine (LIDODERM) 5 % Place 1 patch on the skin daily as needed for pain Remove & discard patch within 12 hours or as directed by . 025 Active polyethylene glycol (MIRALAX) 17 gram packetIndications :constipation Take 1 packet (17 g total) by mouth daily as needed for constipation 025 Active oxyBUTYnin XL (DITROPAN-XL) 5 mg 24 hr tablet Take 1 tablet (5 mg total) by mouth daily 025 2025 Active bisacodyL (DULCOLAX) 10 mg suppositoryIndica tions:constipatio n Insert 1 suppository (10 mg total) into the rectum 2 (two) times a day as needed for constipation Active calcium carbonate (TUMS) 500 mg (200 mg elemental calcium) chewable tablet Take 1 tablet/chew tab (500 mg total) by mouth daily as needed for indigestion or heartburn 025 2025 Active methocarbamoL (ROBAXIN) 500 mg tablet Take 1 tablet (500 mg total) by mouth 3 (three) times a day Active OLANZapine (ZyPREXA ZYDIS) 5 mg disintegrating tabletIndications :nausea, agitation Take 0.5 tablets (2.5 mg total) by mouth nightly Active pyridoxine (VITAMIN B6) 25 mg tablet Take 1 tablet (25 mg total) by mouth daily 025 2025 Active senna-docusate (PERICOLACE) 8.6-50 mg Take [...] (two) times a day [address] (PROTONIX) 40 [...] 06/11/2024 Assessment & Plan (06/22/2024 8:28 AM CAUSTIC PUMP OPERATOR): - Patient has recurrent admissions for acute [...] 05/24/2024 Assessment & Plan (05/25/2024 4:45 PM CAUSTIC PUMP OPERATOR): - Throat Cx - NGTD - HSV PCR - negative Headache 05/24/2024 Assessment & Plan (06/23/2024 9:48 AM CAUSTIC PUMP OPERATOR): - Not currently complaining of active headache, although has been 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 - Continue home verapamil 240mg BID Assessment & Plan (05/26/2024 4:38 PM CAUSTIC PUMP OPERATOR): - p/w right sided MCCONNELL. Hx of [...] 05/23/2024 Assessment & Plan (05/23/2024 5:10 PM CAUSTIC PUMP OPERATOR): On home hydrochlorothiazide. Holding in the setting of normotension Low back pain 05/23/2024 Assessment & Plan (06/22/2024 8:29 AM CAUSTIC PUMP OPERATOR): - Has history of compression fractures in [...] started Assessment & Plan (05/23/2024 5:13 PM CAUSTIC PUMP OPERATOR): Prior history of compression fractures in lumbar spine - PRN oxy and lidocaine patches Anxiety state 02/08/2024 Chronic cough 01/17/2024 Assessment & Plan (01/17/2024 5:20 PM CDT): - 01/11 chest xray no pleural effusion or pneumothorax Elevated liver enzymes 01/14/2024 Assessment & Plan (01/27/2024 1:40 PM CDT): - patient has hx of ICI induced hepatitis. - AST/ALT elevated to 2058/1081. - Hepatitis viral panel nonreactive - Hepatology [...] 01/12/2024 Assessment & Plan (05/27/2024 1:39 PM CAUSTIC PUMP OPERATOR): MRI spine from 03/03 with no evidence [...] A+Ox4 Assessment & Plan (05/05/2023 4:20 PM CAUSTIC PUMP OPERATOR): Workup now with MRI unchanged from prior, [...] hygiene Assessment & Plan (05/03/2023 8:08 AM CAUSTIC PUMP OPERATOR): - resumed home trazodone/ramelteon Influenza A 05/03/2023 Assessment & Plan (05/05/2023 4:23 PM CAUSTIC PUMP OPERATOR): RVP + for influenza A on her admission. Pt started on tamiflu in the ED - cont tamiflu for 5 days (05/03-05/07) - tylenol for fevers. Afebrile for over 48h and blood cultures negative. Dc abx. okay to discharge home to complete tamiflu course as symptoms improved from admission Fever 05/03/2023 Assessment & Plan (05/05/2023 4:26 PM CAUSTIC PUMP OPERATOR): Patient has quite a high fever in the ED up to 103. Do suspect this is related to influenza. UA is clean and CXR clear. Doubt meningitis given clincial improvement. Consider blood stream infection. Given her immunocompromised status, started on vanc/cefe on admission. Cultures neg, abx dc'ed 05/05 UTI (urinary tract infection) 05/27/2022 Assessment & Plan (06/20/2024 2:26 PM CAUSTIC PUMP OPERATOR): - E. Coli UTI--suspect this likely contributed to acute mental decline that brought her to the hospital - Completed a course of ceftriaxone: 06/15-06/19 Assessment & Plan (05/27/2022 12:41 AM CAUSTIC PUMP OPERATOR): UA positive for infection. Treat empirically with Macrobid for 5 days Viral meningoencephalitis 05/11/2022 Assessment & Plan (05/15/2022 4:32 PM CAUSTIC PUMP OPERATOR): - Patient presenting with acute-onset encephalopathy with [...] 05/11/2022 Assessment & Plan (05/15/2022 4:32 PM CAUSTIC PUMP OPERATOR): - On therapeutic anticoagulation, resume home apixaban Intracranial venous thrombosis 05/11/2022 Assessment & Plan (06/19/2024 1:04 PM CAUSTIC PUMP OPERATOR): - Continue home Eliquis Assessment & Plan (05/23/2024 5:07 PM CAUSTIC PUMP OPERATOR): History of nonobstructive thrombus within superior sagittal [...] continue Assessment & Plan (05/03/2023 10:13 AM CAUSTIC PUMP OPERATOR): 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 -MRI unchanged - restart eliquis Assessment & Plan (05/27/2022 12:39 AM CAUSTIC PUMP OPERATOR): Secondary to malignancy, thrombus appears to be stable on repeat CT venogram. Continue anticoagulation with Eliquis. Assessment & Plan (05/25/2022 12:49 AM CAUSTIC PUMP OPERATOR): -Secondary to malignancy, thrombus appears to be stable on repeat CT venogram. -Continue anticoagulation with Eliquis. Assessment & Plan (05/19/2022 3:21 PM CAUSTIC PUMP OPERATOR): Restart home apixaban Assessment & Plan (05/15/2022 4:32 PM CAUSTIC PUMP OPERATOR): - Prior history s/p thrombectomy - Last dose apixaban 05/10 PM - s/p heparin gtt, resumed home apixaban Acquired hypothyroidism 05/11/2022 Assessment & Plan (06/14/2024 3:38 PM CAUSTIC PUMP OPERATOR): - TSH WNL - Continue home synthroid Assessment & Plan (05/23/2024 5:08 PM CAUSTIC PUMP OPERATOR): - Continue home Synthroid Assessment & Plan (10/17/2023 12:34 AM CDT): Continue home synthroid 125 mcg Assessment & Plan (05/03/2023 8:02 AM CAUSTIC PUMP OPERATOR): - cont home synthroid 100 - recent TSH wnl Assessment & Plan (05/27/2022 12:40 AM CAUSTIC PUMP OPERATOR): Continue home synthroid Assessment & Plan (05/25/2022 12:50 AM CAUSTIC PUMP OPERATOR): -Continue home levothyroxine. Assessment & Plan (05/22/2022 9:59 AM CAUSTIC PUMP OPERATOR): Resume home levothyroxine dose TSH 10: increased to 125 mc Assessment & Plan (05/11/2022 9:52 PM CAUSTIC PUMP OPERATOR): - Cont levothyroxine Sepsis 05/11/2022 Assessment & Plan (05/11/2022 9:47 PM CAUSTIC PUMP OPERATOR): - Evaluation/mgt per above NSTEMI (non-ST elevated myocardial infarction) 0 05/11/2022 Assessment & Plan (05/16/2022 3:14 PM CAUSTIC PUMP OPERATOR): - Hs-trop has increased 127 --> 1035 [...] daily. Assessment & Plan (05/03/2023 8:02 AM CAUSTIC PUMP OPERATOR): - continue home prednisone 7.5mg daily Assessment & Plan (05/27/2022 12:42 AM CAUSTIC PUMP OPERATOR): Continue prednisone Assessment & Plan (05/19/2022 3:19 PM CAUSTIC PUMP OPERATOR): Restart home prednisone dose. Assessment & Plan (05/13/2022 5:21 PM CAUSTIC PUMP OPERATOR): - Increased from Pred 7.5mg daily to hydrocortisone 50mg q8h given acute illness and hypotension, will wean gradually back to home dose due to clinical improvement Generalized weakness 07/12/2020 Assessment & Plan (06/23/2024 9:47 AM CAUSTIC PUMP OPERATOR): - Presented with a several-day history of [...] auth) Assessment & Plan (07/12/2020 3:08 PM CAUSTIC PUMP OPERATOR): -could be caused by adrenal insufficiency 2/2 mcfp steroid or immunotherapy use -currently takes dexamethasone 0.5 mg BID -will transition to prednisone 5 mg daily and perform a cosyntropin stimulation test on 07/31-she is aware that she needs to hold her prednisone dose the morning of the test Chemotherapy-induced nausea 06/08/2020 Seizures 04/03/2020 Assessment & Plan (06/18/2024 9:53 AM CAUSTIC PUMP OPERATOR): - Continue home Lacosamide and Levetiracetam - 72hr cEEG performed during this admission without evidence of seizure activity Assessment & Plan (05/23/2024 5:04 PM CAUSTIC PUMP OPERATOR): - Continue home antiepileptic Assessment & Plan (05/05/2023 4:19 PM CAUSTIC PUMP OPERATOR): She initially presented with seizures in 2019 iso brain mets. During prolonged hospitalization in 05/2022 her AED reg increased, though no confirmed seizures at that time. Followed by neurology outpatient - continue home keppra, zonisamide - rEEG for AMS on arrival-->non-specific however without active seizure. AMS has since resolved Assessment & Plan (05/19/2022 3:20 PM CAUSTIC PUMP OPERATOR): Keppra 1.5 g BID. Assessment & Plan (05/13/2022 5:22 PM CAUSTIC PUMP OPERATOR): - History of seizures with last prior 2yrs ago - unclear if post-ictal on presentation with Severiano's Palsy? prior to arrival - Continue Keppra with Clonazepam bridge - Seizure/Fall precautions - Routine EEG, LP as discussed elsewhere Malignant melanoma, stage IV M1a 03/07/2020 Assessment & Plan (06/16/2024 12:58 PM CAUSTIC PUMP OPERATOR): - Follows with Dr. Boss for history [...] right adductor compartment along with additional indeterminate rbyisq-CWK-gibp lesions within the subcutaneous fat. Lung bx proven malignant melanoma. Completed WBRT 02/2020. 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 Most recent PET (08/23) w/o evidence of residual or recurrent malignancy Assessment & Plan (05/03/2023 10:15 AM CAUSTIC PUMP OPERATOR): Patient has a history of malignant melanoma followed by Dr. Boss, mets to brain s/p whole brain radiation - currently on Nivolumab and relatlimab-rmbw - current rx: Nivolumab and relatlimab-rmbw, last treatment 04/29 - med onc consult Assessment & Plan (05/19/2022 3:20 PM CAUSTIC PUMP OPERATOR): Currently on nivolumab last received on 04/30/22. - Med Onc c/s Assessment & Plan (05/16/2022 3:14 PM CAUSTIC PUMP OPERATOR): - Follows with Dr. Boss c/b lung, [...] 02/01/2020 Assessment & Plan (05/24/2024 3:59 PM CAUSTIC PUMP OPERATOR): - Per the recent ONC note she [...] right adductor compartment along with additional indeterminate uhmrzm-HXM-qmsg lesions within the subcutaneous fat. Lung bx [...] right adductor compartment along with additional indeterminate dhnxds-HWR-mdgm lesions within the subcutaneous fat. Lung bx [...] oncology. Assessment & Plan (05/27/2022 12:39 AM CAUSTIC PUMP OPERATOR): Patient follows Dr. Boss in Oncology, currently on Nivolumab. MRI from prior admission with stable disease. Medical oncology consult. Assessment & Plan (05/25/2022 12:49 AM CAUSTIC PUMP OPERATOR): -Patient follows Dr. Boss in Oncology, currently on Nivolumab. MRI from prior admission with stable disease. -Medical oncology consult. Resolved Problems Problem Noted Date Diagnosed Date Resolved Date Dystonia 06/15/2024 06/16/2024 Assessment & Plan (06/15/2024 2:01 PM CAUSTIC PUMP OPERATOR): - Patient favoring turning neck to the left, may be related to positioning/spasticity vs. Medication side effect (dystonia with Compazine--put on hold) - Today range of motion improved after holding Compazine, but continue to closely monitor in case of need for additional imaging. Elevated serum creatinine 06/11/2024 Assessment & Plan (06/14/2024 3:36 PM CAUSTIC PUMP OPERATOR): - Cr on arrival 1.21 with baseline of 0.9-1.0 with very mild hypernatremia, most likely related to poor PO intake - Improved with IV fluids Oral candidiasis 05/23/2024 06/17/2024 Assessment & Plan (06/11/2024 4:30 PM CAUSTIC PUMP OPERATOR): - Continue nystatin MMW Assessment & Plan (05/24/2024 3:50 PM CAUSTIC PUMP OPERATOR): - Nystatin, MMW Encephalopathy 01/19/2024 06/08/2024 Assessment [...] will re-consult ENT -Plan to discharge to [facility] with discharge dose of Prednisone of [...] 06/08/2024 Assessment & Plan (05/27/2022 12:41 AM CAUSTIC PUMP OPERATOR): Likely due to known cerebral parenchymal disease, [...] appreciated Assessment & Plan (05/25/2022 12:51 AM CAUSTIC PUMP OPERATOR): -Likely due to known cerebral parenchymal disease, patient had extensive neurological workup during prior admission with negative LP, cEEG and stable MRI. -Continue Keppra and Zonisamide. -Possible neurology consult in AM, [facility] recommended repeat cEEG. AMS (altered mental status) 05/19/2022 06/08/2024 Assessment & Plan (05/26/2024 4:39 PM CAUSTIC PUMP OPERATOR): Has been having worsening and progressive decline [...] pending Assessment & Plan (05/23/2022 3:22 PM CAUSTIC PUMP OPERATOR): Had recent extensive workup includes, LP, BMRI, [...] 06/16/2024 Assessment & Plan (06/15/2024 1:56 PM CAUSTIC PUMP OPERATOR): - Has been on 20mg of pred daily and recently increased to 30mg. - Oncology thinks steroid plan will depend on results of PET, they plan to reconsider her care after imaging back - If continued high dose steroids, she should be on PJP prophylaxis at discharge Malignant melanoma of right thigh 03/07/2020 05/15/2020 Immunizations Immunization Administration Dates Next Due Flucelvax Influenza Quad 02/24/2020 Influenza, Unspecified 02/08/2021 Social History Tobacco Use Types Packs/Day Years Used Date Smoking Tobacco: Former Cigarettes 0.5 5 1 999 - 2003 Passive Smoke Exposure: Past Smokeless Tobacco: Never [...] materials from doctor or pharmacy Always 05/31/2024 [facility] Utilities Answer Date Recorded In the past 12 months has e electric, gas, oil, or water company threatened to shut off services in your [...] often do you attend chur ch or roman catholic services? Never 06/13/2024 Do you belong to any clubs o r organizations such as synagogue groups, unions, fraternal or athletic groups, or [...] place to sleep or slept in a fdc (including now)? No 09/26/2023 Housing Stability Vital Sign Answer Gualberto e Recorded In the last 12 months, was t here a time when you were not able to pay the mortgage or rent on time? No 06/13/2024 In the past 12 months, how m any times have you moved where you were living? 0 06/13/2024 At any time in the past 12 m [facility], were you homeless or living in a fdc (including now)? No 06/13/2024 Personal Safety Answer Date Recorded Have you ever been in or are you currently in a harmful physical or emotional relationship or is someone making you feel afraid or unsafe? Denies 06/11/2024 Comments No Sex and Gender Information Value Date Recorded Sex Assigned at Not on file Legal Sex Female 4:54 AM CAUSTIC PUMP OPERATOR Gender Identity Female 06/11/2020 9:12 AM CAUSTIC PUMP OPERATOR Sexual Orientation Straight 06/11/2020 9: 12 AM CAUSTIC PUMP OPERATOR Occupation Industry Job Start Date Job End Date Disabled - Former [employer] Not on file Not on file Not on file Last Filed Vital Signs Vital Sign Reading Time Taken Comments Blood Pressure 114/72 06/23/2024 3:35 PM CAUSTIC PUMP OPERATOR Pulse 87 06/23/2024 3:35 PM CAUSTIC PUMP OPERATOR Temperature 36.7 C (98.1 F) 06/23/2024 3:35 PM CAUSTIC PUMP OPERATOR Respiratory Rate 18 06/23/2024 3:35 PM CAUSTIC PUMP OPERATOR Oxygen Saturation 96% 06/23/2024 3:35 PM CAUSTIC PUMP OPERATOR Inhaled Oxygen Concentration - - Weight 87.7 kg (193 lb 5.5 oz) 06/22/2024 7:36 P M CAUSTIC PUMP OPERATOR Height 177.8 cm (5' 10 ) 06/11/2024 4:20 PM CAUSTIC PUMP OPERATOR Body Mass Index 27.74 06/11/2024 4:20 PM CAUSTIC PUMP OPERATOR Plan of Treatment Not on file Procedures Procedure Name Priority Date/Time Associated Diagnosis Comments EGFR Routine 06/23/2024 12:52 AM CAUSTIC PUMP OPERATOR DIFFERENTIAL AUTO Routine 06/23/2024 12: 52 AM CAUSTIC PUMP OPERATOR PHOSPHORUS Routine 06/23/2024 12:52 AM CAUSTIC PUMP OPERATOR COMPREHENSIVE METABOLIC PANEL Routine 06/23/2024 12:52 AM CAUSTIC PUMP OPERATOR MAGNESIUM Routine 06/23/2024 12:52 AM CAUSTIC PUMP OPERATOR CBC WITH AUTO DIFFERENTIAL Routine 06/23/2024 12:52 AM CAUSTIC PUMP OPERATOR LACTATE DEHYDROGENASE Routine 06/23/2024 12:52 AM CAUSTIC PUMP OPERATOR URIC ACID Routine 06/23/2024 12:52 AM CAUSTIC PUMP OPERATOR TYPE AND SCREEN Timed 06/23/2024 12:52 AM CAUSTIC PUMP OPERATOR EGFR Routine 06/22/2024 12:37 AM CAUSTIC PUMP OPERATOR DIFFERENTIAL AUTO Routine 06/22/2024 12: 37 AM CAUSTIC PUMP OPERATOR PHOSPHORUS Routine 06/22/2024 12:37 AM CAUSTIC PUMP OPERATOR COMPREHENSIVE METABOLIC PANEL Routine 06/22/2024 12:37 AM CAUSTIC PUMP OPERATOR MAGNESIUM Routine 06/22/2024 12:37 AM CAUSTIC PUMP OPERATOR CBC WITH AUTO DIFFERENTIAL Routine 06/22/2024 12:37 AM CAUSTIC PUMP OPERATOR EGFR Routine 06/21/2024 1:17 AM CAUSTIC PUMP OPERATOR DIFFERENTIAL AUTO Routine 06/21/2024 1:1 7 AM CAUSTIC PUMP OPERATOR PHOSPHORUS Routine 06/21/2024 1:17 AM CAUSTIC PUMP OPERATOR COMPREHENSIVE METABOLIC PANEL Routine 06/21/2024 1:17 AM CAUSTIC PUMP OPERATOR MAGNESIUM Routine 06/21/2024 1:17 AM CAUSTIC PUMP OPERATOR CBC WITH AUTO DIFFERENTIAL Routine 06/21/2024 1:17 AM CAUSTIC PUMP OPERATOR CONTINUOUS VIDEO EEG Routine 06/20/2024 1:16 PM CAUSTIC PUMP OPERATOR VITAMIN D 25 HYDROXY Routine 06/20/2024 1:29 AM CAUSTIC PUMP OPERATOR EGFR Routine 06/20/2024 1:29 AM CAUSTIC PUMP OPERATOR DIFFERENTIAL AUTO Routine 06/20/2024 1:2 9 AM CAUSTIC PUMP OPERATOR PHOSPHORUS Routine 06/20/2024 1:29 AM CAUSTIC PUMP OPERATOR COMPREHENSIVE METABOLIC PANEL Routine 06/20/2024 1:29 AM CAUSTIC PUMP OPERATOR MAGNESIUM Routine 06/20/2024 1:29 AM CAUSTIC PUMP OPERATOR CBC WITH AUTO DIFFERENTIAL Routine 06/20/2024 1:29 AM CAUSTIC PUMP OPERATOR PROTIME-INR Routine 06/20/2024 1:29 AM CAUSTIC PUMP OPERATOR APTT Routine 06/20/2024 1:29 AM CAUSTIC PUMP OPERATOR LACTATE DEHYDROGENASE Routine 06/20/2024 1:29 AM CAUSTIC PUMP OPERATOR URIC ACID Routine 06/20/2024 1:29 AM CAUSTIC PUMP OPERATOR TYPE AND SCREEN Timed 06/20/2024 1:29 AM CAUSTIC PUMP OPERATOR EGFR Routine 06/19/2024 1:01 AM CAUSTIC PUMP OPERATOR DIFFERENTIAL AUTO Routine 06/19/2024 1:0 1 AM CAUSTIC PUMP OPERATOR PHOSPHORUS Routine 06/19/2024 1:01 AM CAUSTIC PUMP OPERATOR COMPREHENSIVE METABOLIC PANEL Routine 06/19/2024 1:01 AM CAUSTIC PUMP OPERATOR MAGNESIUM Routine 06/19/2024 1:01 AM CAUSTIC PUMP OPERATOR CBC WITH AUTO DIFFERENTIAL Routine 06/19/2024 1:01 AM CAUSTIC PUMP OPERATOR EGFR Routine 06/18/2024 1:08 AM CAUSTIC PUMP OPERATOR DIFFERENTIAL AUTO Routine 06/18/2024 1:0 8 AM CAUSTIC PUMP OPERATOR PHOSPHORUS Routine 06/18/2024 1:08 AM CAUSTIC PUMP OPERATOR COMPREHENSIVE METABOLIC PANEL Routine 06/18/2024 1:08 AM CAUSTIC PUMP OPERATOR MAGNESIUM Routine 06/18/2024 1:08 AM CAUSTIC PUMP OPERATOR CBC WITH AUTO DIFFERENTIAL Routine 06/18/2024 1:08 AM CAUSTIC PUMP OPERATOR EGFR Routine 06/17/2024 1:29 AM CAUSTIC PUMP OPERATOR DIFFERENTIAL AUTO Routine 06/17/2024 1:2 9 AM CAUSTIC PUMP OPERATOR PHOSPHORUS Routine 06/17/2024 1:29 AM CAUSTIC PUMP OPERATOR COMPREHENSIVE METABOLIC PANEL Routine 06/17/2024 1:29 AM CAUSTIC PUMP OPERATOR MAGNESIUM Routine 06/17/2024 1:29 AM CAUSTIC PUMP OPERATOR CBC WITH AUTO DIFFERENTIAL Routine 06/17/2024 1:29 AM CAUSTIC PUMP OPERATOR POCT GLUCOSE DEVICE Routine 06/16/2024 8 :21 PM CAUSTIC PUMP OPERATOR PET/CT FDG SKULL TO THIGH IP Routine 06/16/2024 9:38 AM CAUSTIC PUMP OPERATOR EGFR Routine 06/16/2024 2:29 AM CAUSTIC PUMP OPERATOR DIFFERENTIAL AUTO Routine 06/16/2024 2:2 9 AM CAUSTIC PUMP OPERATOR PHOSPHORUS Routine 06/16/2024 2:29 AM CAUSTIC PUMP OPERATOR COMPREHENSIVE METABOLIC PANEL Routine 06/16/2024 2:29 AM CAUSTIC PUMP OPERATOR MAGNESIUM Routine 06/16/2024 2:29 AM CAUSTIC PUMP OPERATOR CBC WITH AUTO DIFFERENTIAL Routine 06/16/2024 2:29 AM CAUSTIC PUMP OPERATOR LACTATE DEHYDROGENASE Routine 06/16/2024 2:29 AM CAUSTIC PUMP OPERATOR URIC ACID Routine 06/16/2024 2:29 AM CAUSTIC PUMP OPERATOR TYPE AND SCREEN Timed 06/16/2024 2:29 AM CAUSTIC PUMP OPERATOR CRYPTOCOCCAL ANTIGEN, SERUM Routine 06/15/2024 10:50 AM CAUSTIC PUMP OPERATOR URINALYSIS, MICROSCOPIC ONLY Routine 06/15/2024 5:00 AM CAUSTIC PUMP OPERATOR URINE CULTURE Routine 06/15/2024 5:00 AM CAUSTIC PUMP OPERATOR URINALYSIS AND REFLEX TO MICROSCOPIC AND CULTURE Routine 06/15/2024 5:00 AM CAUSTIC PUMP OPERATOR EGFR Routine 06/15/2024 2:54 AM CAUSTIC PUMP OPERATOR DIFFERENTIAL AUTO Routine 06/15/2024 2:5 4 AM CAUSTIC PUMP OPERATOR PHOSPHORUS Routine 06/15/2024 2:54 AM CAUSTIC PUMP OPERATOR COMPREHENSIVE METABOLIC PANEL Routine 06/15/2024 2:54 AM CAUSTIC PUMP OPERATOR MAGNESIUM Routine 06/15/2024 2:54 AM CAUSTIC PUMP OPERATOR CBC WITH AUTO DIFFERENTIAL Routine 06/15/2024 2:54 AM CAUSTIC PUMP OPERATOR POCT GLUCOSE DEVICE Routine 06/14/2024 1 1:34 AM CAUSTIC PUMP OPERATOR POCT GLUCOSE DEVICE Routine 06/14/2024 7 :46 AM CAUSTIC PUMP OPERATOR EGFR Routine 06/14/2024 4:20 AM CAUSTIC PUMP OPERATOR DIFFERENTIAL AUTO Routine 06/14/2024 4:2 0 AM CAUSTIC PUMP OPERATOR PHOSPHORUS Routine 06/14/2024 4:20 AM CAUSTIC PUMP OPERATOR COMPREHENSIVE METABOLIC PANEL Routine 06/14/2024 4:20 AM CAUSTIC PUMP OPERATOR MAGNESIUM Routine 06/14/2024 4:20 AM CAUSTIC PUMP OPERATOR CBC WITH AUTO DIFFERENTIAL Routine 06/14/2024 4:20 AM CAUSTIC PUMP OPERATOR EGFR Routine 06/13/2024 1:45 AM CAUSTIC PUMP OPERATOR DIFFERENTIAL AUTO Routine 06/13/2024 1:4 5 AM CAUSTIC PUMP OPERATOR PHOSPHORUS Routine 06/13/2024 1:45 AM CAUSTIC PUMP OPERATOR COMPREHENSIVE METABOLIC PANEL Routine 06/13/2024 1:45 AM CAUSTIC PUMP OPERATOR MAGNESIUM Routine 06/13/2024 1:45 AM CAUSTIC PUMP OPERATOR CBC WITH AUTO DIFFERENTIAL Routine 06/13/2024 1:45 AM CAUSTIC PUMP OPERATOR PROTIME-INR Routine 06/13/2024 1:45 AM CAUSTIC PUMP OPERATOR APTT Routine 06/13/2024 1:45 AM CAUSTIC PUMP OPERATOR LACTATE DEHYDROGENASE Routine 06/13/2024 1:45 AM CAUSTIC PUMP OPERATOR URIC ACID Routine 06/13/2024 1:45 AM CAUSTIC PUMP OPERATOR TYPE AND SCREEN Timed 06/13/2024 1:45 AM CAUSTIC PUMP OPERATOR VITAMIN B6 Timed 06/12/2024 4:18 PM CAUSTIC PUMP OPERATOR VITAMIN B1 Timed 06/12/2024 4:18 PM CAUSTIC PUMP OPERATOR FOLATE Timed 06/12/2024 4:18 PM CAUSTIC PUMP OPERATOR HIV 1/2 ANTIBODY PLUS P24 ANTIGEN Timed 06/12/2024 4:18 PM CAUSTIC PUMP OPERATOR URIC ACID Routine 06/12/2024 1:00 AM CAUSTIC PUMP OPERATOR EGFR Routine 06/12/2024 1:00 AM CAUSTIC PUMP OPERATOR DIFFERENTIAL AUTO Routine 06/12/2024 1:0 0 AM CAUSTIC PUMP OPERATOR PHOSPHORUS Routine 06/12/2024 1:00 AM CAUSTIC PUMP OPERATOR COMPREHENSIVE METABOLIC PANEL Routine 06/12/2024 1:00 AM CAUSTIC PUMP OPERATOR MAGNESIUM Routine 06/12/2024 1:00 AM CAUSTIC PUMP OPERATOR CBC WITH AUTO DIFFERENTIAL Routine 06/12/2024 1:00 AM CAUSTIC PUMP OPERATOR PROTIME-INR Routine 06/12/2024 1:00 AM CAUSTIC PUMP OPERATOR APTT Routine 06/12/2024 1:00 AM CAUSTIC PUMP OPERATOR TYPE AND SCREEN Timed 06/12/2024 1:00 AM CAUSTIC PUMP OPERATOR ECG 12-LEAD STAT 06/11/2024 8:17 PM CAUSTIC PUMP OPERATOR CT HEAD WO CONTRAST ED Urgent/IP Urgent 06/11/2024 12:54 PM CAUSTIC PUMP OPERATOR RESPIRATORY PATHOGEN PANEL Routine 06/11/2024 12:27 PM CAUSTIC PUMP OPERATOR EGFR STAT 06/11/2024 12:07 PM CAUSTIC PUMP OPERATOR DIFFERENTIAL AUTO STAT 06/11/2024 12: 07 PM CAUSTIC PUMP OPERATOR THYROID FUNCTION CASCADE STAT 06/11/2024 12:07 PM CAUSTIC PUMP OPERATOR ETHANOL STAT 06/11/2024 12:07 PM CAUSTIC PUMP OPERATOR COMPREHENSIVE METABOLIC PANEL STAT 06/11/2024 12:07 PM CAUSTIC PUMP OPERATOR CBC WITH AUTO DIFFERENTIAL STAT 06/11/2024 12:07 PM CAUSTIC PUMP OPERATOR EGFR Routine 05/27/2024 5:02 AM CAUSTIC PUMP OPERATOR DIFFERENTIAL AUTO Routine 05/27/2024 5:0 2 AM CAUSTIC PUMP OPERATOR PHOSPHORUS Routine 05/27/2024 5:02 AM CAUSTIC PUMP OPERATOR COMPREHENSIVE METABOLIC PANEL Routine 05/27/2024 5:02 AM CAUSTIC PUMP OPERATOR MAGNESIUM Routine 05/27/2024 5:02 AM CAUSTIC PUMP OPERATOR CBC WITH AUTO DIFFERENTIAL Routine 05/27/2024 5:02 AM CAUSTIC PUMP OPERATOR TYPE AND SCREEN Timed 05/27/2024 5:02 AM CAUSTIC PUMP OPERATOR EGFR Routine 05/26/2024 3:58 AM CAUSTIC PUMP OPERATOR DIFFERENTIAL AUTO Routine 05/26/2024 3:5 8 AM CAUSTIC PUMP OPERATOR PHOSPHORUS Routine 05/26/2024 3:58 AM CAUSTIC PUMP OPERATOR COMPREHENSIVE METABOLIC PANEL Routine 05/26/2024 3:58 AM CAUSTIC PUMP OPERATOR MAGNESIUM Routine 05/26/2024 3:58 AM CAUSTIC PUMP OPERATOR CBC WITH AUTO DIFFERENTIAL Routine 05/26/2024 3:58 AM CAUSTIC PUMP OPERATOR LACTATE DEHYDROGENASE Routine 05/26/2024 3:58 AM CAUSTIC PUMP OPERATOR URIC ACID Routine 05/26/2024 3:58 AM CAUSTIC PUMP OPERATOR HERPES SIMPLEX VIRUS (HSV) PCR Routine 05/24/2024 6:15 PM CAUSTIC PUMP OPERATOR ANGIO SELECTIVE INTERNAL CAROTID RIGHT IP Routine 05/24/2024 4:53 PM CAUSTIC PUMP OPERATOR MRI BRAIN MRV HEAD W WO CONTRAST ED 05/24/2024 9:41 AM CAUSTIC PUMP OPERATOR VITAMIN B12 Routine 05/24/2024 2:28 AM CAUSTIC PUMP OPERATOR EGFR Routine 05/24/2024 2:28 AM CAUSTIC PUMP OPERATOR DIFFERENTIAL AUTO Routine 05/24/2024 2:2 8 AM CAUSTIC PUMP OPERATOR LEVETIRACETAM LEVEL Routine 05/24/2024 2 :28 AM CAUSTIC PUMP OPERATOR PROTIME-INR Routine 05/24/2024 2:28 AM CAUSTIC PUMP OPERATOR APTT Routine 05/24/2024 2:28 AM CAUSTIC PUMP OPERATOR LACTATE DEHYDROGENASE Routine 05/24/2024 2:28 AM CAUSTIC PUMP OPERATOR URIC ACID Routine 05/24/2024 2:28 AM CAUSTIC PUMP OPERATOR TYPE AND SCREEN Timed 05/24/2024 2:28 AM CAUSTIC PUMP OPERATOR PHOSPHORUS Routine 05/24/2024 2:28 AM CAUSTIC PUMP OPERATOR COMPREHENSIVE METABOLIC PANEL Routine 05/24/2024 2:28 AM CAUSTIC PUMP OPERATOR MAGNESIUM Routine 05/24/2024 2:28 AM CAUSTIC PUMP OPERATOR CBC WITH AUTO DIFFERENTIAL Routine 05/24/2024 2:28 AM CAUSTIC PUMP OPERATOR RPR Routine 05/24/2024 2:28 AM CAUSTIC PUMP OPERATOR TYPE AND SCREEN STAT 05/23/2024 5:33 PM CAUSTIC PUMP OPERATOR BLOOD CULTURE STAT 05/23/2024 5:33 PM CAUSTIC PUMP OPERATOR BLOOD CULTURE STAT 05/23/2024 5:33 PM CAUSTIC PUMP OPERATOR TROPONIN I HIGH-SENSITIVITY 2-HOUR Timed 05/23/2024 3:50 PM CAUSTIC PUMP OPERATOR ECG 12-LEAD Routine 05/23/2024 3:03 PM CAUSTIC PUMP OPERATOR THROAT CULTURE STAT 05/23/2024 2:24 PM CAUSTIC PUMP OPERATOR BLOOD GAS, VENOUS STAT 05/23/2024 1:4 0 PM CAUSTIC PUMP OPERATOR TROPONIN I HIGH-SENSITIVITY SERIES (BASELINE, 2HR, 4HR, 6HR) STAT 05/23/2024 1:40 PM CAUSTIC PUMP OPERATOR XR CHEST 1 VIEW ED 05/23/2024 1:29 PM CAUSTIC PUMP OPERATOR LACTATE Timed 05/23/2024 12:28 PM CAUSTIC PUMP OPERATOR RESPIRATORY PATHOGEN PANEL Routine 05/23/2024 12:28 PM CAUSTIC PUMP OPERATOR CT HEAD WO CONTRAST ED 05/23/2024 1 2:10 PM CAUSTIC PUMP OPERATOR URINALYSIS, MICROSCOPIC ONLY Routine 05/23/2024 11:56 AM CAUSTIC PUMP OPERATOR URINALYSIS AND REFLEX TO MICROSCOPIC AND CULTURE Routine 05/23/2024 11:56 AM CAUSTIC PUMP OPERATOR MAGNESIUM Timed 05/23/2024 11:53 AM CAUSTIC PUMP OPERATOR PHOSPHORUS Timed 05/23/2024 11:53 AM CAUSTIC PUMP OPERATOR EGFR Timed 05/23/2024 11:53 AM CAUSTIC PUMP OPERATOR DIFFERENTIAL AUTO Timed 05/23/2024 11: 53 AM CAUSTIC PUMP OPERATOR COMPREHENSIVE METABOLIC PANEL Timed 05/23/2024 11:53 AM CAUSTIC PUMP OPERATOR CBC WITH AUTO DIFFERENTIAL Timed 05/23/2024 11:53 AM CAUSTIC PUMP OPERATOR THYROID FUNCTION CASCADE STAT 04/27/2024 10:53 AM CAUSTIC PUMP OPERATOR Malignant melanoma of unknown origin (HCC) IRON PROFILE W/ IBC STAT 04/27/2024 1 0:53 AM CAUSTIC PUMP OPERATOR Malignant melanoma of unknown origin (HCC) FERRITIN STAT 04/27/2024 10:53 AM CAUSTIC PUMP OPERATOR Malignant melanoma of unknown origin (HCC) EGFR STAT 04/27/2024 10:53 AM CAUSTIC PUMP OPERATOR Malignant melanoma of unknown origin (HCC) DIFFERENTIAL AUTO Routine 04/27/2024 10: 53 AM CAUSTIC PUMP OPERATOR Malignant melanoma of unknown origin (HCC) CBC WITH AUTO DIFFERENTIAL Routine 04/27/2024 10:53 AM CAUSTIC PUMP OPERATOR Malignant melanoma of unknown origin (CMS/HCC) (HCC) COMPREHENSIVE METABOLIC PANEL STAT 04/27/2024 10:53 AM CAUSTIC PUMP OPERATOR Malignant melanoma of unknown origin (CMS/HCC) (HCC) HEPATITIS PANEL, ACUTE STAT 01/13/2024 10:20 PM CDT COLONOSCOPY 01/14/2023 3:40 PM CDT from Last 3 Months or Most Recently Relevant to Health Maintenance Results * eGFR (06/23/2024 12:52 AM CAUSTIC PUMP OPERATOR) eGFR 83 >=60 mL/min/1. 73 m2 Comment: [...] reviewed 2021. Blood 06/23/2024 12:5 2 AM CAUSTIC PUMP OPERATOR 06/23/2024 1:07 AM CAUSTIC PUMP OPERATOR us Hillary Fang MD LAB BLOOD OR DERABLES Final Result [facility] [place] [address] * (ABNORMAL) Differential, auto (06/23/2024 12:52 AM CAUSTIC PUMP OPERATOR) Neutrophil abs 3.6 1.5 - 6.5 K/cumm Imm gran abs 0.1 0.0 - 0.1 K/cumm [facility] Lymphocyte abs 0.6(L) 0.8 - 3.3 K/cumm [facility] Monocyte abs 0.5 0.2 - 0.8 K/cumm [facility] Eosinophil abs 0.0 0.0 - 0.5 K/cumm [facility] Basophil abs 0.0 0.0 - 0.1 K/cumm [facility] Neutrophil pct 74.0 % [facility] Comment: Interpretive Data Percent cell count reference ranges are not reported, since discordance with absolute values may lead to misinterpretation of CBC data. Current Interpretive Data was last revised on 2017. Imm gran pct 2.3 % [facility] Comment: Interpretive Data Percent cell count reference ranges are not reported, since discordance with absolute values may lead to misinterpretation of CBC data. Current Interpretive Data was last revised on 2017. Lymphocyte pct 13.1 % [facility] Comment: Interpretive Data Percent cell count reference ranges are not reported, since discordance with absolute values may lead to misinterpretation of CBC data. Current Interpretive Data was last revised on 2017. Monocyte pct 10.2 % [facility] Comment: Interpretive Data Percent cell count reference ranges are not reported, since discordance with absolute values may lead to misinterpretation of CBC data. Current Interpretive Data was last revised on 2017. Eosinophil pct 0.0 % [facility] Comment: Interpretive Data Percent cell count reference ranges are not reported, since discordance with absolute values may lead to misinterpretation of CBC data. Current Interpretive Data was last revised on 2017. Basophil pct 0.4 % [facility] Comment: Interpretive Data Percent cell count reference ranges are not reported, since discordance with absolute values may lead to misinterpretation of CBC data. Current Interpretive Data was last revised on 2017. Blood 06/23/2024 12:5 2 AM CAUSTIC PUMP OPERATOR 06/23/2024 1:07 AM CAUSTIC PUMP OPERATOR Hillary Fang MD LAB BLOOD OR DERABLES Final Result [facility] [place] [address] * CBC with auto differential (06/23/2024 12:52 AM CAUSTIC PUMP OPERATOR) WBC 4.8 3.8 - 9.9 K/cumm Hgb 13.8 11.9 - 15.5 g/dL [facility] Hct 41.5 35.6 - 45.5 % [facility] Plt 192 150 - 400 K/cumm [facility] MPV 9.4 9.1 - 12.3 fL [facility] RBC 4.62 3.90 - 5.20 M/cumm [facility] MCV 89.8 81.3 - 96.4 fL [facility] MCH 29.9 27.1 - 33.3 pg [facility] MCHC 33.3 32.3 - 35.7 g/dL [facility] RDW CV 13.1 11.1 - 14.9 % [facility] RDW SD 42.6 35.7 - 48.1 fL [facility] NRBC abs 0.00 0.00 - 0.01 K/cumm [facility] Blood 06/23/2024 12:5 2 AM CAUSTIC PUMP OPERATOR 06/23/2024 1:07 AM CAUSTIC PUMP OPERATOR Hillary Fang MD LAB BLOOD OR DERABLES Final Result Performing Organization Address City/[facility] Co de Phone Number [facility] [place] [address] * Type and screen (06/23/2024 12:52 AM CAUSTIC PUMP OPERATOR) ABO Rh A Positive Yamini, indirect Negative [facility] Blood 06/23/2024 12:5 2 AM CAUSTIC PUMP OPERATOR 06/23/2024 1:12 AM CAUSTIC PUMP OPERATOR Narrative [facility] - 06/23/2024 2:47 AM CAUSTIC PUMP OPERATOR Has the patient had Daratumumab or Isatuximab in the past 6 months?->Unknown Hillary Fang MD LAB BLOOD BA NK TEST ORDERABLES Final Result Performing Organization Address City/[facility] Co de Phone Number [facility] [place] [address] * Uric acid (06/23/2024 12:52 AM CAUSTIC PUMP OPERATOR) Uric acid 3.2 2.5 - 7.0 mg/dL Blood 06/23/2024 12:5 2 AM CAUSTIC PUMP OPERATOR 06/23/2024 1:07 AM CAUSTIC PUMP OPERATOR Narrative [facility] - 06/23/2024 1:39 AM CAUSTIC PUMP OPERATOR Thursday and only. Morning draw. . us Hillary Fang MD LAB BLOOD OR DERABLES Final Result Performing Organization Address [facility] Co de Phone Number [facility] [email or web address] [address] * Phosphorus (06/23/2024 12:52 AM CAUSTIC PUMP OPERATOR) Phosphorus, pl 3.3 2.3 - 4.5 mg/dL Blood 06/23/2024 12:5 2 AM CAUSTIC PUMP OPERATOR 06/23/2024 1:07 AM CAUSTIC PUMP OPERATOR Result [facility] Hillary Fang MD LAB BLOOD OR DERABLES Final Result Performing Organization Address [facility] de Phone Number [facility] [place] [address] * Magnesium (06/23/2024 12:52 AM CAUSTIC PUMP OPERATOR) Pathologist [facility] Magnesium 2.3 1.4 - 2.5 mg/dL Blood 06/23/2024 12:5 2 AM CAUSTIC PUMP OPERATOR 06/23/2024 1:07 AM CAUSTIC PUMP OPERATOR Result [facility] Hillary Fang MD LAB BLOOD OR DERABLES Final Result Performing Organization Address [facility] de Phone Number [facility] [email or web address] [place] [address] * (ABNORMAL) Lactate dehydrogenase (LD) (06/23/2024 12:52 AM CAUSTIC PUMP OPERATOR) Lactate dehydrogenase (LDH) 312(H) 100 - 250 Units/L Comment:Hemolyzed; result ma y be falsely elevated Blood 06/23/2024 12:5 2 AM CAUSTIC PUMP OPERATOR 06/23/2024 1:07 AM CAUSTIC PUMP OPERATOR Narrative [facility] - 06/23/2024 1:39 AM CAUSTIC PUMP OPERATOR Thursday and only. Morning draw. Hillary Fang MD LAB BLOOD OR DERABLES Final Result [facility] [place] [address] * (ABNORMAL) Comprehensive metabolic panel (06/23/2024 12:52 AM CAUSTIC PUMP OPERATOR) Sodium 144 135 - 145 mmol/L Potassium, pl 3.9 3.3 - 4.9 mmol/L [facility] Comment:Hemolyzed; Potassium value may be falsely elevated by as much as 0.3-0.5 mmol/L. Suggest redraw and reanalysis. Chloride 110 97 - 110 mmol/L [facility] CO2 25 22 - 32 mmol/L [facility] Anion gap 9 2 - 15 mmol/L [facility] BUN 12 6 - 25 mg/dL [facility] Creatinine 0.82 0.60 - 1.10 mg/dL [facility] Glucose 114 70 - 199 mg/dL [facility] Comment: Interpretive Data Fasting glucose >/= 126 [...] 2022. Calcium 8.8 8.5 - 10.3 mg/dL [facility] Bilirubin, total 0.2 0.1 - 1.2 mg/dL [facility] Protein, pl 5.8(L) 6.5 - 8.5 g/dL [facility] Albumin 3.3(L) 3.5 - 5.0 g/dL [facility] Alk phos 92 40 - 130 Units/L [facility] ALT 26 7 - 45 Units/L [facility] AST 23 10 - 45 Units/L [facility] Comment:Hemolyzed; result ma y be falsely elevated Blood 06/23/2024 12:5 2 AM CAUSTIC PUMP OPERATOR 06/23/2024 1:07 AM CAUSTIC PUMP OPERATOR Hillary Fang MD LAB BLOOD OR DERABLES Final Result Performing Organization Address City/[facility] Co de Phone Number [facility] [place] [address] * eGFR (06/22/2024 12:37 AM CAUSTIC PUMP OPERATOR) eGFR >90 >=60 mL/min/1. 73 m2 Comment: [...] reviewed 2021. Blood 06/22/2024 12:3 7 AM CAUSTIC PUMP OPERATOR 06/22/2024 1:04 AM CAUSTIC PUMP OPERATOR us Hillary Fang MD LAB BLOOD OR DERABLES Final Result Performing Organization Address City/[facility]/ZIP Co de Phone Number [facility] [place] [address] * (ABNORMAL) Differential, auto (06/22/2024 12:37 AM CAUSTIC PUMP OPERATOR) Neutrophil abs 4.1 1.5 - 6.5 K/cumm Imm gran abs 0.1 0.0 - 0.1 K/cumm [facility] Lymphocyte abs 0.6(L) 0.8 - 3.3 K/cumm [facility] Monocyte abs 0.5 0.2 - 0.8 K/cumm [facility] Eosinophil abs 0.0 0.0 - 0.5 K/cumm [facility] Basophil abs 0.0 0.0 - 0.1 K/cumm [facility] Neutrophil pct 77.1 % [facility] Comment: Interpretive Data Percent cell count reference ranges are not reported, since discordance with absolute values may lead to misinterpretation of CBC data. Current Interpretive Data was last revised on 2017. Imm gran pct 1.7 % [facility] Comment: Interpretive Data Percent cell count reference ranges are not reported, since discordance with absolute values may lead to misinterpretation of CBC data. Current Interpretive Data was last revised on 2017. Lymphocyte pct 10.9 % [facility] Comment: Interpretive Data Percent cell count reference ranges are not reported, since discordance with absolute values may lead to misinterpretation of CBC data. Current Interpretive Data was last revised on 2017. Monocyte pct 9.9 % [facility] Comment: Interpretive Data Percent cell count reference ranges are not reported, since discordance with absolute values may lead to misinterpretation of CBC data. Current Interpretive Data was last revised on 2017. Eosinophil pct 0.0 % [facility] Comment: Interpretive Data Percent cell count reference ranges are not reported, since discordance with absolute values may lead to misinterpretation of CBC data. Current Interpretive Data was last revised on 2017. Basophil pct 0.4 % [facility] Comment: Interpretive Data Percent cell count reference ranges are not reported, since discordance with absolute values may lead to misinterpretation of CBC data. Current Interpretive Data was last revised on 2017. Blood 06/22/2024 12:3 7 AM CAUSTIC PUMP OPERATOR 06/22/2024 1:04 AM CAUSTIC PUMP OPERATOR us Hillary Fang MD LAB BLOOD OR DERABLES Final Result [facility] [place] [address] * CBC with auto differential (06/22/2024 12:37 AM CAUSTIC PUMP OPERATOR) [facility] WBC 5.3 3.8 - 9.9 K/cumm Hgb 13.8 11.9 - 15.5 g/dL [facility] Hct 41.3 35.6 - 45.5 % [facility] Plt 203 150 - 400 K/cumm [facility] MPV 9.5 9.1 - 12.3 fL [facility] RBC 4.58 3.90 - 5.20 M/cumm [facility] MCV 90.2 81.3 - 96.4 fL [facility] MCH 30.1 27.1 - 33.3 pg [facility] MCHC 33.4 32.3 - 35.7 g/dL [facility] RDW CV 13.0 11.1 - 14.9 % [facility] RDW SD 42.5 35.7 - 48.1 fL [facility] NRBC abs 0.00 0.00 - 0.01 K/cumm [facility] Blood 06/22/2024 12:3 7 AM CAUSTIC PUMP OPERATOR 06/22/2024 1:04 AM CAUSTIC PUMP OPERATOR us Hillary Fang MD LAB BLOOD OR DERABLES Final Result [facility] [place] [address] * Phosphorus (06/22/2024 12:37 AM CAUSTIC PUMP OPERATOR) [facility] Phosphorus, pl 3.4 2.3 - 4.5 mg/dL Blood 06/22/2024 12:3 7 AM CAUSTIC PUMP OPERATOR 06/22/2024 1:04 AM CAUSTIC PUMP OPERATOR Hillary Fang MD LAB BLOOD OR DERABLES [facility] [place] [address] * Magnesium (06/22/2024 12:37 AM CAUSTIC PUMP OPERATOR) [facility] Magnesium 2.3 1.4 - 2.5 mg/dL Blood 06/22/2024 12:3 7 AM CAUSTIC PUMP OPERATOR 06/22/2024 1:04 AM CAUSTIC PUMP OPERATOR Hillary Fang MD LAB BLOOD OR DERABLES Final Result [facility] [place] [address] * (ABNORMAL) Comprehensive metabolic panel (06/22/2024 12:37 AM CAUSTIC PUMP OPERATOR) [facility] Sodium 145 135 - 145 mmol/L Potassium, pl 4.1 3.3 - 4.9 mmol/L [facility] Comment:Hemolyzed; Potassium value may be falsely elevated by as much as 0.3-0.5 mmol/L. Suggest redraw and reanalysis. Chloride 110 97 - 110 mmol/L [facility] CO2 27 22 - 32 mmol/L [facility] Anion gap 8 2 - 15 mmol/L [facility] BUN 11 6 - 25 mg/dL [facility] Creatinine 0.74 0.60 - 1.10 mg/dL [facility] Glucose 111 70 - 199 mg/dL [facility] Comment: Interpretive Data Fasting glucose >/= 126 [...] 2022. Calcium 8.9 8.5 - 10.3 mg/dL [facility] Bilirubin, total 0.2 0.1 - 1.2 mg/dL [facility] Protein, pl 5.7(L) 6.5 - 8.5 g/dL [facility] Albumin 3.4(L) 3.5 - 5.0 g/dL [facility] Alk phos 88 40 - 130 Units/L [facility] ALT 23 7 - 45 Units/L [facility] AST 22 10 - 45 Units/L [facility] Comment:Hemolyzed; result ma y be falsely elevated Blood 06/22/2024 12:3 7 AM CAUSTIC PUMP OPERATOR 06/22/2024 1:04 AM CAUSTIC PUMP OPERATOR us Hillary Fang MD LAB BLOOD OR DERABLES Final Result [facility] [place] [address] * eGFR (06/21/2024 1:17 AM CAUSTIC PUMP OPERATOR) eGFR >90 >=60 mL/min/1. 73 m2 Comment: [...] last reviewed 2021. Blood 06/21/2024 1:17 AM CAUSTIC PUMP OPERATOR 06/21/2024 1:30 AM CAUSTIC PUMP OPERATOR us Hillary Fang MD LAB BLOOD OR DERABLES Final Result [facility] [place] [address] * (ABNORMAL) Differential, auto (06/21/2024 1:17 AM [employer] PUMP OPERATOR) Neutrophil abs 3.6 1.5 - 6.5 K/cumm Imm gran abs 0.2(H) 0.0 - 0.1 K/cumm [facility] Lymphocyte abs 0.7(L) 0.8 - 3.3 K/cumm [facility] Monocyte abs 0.5 0.2 - 0.8 K/cumm [facility] Eosinophil abs 0.0 0.0 - 0.5 K/cumm [facility] Basophil abs 0.0 0.0 - 0.1 K/cumm [facility] Neutrophil pct 72.8 % [facility] Comment: Interpretive Data Percent cell count reference ranges are not reported, since discordance with absolute values may lead to misinterpretation of CBC data. Current Interpretive Data was last revised on 2017. Imm gran pct 3.1 % [facility] Comment: Interpretive Data Percent cell count reference ranges are not reported, since discordance with absolute values may lead to misinterpretation of CBC data. Current Interpretive Data was last revised on 2017. Lymphocyte pct 14.3 % [facility] Comment: Interpretive Data Percent cell count reference ranges are not reported, since discordance with absolute values may lead to misinterpretation of CBC data. Current Interpretive Data was last revised on 2017. Monocyte pct 9.2 % [facility] Comment: Interpretive Data Percent cell count reference ranges are not reported, since discordance with absolute values may lead to misinterpretation of CBC data. Current Interpretive Data was last revised on 2017. Eosinophil pct 0.2 % [facility] Comment: Interpretive Data Percent cell count reference ranges are not reported, since discordance with absolute values may lead to misinterpretation of CBC data. Current Interpretive Data was last revised on 2017. Basophil pct 0.4 % [facility] Comment: Interpretive Data Percent cell count reference ranges are not reported, since discordance with absolute values may lead to misinterpretation of CBC data. Current Interpretive Data was last revised on 2017. Blood 06/21/2024 1:17 AM CAUSTIC PUMP OPERATOR 06/21/2024 1:31 AM CAUSTIC PUMP OPERATOR us Hillary Fang MD LAB BLOOD OR DERABLES Final Result Performing Organization Address City/[facility]/ZIP Co de Phone Number [facility] [email or web address] [place] [address] * CBC with auto differential (06/21/2024 1:17 AM CAUSTIC PUMP OPERATOR) WBC 4.9 3.8 - 9.9 K/cumm Hgb 13.6 11.9 - 15.5 g/dL [facility] Hct 41.1 35.6 - 45.5 % [facility] Plt 195 150 - 400 K/cumm [facility] MPV 9.4 9.1 - 12.3 fL [facility] RBC 4.50 3.90 - 5.20 M/cumm [facility] MCV 91.3 81.3 - 96.4 fL [facility] MCH 30.2 27.1 - 33.3 pg [facility] MCHC 33.1 32.3 - 35.7 g/dL [facility] RDW CV 12.9 11.1 - 14.9 % [facility] RDW SD 42.7 35.7 - 48.1 fL [facility] NRBC abs 0.00 0.00 - 0.01 K/cumm [facility] Blood 06/21/2024 1:17 AM CAUSTIC PUMP OPERATOR 06/21/2024 1:31 AM CAUSTIC PUMP OPERATOR us Hillary Fang MD LAB BLOOD OR DERABLES Final Result Performing Organization Address City/[facility]/ZIP Co de Phone Number [facility] [place] [address] * Phosphorus (06/21/2024 1:17 AM CAUSTIC PUMP OPERATOR) [facility] Phosphorus, pl 3.1 2.3 - 4.5 mg/dL Blood 06/21/2024 1:17 AM CAUSTIC PUMP OPERATOR 06/21/2024 1:30 AM CAUSTIC PUMP OPERATOR Hlilary Fang MD LAB BLOOD OR DERABLES Final Result Performing Organization Address [facility] Co de Phone Number [facility] [place] [address] * Magnesium (06/21/2024 1:17 AM CAUSTIC PUMP OPERATOR) [facility] Magnesium 2.2 1.4 - 2.5 mg/dL Blood 06/21/2024 1:17 AM CAUSTIC PUMP OPERATOR 06/21/2024 1:30 AM CAUSTIC PUMP OPERATOR Hillary Fang MD LAB BLOOD OR DERABLES Final Result Performing Organization Address [facility] de Phone Number [facility] [email or web address] [place] [address] * (ABNORMAL) Comprehensive metabolic panel (06/21/2024 1:17 AM CAUSTIC PUMP OPERATOR) [facility] Sodium 145 135 - 145 mmol/L Potassium, pl 4.1 3.3 - 4.9 mmol/L [facility] Comment:Hemolyzed; Potassium value may be falsely elevated by as much as 0.3-0.5 mmol/L. Suggest redraw and reanalysis. Chloride 111(H) 97 - 110 mmol/L [facility] CO2 27 22 - 32 mmol/L [facility] Anion gap 7 2 - 15 mmol/L [facility] BUN 10 6 - 25 mg/dL [facility] Creatinine 0.73 0.60 - 1.10 mg/dL [facility] Glucose 120 70 - 199 mg/dL [facility] Comment: Interpretive Data Fasting glucose >/= 126 [...] 2022. Calcium 8.7 8.5 - 10.3 mg/dL [facility] Bilirubin, total 0.3 0.1 - 1.2 mg/dL [facility] Protein, pl 5.7(L) 6.5 - 8.5 g/dL [facility] Albumin 3.4(L) 3.5 - 5.0 g/dL [facility] Alk phos 88 40 - 130 Units/L [facility] ALT 20 7 - 45 Units/L [facility] AST 21 10 - 45 Units/L [facility] Comment:Hemolyzed; result ma y be falsely elevated Blood 06/21/2024 1:17 AM CAUSTIC PUMP OPERATOR 06/21/2024 1:30 AM CAUSTIC PUMP OPERATOR Hillary Fang MD LAB BLOOD OR DERABLES Final Result [facility] [place] [address] * Continuous Video EEG (06/20/2024 1:16 PM CAUSTIC PUMP OPERATOR) Anatomical Region Laterality Modality EEG Narrative 06/20/2024 1:16 PM CAUSTIC PUMP OPERATOR Video-EEG Report Patient Name: Marilu Reed [facility] Medical Record Number (MRN): [id number] [facility] Record: [id number] Date of (): 1965 EEG Date: 06/13/2024 [...] digital EEG were recorded continuously with a [employer] EEG acquisition system. This was a 32 [...] Final Result * eGFR (06/20/2024 1:29 AM CAUSTIC PUMP OPERATOR) eGFR 87 >=60 mL/min/1. 73 m2 Comment: [...] last reviewed 2021. Blood 06/20/2024 1:29 AM CAUSTIC PUMP OPERATOR 06/20/2024 1:40 AM CAUSTIC PUMP OPERATOR us Hillary Fang MD LAB BLOOD OR DERABLES Final Result [facility] [place] [address] * (ABNORMAL) Differential, auto (06/20/2024 1:29 AM CAUSTIC PUMP OPERATOR) Neutrophil abs 4.1 1.5 - 6.5 K/cumm Imm gran abs 0.1 0.0 - 0.1 K/cumm [facility] Lymphocyte abs 0.6(L) 0.8 - 3.3 K/cumm [facility] Monocyte abs 0.6 0.2 - 0.8 K/cumm [facility] Eosinophil abs 0.0 0.0 - 0.5 K/cumm [facility] Basophil abs 0.0 0.0 - 0.1 K/cumm [facility] Neutrophil pct 76.4 % [facility] Comment: Interpretive Data Percent cell count reference ranges are not reported, since discordance with absolute values may lead to misinterpretation of CBC data. Current Interpretive Data was last revised on 2017. Imm gran pct 1.7 % [facility] Comment: Interpretive Data Percent cell count reference ranges are not reported, since discordance with absolute values may lead to misinterpretation of CBC data. Current Interpretive Data was last revised on 2017. Lymphocyte pct 11.2 % [facility] Comment: Interpretive Data Percent cell count reference ranges are not reported, since discordance with absolute values may lead to misinterpretation of CBC data. Current Interpretive Data was last revised on 2017. Monocyte pct 10.3 % [facility] Comment: Interpretive Data Percent cell count reference ranges are not reported, since discordance with absolute values may lead to misinterpretation of CBC data. Current Interpretive Data was last revised on 2017. Eosinophil pct 0.2 % [facility] Comment: Interpretive Data Percent cell count reference ranges are not reported, since discordance with absolute values may lead to misinterpretation of CBC data. Current Interpretive Data was last revised on 2017. Basophil pct 0.2 % [facility] Comment: Interpretive Data Percent cell count reference ranges are not reported, since discordance with absolute values may lead to misinterpretation of CBC data. Current Interpretive Data was last revised on 2017. Blood 06/20/2024 1:29 AM CAUSTIC PUMP OPERATOR 06/20/2024 1:40 AM CAUSTIC PUMP OPERATOR Hillary Fang MD LAB BLOOD OR DERABLES Final Result [facility] [place] [address] * CBC with auto differential (06/20/2024 1:29 AM CAUSTIC PUMP OPERATOR) WBC 5.4 3.8 - 9.9 K/cumm Hgb 13.8 11.9 - 15.5 g/dL [facility] Hct 41.4 35.6 - 45.5 % [facility] Plt 191 150 - 400 K/cumm [facility] MPV 9.5 9.1 - 12.3 fL [facility] RBC 4.59 3.90 - 5.20 M/cumm [facility] MCV 90.2 81.3 - 96.4 fL [facility] MCH 30.1 27.1 - 33.3 pg [facility] MCHC 33.3 32.3 - 35.7 g/dL [facility] RDW CV 13.0 11.1 - 14.9 % [facility] RDW SD 42.3 35.7 - 48.1 fL [facility] NRBC abs 0.00 0.00 - 0.01 K/cumm [facility] Blood 06/20/2024 1:29 AM CAUSTIC PUMP OPERATOR 06/20/2024 1:40 AM CAUSTIC PUMP OPERATOR Result [facility] Hillary Fang MD LAB BLOOD OR DERABLES Final Result Performing Organization Address [facility] Co de Phone Number [facility] [email or web address] [address] * (ABNORMAL) Vitamin D 25 hydroxy (06/20/2024 1:29 AM CAUSTIC PUMP OPERATOR) Vitamin D 25-OH 17(L) 30 - 80 ng/mL Blood 06/20/2024 1:29 AM CAUSTIC PUMP OPERATOR 06/20/2024 1:40 AM CAUSTIC PUMP OPERATOR Result [facility] Terri Bliss MD LAB BLOOD ORDERABLES Lulu l Result Performing Organization Address [facility] de Phone Number [facility] [email or web address] [address] * (ABNORMAL) aPTT (06/20/2024 1:29 AM CAUSTIC PUMP OPERATOR) aPTT 26(L) 28 - 38 sec Comment: Interpretive Data Heparin therapeutic range: 66.0 - 100.0 seconds. Range based on correlation with therapeutic heparin activity range of 0.3 - 0.7 Units/mL. Current interpretive data was last revised on 2023. Blood 06/20/2024 1:29 AM CAUSTIC PUMP OPERATOR 06/20/2024 2:47 AM CAUSTIC PUMP OPERATOR Hillary Fang MD LAB BLOOD OR DERABLES Final Result Performing Organization Address [facility] Co de Phone Number [facility] [email or web address] [address] * (ABNORMAL) Protime-INR (06/20/2024 1:29 AM CAUSTIC PUMP OPERATOR) PT 14.2(H) 9.7 - 13.0 sec INR 1.31(H) 0.90 - 1.20 [facility] Comment: Interpretive data Oral anticoagulant therapeutic ranges: Venous thromboembolism prophylaxis or treatment: 2.0-3.0 CARDIOLOGY Standard range: 2.0-3.0 High-intensity range: 2.5-3.5 Refer to indication-specific guidelines for appropriate target ranges for prosthetic heart valve replacement. Current interpretive data was last revised on 2019. Blood 06/20/2024 1:29 AM CAUSTIC PUMP OPERATOR 06/20/2024 2:47 AM CAUSTIC PUMP OPERATOR Hillary Fang MD LAB BLOOD OR DERABLES Final Result Performing Organization Address City/[facility]/ZIP Co de Phone Number [facility] [email or web address] [address] * Type and screen (06/20/2024 1:29 AM CAUSTIC PUMP OPERATOR) Yamini, indirect Negative ABO Rh A Positive [facility] Blood 06/20/2024 1:29 AM CAUSTIC PUMP OPERATOR 06/20/2024 1:41 AM CAUSTIC PUMP OPERATOR Narrative [facility] - 06/20/2024 3:18 AM CAUSTIC PUMP OPERATOR Has the patient had Daratumumab or Isatuximab in the past 6 months?->Unknown Hillary Fang MD LAB BLOOD BA NK TEST ORDERABLES Final Result [facility] [email or web address] [address] * Uric acid (06/20/2024 1:29 AM CAUSTIC PUMP OPERATOR) Uric acid 3.5 2.5 - 7.0 mg/dL Blood 06/20/2024 1:29 AM CAUSTIC PUMP OPERATOR 06/20/2024 1:40 AM CAUSTIC PUMP OPERATOR N[facility]ative [facility] 06/20/2024 2:09 AM CAUSTIC PUMP OPERATOR Thursday and only. Morning draw. . us Hillary Fang MD LAB BLOOD OR DERABLES Final Result Performing Organization Address [facility] de Phone Number [facility] [email or web address] [address] * Phosphorus (06/20/2024 1:29 AM CAUSTIC PUMP OPERATOR) Phosphorus, pl 2.8 2.3 - 4.5 mg/dL Blood 06/20/2024 1:29 AM CAUSTIC PUMP OPERATOR 06/20/2024 1:40 AM CAUSTIC PUMP OPERATOR Hillary Fang MD LAB BLOOD OR DERABLES Final Result Performing Organization Address [facility] de Phone Number [facility] [email or web address] [address] * Magnesium (06/20/2024 1:29 AM CAUSTIC PUMP OPERATOR) [facility] Magnesium 2.2 1.4 - 2.5 mg/dL Blood 06/20/2024 1:29 AM CAUSTIC PUMP OPERATOR 06/20/2024 1:40 AM CAUSTIC PUMP OPERATOR Hillary Fang MD LAB BLOOD OR DERABLES Final Result Performing Organization Address [facility] de Phone Number [facility] [email or web address] [address] * (ABNORMAL) Lactate dehydrogenase (LD) (06/20/2024 1:29 AM CAUSTIC PUMP OPERATOR) Pathologist [facility] Lactate dehydrogenase (LDH) 285(H) 100 - 250 Units/L Blood 06/20/2024 1:29 AM CAUSTIC PUMP OPERATOR 06/20/2024 1:40 AM CAUSTIC PUMP OPERATOR Narrative [facility] - 06/20/2024 3:18 AM CAUSTIC PUMP OPERATOR Thursday and only. Morning draw. Hillary Fang MD LAB BLOOD OR DERABLES Final Result [facility] [place] [address] * (ABNORMAL) Comprehensive metabolic panel (06/20/2024 1:29 AM CAUSTIC PUMP OPERATOR) [facility] Sodium 144 135 - 145 mmol/L Potassium, pl 3.5 3.3 - 4.9 mmol/L [facility] Chloride 110 97 - 110 mmol/L [facility] CO2 26 22 - 32 mmol/L [facility] Anion gap 8 2 - 15 mmol/L [facility] BUN 13 6 - 25 mg/dL [facility] Creatinine 0.79 0.60 - 1.10 mg/dL [facility] Glucose 109 70 - 199 mg/dL [facility] Comment: Interpretive Data Fasting glucose >/= 126 [...] 2022. Calcium 8.6 8.5 - 10.3 mg/dL [facility] Bilirubin, total 0.2 0.1 - 1.2 mg/dL [facility] Protein, pl 5.8(L) 6.5 - 8.5 g/dL [facility] Albumin 3.4(L) 3.5 - 5.0 g/dL [facility] Alk phos 94 40 - 130 Units/L [facility] ALT 17 7 - 45 Units/L [facility] AST 15 10 - 45 Units/L [facility] Blood 06/20/2024 1:29 AM CAUSTIC PUMP OPERATOR 06/20/2024 1:40 AM CAUSTIC PUMP OPERATOR Hillary Fang MD LAB BLOOD OR DERABLES Final Result Performing Organization Address City/[facility] Co de Phone Number [facility] [place] [address] * eGFR (06/19/2024 1:01 AM CAUSTIC PUMP OPERATOR) Pathologist [facility] eGFR >90 >=60 mL/min/1. 73 m2 [...] last reviewed 2021. Blood 06/19/2024 1:01 AM CAUSTIC PUMP OPERATOR 06/19/2024 1:38 AM CAUSTIC PUMP OPERATOR Hillary Fang MD LAB BLOOD OR DERABLES Final Result Performing Organization Address City/[facility]/ZIP Co de Phone Number [facility] [place] [address] * (ABNORMAL) Differential, auto (06/19/2024 1:01 AM CAUSTIC PUMP OPERATOR) Pathologist [facility] Neutrophil abs 4.2 1.5 - 6.5 K/cumm Imm gran abs 0.1 0.0 - 0.1 K/cumm [facility] Lymphocyte abs 0.6(L) 0.8 - 3.3 K/cumm [facility] Monocyte abs 0.5 0.2 - 0.8 K/cumm [facility] Eosinophil abs 0.0 0.0 - 0.5 K/cumm [facility] Basophil abs 0.0 0.0 - 0.1 K/cumm [facility] Neutrophil pct 78.9 % [facility] Comment: Interpretive Data Percent cell count reference ranges are not reported, since discordance with absolute values may lead to misinterpretation of CBC data. Current Interpretive Data was last revised on 2017. Imm gran pct 1.1 % [facility] Comment: Interpretive Data Percent cell count reference ranges are not reported, since discordance with absolute values may lead to misinterpretation of CBC data. Current Interpretive Data was last revised on 2017. Lymphocyte pct 10.6 % [facility] Comment: Interpretive Data Percent cell count reference ranges are not reported, since discordance with absolute values may lead to misinterpretation of CBC data. Current Interpretive Data was last revised on 2017. Monocyte pct 9.0 % [facility] Comment: Interpretive Data Percent cell count reference ranges are not reported, since discordance with absolute values may lead to misinterpretation of CBC data. Current Interpretive Data was last revised on 2017. Eosinophil pct 0.2 % [facility] Comment: Interpretive Data Percent cell count reference ranges are not reported, since discordance with absolute values may lead to misinterpretation of CBC data. Current Interpretive Data was last revised on 2017. Basophil pct 0.2 % [facility] Comment: Interpretive Data Percent cell count reference ranges are not reported, since discordance with absolute values may lead to misinterpretation of CBC data. Current Interpretive Data was last revised on 2017. Blood 06/19/2024 1:01 AM CAUSTIC PUMP OPERATOR 06/19/2024 1:38 AM CAUSTIC PUMP OPERATOR us Hillary Fang MD LAB BLOOD OR DERABLES Final Result [facility] [place] [address] * CBC with auto differential (06/19/2024 1:01 AM CAUSTIC PUMP OPERATOR) [facility] WBC 5.4 3.8 - 9.9 K/cumm Hgb 13.8 11.9 - 15.5 g/dL [facility] Hct 41.7 35.6 - 45.5 % [facility] Plt 193 150 - 400 K/cumm [facility] MPV 9.8 9.1 - 12.3 fL [facility] RBC 4.60 3.90 - 5.20 M/cumm [facility] MCV 90.7 81.3 - 96.4 fL [facility] MCH 30.0 27.1 - 33.3 pg [facility] MCHC 33.1 32.3 - 35.7 g/dL [facility] RDW CV 13.0 11.1 - 14.9 % [facility] RDW SD 42.7 35.7 - 48.1 fL [facility] NRBC abs 0.00 0.00 - 0.01 K/cumm [facility] Blood 06/19/2024 1:01 AM CAUSTIC PUMP OPERATOR 06/19/2024 1:38 AM CAUSTIC PUMP OPERATOR Hillary Fang MD LAB BLOOD OR DERABLES Final Result Performing Organization Address City/[facility] Co de Phone Number [facility] [email or web address] [address] * Phosphorus (06/19/2024 1:01 AM CAUSTIC PUMP OPERATOR) [facility] Phosphorus, pl 3.3 2.3 - 4.5 mg/dL Blood 06/19/2024 1:01 AM CAUSTIC PUMP OPERATOR 06/19/2024 1:38 AM CAUSTIC PUMP OPERATOR Hillary Fang MD LAB BLOOD OR [place] [address] * Magnesium (06/19/2024 1:01 AM CAUSTIC PUMP OPERATOR) Magnesium 2.2 1.4 - 2.5 mg/dL Blood 06/19/2024 1:01 AM CAUSTIC PUMP OPERATOR 06/19/2024 1:38 AM CAUSTIC PUMP OPERATOR Hillary Fang MD LAB BLOOD OR DERABLES Final Result [facility] [place] [address] * (ABNORMAL) Comprehensive metabolic panel (06/19/2024 1:01 AM CAUSTIC PUMP OPERATOR) Pathologist [facility] Sodium 142 135 - 145 mmol/L Potassium, pl 3.7 3.3 - 4.9 mmol/L [facility] Chloride 107 97 - 110 mmol/L [facility] CO2 28 22 - 32 mmol/L [facility] Anion gap 7 2 - 15 mmol/L [facility] BUN 13 6 - 25 mg/dL [facility] Creatinine 0.75 0.60 - 1.10 mg/dL [facility] Glucose 97 70 - 199 mg/dL [facility] Comment: Interpretive Data Fasting glucose >/= 126 [...] 2022. Calcium 8.8 8.5 - 10.3 mg/dL [facility] Bilirubin, total 0.3 0.1 - 1.2 mg/dL [facility] Protein, pl 5.7(L) 6.5 - 8.5 g/dL [facility] Albumin 3.6 3.5 - 5.0 g/dL [facility] Alk phos 94 40 - 130 Units/L [facility] ALT 15 7 - 45 Units/L [facility] AST 14 10 - 45 Units/L [facility] Blood 06/19/2024 1:01 AM CAUSTIC PUMP OPERATOR 06/19/2024 1:38 AM CAUSTIC PUMP OPERATOR Hillary Fang MD LAB BLOOD OR DERABLES Final Result Performing Organization Address [facility] Co de Phone Number [facility] [place] [address] * eGFR (06/18/2024 1:08 AM CAUSTIC PUMP OPERATOR) eGFR 83 >=60 mL/min/1. 73 m2 Comment: [...] last reviewed 2021. Blood 06/18/2024 1:08 AM CAUSTIC PUMP OPERATOR 06/18/2024 1:19 AM CAUSTIC PUMP OPERATOR us Hillary Fang MD LAB BLOOD OR DERABLES Final Result Performing Organization Address City/[facility]/ZIP Co de Phone Number [facility] [place] [address] * (ABNORMAL) Differential, auto (06/18/2024 1:08 AM CAUSTIC PUMP OPERATOR) Neutrophil abs 3.6 1.5 - 6.5 K/cumm Imm gran abs 0.0 0.0 - 0.1 K/cumm [facility] Lymphocyte abs 0.5(L) 0.8 - 3.3 K/cumm [facility] Monocyte abs 0.4 0.2 - 0.8 K/cumm [facility] Eosinophil abs 0.0 0.0 - 0.5 K/cumm [facility] Basophil abs 0.0 0.0 - 0.1 K/cumm [facility] Neutrophil pct 80.4 % [facility] Comment: Interpretive Data Percent cell count reference ranges are not reported, since discordance with absolute values may lead to misinterpretation of CBC data. Current Interpretive Data was last revised on 2017. Imm gran pct 0.7 % [facility] Comment: Interpretive Data Percent cell count reference ranges are not reported, since discordance with absolute values may lead to misinterpretation of CBC data. Current Interpretive Data was last revised on 2017. Lymphocyte pct 10.8 % [facility] Comment: Interpretive Data Percent cell count reference ranges are not reported, since discordance with absolute values may lead to misinterpretation of CBC data. Current Interpretive Data was last revised on 2017. Monocyte pct 8.1 % [facility] Comment: Interpretive Data Percent cell count reference ranges are not reported, since discordance with absolute values may lead to misinterpretation of CBC data. Current Interpretive Data was last revised on 2017. Eosinophil pct 0.0 % [facility] Comment: Interpretive Data Percent cell count reference ranges are not reported, since discordance with absolute values may lead to misinterpretation of CBC data. Current Interpretive Data was last revised on 2017. Basophil pct 0.0 % [facility] Comment: Interpretive Data Percent cell count reference ranges are not reported, since discordance with absolute values may lead to misinterpretation of CBC data. Current Interpretive Data was last revised on 2017. Blood 06/18/2024 1:08 AM CAUSTIC PUMP OPERATOR 06/18/2024 1:19 AM CAUSTIC PUMP OPERATOR Hillary Fang MD LAB BLOOD OR DERABLES Final Result [facility] [place] [address] * CBC with auto differential (06/18/2024 1:08 AM CAUSTIC PUMP OPERATOR) [facility] WBC 4.5 3.8 - 9.9 K/cumm Hgb 13.4 11.9 - 15.5 g/dL [facility] Hct 39.8 35.6 - 45.5 % [facility] Plt 192 150 - 400 K/cumm [facility] MPV 9.8 9.1 - 12.3 fL [facility] RBC 4.44 3.90 - 5.20 M/cumm [facility] MCV 89.6 81.3 - 96.4 fL [facility] MCH 30.2 27.1 - 33.3 pg [facility] MCHC 33.7 32.3 - 35.7 g/dL [facility] RDW CV 12.9 11.1 - 14.9 % [facility] RDW SD 42.4 35.7 - 48.1 fL [facility] NRBC abs 0.00 0.00 - 0.01 K/cumm [facility] Blood 06/18/2024 1:08 AM CAUSTIC PUMP OPERATOR 06/18/2024 1:19 AM CAUSTIC PUMP OPERATOR Hillary Fang MD LAB BLOOD OR DERABLES Final Result [facility] [place] [address] * Phosphorus (06/18/2024 1:08 AM CAUSTIC PUMP OPERATOR) Pathologist [facility] Phosphorus, pl 3.2 2.3 - 4.5 mg/dL Blood 06/18/2024 1:08 AM CAUSTIC PUMP OPERATOR 06/18/2024 1:19 AM CAUSTIC PUMP OPERATOR Hillary Fang MD LAB BLOOD OR DERABLES Final Result Performing Organization Address City/[facility]/ZIP Co de Phone Number [facility] [place] [address] * Magnesium (06/18/2024 1:08 AM CAUSTIC PUMP OPERATOR) [facility] Magnesium 2.3 1.4 - 2.5 mg/dL Blood 06/18/2024 1:08 AM CAUSTIC PUMP OPERATOR 06/18/2024 1:19 AM CAUSTIC PUMP OPERATOR Hillary Fang MD LAB BLOOD OR DERABLES Final Result Performing Organization Address [facility] de Phone Number [facility] [place] [address] * (ABNORMAL) Comprehensive metabolic panel (06/18/2024 1:08 AM CAUSTIC PUMP OPERATOR) [facility] Sodium 143 135 - 145 mmol/L Potassium, pl 3.9 3.3 - 4.9 mmol/L [facility] Chloride 109 97 - 110 mmol/L [facility] CO2 27 22 - 32 mmol/L [facility] Anion gap 7 2 - 15 mmol/L [facility] BUN 12 6 - 25 mg/dL [facility] Creatinine 0.82 0.60 - 1.10 mg/dL [facility] Glucose 109 70 - 199 mg/dL [facility] Comment: Interpretive Data Fasting glucose >/= 126 [...] 2022. Calcium 8.8 8.5 - 10.3 mg/dL [facility] Bilirubin, total 0.3 0.1 - 1.2 mg/dL [facility] Protein, pl 5.7(L) 6.5 - 8.5 g/dL [facility] Albumin 3.6 3.5 - 5.0 g/dL [facility] Alk phos 95 40 - 130 Units/L [facility] ALT 13 7 - 45 Units/L [facility] AST 10 10 - 45 Units/L [facility] Blood 06/18/2024 1:08 AM CAUSTIC PUMP OPERATOR 06/18/2024 1:19 AM CAUSTIC PUMP OPERATOR us Hillary Fang MD LAB BLOOD OR DERABLES Final Result [facility] [place] [address] * eGFR (06/17/2024 1:29 AM CAUSTIC PUMP OPERATOR) eGFR 83 >=60 mL/min/1. 73 m2 Comment: [...] last reviewed 2021. Blood 06/17/2024 1:29 AM CAUSTIC PUMP OPERATOR 06/17/2024 1:37 AM CAUSTIC PUMP OPERATOR us Hillary Fang MD LAB BLOOD OR DERABLES Final Result [facility] [place] [address] * (ABNORMAL) Differential, auto (06/17/2024 1:29 AM CAUSTIC PUMP OPERATOR) Neutrophil abs 4.6 1.5 - 6.5 K/cumm Imm gran abs 0.1 0.0 - 0.1 K/cumm [facility] Lymphocyte abs 0.6(L) 0.8 - 3.3 K/cumm [facility] Monocyte abs 0.5 0.2 - 0.8 K/cumm [facility] Eosinophil abs 0.0 0.0 - 0.5 K/cumm [facility] Basophil abs 0.0 0.0 - 0.1 K/cumm [facility] Neutrophil pct 80.5 % [facility] Comment: Interpretive Data Percent cell count reference ranges are not reported, since discordance with absolute values may lead to misinterpretation of CBC data. Current Interpretive Data was last revised on 2017. Imm gran pct 0.9 % [facility] Comment: Interpretive Data Percent cell count reference ranges are not reported, since discordance with absolute values may lead to misinterpretation of CBC data. Current Interpretive Data was last revised on 2017. Lymphocyte pct 10.0 % [facility] Comment: Interpretive Data Percent cell count reference ranges are not reported, since discordance with absolute values may lead to misinterpretation of CBC data. Current Interpretive Data was last revised on 2017. Monocyte pct 8.6 % [facility] Comment: Interpretive Data Percent cell count reference ranges are not reported, since discordance with absolute values may lead to misinterpretation of CBC data. Current Interpretive Data was last revised on 2017. Eosinophil pct 0.0 % [facility] Comment: Interpretive Data Percent cell count reference ranges are not reported, since discordance with absolute values may lead to misinterpretation of CBC data. Current Interpretive Data was last revised on 2017. Basophil pct 0.0 % [facility] Comment: Interpretive Data Percent cell count reference ranges are not reported, since discordance with absolute values may lead to misinterpretation of CBC data. Current Interpretive Data was last revised on 2017. Blood 06/17/2024 1:29 AM CAUSTIC PUMP OPERATOR 06/17/2024 1:37 AM CAUSTIC PUMP OPERATOR Hillary Fang MD LAB BLOOD OR DERABLES Final Result Performing Organization Address City/[facility]/ZIP Co de Phone Number [facility] [place] [address] * CBC with auto differential (06/17/2024 1:29 AM CAUSTIC PUMP OPERATOR) WBC 5.7 3.8 - 9.9 K/cumm Hgb 14.4 11.9 - 15.5 g/dL [facility] Hct 42.8 35.6 - 45.5 % [facility] Plt 192 150 - 400 K/cumm [facility] MPV 9.4 9.1 - 12.3 fL [facility] RBC 4.79 3.90 - 5.20 M/cumm [facility] MCV 89.4 81.3 - 96.4 fL [facility] MCH 30.1 27.1 - 33.3 pg [facility] MCHC 33.6 32.3 - 35.7 g/dL [facility] RDW CV 12.9 11.1 - 14.9 % [facility] RDW SD 42.6 35.7 - 48.1 fL [facility] NRBC abs 0.00 0.00 - 0.01 K/cumm [facility] Blood 06/17/2024 1:29 AM CAUSTIC PUMP OPERATOR 06/17/2024 1:37 AM CAUSTIC PUMP OPERATOR us Hillary Fang MD LAB BLOOD OR DERABLES Final Result Performing Organization Address City/[facility]/ZIP Co de Phone Number [facility] [email or web address] [place] [address] * Phosphorus (06/17/2024 1:29 AM CAUSTIC PUMP OPERATOR) Pathologist [facility] Phosphorus, pl 3.0 2.3 - 4.5 mg/dL Blood 06/17/2024 1:29 AM CAUSTIC PUMP OPERATOR 06/17/2024 1:37 AM CAUSTIC PUMP OPERATOR Hillary Fang MD LAB BLOOD OR DERABLES Final Result Performing Organization Address City/[facility] Co de Phone Number [facility] [place] [address] * Magnesium (06/17/2024 1:29 AM CAUSTIC PUMP OPERATOR) [facility] Magnesium 2.1 1.4 - 2.5 mg/dL Blood 06/17/2024 1:29 AM CAUSTIC PUMP OPERATOR 06/17/2024 1:37 AM CAUSTIC PUMP OPERATOR Hillary Fang MD LAB BLOOD OR DERABLES Final Result Performing Organization Address [facility] de Phone Number [facility] Department [place] [address] * (ABNORMAL) Comprehensive metabolic panel (06/17/2024 1:29 AM CAUSTIC PUMP OPERATOR) [facility] Sodium 142 135 - 145 mmol/L Potassium, pl 4.1 3.3 - 4.9 mmol/L [facility] Chloride 108 97 - 110 mmol/L [facility] CO2 27 22 - 32 mmol/L [facility] Anion gap 7 2 - 15 mmol/L [facility] BUN 11 6 - 25 mg/dL [facility] Creatinine 0.82 0.60 - 1.10 mg/dL [facility] Glucose 109 70 - 199 mg/dL [facility] Comment: Interpretive Data Fasting glucose >/= 126 [...] 2022. Calcium 9.2 8.5 - 10.3 mg/dL [facility] Bilirubin, total 0.3 0.1 - 1.2 mg/dL [facility] Protein, pl 6.2(L) 6.5 - 8.5 g/dL [facility] Albumin 3.8 3.5 - 5.0 g/dL [facility] Alk phos 107 40 - 130 Units/L [facility] ALT 11 7 - 45 Units/L [facility] AST 10 10 - 45 Units/L [facility] Blood 06/17/2024 1:29 AM CAUSTIC PUMP OPERATOR 06/17/2024 1:37 AM CAUSTIC PUMP OPERATOR us Hillary Fang MD LAB BLOOD OR DERABLES Final Result [facility] [place] [address] * POCT glucose (06/16/2024 8:21 PM CAUSTIC PUMP OPERATOR) [facility] Glucose, POC 136 70 - 199 mg/dL Blood 06/16/2024 8:21 PM CAUSTIC PUMP OPERATOR 06/16/2024 8:21 PM CAUSTIC PUMP OPERATOR us Alyson Masters MD LAB POCT ORDERABLES - MARAGRET CE Final Result [facility] [email or web address] [place] [address] * PET/CT FDG Skull to Thigh (06/16/2024 9:38 AM CAUSTIC PUMP OPERATOR) Anatomical Region Laterality Modality N/A Positron Emissio n Tomography (PET) 06/16/2024 11:4 2 AM CAUSTIC PUMP OPERATOR Impressions 06/16/2024 12:01 PM CAUSTIC PUMP OPERATOR 1. No FDG PET/CT evidence of hypermetabolic [...] Linda Parham M.D. Narrative 06/16/2024 12:01 PM CAUSTIC PUMP OPERATOR EXAMINATION: TUMOR FDG-PET/CT IMAGING DATE OF STUDY: 06/16/2024 SCANNER: [facility] [employer] RADIOPHARMACEUTICAL: 14.13 mCi F-18 Fluorodeoxyglucose (FDG) i.v. [...] obtained. The study was interpreted on the [employer] workstation. The mean liver SUV (reported for quality auditor purposes) is 3.4. The total scanned area [...] FDG-PET/CT IMAGING DATE OF STUDY: 06/16/2024 SCANNER: [facility] RADIOPHARMACEUTICAL: 14.13 mCi F-18 Fluorodeoxyglucose (FDG) i.v. [...] obtained. The study was interpreted on the [employer] workstation. The mean liver SUV (reported for quality auditor purposes) is 3.4. The total scanned area [...] R esult * eGFR (06/16/2024 2:29 AM CAUSTIC PUMP OPERATOR) eGFR 80 >=60 mL/min/1. 73 m2 Comment: [...] last reviewed 2021. Blood 06/16/2024 2:29 AM CAUSTIC PUMP OPERATOR 06/16/2024 2:59 AM CAUSTIC PUMP OPERATOR Hillary Fang MD LAB BLOOD OR DERABLES Final Result [facility] [place] [address] * (ABNORMAL) Differential, auto (06/16/2024 2:29 AM CAUSTIC PUMP OPERATOR) Neutrophil abs 4.2 1.5 - 6.5 K/cumm Imm gran abs 0.0 0.0 - 0.1 K/cumm [facility] Lymphocyte abs 0.7(L) 0.8 - 3.3 K/cumm [facility] Monocyte abs 0.6 0.2 - 0.8 K/cumm [facility] Eosinophil abs 0.0 0.0 - 0.5 K/cumm [facility] Basophil abs 0.0 0.0 - 0.1 K/cumm [facility] Neutrophil pct 75.5 % [facility] Comment: Interpretive Data Percent cell count reference ranges are not reported, since discordance with absolute values may lead to misinterpretation of CBC data. Current Interpretive Data was last revised on 2017. Imm gran pct 0.7 % [facility] Comment: Interpretive Data Percent cell count reference ranges are not reported, since discordance with absolute values may lead to misinterpretation of CBC data. Current Interpretive Data was last revised on 2017. Lymphocyte pct 12.5 % [facility] Comment: Interpretive Data Percent cell count reference ranges are not reported, since discordance with absolute values may lead to misinterpretation of CBC data. Current Interpretive Data was last revised on 2017. Monocyte pct 11.1 % [facility] Comment: Interpretive Data Percent cell count reference ranges are not reported, since discordance with absolute values may lead to misinterpretation of CBC data. Current Interpretive Data was last revised on 2017. Eosinophil pct 0.0 % [facility] Comment: Interpretive Data Percent cell count reference ranges are not reported, since discordance with absolute values may lead to misinterpretation of CBC data. Current Interpretive Data was last revised on 2017. Basophil pct 0.2 % [facility] Comment: Interpretive Data Percent cell count reference ranges are not reported, since discordance with absolute values may lead to misinterpretation of CBC data. Current Interpretive Data was last revised on 2017. Blood 06/16/2024 2:29 AM CAUSTIC PUMP OPERATOR 06/16/2024 2:59 AM CAUSTIC PUMP OPERATOR us Hillary Fang MD LAB BLOOD OR DERABLES Final Result [facility] [place] [address] * CBC with auto differential (06/16/2024 2:29 AM CAUSTIC PUMP OPERATOR) WBC 5.5 3.8 - 9.9 K/cumm Hgb 14.0 11.9 - 15.5 g/dL [facility] Hct 42.0 35.6 - 45.5 % [facility] Plt 190 150 - 400 K/cumm [facility] MPV 9.3 9.1 - 12.3 fL [facility] RBC 4.67 3.90 - 5.20 M/cumm [facility] MCV 89.9 81.3 - 96.4 fL [facility] MCH 30.0 27.1 - 33.3 pg [facility] MCHC 33.3 32.3 - 35.7 g/dL [facility] RDW CV 12.9 11.1 - 14.9 % [facility] RDW SD 42.0 35.7 - 48.1 fL [facility] NRBC abs 0.00 0.00 - 0.01 K/cumm [facility] Blood 06/16/2024 2:29 AM CAUSTIC PUMP OPERATOR 06/16/2024 2:59 AM CAUSTIC PUMP OPERATOR us Hillary Fang MD LAB BLOOD OR DERABLES Final Result Performing Organization Address [facility] Co de Phone Number [facility] [place] [address] * Type and screen (06/16/2024 2:29 AM CAUSTIC PUMP OPERATOR) Yamini, indirect Negative ABO Rh A Positive [facility] Blood 06/16/2024 2:29 AM CAUSTIC PUMP OPERATOR 06/16/2024 2:56 AM CAUSTIC PUMP OPERATOR Narrative [facility] - 06/16/2024 4:01 AM CAUSTIC PUMP OPERATOR Has the patient had Daratumumab or Isatuximab in the past 6 months?->Unknown us Hillary Fang MD LAB BLOOD BA NK TEST ORDERABLES Final Result Performing Organization Address [facility] [place] [address] * Uric acid (06/16/2024 2:29 AM CAUSTIC PUMP OPERATOR) [facility] Uric acid 3.6 2.5 - 7.0 mg/dL Blood 06/16/2024 2:29 AM CAUSTIC PUMP OPERATOR 06/16/2024 2:59 AM CAUSTIC PUMP OPERATOR Narrative [facility] - 06/16/2024 3:30 AM CAUSTIC PUMP OPERATOR Thursday and only. Morning draw. . us Hillary Fang MD LAB BLOOD OR DERABLES Final Result Performing Organization Address [facility] Co de Phone Number [facility] [email or web address] [address] * Phosphorus (06/16/2024 2:29 AM CAUSTIC PUMP OPERATOR) Pathologist [facility] Phosphorus, pl 2.9 2.3 - 4.5 mg/dL Blood 06/16/2024 2:29 AM CAUSTIC PUMP OPERATOR 06/16/2024 2:59 AM CAUSTIC PUMP OPERATOR Hillary Fang MD LAB BLOOD OR DERABLES Final Result Performing Organization Address [facility] Co de Phone Number [facility] [email or web address] [address] * Magnesium (06/16/2024 2:29 AM CAUSTIC PUMP OPERATOR) [facility] Magnesium 2.1 1.4 - 2.5 mg/dL Blood 06/16/2024 2:29 AM CAUSTIC PUMP OPERATOR 06/16/2024 2:59 AM CAUSTIC PUMP OPERATOR Hillary Fang MD LAB BLOOD OR DERABLES Final Result Performing Organization Address [facility] [place] [address] * Lactate dehydrogenase (LD) (06/16/2024 2:29 AM CAUSTIC PUMP OPERATOR) [facility] Lactate dehydrogenase (LDH) 223 100 - 250 Units/L Blood 06/16/2024 2:29 AM CAUSTIC PUMP OPERATOR 06/16/2024 2:59 AM CAUSTIC PUMP OPERATOR Narrative [facility] - 06/16/2024 3:29 AM CAUSTIC PUMP OPERATOR Thursday and only. Morning draw. Hillary Fang MD LAB BLOOD OR DERABLES Final Result Performing Organization Address [facility] [place] [address] * (ABNORMAL) Comprehensive metabolic panel (06/16/2024 2:29 AM CAUSTIC PUMP OPERATOR) [facility] Sodium 143 135 - 145 mmol/L Potassium, pl 3.3 3.3 - 4.9 mmol/L [facility] Chloride 108 97 - 110 mmol/L [facility] CO2 26 22 - 32 mmol/L [facility] Anion gap 9 2 - 15 mmol/L [facility] BUN 12 6 - 25 mg/dL [facility] Creatinine 0.85 0.60 - 1.10 mg/dL [facility] Glucose 94 70 - 199 mg/dL [facility] Comment: Interpretive Data Fasting glucose >/= 126 [...] 2022. Calcium 8.9 8.5 - 10.3 mg/dL [facility] Bilirubin, total 0.4 0.1 - 1.2 mg/dL [facility] Protein, pl 5.8(L) 6.5 - 8.5 g/dL [facility] Albumin 3.6 3.5 - 5.0 g/dL [facility] Alk phos 100 40 - 130 Units/L [facility] ALT 13 7 - 45 Units/L [facility] AST 11 10 - 45 Units/L [facility] Blood 06/16/2024 2:29 AM CAUSTIC PUMP OPERATOR 06/16/2024 2:59 AM CAUSTIC PUMP OPERATOR Hillary Fang MD LAB BLOOD OR DERABLES Final Result Performing Organization Address City/State/ZIP Co me Phone Number [facility] [place] [address] * Cryptococcal Antigen, Serum Blood (06/15/2024 10:50 AM CAUSTIC PUMP OPERATOR) Pathologist [facility] Cryptococcus ag, Serum Negative Negative Comment: The [...] revised 2018. Blood 06/15/2024 10:5 0 AM CAUSTIC PUMP OPERATOR 06/15/2024 10:59 AM CAUSTIC PUMP OPERATOR Alyson Masters MD LAB MICROBIOLOGY - GENERAL ORDERABLES Final Result Performing Organization Address [facility] Co de Phone Number [facility] [place] [address] * (ABNORMAL) Urinalysis reflex to microscopic and culture Urine (06/15/2024 5:00 AM CAUSTIC PUMP OPERATOR) Color, ur Yellow Yellow Clarity, ur Cloudy(A) Clear [facility] Specific gravity, ur 1.015 1.003 - 1.030 [facility] pH, urine 6.5 [facility] Comment: Interpretive Data U rine pH is affected by diet, medications, systemic acid-base disturbances, and renal tubular function. pH may affect urinary stone formation. For example, urine pH below 6.0 may help reduce the tendency for calcium phosphate stones and pH greater than 6.0 may reduce the tendency for uric acid stone formation. Source: [facility] Current Interpretive Data was last revised on 2017 Protein, ur ql Trace Negative [facility] Glucose, ur ql Negative Negative [facility] Ketones, ur 1+(A) Negative [facility] Bilirubin, ur Negative Negative [facility] Blood, ur Trace(A) Negative [facility] Urobilinogen, ur <2.0 <2.0 mg/dL [facility] Nitrite, ur Negative Negative [facility] Leukocyte esterase, ur 3+(A) Negative [facility] UA reflex comment Reflex to microscopic UA will be performed. [facility] Urine 06/15/2024 5:00 AM CAUSTIC PUMP OPERATOR 06/15/2024 7:30 AM CAUSTIC PUMP OPERATOR Alyson Masters MD LAB MICROBIOLOGY - GENERAL ORDERABLES Final Result Performing Organization Address [facility] Co de Phone Number [facility] [place] [address] * (ABNORMAL) Urinalysis, microscopic only (06/15/2024 5:00 AM CAUSTIC PUMP OPERATOR) WBC, ur 21-50(A) 0 - 5 /HPF RBC, ur 3-5(A) 0 - 2 /HPF [facility] Epithelial cells, squamous, ur 1-5 0 - 5 /HPF [facility] Epithelial cells, renal, ur 1-5(A) 0 - 0 /HPF [facility] Bacteria, ur 2+(A) [facility] Culture Reflex Comment Reflex to urine culture will be performed. [facility] Urine 06/15/2024 5:00 AM CAUSTIC PUMP OPERATOR 06/15/2024 7:30 AM CAUSTIC PUMP OPERATOR us Alyson Masters MD LAB URINE ORDERABLES Final Result Performing Organization Address City/State/[facility] Co de Phone Number [facility] [place] [address] * (ABNORMAL) Urine culture Urine (06/15/2024 5:00 AM CAUSTIC PUMP OPERATOR) Report Final Report: Greater than or equal to 100,000 colonies/mL of Escherichia coli (.) Organism ESCHERICHIA COLI [facility] Urine 06/15/2024 5:00 AM CAUSTIC PUMP OPERATOR 06/15/2024 10:27 AM CAUSTIC PUMP OPERATOR Narrative [facility] - 06/17/2024 11:40 AM CAUSTIC PUMP OPERATOR Urine culture reflexed based upon urinalysis results. Testing performed by [facility] ([phone]) Organism Antibiotic Method Susceptibility Escherichia coli Ampicillin [...] INTERPRETATION Susceptible Escherichia coli Cefdinir INTERPRETATION Susceptible Alyson Masters MD LAB MICROBIOLOGY - GENERAL ORDERABLES Final Result Performing Organization Address [facility] Co de Phone Number [facility] [place] [address] * eGFR (06/15/2024 2:54 AM CAUSTIC PUMP OPERATOR) Pathologist [facility] eGFR 80 >=60 mL/min/1. 73 m2 Comment: [...] last reviewed 2021. Blood 06/15/2024 2:54 AM CAUSTIC PUMP OPERATOR 06/15/2024 3:11 AM CAUSTIC PUMP OPERATOR us Hillary Fang MD LAB BLOOD OR DERABLES Final Result Performing Organization Address [facility] Co de Phone Number [facility] [place] [address] * (ABNORMAL) Differential, auto (06/15/2024 2:54 AM CAUSTIC PUMP OPERATOR) [facility] Neutrophil abs 5.2 1.5 - 6.5 K/cumm Imm gran abs 0.0 0.0 - 0.1 K/cumm [facility] Lymphocyte abs 0.6(L) 0.8 - 3.3 K/cumm [facility] Monocyte abs 0.7 0.2 - 0.8 K/cumm [facility] Eosinophil abs 0.0 0.0 - 0.5 K/cumm [facility] Basophil abs 0.0 0.0 - 0.1 K/cumm [facility] Neutrophil pct 79.2 % [facility] Comment: Interpretive Data Percent cell count reference ranges are not reported, since discordance with absolute values may lead to misinterpretation of CBC data. Current Interpretive Data was last revised on 2017. Imm gran pct 0.6 % [facility] Comment: Interpretive Data Percent cell count reference ranges are not reported, since discordance with absolute values may lead to misinterpretation of CBC data. Current Interpretive Data was last revised on 2017. Lymphocyte pct 9.4 % [facility] Comment: Interpretive Data Percent cell count reference ranges are not reported, since discordance with absolute values may lead to misinterpretation of CBC data. Current Interpretive Data was last revised on 2017. Monocyte pct 10.8 % [facility] Comment: Interpretive Data Percent cell count reference ranges are not reported, since discordance with absolute values may lead to misinterpretation of CBC data. Current Interpretive Data was last revised on 2017. Eosinophil pct 0.0 % [facility] Comment: Interpretive Data Percent cell count reference ranges are not reported, since discordance with absolute values may lead to misinterpretation of CBC data. Current Interpretive Data was last revised on 2017. Basophil pct 0.0 % [facility] Comment: Interpretive Data Percent cell count reference ranges are not reported, since discordance with absolute values may lead to misinterpretation of CBC data. Current Interpretive Data was last revised on 2017. Blood 06/15/2024 2:54 AM CAUSTIC PUMP OPERATOR 06/15/2024 3:11 AM CAUSTIC PUMP OPERATOR us Hillary Fang MD LAB BLOOD OR DERABLES Final Result [facility] [place] [address] * CBC with auto differential (06/15/2024 2:54 AM CAUSTIC PUMP OPERATOR) [facility] WBC 6.6 3.8 - 9.9 K/cumm Hgb 15.0 11.9 - 15.5 g/dL [facility] Hct 44.9 35.6 - 45.5 % [facility] Plt 214 150 - 400 K/cumm [facility] MPV 9.5 9.1 - 12.3 fL [facility] RBC 5.01 3.90 - 5.20 M/cumm [facility] MCV 89.6 81.3 - 96.4 fL [facility] MCH 29.9 27.1 - 33.3 pg [facility] MCHC 33.4 32.3 - 35.7 g/dL [facility] RDW CV 12.8 11.1 - 14.9 % [facility] RDW SD 41.8 35.7 - 48.1 fL [facility] NRBC abs 0.00 0.00 - 0.01 K/cumm [facility] Blood 06/15/2024 2:54 AM CAUSTIC PUMP OPERATOR 06/15/2024 3:11 AM CAUSTIC PUMP OPERATOR Hillary Fang MD LAB BLOOD OR DERABLES Final Result Performing Organization Address [facility] Co de Phone Number [facility] [email or web address] [place] [address] * Phosphorus (06/15/2024 2:54 AM CAUSTIC PUMP OPERATOR) [facility] Phosphorus, pl 2.6 2.3 - 4.5 mg/dL Blood 06/15/2024 2:54 AM CAUSTIC PUMP OPERATOR 06/15/2024 3:11 AM CAUSTIC PUMP OPERATOR Hillary Fang MD LAB BLOOD OR DERABLES Final Result Performing Organization Address [facility] Co de Phone Number [facility] [place] [address] * Magnesium (06/15/2024 2:54 AM CAUSTIC PUMP OPERATOR) Pathologist [facility] Magnesium 2.1 1.4 - 2.5 mg/dL Blood 06/15/2024 2:54 AM CAUSTIC PUMP OPERATOR 06/15/2024 3:11 AM CAUSTIC PUMP OPERATOR Hillary Fang MD LAB BLOOD OR DERABLES Final Result [facility] [place] [address] * (ABNORMAL) Comprehensive metabolic panel (06/15/2024 2:54 AM CAUSTIC PUMP OPERATOR) Pathologist [facility] Sodium 141 135 - 145 mmol/L Potassium, pl 3.5 3.3 - 4.9 mmol/L [facility] Chloride 106 97 - 110 mmol/L [facility] CO2 24 22 - 32 mmol/L [facility] Anion gap 11 2 - 15 mmol/L [facility] BUN 10 6 - 25 mg/dL [facility] Creatinine 0.85 0.60 - 1.10 mg/dL [facility] Glucose 98 70 - 199 mg/dL [facility] Comment: Interpretive Data Fasting glucose >/= 126 [...] 2022. Calcium 9.1 8.5 - 10.3 mg/dL [facility] Bilirubin, total 0.6 0.1 - 1.2 mg/dL [facility] Protein, pl 6.3(L) 6.5 - 8.5 g/dL [facility] Albumin 3.9 3.5 - 5.0 g/dL [facility] Alk phos 109 40 - 130 Units/L [facility] ALT 12 7 - 45 Units/L [facility] AST 13 10 - 45 Units/L [facility] Blood 06/15/2024 2:54 AM CAUSTIC PUMP OPERATOR 06/15/2024 3:11 AM CAUSTIC PUMP OPERATOR us Hillary Fang MD LAB BLOOD OR DERABLES Final Result Performing Organization Address [facility] Co de Phone Number [facility] [email or web address] [address] * POCT glucose (06/14/2024 11:34 AM CAUSTIC PUMP OPERATOR) Pathologist [facility] Glucose, POC 103 70 - 199 mg/dL Blood 06/14/2024 11:3 4 AM CAUSTIC PUMP OPERATOR 06/14/2024 11:34 AM CAUSTIC PUMP OPERATOR us Alyson Masters MD LAB POCT ORDERABLES - MARGARET CE Final Result Performing Organization Address [facility] de Phone Number [facility] [email or web address] [address] * POCT glucose (06/14/2024 7:46 AM CAUSTIC PUMP OPERATOR) [facility] Glucose, POC 77 70 - 199 mg/dL Blood 06/14/2024 7:46 AM CAUSTIC PUMP OPERATOR 06/14/2024 7:46 AM CAUSTIC PUMP OPERATOR us Jerome Boss MD PhD LAB POCT ORDERABLE S - DEVICE Final Result Performing Organization Address [facility] Co de Phone Number [facility] [email or web address] [address] * eGFR (06/14/2024 4:20 AM CAUSTIC PUMP OPERATOR) eGFR 69 >=60 mL/min/1. 73 m2 Comment: [...] last reviewed 2021. Blood 06/14/2024 4:20 AM CAUSTIC PUMP OPERATOR 06/14/2024 4:28 AM CAUSTIC PUMP OPERATOR us Hillary Fang MD LAB BLOOD OR DERABLES Final Result [facility] [place] [address] * Differential, auto (06/14/2024 4:20 AM CAUSTIC PUMP OPERATOR) Pathologist [facility] Neutrophil abs 5.3 1.5 - 6.5 K/cumm Imm gran abs 0.1 0.0 - 0.1 K/cumm [facility] Lymphocyte abs 0.8 0.8 - 3.3 K/cumm [facility] Monocyte abs 0.7 0.2 - 0.8 K/cumm [facility] Eosinophil abs 0.0 0.0 - 0.5 K/cumm [facility] Basophil abs 0.0 0.0 - 0.1 K/cumm [facility] Neutrophil pct 77.3 % [facility] Comment: Interpretive Data Percent cell count reference ranges are not reported, since discordance with absolute values may lead to misinterpretation of CBC data. Current Interpretive Data was last revised on 2017. Imm gran pct 0.7 % [facility] Comment: Interpretive Data Percent cell count reference ranges are not reported, since discordance with absolute values may lead to misinterpretation of CBC data. Current Interpretive Data was last revised on 2017. Lymphocyte pct 11.5 % [facility] Comment: Interpretive Data Percent cell count reference ranges are not reported, since discordance with absolute values may lead to misinterpretation of CBC data. Current Interpretive Data was last revised on 2017. Monocyte pct 10.2 % [facility] Comment: Interpretive Data Percent cell count reference ranges are not reported, since discordance with absolute values may lead to misinterpretation of CBC data. Current Interpretive Data was last revised on 2017. Eosinophil pct 0.0 % [facility] Comment: Interpretive Data Percent cell count reference ranges are not reported, since discordance with absolute values may lead to misinterpretation of CBC data. Current Interpretive Data was last revised on 2017. Basophil pct 0.3 % [facility] Comment: Interpretive Data Percent cell count reference ranges are not reported, since discordance with absolute values may lead to misinterpretation of CBC data. Current Interpretive Data was last revised on 2017. Blood 06/14/2024 4:20 AM CAUSTIC PUMP OPERATOR 06/14/2024 4:28 AM CAUSTIC PUMP OPERATOR Hillary Fang MD LAB BLOOD OR DERABLES Final Result [facility] [place] [address] * (ABNORMAL) CBC with auto differential (06/14/2024 4:20 AM CAUSTIC PUMP OPERATOR) WBC 6.9 3.8 - 9.9 K/cumm Hgb 16.1(H) 11.9 - 15.5 g/dL [facility] Hct 47.5(H) 35.6 - 45.5 % [facility] Plt 218 150 - 400 K/cumm [facility] MPV 9.3 9.1 - 12.3 fL [facility] RBC 5.35(H) 3.90 - 5.20 M/cumm [facility] MCV 88.8 81.3 - 96.4 fL [facility] MCH 30.1 27.1 - 33.3 pg [facility] MCHC 33.9 32.3 - 35.7 g/dL [facility] RDW CV 13.0 11.1 - 14.9 % [facility] RDW SD 41.9 35.7 - 48.1 fL [facility] NRBC abs 0.00 0.00 - 0.01 K/cumm [facility] Blood 06/14/2024 4:20 AM CAUSTIC PUMP OPERATOR 06/14/2024 4:28 AM CAUSTIC PUMP OPERATOR Hillary Fang MD LAB BLOOD OR DERABLES Final Result Performing Organization Address City/[facility] Co de Phone Number [facility] [email or web address] [address] * Phosphorus (06/14/2024 4:20 AM CAUSTIC PUMP OPERATOR) Phosphorus, pl 3.3 2.3 - 4.5 mg/dL Blood 06/14/2024 4:20 AM CAUSTIC PUMP OPERATOR 06/14/2024 4:28 AM CAUSTIC PUMP OPERATOR us Hillary Fang MD LAB BLOOD OR DERABLES Final Result Performing Organization Address [facility] Co de Phone Number [facility] [email or web address] [address] * Magnesium (06/14/2024 4:20 AM CAUSTIC PUMP OPERATOR) Magnesium 2.3 1.4 - 2.5 mg/dL Blood 06/14/2024 4:20 AM CAUSTIC PUMP OPERATOR 06/14/2024 4:28 AM CAUSTIC PUMP OPERATOR Hillary Fang MD LAB BLOOD OR DERABLES Final Result Performing Organization Address City/[facility] Co de Phone Number [facility] [place] [address] * Comprehensive metabolic panel (06/14/2024 4:20 AM CAUSTIC PUMP OPERATOR) Sodium 143 135 - 145 mmol/L Potassium, pl 4.0 3.3 - 4.9 mmol/L [facility] Chloride 105 97 - 110 mmol/L [facility] CO2 26 22 - 32 mmol/L [facility] Anion gap 12 2 - 15 mmol/L [facility] BUN 11 6 - 25 mg/dL [facility] Creatinine 0.96 0.60 - 1.10 mg/dL [facility] Glucose 105 70 - 199 mg/dL [facility] Comment: Interpretive Data Fasting glucose >/= 126 [...] 2022. Calcium 9.5 8.5 - 10.3 mg/dL [facility] Bilirubin, total 0.7 0.1 - 1.2 mg/dL [facility] Protein, pl 6.5 6.5 - 8.5 g/dL [facility] Albumin 4.0 3.5 - 5.0 g/dL [facility] Alk phos 107 40 - 130 Units/L [facility] ALT 12 7 - 45 Units/L [facility] AST 13 10 - 45 Units/L [facility] Blood 06/14/2024 4:20 AM CAUSTIC PUMP OPERATOR 06/14/2024 4:28 AM CAUSTIC PUMP OPERATOR us Hillary Fang MD LAB BLOOD OR DERABLES Final Result [facility] Department [place] [address] * eGFR (06/13/2024 1:45 AM CAUSTIC PUMP OPERATOR) Pathologist [facility] eGFR 65 >=60 mL/min/1. 73 m2 Comment: [...] last reviewed 2021. Blood 06/13/2024 1:45 AM CAUSTIC PUMP OPERATOR 06/13/2024 2:10 AM CAUSTIC PUMP OPERATOR Hillary Fang MD LAB BLOOD OR DERABLES Final Result [facility] [place] [address] * Differential, auto (06/13/2024 1:45 AM CAUSTIC PUMP OPERATOR) [facility] Neutrophil abs 4.5 1.5 - 6.5 K/cumm Imm gran abs 0.1 0.0 - 0.1 K/cumm [facility] Lymphocyte abs 0.9 0.8 - 3.3 K/cumm [facility] Monocyte abs 0.7 0.2 - 0.8 K/cumm [facility] Eosinophil abs 0.0 0.0 - 0.5 K/cumm [facility] Basophil abs 0.0 0.0 - 0.1 K/cumm [facility] Neutrophil pct 72.3 % [facility] Comment: Interpretive Data Percent cell count reference ranges are not reported, since discordance with absolute values may lead to misinterpretation of CBC data. Current Interpretive Data was last revised on 2017. Imm gran pct 0.8 % [facility] Comment: Interpretive Data Percent cell count reference ranges are not reported, since discordance with absolute values may lead to misinterpretation of CBC data. Current Interpretive Data was last revised on 2017. Lymphocyte pct 14.6 % [facility] Comment: Interpretive Data Percent cell count reference ranges are not reported, since discordance with absolute values may lead to misinterpretation of CBC data. Current Interpretive Data was last revised on 2017. Monocyte pct 11.8 % [facility] Comment: Interpretive Data Percent cell count reference ranges are not reported, since discordance with absolute values may lead to misinterpretation of CBC data. Current Interpretive Data was last revised on 2017. Eosinophil pct 0.2 % [facility] Comment: Interpretive Data Percent cell count reference ranges are not reported, since discordance with absolute values may lead to misinterpretation of CBC data. Current Interpretive Data was last revised on 2017. Basophil pct 0.3 % [facility] Comment: Interpretive Data Percent cell count reference ranges are not reported, since discordance with absolute values may lead to misinterpretation of CBC data. Current Interpretive Data was last revised on 2017. Blood 06/13/2024 1:45 AM CAUSTIC PUMP OPERATOR 06/13/2024 2:10 AM CAUSTIC PUMP OPERATOR us Hillary Fang MD LAB BLOOD OR DERABLES Final Result [facility] Department [place] [address] * (ABNORMAL) CBC with auto differential (06/13/2024 1:45 AM CAUSTIC PUMP OPERATOR) WBC 6.3 3.8 - 9.9 K/cumm Hgb 15.7(H) 11.9 - 15.5 g/dL [facility] Hct 46.2(H) 35.6 - 45.5 % [facility] Plt 234 150 - 400 K/cumm [facility] MPV 9.3 9.1 - 12.3 fL [facility] RBC 5.26(H) 3.90 - 5.20 M/cumm [facility] MCV 87.8 81.3 - 96.4 fL [facility] MCH 29.8 27.1 - 33.3 pg [facility] MCHC 34.0 32.3 - 35.7 g/dL [facility] RDW CV 12.7 11.1 - 14.9 % [facility] RDW SD 40.7 35.7 - 48.1 fL [facility] NRBC abs 0.00 0.00 - 0.01 K/cumm [facility] Blood 06/13/2024 1:45 AM CAUSTIC PUMP OPERATOR 06/13/2024 2:10 AM CAUSTIC PUMP OPERATOR us Hillary Fang MD LAB BLOOD OR DERABLES Final Result Performing Organization Address [facility] Co de Phone Number [facility] [place] [address] * aPTT (06/13/2024 1:45 AM CAUSTIC PUMP OPERATOR) aPTT 34 28 - 38 sec Comment: Interpretive Data Heparin therapeutic range: 66.0 - 100.0 seconds. Range based on correlation with therapeutic heparin activity range of 0.3 - 0.7 Units/mL. Current interpretive data was last revised on 2023. Blood 06/13/2024 1:45 AM CAUSTIC PUMP OPERATOR 06/13/2024 2:13 AM CAUSTIC PUMP OPERATOR us Hillary Fang MD LAB BLOOD OR DERABLES Final Result Performing Organization Address [facility] Co de Phone Number [facility] [place] [address] * (ABNORMAL) Protime-INR (06/13/2024 1:45 AM CAUSTIC PUMP OPERATOR) PT 16.1(H) 9.7 - 13.0 sec INR 1.48(H) 0.90 - 1.20 [facility] Comment: Interpretive data Oral anticoagulant therapeutic ranges: Venous thromboembolism prophylaxis or treatment: 2.0-3.0 CARDIOLOGY Standard range: 2.0-3.0 High-intensity range: 2.5-3.5 Refer to indication-specific guidelines for appropriate target ranges for prosthetic heart valve replacement. Current interpretive data was last revised on 2019. Blood 06/13/2024 1:45 AM CAUSTIC PUMP OPERATOR 06/13/2024 2:13 AM CAUSTIC PUMP OPERATOR Hillary Fang MD LAB BLOOD OR DERABLES Final Result Performing Organization Address City/[facility]/ZIP Co de Phone Number [facility] [place] [address] * Type and screen (06/13/2024 1:45 AM CAUSTIC PUMP OPERATOR) Yamini, indirect Negative ABO Rh A Positive [facility] Blood 06/13/2024 1:45 AM CAUSTIC PUMP OPERATOR 06/13/2024 2:03 AM CAUSTIC PUMP OPERATOR Narrative [facility] - 06/13/2024 3:13 AM CAUSTIC PUMP OPERATOR Has the patient had Daratumumab or Isatuximab in the past 6 months?->Unknown Hillary Fang MD LAB BLOOD BA NK TEST ORDERABLES Final Result Performing Organization Address City/[facility]/ZIP Co de Phone Number [facility] [place] [address] * Uric acid (06/13/2024 1:45 AM CAUSTIC PUMP OPERATOR) Uric acid 4.3 2.5 - 7.0 mg/dL Blood 06/13/2024 1:45 AM CAUSTIC PUMP OPERATOR 06/13/2024 2:10 AM CAUSTIC PUMP OPERATOR Narrative [facility] - 06/13/2024 2:41 AM CAUSTIC PUMP OPERATOR Thursday and only. Morning draw. . us Hillary Fang MD LAB BLOOD OR DERABLES Final Result Performing Organization Address [facility] Co de Phone Number [facility] [email or web address] [address] * Phosphorus (06/13/2024 1:45 AM CAUSTIC PUMP OPERATOR) Phosphorus, pl 3.2 2.3 - 4.5 mg/dL Blood 06/13/2024 1:45 AM CAUSTIC PUMP OPERATOR 06/13/2024 2:10 AM CAUSTIC PUMP OPERATOR Hillary Fang MD LAB BLOOD OR DERABLES Final Result Performing Organization Address [facility] de Phone Number [facility] [place] [address] * Magnesium (06/13/2024 1:45 AM CAUSTIC PUMP OPERATOR) Magnesium 2.4 1.4 - 2.5 mg/dL Blood 06/13/2024 1:45 AM CAUSTIC PUMP OPERATOR 06/13/2024 2:10 AM CAUSTIC PUMP OPERATOR Hillary Fang MD LAB BLOOD OR DERABLES Final Result Performing Organization Address [facility] de Phone Number [facility] [place] [address] * (ABNORMAL) Lactate dehydrogenase (LD) (06/13/2024 1:45 AM CAUSTIC PUMP OPERATOR) Lactate dehydrogenase (LDH) 320(H) 100 - 250 Units/L Blood 06/13/2024 1:45 AM CAUSTIC PUMP OPERATOR 06/13/2024 2:10 AM CAUSTIC PUMP OPERATOR Narrative [facility] - 06/13/2024 2:41 AM CAUSTIC PUMP OPERATOR Thursday and only. Morning draw. us Hillary Fang MD LAB BLOOD OR DERABLES Final Result [facility] [place] [address] * Comprehensive metabolic panel (06/13/2024 1:45 AM CAUSTIC PUMP OPERATOR) Sodium 142 135 - 145 mmol/L Potassium, pl 3.4 3.3 - 4.9 mmol/L [facility] Chloride 103 97 - 110 mmol/L [facility] CO2 28 22 - 32 mmol/L [facility] Anion gap 11 2 - 15 mmol/L [facility] BUN 10 6 - 25 mg/dL [facility] Creatinine 1.01 0.60 - 1.10 mg/dL [facility] Glucose 80 70 - 199 mg/dL [facility] Comment: Interpretive Data Fasting glucose >/= 126 [...] 2022. Calcium 9.6 8.5 - 10.3 mg/dL [facility] Bilirubin, total 0.6 0.1 - 1.2 mg/dL [facility] Protein, pl 6.7 6.5 - 8.5 g/dL [facility] Albumin 4.2 3.5 - 5.0 g/dL [facility] Alk phos 111 40 - 130 Units/L [facility] ALT 16 7 - 45 Units/L [facility] AST 17 10 - 45 Units/L [facility] Blood 06/13/2024 1:45 AM CAUSTIC PUMP OPERATOR 06/13/2024 2:10 AM CAUSTIC PUMP OPERATOR Hillary Fang MD LAB BLOOD OR DERABLES Final Result [facility] [place] [address] * HIV 1/2 Antibody plus p24 Antigen Blood (06/12/2024 4:18 PM CAUSTIC PUMP OPERATOR) [facility] HIV 1/2 ab + p24 ag Nonreactive Nonreactive Comment:Nonreactive for HIV- 1 antigen and HIV-1/HIV-2 antibodies. No laboratory evidence of HIV infection. If acute HIV infection is suspected, consider testing for HIV-1 RNA. Current interpretive data was last revised on 22. Blood 06/12/2024 4:18 PM CAUSTIC PUMP OPERATOR 06/12/2024 4:31 PM CAUSTIC PUMP OPERATOR Jose Francisco Ledesma MD LAB MICROBIOLOGY - GENERAL ORDER BRITTANI Final Result Performing Organization Address [facility] Co de Phone Number [facility] [email or web address] [address] * Vitamin B1 (06/12/2024 4:18 PM CAUSTIC PUMP OPERATOR) [facility] Thiamine (Vit B1) 100 70 - 180 nmol/L [facility] Comment: ADDITIONAL INFORMATION This test was developed and its performance characteristics determined by [facility] in a manner consistent with CLIA requirements. This test has not been cleared or approved by the U.S. Food and Drug Administration. Test Performed by: [facility] - [address] [address] [employer]: Marek Barry Ph.D.; CLIA# [id number] Blood 06/12/2024 4:18 PM CAUSTIC PUMP OPERATOR 06/12/2024 4:53 PM CAUSTIC PUMP OPERATOR Jose Francisco Ledesma MD LAB BLOOD ORDERABLES Final Resul t Performing Organization Address [facility] Co de Phone Number [facility] [place] [address] [facility] * (ABNORMAL) Vitamin B6 (06/12/2024 4:18 PM CAUSTIC PUMP OPERATOR) Pyridoxal phosphate (Vit B6) 4(L) 5 - 50 mcg/L [facility] Comment: ADDITIONAL INFORMATION This test was developed and its performance characteristics determined by [facility] in a manner consistent with CLIA requirements. This test has not been cleared or approved by the U.S. Food and Drug Administration. Test Performed by: [facility] [address] [employer]: Marek Barry Ph.D.; CLIA# [id number] Blood 06/12/2024 4:18 PM CAUSTIC PUMP OPERATOR 06/12/2024 4:59 PM CAUSTIC PUMP OPERATOR Jose Francisco Ledesma MD LAB BLOOD ORDERABLES Final Resul t Performing Organization Address City/[facility] Co de Phone Number [facility] [place] [address] [facility] * Folate (06/12/2024 4:18 PM CAUSTIC PUMP OPERATOR) Pathologist [facility] Folic acid >20.0 >=5.0 ng/mL Blood 06/12/2024 4:18 PM CAUSTIC PUMP OPERATOR 06/12/2024 4:32 PM CAUSTIC PUMP OPERATOR Jose Francisco Ledesma MD LAB BLOOD ORDERABLES Final Resul t Performing Organization Address City/[facility]/ZIP Co de Phone Number [facility] [place] [address] * eGFR (06/12/2024 1:00 AM CAUSTIC PUMP OPERATOR) Pathologist [facility] eGFR 62 >=60 mL/min/1. 73 m2 Comment: [...] last reviewed 2021. Blood 06/12/2024 1:00 AM CAUSTIC PUMP OPERATOR 06/12/2024 1:14 AM CAUSTIC PUMP OPERATOR us Hillary Fang MD LAB BLOOD OR DERABLES Edited Result - Final [facility] [place] [address] * (ABNORMAL) Differential, auto (06/12/2024 1:00 AM CAUSTIC PUMP OPERATOR) Neutrophil abs 4.6 1.5 - 6.5 K/cumm Comment:Collection date/time has been modified to: 01:00:00. Previous collection date/time: 04:30:00. Imm gran abs 0.0 0.0 - 0.1 K/cumm [facility] Comment:Collection date/time has been modified to: 01:00:00. Previous collection date/time: 04:30:00. Lymphocyte abs 0.5(L) 0.8 - 3.3 K/cumm [facility] Comment:Collection date/time has been modified to: 01:00:00. Previous collection date/time: 04:30:00. Monocyte abs 0.4 0.2 - 0.8 K/cumm [facility] Comment:Collection date/time has been modified to: 01:00:00. Previous collection date/time: 04:30:00. Eosinophil abs 0.0 0.0 - 0.5 K/cumm [facility] Comment:Collection date/time has been modified to: 01:00:00. Previous collection date/time: 04:30:00. Basophil abs 0.0 0.0 - 0.1 K/cumm [facility] Comment:Collection date/time has been modified to: 01:00:00. Previous collection date/time: 04:30:00. Neutrophil pct 82.3 % [facility] Comment: Collection date/time has been modified to: 01:00:00. Previous collection date/time: 04:30:00. Interpretive Data Percent cell count reference ranges are not reported, since discordance with absolute values may lead to misinterpretation of CBC data. Current Interpretive Data was last revised on 2017. Imm gran pct 0.5 % [facility] Comment: Collection date/time has been modified to: 01:00:00. Previous collection date/time: 04:30:00. Interpretive Data Percent cell count reference ranges are not reported, since discordance with absolute values may lead to misinterpretation of CBC data. Current Interpretive Data was last revised on 2017. Lymphocyte pct 9.3 % [facility] Comment: Collection date/time has been modified to: 01:00:00. Previous collection date/time: 04:30:00. Interpretive Data Percent cell count reference ranges are not reported, since discordance with absolute values may lead to misinterpretation of CBC data. Current Interpretive Data was last revised on 2017. Monocyte pct 7.7 % [facility] Comment: Collection date/time has been modified to: [...] revised on 2017. Blood 06/12/2024 1:00 AM CAUSTIC PUMP OPERATOR 06/12/2024 1:14 AM CAUSTIC PUMP OPERATOR us Hillary Fang MD LAB BLOOD OR DERABLES Edited Result - Final [facility] [place] [address] * CBC with auto differential (06/12/2024 1:00 AM CAUSTIC PUMP OPERATOR) WBC 5.6 3.8 - 9.9 K/cumm Comment:Collection date/time has been modified to: 01:00:00. Previous collection date/time: 04:30:00. Hgb 13.6 11.9 - 15.5 g/dL [facility] Comment:Collection date/time has been modified to: 01:00:00. Previous collection date/time: 04:30:00. Hct 40.9 35.6 - 45.5 % [facility] Comment:Collection date/time has been modified to: 01:00:00. Previous collection date/time: 04:30:00. Plt 183 150 - 400 K/cumm [facility] Comment:Collection date/time has been modified to: 01:00:00. Previous collection date/time: 04:30:00. MPV 9.3 9.1 - 12.3 fL [facility] Comment:Collection date/time has been modified to: 01:00:00. Previous collection date/time: 04:30:00. RBC 4.59 3.90 - 5.20 M/cumm [facility] Comment:Collection date/time has been modified to: 01:00:00. Previous collection date/time: 04:30:00. MCV 89.1 81.3 - 96.4 fL [facility] Comment:Collection date/time has been modified to: 01:00:00. Previous collection date/time: 04:30:00. MCH 29.6 27.1 - 33.3 pg [facility] Comment:Collection date/time has been modified to: 01:00:00. Previous collection date/time: 04:30:00. MCHC 33.3 32.3 - 35.7 g/dL [facility] Comment:Collection date/time has been modified to: 01:00:00. Previous collection date/time: 04:30:00. RDW CV 12.9 11.1 - 14.9 % [facility] Comment:Collection date/time has been modified to: 01:00:00. Previous collection date/time: 04:30:00. RDW SD 42.1 35.7 - 48.1 fL [facility] Comment:Collection date/time has been modified to: 01:00:00. Previous collection date/time: 04:30:00. NRBC abs 0.00 0.00 - 0.01 K/cumm [facility] Comment:Collection date/time has been modified to: 01:00:00. Previous collection date/time: 04:30:00. Blood 06/12/2024 1:00 AM CAUSTIC PUMP OPERATOR 06/12/2024 1:14 AM CAUSTIC PUMP OPERATOR Hillary Fang MD LAB BLOOD OR DERABLES Edited Result - Final Performing Organization Address [facility] de Phone Number [facility] [email or web address] [address] * (ABNORMAL) aPTT (06/12/2024 1:00 AM CAUSTIC PUMP OPERATOR) aPTT 24(L) 28 - 38 sec Comment: Interpretive Data Heparin therapeutic range: 66.0 - 100.0 seconds. Range based on correlation with therapeutic heparin activity range of 0.3 - 0.7 Units/mL. Current interpretive data was last revised on 2023. Blood 06/12/2024 1:00 AM CAUSTIC PUMP OPERATOR 06/12/2024 1:15 AM CAUSTIC PUMP OPERATOR Result [facility] Hillary Fang MD LAB BLOOD OR DERABLES Final Result Performing Organization Address [facility] de Phone Number [facility] [email or web address] [address] * (ABNORMAL) Protime-INR (06/12/2024 1:00 AM CAUSTIC PUMP OPERATOR) PT 14.3(H) 9.7 - 13.0 sec INR 1.32(H) 0.90 - 1.20 [facility] Comment: Interpretive data Oral anticoagulant therapeutic ranges: Venous thromboembolism prophylaxis or treatment: 2.0-3.0 CARDIOLOGY Standard range: 2.0-3.0 High-intensity range: 2.5-3.5 Refer to indication-specific guidelines for appropriate target ranges for prosthetic heart valve replacement. Current interpretive data was last revised on 2019. Blood 06/12/2024 1:00 AM CAUSTIC PUMP OPERATOR 06/12/2024 1:15 AM CAUSTIC PUMP OPERATOR Hillary Fang MD LAB BLOOD OR DERABLES Final Result Performing Organization Address [facility] Co de Phone Number [facility] [email or web address] [address] * Type and screen (06/12/2024 1:00 AM CAUSTIC PUMP OPERATOR) Pathologist [facility] ABO Rh A Positive Yamini, indirect Negative [facility] Blood 06/12/2024 1:00 AM CAUSTIC PUMP OPERATOR 06/12/2024 1:13 AM CAUSTIC PUMP OPERATOR Narrative [facility] - 06/12/2024 2:09 AM CAUSTIC PUMP OPERATOR Has the patient had Daratumumab or Isatuximab in the past 6 months?->Unknown Hillary Fang MD LAB BLOOD BA NK TEST ORDERABLES Final Result Performing Organization Address [facility] de Phone Number [facility] [email or web address] [address] * Uric acid (06/12/2024 1:00 AM CAUSTIC PUMP OPERATOR) Pathologist [facility] Uric acid 4.4 2.5 - 7.0 mg/dL Blood 06/12/2024 1:00 AM CAUSTIC PUMP OPERATOR 06/12/2024 1:14 AM CAUSTIC PUMP OPERATOR Jerome Boss MD PhD LAB BLOOD ORDERABL ES Final Result Performing Organization Address [facility] Co de Phone Number [facility] [place] [address] * Phosphorus (06/12/2024 1:00 AM CAUSTIC PUMP OPERATOR) Phosphorus, pl 3.3 2.3 - 4.5 mg/dL Comment:Collection date/time has been modified to: 01:00:00. Previous collection date/time: 04:30:00. Blood 06/12/2024 1:00 AM CAUSTIC PUMP OPERATOR 06/12/2024 1:14 AM CAUSTIC PUMP OPERATOR Hillary Fang MD LAB BLOOD OR DERABLES Edited Result - Final Performing Organization Address [facility] de Phone Number [facility] [place] [address] * Magnesium (06/12/2024 1:00 AM CAUSTIC PUMP OPERATOR) Pathologist [facility] Magnesium 2.4 1.4 - 2.5 mg/dL Comment:Collection date/time has been modified to: 01:00:00. Previous collection date/time: 04:30:00. Blood 06/12/2024 1:00 AM CAUSTIC PUMP OPERATOR 06/12/2024 1:14 AM CAUSTIC PUMP OPERATOR Hillary Fang MD LAB BLOOD OR DERABLES Edited Result - Final Performing Organization Address [facility] de Phone Number [facility] [place] [address] * (ABNORMAL) Comprehensive metabolic panel (06/12/2024 1:00 AM CAUSTIC PUMP OPERATOR) Sodium 143 135 - 145 mmol/L Comment:Collection date/time has been modified to: 01:00:00. Previous collection date/time: 04:30:00. Potassium, pl 3.6 3.3 - 4.9 mmol/L [facility] Comment:Collection date/time has been modified to: 01:00:00. Previous collection date/time: 04:30:00. Chloride 107 97 - 110 mmol/L [facility] Comment:Collection date/time has been modified to: 01:00:00. Previous collection date/time: 04:30:00. CO2 26 22 - 32 mmol/L [facility] Comment:Collection date/time has been modified to: 01:00:00. Previous collection date/time: 04:30:00. Anion gap 10 2 - 15 mmol/L [facility] Comment:Collection date/time has been modified to: 01:00:00. Previous collection date/time: 04:30:00. BUN 11 6 - 25 mg/dL [facility] Comment:Collection date/time has been modified to: 01:00:00. Previous collection date/time: 04:30:00. Creatinine 1.05 0.60 - 1.10 mg/dL [facility] Comment:Collection date/time has been modified to: 01:00:00. Previous collection date/time: 04:30:00. Glucose 94 70 - 199 mg/dL [facility] Comment: Collection date/time has been modified to: [...] 2022. Calcium 8.7 8.5 - 10.3 mg/dL [facility] Comment:Collection date/time has been modified to: 01:00:00. Previous collection date/time: 04:30:00. Bilirubin, total 0.6 0.1 - 1.2 mg/dL [facility] Comment:Collection date/time has been modified to: 01:00:00. Previous collection date/time: 04:30:00. Protein, pl 5.8(L) 6.5 - 8.5 g/dL [facility] Comment:Collection date/time has been modified to: 01:00:00. Previous collection date/time: 04:30:00. Albumin 3.7 3.5 - 5.0 g/dL [facility] Comment:Collection date/time has been modified to: 01:00:00. Previous collection date/time: 04:30:00. Alk phos 88 40 - 130 Units/L [facility] Comment:Collection date/time has been modified to: 01:00:00. Previous collection date/time: 04:30:00. ALT 14 7 - 45 Units/L [facility] Comment:Collection date/time has been modified to: 01:00:00. Previous collection date/time: 04:30:00. AST 14 10 - 45 Units/L [facility] Comment:Collection date/time has been modified to: 01:00:00. Previous collection date/time: 04:30:00. Blood 06/12/2024 1:00 AM CAUSTIC PUMP OPERATOR 06/12/2024 1:14 AM CAUSTIC PUMP OPERATOR us Hillary Fang MD LAB BLOOD OR DERABLES Edited Result - Final [facility] [place] [address] * ECG 12 lead (06/11/2024 8:17 PM CAUSTIC PUMP OPERATOR) Ventricular Rate EKG/Min 82 BPM [facility] Atrial Rate 82 BPM [facility] DC-Interval (MSEC) 158 ms [facility] QRS-Interval (MSEC) 106 ms [facility] QT-Interval (MSEC) 374 ms [facility] QTc 436 ms [facility] P [place] 56 degrees [facility] R [place] -7 degrees [facility] T [place] 18 degrees [facility] Diagnosis Normal sinus rhythm Incomplete right bundle branch block Borderline ECG When compared with ECG of 03-APR-2020 23:24, Fusion complexes are no longer Present Premature ventricular complexes are no longer Present Questionable change in QRS axis T wave amplitude has decreased in Anterior leads QT has shortened Confirmed by MARCIO URIBE M.D ([id number]) on 06/13/2024 1:58:23 PM [facility] 06/11/2024 8:17 PM CAUSTIC PUMP OPERATOR 06/13/2024 1:58 PM CAUSTIC PUMP OPERATOR us Hillary Fang MD ECG ORDERABL ES Final Result [facility] * CT Head WO Contrast (06/11/2024 12:54 PM CAUSTIC PUMP OPERATOR) Anatomical Region Laterality Modality Head and Neck N/A Computed Tomogra phy 06/11/2024 1:16 PM CAUSTIC PUMP OPERATOR Impressions 06/11/2024 1:32 PM CAUSTIC PUMP OPERATOR 1. No new acute intracranial process. No [...] Tan MD, PhD Narrative 06/11/2024 1:32 PM CAUSTIC PUMP OPERATOR EXAMINATION: CT head without contrast HISTORY: Presenting [...] signed by: Epifanio Tan MD, PhD Darnell Mario Berkowitz Jr., MD IM CT PROCEDURES Lulu l Result * Respiratory pathogen panel Nasopharyngeal (06/11/2024 12:27 PM CAUSTIC PUMP OPERATOR) Pathologist [facility] Influenza A RNA Not Detected Not Detected Influenza B RNA Not Detected Not Detected [facility] RSV RNA Not Detected Not Detected [facility] COVID-19 RNA Not Detected Not Detected [facility] Coronavirus 229E RNA Not Detected Not Detected [facility] Coronavirus HKU1 RNA Not Detected Not Detected [facility] Coronavirus NL63 RNA Not Detected Not Detected [facility] Coronavirus OC43 RNA Not Detected Not Detected [facility] Adenovirus DNA Not Detected Not Detected [facility] Metapneumovirus RNA Not Detected Not Detected [facility] Rhinovirus/Enterov irus RNA Not Detected Not Detected [facility] Parainfluenza 1 RNA Not Detected Not Detected [facility] Parainfluenza 2 RNA Not Detected Not Detected [facility] Parainfluenza 3 RNA Not Detected Not Detected [facility] Parainfluenza 4 RNA Not Detected Not Detected [facility] B. pertussis DNA Not Detected Not Detected [facility] B. parapertussis DNA Not Detected Not Detected [facility] C. pneumoniae DNA Not Detected Not Detected [facility] M. pneumoniae DNA Not Detected Not Detected [facility] Nasopharyngeal 06/11/2024 12 :27 PM CAUSTIC PUMP OPERATOR 06/11/2024 12:36 PM CAUSTIC PUMP OPERATOR Narrative [facility] - 06/11/2024 1:48 PM CAUSTIC PUMP OPERATOR Is the Patient experiencing symptoms consistent with COVID?->No Surveillance testing for transplant patient?->No Interpretive Data The [employer] FilmArray Respiratory Panel (RP2.1) assay is a [...] assay has FDA clearance for testing of MAIL SORTER AND DELIVERY swabs. The performance of additional specimen types has been assessed by the performing laboratory. The performance characteristics of this assay have been determined by [facility] Disease [facility]. Current interpretive data was last revised on 22. Darnell Berkowitz Jr., MD LAB MICROBIOLOGY - GEN ERAL ORDERABLES Final Result [facility] [place] [address] * (ABNORMAL) eGFR (06/11/2024 12:07 PM CAUSTIC PUMP OPERATOR) eGFR 52(L) >=60 mL/min/1. 73 m2 Comment: [...] reviewed 2021. Blood 06/11/2024 12:0 7 PM CAUSTIC PUMP OPERATOR 06/11/2024 12:22 PM CAUSTIC PUMP OPERATOR Nelda Carmona NP LAB BLOOD ORDERABLES Lulu l Result Performing Organization Address [facility] Co de Phone Number [facility] [place] [address] * Differential, auto (06/11/2024 12:07 PM CAUSTIC PUMP OPERATOR) Neutrophil abs 4.3 1.5 - 6.5 K/cumm Imm gran abs 0.0 0.0 - 0.1 K/cumm [facility] Lymphocyte abs 1.3 0.8 - 3.3 K/cumm [facility] Monocyte abs 0.8 0.2 - 0.8 K/cumm [facility] Eosinophil abs 0.0 0.0 - 0.5 K/cumm [facility] Basophil abs 0.0 0.0 - 0.1 K/cumm [facility] Neutrophil pct 66.7 % [facility] Comment: Interpretive Data Percent cell count reference ranges are not reported, since discordance with absolute values may lead to misinterpretation of CBC data. Current Interpretive Data was last revised on 2017. Imm gran pct 0.6 % [facility] Comment: Interpretive Data Percent cell count reference ranges are not reported, since discordance with absolute values may lead to misinterpretation of CBC data. Current Interpretive Data was last revised on 2017. Lymphocyte pct 20.5 % [facility] Comment: Interpretive Data Percent cell count reference ranges are not reported, since discordance with absolute values may lead to misinterpretation of CBC data. Current Interpretive Data was last revised on 2017. Monocyte pct 12.0 % [facility] Comment: Interpretive Data Percent cell count reference ranges are not reported, since discordance with absolute values may lead to misinterpretation of CBC data. Current Interpretive Data was last revised on 2017. Eosinophil pct 0.0 % [facility] Comment: Interpretive Data Percent cell count reference ranges are not reported, since discordance with absolute values may lead to misinterpretation of CBC data. Current Interpretive Data was last revised on 2017. Basophil pct 0.2 % [facility] Comment: Interpretive Data Percent cell count reference ranges are not reported, since discordance with absolute values may lead to misinterpretation of CBC data. Current Interpretive Data was last revised on 2017. Blood 06/11/2024 12:0 7 PM CAUSTIC PUMP OPERATOR 06/11/2024 12:22 PM CAUSTIC PUMP OPERATOR us Nelda Carmona NP LAB BLOOD ORDERABLES Lulu l Result [facility] [place] [address] * Thyroid Function [place] (06/11/2024 12:07 PM CAUSTIC PUMP OPERATOR) TSH 1.10 0.30 - 4.20 mcIUnit/mL Blood 06/11/2024 12:0 7 PM CAUSTIC PUMP OPERATOR 06/11/2024 12:22 PM CAUSTIC PUMP OPERATOR Nelda Carmona [employer] LAB BLOOD ORDERABLES Lulu l Result Performing Organization Address [facility] Co de Phone Number [facility] [place] [address] * (ABNORMAL) CBC with auto differential (06/11/2024 12:07 PM CAUSTIC PUMP OPERATOR) Pathologist [facility] WBC 6.5 3.8 - 9.9 K/cumm Hgb 15.6(H) 11.9 - 15.5 g/dL [facility] Hct 46.7(H) 35.6 - 45.5 % [facility] Plt 273 150 - 400 K/cumm [facility] MPV 9.4 9.1 - 12.3 fL [facility] RBC 5.15 3.90 - 5.20 M/cumm [facility] MCV 90.7 81.3 - 96.4 fL [facility] MCH 30.3 27.1 - 33.3 pg [facility] MCHC 33.4 32.3 - 35.7 g/dL [facility] RDW CV 12.9 11.1 - 14.9 % [facility] RDW SD 42.5 35.7 - 48.1 fL [facility] NRBC abs 0.00 0.00 - 0.01 K/cumm [facility] Blood 06/11/2024 12:0 7 PM CAUSTIC PUMP OPERATOR 06/11/2024 12:22 PM CAUSTIC PUMP OPERATOR Nelda Carmona NP LAB BLOOD ORDERABLES Lulu l Result Performing Organization Address [facility]/ZIP Co de Phone Number [facility] [place] [address] * Ethanol (06/11/2024 12:07 PM CAUSTIC PUMP OPERATOR) Pathologist [facility] Ethanol <10 <=10 mg/dL Comment: Interpretive Data Legal limit of intoxication > or = 80 mg/dL Levels > or = 400 mg/dL are potentially TOXIC. Current interpretive data was last revised on 2018. Blood 06/11/2024 12:0 7 PM CAUSTIC PUMP OPERATOR 06/11/2024 12:22 PM CAUSTIC PUMP OPERATOR us Nelda Carmona NP LAB BLOOD ORDERABLES Lulu rojo Result [facility] [place] [address] * (ABNORMAL) Comprehensive metabolic panel (06/11/2024 12:07 PM CAUSTIC PUMP OPERATOR) Sodium 146(H) 135 - 145 mmol/L Potassium, pl 3.2(L) 3.3 - 4.9 mmol/L [facility] Chloride 107 97 - 110 mmol/L [facility] CO2 27 22 - 32 mmol/L [facility] Anion gap 12 2 - 15 mmol/L [facility] BUN 11 6 - 25 mg/dL [facility] Creatinine 1.21(H) 0.60 - 1.10 mg/dL [facility] Glucose 85 70 - 199 mg/dL [facility] Comment: Interpretive Data Fasting glucose >/= 126 [...] 2022. Calcium 9.6 8.5 - 10.3 mg/dL [facility] Bilirubin, total 0.6 0.1 - 1.2 mg/dL [facility] Protein, pl 6.9 6.5 - 8.5 g/dL [facility] Albumin 4.3 3.5 - 5.0 g/dL [facility] Alk phos 107 40 - 130 Units/L [facility] ALT 16 7 - 45 Units/L [facility] AST 12 10 - 45 Units/L [facility] Blood 06/11/2024 12:0 7 PM CAUSTIC PUMP OPERATOR 06/11/2024 12:22 PM CAUSTIC PUMP OPERATOR Nelda Carmona NP LAB BLOOD ORDERABLES Lulu l Result Performing Organization Address City/[facility]/ZIP Co de Phone Number [facility] [place] [address] * eGFR (05/27/2024 5:02 AM CAUSTIC PUMP OPERATOR) eGFR 69 >=60 mL/min/1. 73 m2 Comment: [...] last reviewed 2021. Blood 05/27/2024 5:02 AM CAUSTIC PUMP OPERATOR 05/27/2024 5:13 AM CAUSTIC PUMP OPERATOR us Jose Francisco Ledesma MD LAB BLOOD ORDERABLES Final Resul t Performing Organization Address [facility]/ZIP Co de Phone Number [facility] [place] [address] * Differential, auto (05/27/2024 5:02 AM CAUSTIC PUMP OPERATOR) Neutrophil abs 4.3 1.5 - 6.5 K/cumm Imm gran abs 0.1 0.0 - 0.1 K/cumm [facility] Lymphocyte abs 0.9 0.8 - 3.3 K/cumm [facility] Monocyte abs 0.6 0.2 - 0.8 K/cumm [facility] Eosinophil abs 0.0 0.0 - 0.5 K/cumm [facility] Basophil abs 0.0 0.0 - 0.1 K/cumm [facility] Neutrophil pct 73.9 % [facility] Comment: Interpretive Data Percent cell count reference ranges are not reported, since discordance with absolute values may lead to misinterpretation of CBC data. Current Interpretive Data was last revised on 2017. Imm gran pct 0.9 % [facility] Comment: Interpretive Data Percent cell count reference ranges are not reported, since discordance with absolute values may lead to misinterpretation of CBC data. Current Interpretive Data was last revised on 2017. Lymphocyte pct 14.9 % [facility] Comment: Interpretive Data Percent cell count reference ranges are not reported, since discordance with absolute values may lead to misinterpretation of CBC data. Current Interpretive Data was last revised on 2017. Monocyte pct 10.1 % [facility] Comment: Interpretive Data Percent cell count reference ranges are not reported, since discordance with absolute values may lead to misinterpretation of CBC data. Current Interpretive Data was last revised on 2017. Eosinophil pct 0.0 % [facility] Comment: Interpretive Data Percent cell count reference ranges are not reported, since discordance with absolute values may lead to misinterpretation of CBC data. Current Interpretive Data was last revised on 2017. Basophil pct 0.2 % [facility] Comment: Interpretive Data Percent cell count reference ranges are not reported, since discordance with absolute values may lead to misinterpretation of CBC data. Current Interpretive Data was last revised on 2017. Blood 05/27/2024 5:02 AM CAUSTIC PUMP OPERATOR 05/27/2024 5:12 AM CAUSTIC PUMP OPERATOR Jose Francisco Ledesma MD LAB BLOOD ORDERABLES Final Resul t Performing Organization Address City/[facility] Co de Phone Number [facility] [place] [address] * CBC with auto differential (05/27/2024 5:02 AM CAUSTIC PUMP OPERATOR) WBC 5.8 3.8 - 9.9 K/cumm Hgb 14.4 11.9 - 15.5 g/dL [facility] Hct 44.0 35.6 - 45.5 % [facility] Plt 212 150 - 400 K/cumm [facility] MPV 9.2 9.1 - 12.3 fL [facility] RBC 4.79 3.90 - 5.20 M/cumm [facility] MCV 91.9 81.3 - 96.4 fL [facility] MCH 30.1 27.1 - 33.3 pg [facility] MCHC 32.7 32.3 - 35.7 g/dL [facility] RDW CV 12.7 11.1 - 14.9 % [facility] RDW SD 43.1 35.7 - 48.1 fL [facility] NRBC abs 0.00 0.00 - 0.01 K/cumm [facility] Blood 05/27/2024 5:02 AM CAUSTIC PUMP OPERATOR 05/27/2024 5:12 AM CAUSTIC PUMP OPERATOR Jose Francisco Ledesma MD LAB BLOOD ORDERABLES Final Resul t Performing Organization Address [facility] Co de Phone Number [facility] [place] [address] * Type and screen (05/27/2024 5:02 AM CAUSTIC PUMP OPERATOR) Yamini, indirect Negative ABO Rh A Positive [facility] Blood 05/27/2024 5:02 AM CAUSTIC PUMP OPERATOR 05/27/2024 5:44 AM CAUSTIC PUMP OPERATOR Narrative [facility] - 05/27/2024 6:42 AM CAUSTIC PUMP OPERATOR Has the patient had Daratumumab or Isatuximab in the past 6 months?->Unknown Jose Francisco Ledesma MD LAB BLOOD BANK TEST ORDERABLES F inal Result Performing Organization Address City/[facility]/ZIP Co de Phone Number [facility] [place] [address] * Phosphorus (05/27/2024 5:02 AM CAUSTIC PUMP OPERATOR) Pathologist [facility] Phosphorus, pl 2.9 2.3 - 4.5 mg/dL Blood 05/27/2024 5:02 AM CAUSTIC PUMP OPERATOR 05/27/2024 5:13 AM CAUSTIC PUMP OPERATOR Jose Francisco Ledesma MD LAB BLOOD ORDERABLES Final Resul t Performing Organization Address [facility] Co de Phone Number [facility] [place] [address] * Magnesium (05/27/2024 5:02 AM CAUSTIC PUMP OPERATOR) [facility] Magnesium 2.3 1.4 - 2.5 mg/dL Blood 05/27/2024 5:02 AM CAUSTIC PUMP OPERATOR 05/27/2024 5:13 AM CAUSTIC PUMP OPERATOR Jose Francisco Ledesma MD LAB BLOOD ORDERABLES Final Resul t Performing Organization Address [facility] Co de Phone Number [facility] [place] [address] * (ABNORMAL) Comprehensive metabolic panel (05/27/2024 5:02 AM CAUSTIC PUMP OPERATOR) Pathologist [facility] Sodium 143 135 - 145 mmol/L Potassium, pl 3.9 3.3 - 4.9 mmol/L [facility] Chloride 106 97 - 110 mmol/L [facility] CO2 30 22 - 32 mmol/L [facility] Anion gap 7 2 - 15 mmol/L [facility] BUN 11 6 - 25 mg/dL [facility] Creatinine 0.96 0.60 - 1.10 mg/dL [facility] Glucose 85 70 - 199 mg/dL [facility] Comment: Interpretive Data Fasting glucose >/= 126 [...] Calcium 9.0 8.5 - 10.3 mg/dL [facility] Bilirubin, total 0.4 0.1 - 1.2 mg/dL [facility] Protein, pl 6.3(L) 6.5 - 8.5 g/dL [facility] Albumin 3.9 3.5 - 5.0 g/dL [facility] Alk phos 142(H) 40 - 130 Units/L [facility] ALT 28 7 - 45 Units/L [facility] AST 18 10 - 45 Units/L [facility] Blood 05/27/2024 5:02 AM CAUSTIC PUMP OPERATOR 05/27/2024 5:13 AM CAUSTIC PUMP OPERATOR Jose Francisco Ledesma MD LAB BLOOD ORDERABLES Final Resul t [facility] [place] [address] * eGFR (05/26/2024 3:58 AM CAUSTIC PUMP OPERATOR) eGFR 78 >=60 mL/min/1. 73 m2 Comment: [...] last reviewed 2021. Blood 05/26/2024 3:58 AM CAUSTIC PUMP OPERATOR 05/26/2024 4:09 AM CAUSTIC PUMP OPERATOR us Jose Francisco Ledesma MD LAB BLOOD ORDERABLES Final Resul t [facility] [place] [address] * Differential, auto (05/26/2024 3:58 AM CAUSTIC PUMP OPERATOR) Neutrophil abs 4.3 1.5 - 6.5 K/cumm Imm gran abs 0.1 0.0 - 0.1 K/cumm [facility] Lymphocyte abs 0.8 0.8 - 3.3 K/cumm [facility] Monocyte abs 0.6 0.2 - 0.8 K/cumm [facility] Eosinophil abs 0.0 0.0 - 0.5 K/cumm [facility] Basophil abs 0.0 0.0 - 0.1 K/cumm [facility] Neutrophil pct 74.3 % [facility] Comment: Interpretive Data Percent cell count reference ranges are not reported, since discordance with absolute values may lead to misinterpretation of CBC data. Current Interpretive Data was last revised on 2017. Imm gran pct 0.9 % [facility] Comment: Interpretive Data Percent cell count reference ranges are not reported, since discordance with absolute values may lead to misinterpretation of CBC data. Current Interpretive Data was last revised on 2017. Lymphocyte pct 13.9 % [facility] Comment: Interpretive Data Percent cell count reference ranges are not reported, since discordance with absolute values may lead to misinterpretation of CBC data. Current Interpretive Data was last revised on 2017. Monocyte pct 10.4 % [facility] Comment: Interpretive Data Percent cell count reference ranges are not reported, since discordance with absolute values may lead to misinterpretation of CBC data. Current Interpretive Data was last revised on 2017. Eosinophil pct 0.2 % [facility] Comment: Interpretive Data Percent cell count reference ranges are not reported, since discordance with absolute values may lead to misinterpretation of CBC data. Current Interpretive Data was last revised on 2017. Basophil pct 0.3 % [facility] Comment: Interpretive Data Percent cell count reference ranges are not reported, since discordance with absolute values may lead to misinterpretation of CBC data. Current Interpretive Data was last revised on 2017. Blood 05/26/2024 3:58 AM CAUSTIC PUMP OPERATOR 05/26/2024 4:09 AM CAUSTIC PUMP OPERATOR us Jose Francisco Ledesma MD LAB BLOOD ORDERABLES Final Resul t [facility] [place] [address] * CBC with auto differential (05/26/2024 3:58 AM CAUSTIC PUMP OPERATOR) WBC 5.8 3.8 - 9.9 K/cumm Hgb 14.2 11.9 - 15.5 g/dL [facility] Hct 43.1 35.6 - 45.5 % [facility] Plt 222 150 - 400 K/cumm [facility] MPV 9.2 9.1 - 12.3 fL [facility] RBC 4.74 3.90 - 5.20 M/cumm [facility] MCV 90.9 81.3 - 96.4 fL [facility] MCH 30.0 27.1 - 33.3 pg [facility] MCHC 32.9 32.3 - 35.7 g/dL [facility] RDW CV 12.9 11.1 - 14.9 % [facility] RDW SD 42.6 35.7 - 48.1 fL [facility] NRBC abs 0.00 0.00 - 0.01 K/cumm [facility] Blood 05/26/2024 3:58 AM CAUSTIC PUMP OPERATOR 05/26/2024 4:09 AM CAUSTIC PUMP OPERATOR Jose Francisco Ledesma MD LAB BLOOD ORDERABLES Final Resul t Performing Organization Address [facility] de Phone Number [facility] [email or web address] [address] * Uric acid (05/26/2024 3:58 AM CAUSTIC PUMP OPERATOR) Uric acid 4.2 2.5 - 7.0 mg/dL Blood 05/26/2024 3:58 AM CAUSTIC PUMP OPERATOR 05/26/2024 4:09 AM CAUSTIC PUMP OPERATOR Narrative [facility] - 05/26/2024 4:41 AM CAUSTIC PUMP OPERATOR Thursday and only. Morning draw. . Jose Francisco Ledesma MD LAB BLOOD ORDERABLES Final Resul t Performing Organization Address [facility] de Phone Number [facility] [place] [address] * Phosphorus (05/26/2024 3:58 AM CAUSTIC PUMP OPERATOR) Phosphorus, pl 3.1 2.3 - 4.5 mg/dL Blood 05/26/2024 3:58 AM CAUSTIC PUMP OPERATOR 05/26/2024 4:09 AM CAUSTIC PUMP OPERATOR Jose Francisco Ledesma MD LAB BLOOD ORDERABLES Final Resul t Performing Organization Address [facility] de Phone Number [facility] [email or web address] [address] * Magnesium (05/26/2024 3:58 AM CAUSTIC PUMP OPERATOR) Magnesium 2.3 1.4 - 2.5 mg/dL Blood 05/26/2024 3:58 AM CAUSTIC PUMP OPERATOR 05/26/2024 4:09 AM CAUSTIC PUMP OPERATOR Jose Francisco Ledesma MD LAB BLOOD ORDERABLES Final Resul t Performing Organization Address [facility] de Phone Number [facility] [place] [address] * Lactate dehydrogenase (LD) (05/26/2024 3:58 AM CAUSTIC PUMP OPERATOR) [facility] Lactate dehydrogenase (LDH) 233 100 - 250 Units/L Blood 05/26/2024 3:58 AM CAUSTIC PUMP OPERATOR 05/26/2024 4:09 AM CAUSTIC PUMP OPERATOR Narrative [facility] - 05/26/2024 4:41 AM CAUSTIC PUMP OPERATOR Thursday and only. Morning draw. Jose Francisco Ledesma MD LAB BLOOD ORDERABLES Final Resul t Performing Organization Address [facility] de Phone Number [facility] [place] [address] * (ABNORMAL) Comprehensive metabolic panel (05/26/2024 3:58 AM CAUSTIC PUMP OPERATOR) [facility] Sodium 141 135 - 145 mmol/L Potassium, pl 3.7 3.3 - 4.9 mmol/L [facility] Chloride 106 97 - 110 mmol/L [facility] CO2 30 22 - 32 mmol/L [facility] Anion gap 5 2 - 15 mmol/L [facility] BUN 15 6 - 25 mg/dL [facility] Creatinine 0.87 0.60 - 1.10 mg/dL [facility] Glucose 100 70 - 199 mg/dL [facility] Comment: Interpretive Data Fasting glucose >/= 126 [...] 2022. Calcium 9.0 8.5 - 10.3 mg/dL [facility] Bilirubin, total 0.4 0.1 - 1.2 mg/dL [facility] Protein, pl 6.1(L) 6.5 - 8.5 g/dL [facility] Albumin 3.8 3.5 - 5.0 g/dL [facility] Alk phos 133(H) 40 - 130 Units/L [facility] ALT 22 7 - 45 Units/L [facility] AST 18 10 - 45 Units/L [facility] Blood 05/26/2024 3:58 AM CAUSTIC PUMP OPERATOR 05/26/2024 4:09 AM CAUSTIC PUMP OPERATOR Jose Francisco Ledesma MD LAB BLOOD ORDERABLES Final Resul t Performing Organization Address City/[facility]/ZIP Co de Phone Number [facility] [email or web address] [address] * Herpes Simplex Virus (HSV) PCR Oral (05/24/2024 6:15 PM CAUSTIC PUMP OPERATOR) Pathologist [facility] HSV DNA Not Detected Not Detected [facility] Comment: Interpretive Data This assay is performed [...] reviewed on 09/07/2018 Oral 05/24/2024 6:15 PM CAUSTIC PUMP OPERATOR 05/24/2024 8:38 PM CAUSTIC PUMP OPERATOR Jose Aldridge MD LAB MICROBIOLOGY - GENERAL ORDERABLES Final Result [facility] [place] [address] [facility] * IR Angio Selective Internal Carotid Right (05/24/2024 4:53 PM CAUSTIC PUMP OPERATOR) Anatomical Region Laterality Modality Neck Right Radio Fluoroscop y 05/26/2024 3:18 PM CAUSTIC PUMP OPERATOR Impressions 05/27/2024 12:47 PM CAUSTIC PUMP OPERATOR 1. Occlusion and nonopacification of the anterior [...] Otis Salas MD Narrative 05/27/2024 12:47 PM CAUSTIC PUMP OPERATOR DIAGNOSTIC CEREBRAL ANGIOGRAM CLINICAL INDICATION: Patient is [...] (3000 units) / MATERIALS: 21-gauge needle 5 [place] Merit Prelude IDeal sheath 23cm and mini guidewire 5 [place] Fu 2 [place] catheter Terumo glidewire TR Band CONTRAST: Visipaque [...] and were stored to PACS.. The 5 [place] CompareAway Prelude IDeal sheath 23cm was then introduced into the right radial artery over the mini guidewire. A cocktail of Verapamil (2.5 mg), Nitroglycerin (200 mcg), and Heparin (3000 units) was slowly injected into the right radial artery through the sheath over several minutes, with close monitoring of blood pressure. A Terumo Glidewire and 5 [place] Fu 2 [place] catheter were advanced into the aortic arch [...] (3000 units) / MATERIALS: 21-gauge needle 5 [place] Merit Prelude IDeal sheath 23cm and mini guidewire 5 [place] Fu 2 [place] catheter Terumo glidewire TR Band CONTRAST: Visipaque [...] and were stored to PACS.. The 5 [place] Merit Prelude IDeal sheath 23cm was then introduced into the right radial artery over the mini guidewire. A cocktail of Verapamil (2.5 mg), Nitroglycerin (200 mcg), and Heparin (3000 units) was slowly injected into the right radial artery through the sheath over several minutes, with close monitoring of blood pressure. A Terumo Glidewire and 5 [place] Fu 2 [place] catheter were advanced into the aortic arch [...] Head W WO Contrast (05/24/2024 9:41 AM CAUSTIC PUMP OPERATOR) Anatomical Region Laterality Modality Head and Neck N/A Magnetic Resonan ce 05/24/2024 11:5 7 AM CAUSTIC PUMP OPERATOR Impressions 05/24/2024 12:15 PM CAUSTIC PUMP OPERATOR 1. Stable supratentorial and infratentorial foci of [...] Manolo Fournier MD Narrative 05/24/2024 12:15 PM CAUSTIC PUMP OPERATOR EXAMINATION: 1. Magnetic resonance imaging (MRI) of [...] it. Electronically signed by: Manolo Fournier MD Elizabeth Marsh MD IMG MRI PROCEDURES Final Result * eGFR (05/24/2024 2:28 AM CAUSTIC PUMP OPERATOR) eGFR 74 >=60 mL/min/1. 73 m2 Comment: [...] last reviewed 2021. Blood 05/24/2024 2:28 AM CAUSTIC PUMP OPERATOR 05/24/2024 3:14 AM CAUSTIC PUMP OPERATOR us Jose Francisco Ledesma MD LAB BLOOD ORDERABLES Final Resul t [facility] [place] [address] * Differential, auto (05/24/2024 2:28 AM CAUSTIC PUMP OPERATOR) Neutrophil abs 4.6 1.5 - 6.5 K/cumm Imm gran abs 0.1 0.0 - 0.1 K/cumm [facility] Lymphocyte abs 1.0 0.8 - 3.3 K/cumm [facility] Monocyte abs 0.8 0.2 - 0.8 K/cumm [facility] Eosinophil abs 0.0 0.0 - 0.5 K/cumm [facility] Basophil abs 0.0 0.0 - 0.1 K/cumm [facility] Neutrophil pct 70.8 % [facility] Comment: Interpretive Data Percent cell count reference ranges are not reported, since discordance with absolute values may lead to misinterpretation of CBC data. Current Interpretive Data was last revised on 2017. Imm gran pct 1.1 % [facility] Comment: Interpretive Data Percent cell count reference ranges are not reported, since discordance with absolute values may lead to misinterpretation of CBC data. Current Interpretive Data was last revised on 2017. Lymphocyte pct 15.2 % [facility] Comment: Interpretive Data Percent cell count reference ranges are not reported, since discordance with absolute values may lead to misinterpretation of CBC data. Current Interpretive Data was last revised on 2017. Monocyte pct 12.6 % [facility] Comment: Interpretive Data Percent cell count reference ranges are not reported, since discordance with absolute values may lead to misinterpretation of CBC data. Current Interpretive Data was last revised on 2017. Eosinophil pct 0.0 % [facility] Comment: Interpretive Data Percent cell count reference ranges are not reported, since discordance with absolute values may lead to misinterpretation of CBC data. Current Interpretive Data was last revised on 2017. Basophil pct 0.3 % [facility] Comment: Interpretive Data Percent cell count reference ranges are not reported, since discordance with absolute values may lead to misinterpretation of CBC data. Current Interpretive Data was last revised on 2017. Blood 05/24/2024 2:28 AM CAUSTIC PUMP OPERATOR 05/24/2024 3:14 AM CAUSTIC PUMP OPERATOR Jose Francisco Ledesma MD LAB BLOOD ORDERABLES Final Resul t Performing Organization Address City/[facility]/ZIP Co de Phone Number [facility] [place] [address] * (ABNORMAL) CBC with auto differential (05/24/2024 2:28 AM CAUSTIC PUMP OPERATOR) WBC 6.5 3.8 - 9.9 K/cumm Hgb 16.2(H) 11.9 - 15.5 g/dL [facility] Hct 48.9(H) 35.6 - 45.5 % [facility] Plt 246 150 - 400 K/cumm [facility] MPV 9.2 9.1 - 12.3 fL [facility] RBC 5.35(H) 3.90 - 5.20 M/cumm [facility] MCV 91.4 81.3 - 96.4 fL [facility] MCH 30.3 27.1 - 33.3 pg [facility] MCHC 33.1 32.3 - 35.7 g/dL [facility] RDW CV 12.9 11.1 - 14.9 % [facility] RDW SD 43.0 35.7 - 48.1 fL [facility] NRBC abs 0.00 0.00 - 0.01 K/cumm [facility] Blood 05/24/2024 2:28 AM CAUSTIC PUMP OPERATOR 05/24/2024 3:14 AM CAUSTIC PUMP OPERATOR Jose Francisco Ledesma MD LAB BLOOD ORDERABLES Final Resul t Performing Organization Address City/[facility]/ZIP Co de Phone Number [facility] [place] [address] * RPR Blood (05/24/2024 2:28 AM CAUSTIC PUMP OPERATOR) RPR Nonreactive Nonreactive Blood 05/24/2024 2:28 AM CAUSTIC PUMP OPERATOR 05/24/2024 2:58 AM CAUSTIC PUMP OPERATOR Jerome Boss MD PhD LAB MICROBIOLOGY - GENERAL ORDERABLES Final Result Performing Organization Address City/[facility] Co de Phone Number [facility] [email or web address] [address] * (ABNORMAL) Levetiracetam level (05/24/2024 2:28 AM CAUSTIC PUMP OPERATOR) Levetiracetam (Keppra) 82.6(H) 10.0 - 40.0 mcg/mL [facility] Comment: ADDITIONAL INFORMATION This test was developed and its performance characteristics determined by [facility] in a manner consistent with CLIA requirements. This test has not been cleared or approved by the U.S. Food and Drug Administration. Test Performed by: [facility] [place] [address] [employer]: Marek Barry Ph.D.; CLIA# [id number] Blood 05/24/2024 2:28 AM CAUSTIC PUMP OPERATOR 05/24/2024 8:19 AM CAUSTIC PUMP OPERATOR Jose Francisco Ledesma MD LAB BLOOD ORDERABLES Final Resul t Performing Organization Address [facility] Co de Phone Number [facility] [email or web address] [address] [place] [facility] * aPTT (05/24/2024 2:28 AM CAUSTIC PUMP OPERATOR) aPTT 35 28 - 38 sec Comment: Interpretive Data Heparin therapeutic range: 66.0 - 100.0 seconds. Range based on correlation with therapeutic heparin activity range of 0.3 - 0.7 Units/mL. Current interpretive data was last revised on 2023. Blood 05/24/2024 2:28 AM CAUSTIC PUMP OPERATOR 05/24/2024 3:01 AM CAUSTIC PUMP OPERATOR Jose Francisco Ledesma MD LAB BLOOD ORDERABLES Final Resul t Performing Organization Address City/[facility] de Phone Number [facility] [place] [address] * (ABNORMAL) Protime-INR (05/24/2024 2:28 AM CAUSTIC PUMP OPERATOR) PT 17.0(H) 9.7 - 13.0 sec INR 1.56(H) 0.90 - 1.20 [facility] Comment: Interpretive data Oral anticoagulant therapeutic ranges: Venous thromboembolism prophylaxis or treatment: 2.0-3.0 CARDIOLOGY Standard range: 2.0-3.0 High-intensity range: 2.5-3.5 Refer to indication-specific guidelines for appropriate target ranges for prosthetic heart valve replacement. Current interpretive data was last revised on 2019. Blood 05/24/2024 2:28 AM CAUSTIC PUMP OPERATOR 05/24/2024 3:01 AM CAUSTIC PUMP OPERATOR Jose Francisco Ledesma MD LAB BLOOD ORDERABLES Final Resul t Performing Organization Address [facility] Co de Phone Number [facility] [place] [address] * Type and screen (05/24/2024 2:28 AM CAUSTIC PUMP OPERATOR) Yamini, indirect Negative ABO Rh A Positive [facility] Blood 05/24/2024 2:28 AM CAUSTIC PUMP OPERATOR 05/24/2024 3:21 AM CAUSTIC PUMP OPERATOR Narrative [facility] - 05/24/2024 4:21 AM CAUSTIC PUMP OPERATOR Has the patient had Daratumumab or Isatuximab in the past 6 months?->Unknown Result [facility] Jose Francisco Ledesma MD LAB BLOOD BANK TEST ORDERABLES F inal Result Performing Organization Address [facility] de Phone Number [facility] [email or web address] [address] * Uric acid (05/24/2024 2:28 AM CAUSTIC PUMP OPERATOR) Uric acid 5.1 2.5 - 7.0 mg/dL Blood 05/24/2024 2:28 AM CAUSTIC PUMP OPERATOR 05/24/2024 3:14 AM CAUSTIC PUMP OPERATOR Narrative [facility] - 05/24/2024 3:46 AM CAUSTIC PUMP OPERATOR Thursday and only. Morning draw. . Jose Francisco Ledesma MD LAB BLOOD ORDERABLES Final Resul t Performing Organization Address [facility] Phone Number [facility] [place] [address] * Phosphorus (05/24/2024 2:28 AM CAUSTIC PUMP OPERATOR) Phosphorus, pl 3.5 2.3 - 4.5 mg/dL Blood 05/24/2024 2:28 AM CAUSTIC PUMP OPERATOR 05/24/2024 3:14 AM CAUSTIC PUMP OPERATOR Result [facility] Jose Francisco Ledesma MD LAB BLOOD ORDERABLES Final Resul t Performing Organization Address [facility] de Phone Number [facility] [place] [address] * Magnesium (05/24/2024 2:28 AM CAUSTIC PUMP OPERATOR) Magnesium 2.5 1.4 - 2.5 mg/dL Blood 05/24/2024 2:28 AM CAUSTIC PUMP OPERATOR 05/24/2024 3:14 AM CAUSTIC PUMP OPERATOR Jose Francisco Ledesma MD LAB BLOOD ORDERABLES Final Resul t Performing Organization Address [facility] de Phone Number [facility] [place] [address] * (ABNORMAL) Lactate dehydrogenase (LD) (05/24/2024 2:28 AM CAUSTIC PUMP OPERATOR) [facility] Lactate dehydrogenase (LDH) 338(H) 100 - 250 Units/L Blood 05/24/2024 2:28 AM CAUSTIC PUMP OPERATOR 05/24/2024 3:14 AM CAUSTIC PUMP OPERATOR Narrative [facility] - 05/24/2024 3:46 AM CAUSTIC PUMP OPERATOR Thursday and only. Morning draw. Jose Francisco Ledesma MD LAB BLOOD ORDERABLES Final Resul t [facility] [place] [address] * Vitamin B12 (05/24/2024 2:28 AM CAUSTIC PUMP OPERATOR) [facility] Vitamin B12 266 230 - 1,250 pg/mL Blood 05/24/2024 2:28 AM CAUSTIC PUMP OPERATOR 05/24/2024 3:14 AM CAUSTIC PUMP OPERATOR Jerome Boss MD PhD LAB BLOOD ORDERABL ES Final Result [facility] [place] [address] * (ABNORMAL) Comprehensive metabolic panel (05/24/2024 2:28 AM CAUSTIC PUMP OPERATOR) [facility] Sodium 142 135 - 145 mmol/L Potassium, pl 3.3 3.3 - 4.9 mmol/L [facility] Chloride 101 97 - 110 mmol/L [facility] CO2 29 22 - 32 mmol/L [facility] Anion gap 12 2 - 15 mmol/L [facility] BUN 16 6 - 25 mg/dL [facility] Creatinine 0.91 0.60 - 1.10 mg/dL [facility] Glucose 82 70 - 199 mg/dL [facility] Comment: Interpretive Data Fasting glucose >/= 126 [...] 2022. Calcium 9.5 8.5 - 10.3 mg/dL [facility] Bilirubin, total 0.5 0.1 - 1.2 mg/dL [facility] Protein, pl 7.0 6.5 - 8.5 g/dL [facility] Albumin 4.2 3.5 - 5.0 g/dL [facility] Alk phos 168(H) 40 - 130 Units/L [facility] ALT 32 7 - 45 Units/L [facility] AST 24 10 - 45 Units/L [facility] Blood 05/24/2024 2:28 AM CAUSTIC PUMP OPERATOR 05/24/2024 3:14 AM CAUSTIC PUMP OPERATOR Jose Francisco Ledesma MD LAB BLOOD ORDERABLES Final Resul t [facility] [place] [address] * Blood culture Blood (05/23/2024 5:33 PM CAUSTIC PUMP OPERATOR) Report Final Report: No growth Blood 05/23/2024 5:33 PM CAUSTIC PUMP OPERATOR 05/23/2024 5:56 PM CAUSTIC PUMP OPERATOR Narrative [facility] - 05/28/2024 7:00 AM CAUSTIC PUMP OPERATOR 1. Blood cultures are incubated for 4 [...] performance characteristics have been verified by the [facility]biology [facility]. For questions about this culture, contact the Microbiology Laboratory at [phone]. Interpretive data was last revised on 24. Jose Francisco Ledesma MD LAB MICROBIOLOGY - GENERAL ORDER BRITTANI Final Result [facility] [place] [address] * Blood culture Blood (05/23/2024 5:33 PM CAUSTIC PUMP OPERATOR) Report Final Report: No growth Blood 05/23/2024 5:33 PM CAUSTIC PUMP OPERATOR 05/23/2024 5:56 PM CAUSTIC PUMP OPERATOR Narrative [facility] - 05/28/2024 7:00 AM CAUSTIC PUMP OPERATOR 1. Blood cultures are incubated for 4 [...] performance characteristics have been verified by the [facility]biology [facility]. For questions about this culture, contact the Microbiology Laboratory at [phone]. Interpretive data was last revised on 24. Result [facility] Jose Francisco Ledesma MD LAB MICROBIOLOGY - GENERAL ORDER BRITTANI Final Result Performing Organization Address City/[facility]/ZIP Co de Phone Number [facility] [place] [address] * Type and screen (05/23/2024 5:33 PM CAUSTIC PUMP OPERATOR) ABO Rh A Positive Yamini, indirect Negative [facility] Blood 05/23/2024 5:33 PM CAUSTIC PUMP OPERATOR 05/23/2024 5:45 PM CAUSTIC PUMP OPERATOR Narrative [facility] - 05/23/2024 6:31 PM CAUSTIC PUMP OPERATOR Has the patient had Daratumumab or Isatuximab in the past 6 months?->Unknown Result [facility] Jose Francisco Ledesma MD LAB BLOOD BANK TEST ORDERABLES F inal Result Performing Organization Address [facility]/ZIP Co de Phone Number [facility] [place] [address] * Troponin I high-sensitivity 2-hour (05/23/2024 3:50 PM CAUSTIC PUMP OPERATOR) Trop I hs <4 <=17 ng/L Comment: Interpretive Data For further hscTnI resources including the diagnostic algorithm and an aid in interpretation, copy and paste this link: https://bjhlab.testcatalog.org/show/hsTrop-[email or web address] Current Interpretive Data last revised 2019. Trop I hs delta 0 ng/L [facility] Trop I hs interp Insignificant [facility] Blood 05/23/2024 3:50 PM CAUSTIC PUMP OPERATOR 05/23/2024 4:23 PM CAUSTIC PUMP OPERATOR Result [facility] Rosalinda Salazar MD LAB BLOOD ORDERABLES Final Result [facility] [place] [address] * ECG 12-LEAD (05/23/2024 3:03 PM CAUSTIC PUMP OPERATOR) Narrative [facility] - 05/23/2024 3:03 PM CAUSTIC PUMP OPERATOR Rosalinda Salazar MD 05/23/2024 3:05 PM ECG [...] in the ED Rosalinda Salazar MD 05/23/24 0507 Rosalinda Salazar MD ECG ORDERABLES Final Resu lt [facility] * Throat culture Throat (05/23/2024 2:24 PM CAUSTIC PUMP OPERATOR) Pathologist [facility] Report Final Report: No growth of pathogens. Throat 05/23/2024 2:24 PM CAUSTIC PUMP OPERATOR 05/23/2024 2:34 PM CAUSTIC PUMP OPERATOR Narrative [facility] - 05/24/2024 10:15 AM CAUSTIC PUMP OPERATOR Testing performed by [facility]biology Laboratory ([phone]). Rosalinda Salazar MD LAB MICROBIOLOGY - GENERAL ORDERABLES Final Result Performing Organization Address [facility] Co de Phone Number [facility] [place] [address] * Troponin I high-sensitivity series (baseline, 2hr, 4hr, 6hr) (05/23/2024 1:40 PM CAUSTIC PUMP OPERATOR) [facility] Trop I hs <4 <=17 ng/L Comment: Interpretive Data For further hscTnI resources including the diagnostic algorithm and an aid in interpretation, copy and paste this link: https://bjhlab.testcatalog.org/show/[email or web address] Current Interpretive Data last revised 2019. Blood 05/23/2024 1:40 PM CAUSTIC PUMP OPERATOR 05/23/2024 2:10 PM CAUSTIC PUMP OPERATOR Rosalinda Salazar MD LAB BLOOD ORDERABLES Final Result Performing Organization Address [facility] de Phone Number [facility] [place] [address] * (ABNORMAL) Blood gas, venous (05/23/2024 1:40 PM CAUSTIC PUMP OPERATOR) [facility] pH, Venous 7.43 7.32 - 7.43 PCO2, Venous 47 40 - 50 mmHg [facility] PO2, Venous 36 mmHg [facility] Comment: Interpretive Data No Reference Range Established Current Interpretive Data was last revised on 2017. HCO3 Venous, Calculated 32(H) 20 - 30 mmol/L [facility] BE, venous 5 mmol/L [facility] Comment: Interpretive Data No Reference Range Established Current Interpretive Data was last revised on 2017. Blood 05/23/2024 1:40 PM CAUSTIC PUMP OPERATOR 05/23/2024 1:55 PM CAUSTIC PUMP OPERATOR Rosalinda Salazar MD LAB BLOOD ORDERABLES Final Result [facility] [place] [address] * XR Chest 1 View (05/23/2024 1:29 PM CAUSTIC PUMP OPERATOR) Anatomical Region Laterality Modality Body, Chest N/A Computed Radiogr aphy 05/23/2024 1:33 PM CAUSTIC PUMP OPERATOR Impressions 05/23/2024 1:33 PM CAUSTIC PUMP OPERATOR Comparison to prior dated 01/12/2024. Linear atelectasis in left lung base. Lungs are otherwise clear. No focal consolidation, pleural effusion, pneumothorax or pulmonary edema. Cardiomediastinal silhouette is normal. Electronically signed by: Favian Jamison M.D. Narrative 05/23/2024 1:33 PM CAUSTIC PUMP OPERATOR EXAMINATION: 1 view chest radiograph Procedure Note Favian Jamison MD PhD - 05/23/2024 EXAMINATION: 1 view chest radiograph IMPRESSION: Comparison to prior dated 01/12/2024. Linear atelectasis in left lung base. Lungs are otherwise clear. No focal consolidation, pleural effusion, pneumothorax or pulmonary edema. Cardiomediastinal silhouette is normal. Electronically signed by: Favian Jamison M.D. us Elizabeth Marsh MD IMG XR PROCEDURES Final Result * Lactate (05/23/2024 12:28 PM CAUSTIC PUMP OPERATOR) Lactate 1.2 0.7 - 2.0 mmol/L Blood 05/23/2024 12:2 8 PM CAUSTIC PUMP OPERATOR 05/23/2024 12:45 PM CAUSTIC PUMP OPERATOR us Elizabeth Marsh MD LAB BLOOD ORDERABL ES Final Result [facility] [place] [address] * Respiratory pathogen panel Nasopharyngeal (05/23/2024 12:28 PM CAUSTIC PUMP OPERATOR) Influenza A RNA Not Detected Not Detected Influenza B RNA Not Detected Not Detected [facility] RSV RNA Not Detected Not Detected [facility] COVID-19 RNA Not Detected Not Detected [facility] Coronavirus 229E RNA Not Detected Not Detected [facility] Coronavirus HKU1 RNA Not Detected Not Detected [facility] Coronavirus NL63 RNA Not Detected Not Detected [facility] Coronavirus OC43 RNA Not Detected Not Detected [facility] Adenovirus DNA Not Detected Not Detected [facility] Metapneumovirus RNA Not Detected Not Detected [facility] Rhinovirus/Enterov irus RNA Not Detected Not Detected [facility] Parainfluenza 1 RNA Not Detected Not Detected [facility] Parainfluenza 2 RNA Not Detected Not Detected [facility] Parainfluenza 3 RNA Not Detected Not Detected [facility] Parainfluenza 4 RNA Not Detected Not Detected [facility] B. pertussis DNA Not Detected Not Detected [facility] B. parapertussis DNA Not Detected Not Detected [facility] C. pneumoniae DNA Not Detected Not Detected [facility] M. pneumoniae DNA Not Detected Not Detected [facility] Nasopharyngeal 05/23/2024 12 :28 PM CAUSTIC PUMP OPERATOR 05/23/2024 1:02 PM CAUSTIC PUMP OPERATOR Narrative [facility] - 05/23/2024 2:05 PM CAUSTIC PUMP OPERATOR Is the Patient experiencing symptoms consistent with COVID?->No Surveillance testing for transplant patient?->No Interpretive Data The [employer] FilmArray Respiratory Panel (RP2.1) assay is a [...] assay has FDA clearance for testing of MAIL SORTER AND DELIVERY swabs. The performance of additional specimen types has been assessed by the performing laboratory. The performance characteristics of this assay have been determined by [facility]. Current interpretive data was last revised on 22. Elizabeth Marsh MD LAB MICROBIOLOGY - GENERAL ORDERABLES Final Result [facility] [place] [address] * CT Head WO Contrast (05/23/2024 12:10 PM CAUSTIC PUMP OPERATOR) Anatomical Region Laterality Modality Head and Neck N/A Computed Tomogra phy 05/23/2024 12:4 2 PM CAUSTIC PUMP OPERATOR Impressions 05/23/2024 12:42 PM CAUSTIC PUMP OPERATOR 1. No acute intracranial hemorrhage. 2. Redemonstrated intracranial metastatic disease. Electronically signed by: Brenden Hi M.D. Narrative 05/23/2024 12:42 PM CAUSTIC PUMP OPERATOR EXAMINATION: CT head without contrast HISTORY: Headache, [...] by: Brenden Hi M.D. Elizabeth Marsh MD IM CT PROCEDURES Final Result * (ABNORMAL) Urinalysis reflex to microscopic and culture Urine (05/23/2024 11:56 AM CAUSTIC PUMP OPERATOR) Color, ur Yellow Yellow Clarity, ur Cloudy(A) Clear [facility] Specific gravity, ur 1.027 1.003 - 1.030 [facility] pH, urine 7.0 [facility] Comment: Interpretive Data U rine pH is affected by diet, medications, systemic acid-base disturbances, and renal tubular function. pH may affect urinary stone formation. For example, urine pH below 6.0 may help reduce the tendency for calcium phosphate stones and pH greater than 6.0 may reduce the tendency for uric acid stone formation. Source: [facility] Current Interpretive Data was last revised on 2017 Protein, ur ql Trace Negative [facility] Glucose, ur ql Negative Negative [facility] Ketones, ur Negative Negative [facility] Bilirubin, ur Negative Negative [facility] Blood, ur Trace(A) Negative [facility] Urobilinogen, ur <2.0 <2.0 mg/dL [facility] Nitrite, ur Negative Negative [facility] Leukocyte esterase, ur 1+(A) Negative [facility] UA reflex comment Reflex to microscopic UA will be performed. [facility] Urine 05/23/2024 11:5 6 AM CAUSTIC PUMP OPERATOR 05/23/2024 12:02 PM CAUSTIC PUMP OPERATOR Elizabeth Marsh MD LAB MICROBIOLOGY - GENERAL ORDERABLES Final Result Performing Organization Address [facility] de Phone Number [facility] [place] [address] * (ABNORMAL) Urinalysis, microscopic only (05/23/2024 11:56 AM CAUSTIC PUMP OPERATOR) WBC, ur 0-5 0 - 5 /HPF RBC, ur 6-10(A) 0 - 2 /HPF [facility] Epithelial cells, squamous, ur 6-10(A) 0 - 5 /HPF [facility] Comment:Suggestive of contam ination. Consider recollection by clean catch. Culture Reflex Comment Reflex conditions for urine culture (WBC >10) not met. [facility] Urine 05/23/2024 11:5 6 AM CAUSTIC PUMP OPERATOR 05/23/2024 12:02 PM CAUSTIC PUMP OPERATOR Elizabeth Marsh MD LAB URINE ORDERABL ES Final Result Performing Organization Address [facility] de Phone Number [facility] [place] [address] * eGFR (05/23/2024 11:53 AM CAUSTIC PUMP OPERATOR) eGFR 62 >=60 mL/min/1. 73 m2 Comment: [...] reviewed 2021. Blood 05/23/2024 11:5 3 AM CAUSTIC PUMP OPERATOR 05/23/2024 12:14 PM CAUSTIC PUMP OPERATOR us Elizabeth Marsh MD LAB BLOOD ORDERABL ES Final Result [facility] [place] [address] * (ABNORMAL) Differential, auto (05/23/2024 11:53 AM CAUSTIC PUMP OPERATOR) Neutrophil abs 6.2 1.5 - 6.5 K/cumm Imm gran abs 0.1 0.0 - 0.1 K/cumm [facility] Lymphocyte abs 0.6(L) 0.8 - 3.3 K/cumm [facility] Monocyte abs 0.4 0.2 - 0.8 K/cumm [facility] Eosinophil abs 0.0 0.0 - 0.5 K/cumm [facility] Basophil abs 0.0 0.0 - 0.1 K/cumm [facility] Neutrophil pct 85.1 % [facility] Comment: Interpretive Data Percent cell count reference ranges are not reported, since discordance with absolute values may lead to misinterpretation of CBC data. Current Interpretive Data was last revised on 2017. Imm gran pct 0.8 % [facility] Comment: Interpretive Data Percent cell count reference ranges are not reported, since discordance with absolute values may lead to misinterpretation of CBC data. Current Interpretive Data was last revised on 2017. Lymphocyte pct 7.9 % [facility] Comment: Interpretive Data Percent cell count reference ranges are not reported, since discordance with absolute values may lead to misinterpretation of CBC data. Current Interpretive Data was last revised on 2017. Monocyte pct 5.9 % [facility] Comment: Interpretive Data Percent cell count reference ranges are not reported, since discordance with absolute values may lead to misinterpretation of CBC data. Current Interpretive Data was last revised on 2017. Eosinophil pct 0.0 % [facility] Comment: Interpretive Data Percent cell count reference ranges are not reported, since discordance with absolute values may lead to misinterpretation of CBC data. Current Interpretive Data was last revised on 2017. Basophil pct 0.3 % [facility] Comment: Interpretive Data Percent cell count reference ranges are not reported, since discordance with absolute values may lead to misinterpretation of CBC data. Current Interpretive Data was last revised on 2017. Blood 05/23/2024 11:5 3 AM CAUSTIC PUMP OPERATOR 05/23/2024 12:14 PM CAUSTIC PUMP OPERATOR Elizabeth Marsh MD LAB BLOOD ORDERABL ES Final Result [facility] [place] [address] * (ABNORMAL) CBC with auto differential (05/23/2024 11:53 AM CAUSTIC PUMP OPERATOR) WBC 7.3 3.8 - 9.9 K/cumm Hgb 15.8(H) 11.9 - 15.5 g/dL [facility] Hct 47.4(H) 35.6 - 45.5 % [facility] Plt 196 150 - 400 K/cumm [facility] MPV 9.1 9.1 - 12.3 fL [facility] RBC 5.12 3.90 - 5.20 M/cumm [facility] MCV 92.6 81.3 - 96.4 fL [facility] MCH 30.9 27.1 - 33.3 pg [facility] MCHC 33.3 32.3 - 35.7 g/dL [facility] RDW CV 12.8 11.1 - 14.9 % [facility] RDW SD 43.2 35.7 - 48.1 fL [facility] NRBC abs 0.00 0.00 - 0.01 K/cumm [facility] Blood 05/23/2024 11:5 3 AM CAUSTIC PUMP OPERATOR 05/23/2024 12:14 PM CAUSTIC PUMP OPERATOR Elizabeth Marsh MD LAB BLOOD ORDERABL ES Final Result Performing Organization Address City/[facility] Co de Phone Number [facility] [email or web address] [address] * Phosphorus (05/23/2024 11:53 AM CAUSTIC PUMP OPERATOR) [facility] Phosphorus, pl 3.7 2.3 - 4.5 mg/dL Blood 05/23/2024 11:5 3 AM CAUSTIC PUMP OPERATOR 05/23/2024 12:14 PM CAUSTIC PUMP OPERATOR Jerome Boss MD PhD LAB BLOOD ORDERABL ES Final Result Performing Organization Address [facility] de Phone Number [facility] [email or web address] [address] * Magnesium (05/23/2024 11:53 AM CAUSTIC PUMP OPERATOR) [facility] Magnesium 2.3 1.4 - 2.5 mg/dL Blood 05/23/2024 11:5 3 AM CAUSTIC PUMP OPERATOR 05/23/2024 12:14 PM CAUSTIC PUMP OPERATOR Result [facility] Jerome Boss MD PhD LAB BLOOD ORDERABL ES Final Result Performing Organization Address [facility] [place] [address] * (ABNORMAL) Comprehensive metabolic panel (05/23/2024 11:53 AM CAUSTIC PUMP OPERATOR) [facility] Sodium 143 135 - 145 mmol/L Potassium, pl 3.6 3.3 - 4.9 mmol/L [facility] Chloride 101 97 - 110 mmol/L [facility] CO2 31 22 - 32 mmol/L [facility] Anion gap 11 2 - 15 mmol/L [facility] BUN 15 6 - 25 mg/dL [facility] Creatinine 1.05 0.60 - 1.10 mg/dL [facility] Glucose 100 70 - 199 mg/dL [facility] Comment: Interpretive Data Fasting glucose >/= 126 [...] 2022. Calcium 9.6 8.5 - 10.3 mg/dL [facility] Bilirubin, total 0.6 0.1 - 1.2 mg/dL [facility] Protein, pl 6.9 6.5 - 8.5 g/dL [facility] Albumin 4.0 3.5 - 5.0 g/dL [facility] Alk phos 167(H) 40 - 130 Units/L [facility] ALT 34 7 - 45 Units/L [facility] AST 26 10 - 45 Units/L [facility] Blood 05/23/2024 11:5 3 AM CAUSTIC PUMP OPERATOR 05/23/2024 12:14 PM CAUSTIC PUMP OPERATOR Elizabeth Marsh MD LAB BLOOD ORDERABL ES Final Result [facility] Department [place] [address] * eGFR (04/27/2024 10:53 AM CAUSTIC PUMP OPERATOR) eGFR 76 >=60 mL/min/1. 73 m2 Comment: [...] reviewed 2021. Blood 04/27/2024 10:5 3 AM CAUSTIC PUMP OPERATOR 04/27/2024 10:59 AM CAUSTIC PUMP OPERATOR us Jerome Boss MD PhD LAB BLOOD ORDERABL ES Final Result [facility] [place] [address] * (ABNORMAL) Differential, auto (04/27/2024 10:53 AM CAUSTIC PUMP OPERATOR) Neutrophil abs 7.5(H) 1.5 - 6.5 K/cumm Comment:Testing performed by : [facility], [address] [place] [address] Lymphocyte abs 0.5(L) 0.8 - 3.3 K/cumm [facility] Comment:Testing performed by : [facility], [address] [place] [address] Monocyte abs 0.5 0.2 - 0.8 K/cumm [facility] Comment:Testing performed by : [facility], [address] [place] [address] Eosinophil abs 0.0 0.0 - 0.5 K/cumm [facility] Comment:Testing performed by : [facility], [address] [place] [address] Basophil abs 0.0 0.0 - 0.1 K/cumm [facility] Comment:Testing performed by : [facility], [address] [place] [phone] Neutrophil pct 88.0 % [facility] Comment: Interpretive Data Percent cell count reference ranges are not reported, since discordance with absolute values may lead to misinterpretation of CBC data. Current Interpretive Data was last revised on 2017. Testing performed by: [facility], [address] [place] [phone] Lymphocyte pct 5.7 % [facility] Comment: Interpretive Data Percent cell count reference ranges are not reported, since discordance with absolute values may lead to misinterpretation of CBC data. Current Interpretive Data was last revised on 2017. Testing performed by: [facility], [address] [place] [phone] Monocyte pct 6.2 % [facility] Comment: Interpretive Data Percent cell count reference ranges are not reported, since discordance with absolute values may lead to misinterpretation of CBC data. Current Interpretive Data was last revised on 2017. Testing performed by: [facility], [address] [place] [phone] Eosinophil pct 0.0 % [facility] Comment: Interpretive Data Percent cell count reference ranges are not reported, since discordance with absolute values may lead to misinterpretation of CBC data. Current Interpretive Data was last revised on 2017. Testing performed by: [facility], [address] [place] [phone] Basophil pct 0.1 % [facility] Comment: Interpretive Data Percent cell count reference ranges are not reported, since discordance with absolute values may lead to misinterpretation of CBC data. Current Interpretive Data was last revised on 2017. Testing performed by: [facility], [address] [place] [phone] Blood 04/27/2024 10:5 3 AM CAUSTIC PUMP OPERATOR 04/27/2024 10:56 AM CAUSTIC PUMP OPERATOR Jerome Boss MD PhD LAB BLOOD ORDERABL ES Final Result Performing Organization Address [facility] Co de Phone Number [facility] [place] [address] * Thyroid Function [place] (04/27/2024 10:53 AM CAUSTIC PUMP OPERATOR) Pathologist [facility] TSH 1.19 0.30 - 4.20 mcIUnit/mL Blood 04/27/2024 10:5 3 AM CAUSTIC PUMP OPERATOR 04/27/2024 10:59 AM CAUSTIC PUMP OPERATOR Jerome Boss MD PhD LAB BLOOD ORDERABL ES Final Result Performing Organization Address [facility] Co de Phone Number [facility] [place] [address] * (ABNORMAL) Iron profile w/ IBC (04/27/2024 10:53 AM CAUSTIC PUMP OPERATOR) [facility] Iron 61 35 - 145 mcg/dL TIBC 349 250 - 400 mcg/dL [facility] Transferrin saturation 17(L) 20 - 50 % [facility] Blood 04/27/2024 10:5 3 AM CAUSTIC PUMP OPERATOR 04/27/2024 10:59 AM CAUSTIC PUMP OPERATOR Result [facility] Jerome Boss MD PhD LAB BLOOD ORDERABL ES Final Result Performing Organization Address [facility] Co de Phone Number [facility] [place] [address] * (ABNORMAL) CBC with auto differential (04/27/2024 10:53 AM CAUSTIC PUMP OPERATOR) [facility] WBC 8.5 3.8 - 9.9 K/cumm Comment:Testing performed by : [facility], [address] [place] [phone] Hgb 15.4 11.9 - 15.5 g/dL [facility] Comment:Testing performed by : [facility], [address] [place] [phone] Hct 47.5(H) 35.6 - 45.5 % [facility] Comment:Testing performed by : [facility], [address] [place], [place] [phone] Plt 270 150 - 400 K/cumm [facility] Comment:Testing performed by : [facility], [address] [place] [address] MPV 7.1 6.8 - 10.4 fL [facility] Comment:Testing performed by : [facility], [address] [place], [place] [phone] RBC 5.10 3.90 - 5.20 M/cumm [facility] Comment:Testing performed by : [facility], [address] [place], [place] [phone] MCV 93.2 81.3 - 96.4 fL [facility] Comment:Testing performed by : [facility], [address] [place] [address] MCH 30.2 27.1 - 33.3 pg [facility] Comment:Testing performed by : [facility], [address] [place] [address] MCHC 32.4 32.3 - 35.7 g/dL [facility] Comment:Testing performed by : [facility], [address] [place] [address] RDW CV 13.7 11.1 - 14.9 % [facility] Comment:Testing performed by : [facility], [address] [place] [address] NRBC abs 0.00 0.00 - 0.01 K/cumm [facility] Comment:Testing performed by : [facility], [address] [place] [address] Blood 04/27/2024 10:5 3 AM CAUSTIC PUMP OPERATOR 04/27/2024 10:56 AM CAUSTIC PUMP OPERATOR us Jerome Boss MD PhD LAB BLOOD ORDERABL ES Final Result [facility] [place] [address] * Ferritin (04/27/2024 10:53 AM CAUSTIC PUMP OPERATOR) Ferritin 42 13 - 150 ng/mL Blood 04/27/2024 10:5 3 AM CAUSTIC PUMP OPERATOR 04/27/2024 10:59 AM CAUSTIC PUMP OPERATOR Jerome Boss MD PhD LAB BLOOD ORDERABL ES Final Result [facility] [place] [address] * (ABNORMAL) Comprehensive metabolic panel (04/27/2024 10:53 AM CAUSTIC PUMP OPERATOR) Pathologist [facility] Sodium 141 135 - 145 mmol/L Potassium, pl 3.5 3.3 - 4.9 mmol/L [facility] Chloride 102 97 - 110 mmol/L [facility] CO2 32 22 - 32 mmol/L [facility] Anion gap 7 2 - 15 mmol/L [facility] BUN 18 6 - 25 mg/dL [facility] Creatinine 0.89 0.60 - 1.10 mg/dL [facility] Glucose 82 70 - 199 mg/dL [facility] Comment: Interpretive Data Fasting glucose >/= 126 [...] 2022. Calcium 9.8 8.5 - 10.3 mg/dL [facility] Bilirubin, total 0.3 0.1 - 1.2 mg/dL [facility] Protein, pl 7.0 6.5 - 8.5 g/dL [facility] Albumin 4.5 3.5 - 5.0 g/dL [facility] Alk phos 175(H) 40 - 130 Units/L [facility] ALT 20 7 - 45 Units/L [facility] AST 16 10 - 45 Units/L [facility] Blood 04/27/2024 10:5 3 AM CAUSTIC PUMP OPERATOR 04/27/2024 10:59 AM CAUSTIC PUMP OPERATOR us Jerome Boss MD PhD LAB BLOOD ORDERABL ES Final Result Performing Organization Address City/[facility]/ZIP Co de Phone Number [facility] [place] [address] * Hepatitis panel, acute Blood (01/13/2024 10:20 PM CDT) Hep A IgM Nonreactive Nonreactive Hep B core IgM Nonreactive Nonreactive [facility] Hep C Ab Nonreactive Nonreactive [facility] Comment:Antibodies to HCV no t detected. Does NOT exclude the possibility of recent exposure to HCV. Current interpretive data was last revised on 22 HepBsAg Nonreactive Nonreactive [facility] Blood 01/13/2024 10:2 0 PM CDT 01/13/2024 11:13 PM CDT us Jasmin Gray MD LAB MICROBIOLOGY - G ENERAL ORDERABLES Final Result Performing Organization Address [facility] Co de Phone Number [facility] [place] [address] * COLONOSCOPY (01/14/2023 3:40 PM CDT) Anatomical Region Laterality Modality Other Narrative Procedure Note Ulises Ramirez MD - 01/14/2023 3:40 PM CDT [facility] Patient Name: Marilu Reed Procedure Date: 01/14/2023 3:40 PM Date of : 1965 Admit Type: Outpatient Age: 57 Gender: Female Attending MD: Ulises Ramirez M.D. Room: [facility] ENDOSCOPY ROOM 9 Note Status: Finalized Procedure: [...] The scope was passed under direct vision.The [id number] endoscope was introduced through the anus and advanced to the terminal ileum. The colonoscopy was performed without difficulty. The patient tolerated the procedure well. The qualityof the bowel preparation was evaluated using the BBPS ([place] Bowel Preparation Scale) with scores of:Right Colon [...] the entire procedure. Electronically signed by Ulises Ramriez MD Ulises Ramirez M.D. 01/14/2023 4:03:54 PM . Number of Addenda: 0 Note Initiated On: 01/14/2023 3:40 PM Recognized by the [employer] for promoting quality in endoscopy Ulises Ramirez MD ENDOSCOPY PROCEDURES Final Result from Last 3 Months or Most Recently Relevant to Health Maintenance Insurance [facility]ESS [facility] CHOICE PLUS [facility] [employer] [facility] CHOICE PLUS MEDICARE [facility] Address: [address] [address] [place] [address] [facility] [employer] Advance Directives For more information, please contact: [phone] * LIMITED - No CPR (Latest Code [...] 9:20 PM 09/26/2023 2:19 PM Care Teams Process Control Programmer Relationship Specialty Start Date End Date Ludin Salazar MD [address] [place] [address] PCP - General Family Medicine 02/28/20 Jerome Boss MD PhD [address] [address] Medical Oncologist/Custom Seamstress Medical Oncology 12/20/20 Ney Martin MD [address] [address] Consulting Physician Neurosurgery 08/20/22 Geraldine Thompson NP [address] [place] [address] [place] [address] Nurse Practitioner Family Practice 02/19/24
--- OUTSIDE RECORDS SUMMARY | 2024-07-26 13:31 | XMS_ITS | Encounter Summary ---
Author Organization [facility] Address [address] [place] [address] Phone Care Team Providers Care Cell Efficiency Supervisor Name Role Phone Favian Hinds MD Unavailable [phone] Ludin Salazar MD Primary Care Prov ider Jerome Boss MD PhD Unavailable + Ney Martin MD Unavailable [phone] Geraldine Thopmson NP Unavailable [phone] Encounter Details Date Type Department Care Team (Latest Contact Info) Description 07/26/2021 Orders Only [facility] Scanning, Provider [...] on file Legal Sex Female 4:54 AM SHIPPING CLERK CRATING Gender Identity Female 06/11/2020 9:12 AM SHIPPING CLERK CRATING Sexual Orientation Straight 06/11/2020 9: 12 AM SHIPPING CLERK CRATING 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 Not on file Not on file documented as of this encounter Plan of Treatment Not on file documented as of this encounter Procedures Procedure Name Priority Date/Time Associated Diagnosis Comments SCAN - PATHOLOGY 07/26/2021 documented in this encounter Results * SCAN - PATHOLOGY (07/26/2021) us Provider Scanning Final Result documented in this encounter Visit Diagnoses Not on filedocumented in this encounter Additional Health Concerns Infection Onset Date Last Indicated Resolved Time COVID: Suspected 05/11/2022 05/11/2022 05/11/2022 1:13 PM SHIPPING CLERK CRATING COVID: Suspected 05/03/2023 05/03/2023 05/03/2023 4:43 AM SHIPPING CLERK CRATING Influenza, adult 05/03/2023 05/03/2023 05/10/2023 3:05 AM SHIPPING CLERK CRATING COVID: Suspected 10/14/2023 10/14/2023 10/14/2023 6:43 PM CDT documented as of this encounter Care Teams Cell Efficiency Supervisor Relationship Specialty Start Date End Date Ludin Salazar MD [address] [place] [address] PCP - General Family Medicine 02/28/20 Favian Hinds MD Referring Physician Neurosurgery 01/27/20 08/19/22 Jerome Boss MD PhD [address] [facility] [address] [place] [address] Medical Oncologist/Chemical Lab Technician Medical Oncology 12/20/20 Ney Martin MD [address] [facility] [address] [place], [place] [id number] Consulting Physician Neurosurgery 08/20/22 [place] [address] Nurse Practitioner Family Practice 02/19/24 documented as of this encounter
--- OUTSIDE RECORDS SUMMARY | 2024-07-26 13:32 | XMS_ITS | Encounter Summary ---
Author Organization [facility] Healthcare Address [address] [place] [address] Care Team Providers Care Propeller Mechanic Name Role Phone Favian Hinds MD Unavailable Ludin Salazar MD Primary Care Prov ider Jerome Boss MD PhD Unavailable + Ney Martin MD Unavailable [phone] Geraldine Thompson NP Unavailable Encounter Details Date Type Department Care Team (Late st Contact Info) Description 10/29/2021 Telephone [facility] Radiology [address] [place] [address] Zoe Price NP [address] [address] Social History Tobacco Use Types Packs/Day Years Used Date Smoking Tobacco: Former Cigarettes 0.5 5 1 999 - 2004 Smokeless Tobacco: Never Alcohol Use Standard Drinks/Week Comments Not Currently 1 (1 standard drink = 0.6 oz pur e alcohol) rarely AUDIT-C Answer Date Recorded Q1: How often do you have a drink containing alc ohol? 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 Not on file Not on file documented as of this encounter Functional Status documented as of this encounter Plan of Treatment Not on file documented as of this encounter Visit Diagnoses Not on filedocumented in this encounter Additional Health Concerns Infection Onset Date Last Indicated Resolved Time COVID: Suspected 05/11/2022 05/11/2022 05/11/2022 1:13 PM RADIO REPAIRER COVID: Suspected 05/03/2023 05/03/2023 05/03/2023 4:43 AM RADIO REPAIRER Influenza, adult 05/03/2023 05/03/2023 05/10/2023 3:05 AM RADIO REPAIRER COVID: Suspected 10/14/2023 10/14/2023 10/14/2023 6:43 PM CDT documented as of this encounter Care Teams Propeller Mechanic Relationship Specialty Start Date End Date Ludin Salazar MD [address] [place] [address] PCP - General Family Medicine 02/28/20 Favian Hinds MD Referring Physician Neurosurgery 01/27/20 08/19/22 Jerome Boss MD PhD [address] [facility] [address] [place] [address] Medical Oncologist/Ranch Helper Medical Oncology 12/20/20 Ney Martin MD [address] [facility] [address] [place] [address] Consulting Physician Neurosurgery 08/20/22 Geraldine Thompson NP [address] [place] [address] Nurse Practitioner Family Practice 02/19/24 documented as of this encounter
--- OUTSIDE RECORDS SUMMARY | 2024-07-26 13:32 | XMS_ITS | Clinical Summary ---
Author Organization [facility] Address [address] [place] [address] Phone Care Team Providers Care Distresser Name Role Phone Provider, None Primary Care Provider Unavailabl e Allergies Active Allergy Reactions Criticality Noted Date Comments Codeine Palpitations 09/22/2021 Medications docusate sodium (COLACE) 100 MG Capsule Take 100 mg by mouth 2 times daily. Active levothyroxine (SYNTHROID) 88 MCG Tablet Take 88 mcg by mouth daily. Active apixaban (Eliquis) 5 MG Tablet Take 5 mg by mouth 2 times daily. Active predniSONE (DELTASONE) 5 MG Tablet Take 7.5 mg by mouth daily. Active prochlorperazin e (COMPAZINE) 10 MG Tablet Take 10 mg by mouth every 6 hours as needed. Active LevETIRAcetam (Keppra) 1000 MG Tablet Take 1,500 mg by mouth in the morning and at bedtime. Active traZODone (DESYREL) 50 MG Tablet Take 50 mg by mouth nightly. Active pantoprazole (PROTONIX) 20 MG Tablet Delayed Response Take 40 mg by mouth daily. Active Social History Tobacco Use Types Packs/Day Years Used Date Smoking Tobacco: Never Alcohol Use Standard Drinks/Week Comments Not Currently 0 (1 standard drink = 0.6 oz pur e alcohol) occasional Comments No Sex and Gender Information Value Date Recorded Sex Assigned at Not on file Legal Sex Female 9:47 AM CDT Gender Identity Not on file Sexual Orientation Not on file Last Filed Vital Signs Vital Sign Reading Time Taken Comments Blood Pressure 132/81 09/22/2021 3:47 PM CDT Pulse 81 09/22/2021 3:47 PM CDT Temperature 36.4 C (97.6 F) 09/22/2021 3:47 PM CDT Respiratory Rate 20 09/22/2021 3:47 PM CDT Oxygen Saturation 97% 09/22/2021 3:47 PM CDT Inhaled Oxygen Concentration - - Weight 81.2 kg (179 lb) 09/22/2021 9:48 AM CDT Height 177.8 cm (5' 10 ) 09/22/2021 9:48 AM CDT Body Mass Index 25.68 09/22/2021 9:48 AM CDT Plan of Treatment Health Maintenance Due Date Last Done Comments Hepatitis C Virus (HCV) Screening 1966 Mammogram 1966 TdaP Immunization 1966 Hepatitis B Immunization (1 of 3 - 19+ 3-dose series) 1985 Pap Smear 1987 Cervical Cancer Screening (CCS) 1996 HPV/Cotest 1996 Colonoscopy 2011 Colorectal Cancer Screening 2011 Cologuard 2016 Immunochemical Fecal Occult Blood 2016 Pneumococcal Immunization (5 0+ years) (1 of 1 - PCV) 2016 Zoster Immunization (1 of 2) 2016 Influenza Immunization (#1) 2024 1005/2020, 02/24/2020 SARS-COV-2 Immunization ( - 2023- season) 2024 Respiratory Syncytial Virus (RSV) Immunization (Adult) (1 - 1-dose 75+ series) 2041 Meningococcal Immunization (ACWY) Aged Out No longer eligible b ased on patient's age to complete this topic Pneumococcal Immunization Combined Aged Out No longer eligible b ased on patient's age to complete this topic Rotavirus Immunization Aged Out No lo nger eligible based on patient's age to complete this topic Care Teams Distresser Relationship Specialty Start Date End Date Provider, None [place] PCP - General 09/22/21
--- OUTSIDE RECORDS SUMMARY | 2024-07-26 13:32 | XMS_ITS | Encounter Summary ---
Author Organization [facility] Address [address] [place] [address] Phone Care Team Providers Care Chef Under Name Role Phone Ludin Salazar MD Primary Care Prov ider Jerome Boss MD PhD Unavailable + Ney Martin MD Unavailable [phone] Geraldine Thompson NP Unavailable [phone] Encounter Details Date Type Department Care Team (Latest Contact Info) Description 11/18/2023 Orders Only [facility] Scanning, Provider Social History Tobacco Use Types Packs/Day Years Used Date Smoking Tobacco: Former Cigarettes 0.5 5 1 999 - 2004 Passive Smoke Exposure: Past Smokeless Tobacco: Never Alcohol Use Standard Drinks/Week Comments Not Currently 1 (1 standard drink = 0.6 oz pur e alcohol) rarely [facility] Utilities Answer Date Recorded In the past 12 months has [employer], gas, oil, or water [employer] threatened to shut off services in your home? No 10/15/2023 Social Connection and Isolat ion Panel [NHANES] Answer Date Recorded In a typical week, how many times do you talk on the phone with family, friends, or neighbors? More than three times a week 10/15/2023 How often do you get togethe r with friends or relatives? More than three times a week 10/15/2023 How often do you attend chur or uatsdin services? More than 4 times per year 10/15/2023 Do you belong to any clubs o r organizations such as yarsanism groups, unions, fraternal or athletic groups, or school groups? No 10/15/2023 How often do you attend meet ings of the clubs or organizations you belong to? Never 10/15/2023 Are you , , di vorced, , never , or living with a partner? 10/15/2023 AUDIT-C Answer Date Recorded Q1: How often [...] care, and heating? Not hard at all 10/15/2023 PHQ-2 Answer Date Recorded PHQ-2 Total Score 0 10/15/2023 Hunger Vital Sign Answer Date Recorded Within the past 12 months, y ou worried that your food would run out before you got the money to buy more. Never true 10/15/19 24 Within the past 12 months, t he food you bought just didn't last and you didn't have money to get more. Never true 10/15/2023 PRAPARE - Transportation Answer Date Re corded In the past 12 months, has l ack of transportation kept you from medical appointments or from getting medications? No 10/2023 In the past 12 months, has l ack of transportation kept you from meetings, work, or from getting things needed for daily living? No 10/15/2023 Housing Stability Vital Sign Answer Gualberto e [...] place to sleep or slept in a skilled nursing (including now)? No 09/26/2023 Housing Stability Vital Sign Answer Gualberto e Recorded In the last 12 months, was t here a time when you were not able to pay the mortgage or rent on time? No 10/15/2023 In the past 12 months, how m any times have you moved where you were living? 1 10/15/2023 At any time in the past 12 m [facility], were you homeless or living in a skilled nursing (including now)? No 10/15/2023 Personal Safety Answer Date Recorded Have you ever been in or are you currently in a harmful physical or emotional relationship or is someone making you feel afraid or unsafe? 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 Not on file Not on file documented as of this encounter Plan of Treatment Not on file documented as of this encounter Procedures Procedure Name Priority Date/Time Associated Diagnosis Comments SCAN - PATHOLOGY 11/18/2023 documented in this encounter Results * SCAN - PATHOLOGY (11/18/2023) us Provider Scanning Final Result documented in this encounter Visit Diagnoses Not on filedocumented in this encounter Care Teams Chef Under Relationship Specialty Start Date End Date Ludin Salazar MD [address] [place] [address] PCP - General Family Medicine 02/28/20 Jerome Boss MD PhD [address] [address] Medical Oncologist/Employee Development Director Medical Oncology 12/20/20 Ney Martin MD [address] [facility] [address] [place] [address] Consulting Physician Neurosurgery 08/20/22 Geraldine Thompson NP [address] [place] [address] Nurse Practitioner Family Practice 02/19/24 documented as of this encounter
--- OUTSIDE RECORDS SUMMARY | 2024-07-26 13:32 | XMS_ITS | Encounter Summary ---
Author Organization [facility] Healthcare Address [address] [place] [address] Care Team Providers Care Systems Management Consultant Name Role Phone Favian Hinds MD Unavailable Ludin Salazar MD Primary Care Prov ider Gen Mendez MD Unavailable [phone] Jerome Boss MD PhD Unavailable + Ney Martin MD Unavailable Geraldine Thompson NP Unavailable [phone] Encounter Details Date Type Department Care Team (Late st Contact Info) Description 04/26/2020 Telephone [facility] Radiology [address] [place] [address] Favian Hinds MD [address] [place] [address] DR DEPT NEUROSURGERY, [address] [address] Social History Tobacco Use Types Packs/Day Years Used Date Smoking Tobacco: Former Smokeless Tobacco: Never Alcohol Use Standard Drinks/Week Comments Yes 1 (1 standard drink = 0.6 oz pur e alcohol) rarely PHQ-2 Answer Date Recorded PHQ-2 Total Score (If total score is 3 or more points, staff should administer the PHQ-9) 0 04/09/2020 Comments No Sex and Gender Information Value Date Recorded Sex Assigned at Not on file Legal Sex Female 4:54 AM DELI MANAGER Gender Identity Female 06/11/2020 9:12 AM DELI MANAGER Sexual Orientation Straight 06/11/2020 9: 12 AM DELI MANAGER documented as of this encounter Plan of Treatment Not on file documented as of this encounter Visit Diagnoses Not on filedocumented in this encounter Additional Health Concerns Infection Onset Date Last Indicated Resolved Time COVID: Suspected 05/11/2022 05/11/2022 05/11/2022 1:13 PM DELI MANAGER COVID: Suspected 05/03/2023 05/03/2023 05/03/2023 4:43 AM DELI MANAGER Influenza, adult 05/03/2023 05/03/2023 05/10/2023 3:05 AM DELI MANAGER COVID: Suspected 10/14/2023 10/14/2023 10/14/2023 6:43 PM CDT documented as of this encounter Care Teams Systems Management Consultant Relationship Specialty Start Date End Date Ludin Salazar MD [address] [place] [address] PCP - General Family Medicine 02/28/20 Favian Hinds MD Referring Physician Neurosurgery 01/27/20 08/19/22 Gen Mendez MD [address] [place] [address] Medical Oncologist/Hotel Housekeeper Medical Oncology 06/20/20 12/19/20 Jerome Boss MD PhD [address] [address] Medical Oncologist/Hotel Housekeeper Medical Oncology 12/20/20 Ney Matrin MD [address] [address] Consulting Physician Neurosurgery 08/20/22 Geraldine Thompson NP [address] [place] [address] [place] [address] Nurse Practitioner Family Practice 02/19/24 documented as of this encounter
== END 2024-07-26 12:00 | disposition home or self-care (01) ==
LOC: HOME HLTH 12:02
PROVIDERS: PCP Family Medicine Adolescent Medicine; Visit Provider Family Medicine Adolescent Medicine
DX: N39.0 Urinary tract infection, site not specified (principal); C79.9 Secondary malignant neoplasm of unspecified site; G08 Intracranial and intraspinal phlebitis and thrombophlebitis; C43.9 Malignant melanoma of skin, unspecified; S32.020D Wedge compression fracture of second lumbar vertebra, subsequent encounter for fracture with routine healing; X58.XXXD Exposure to other specified factors, subsequent encounter
CPT/HCPCS: 81001; 87086; 87181